=== PATIENT | female | born 1990 | race Two or more races ===

== ENCOUNTER 2020-03-13 08:46 | Outpatient (REF) | payer OTHER, SELFPAY ==
[2020-03-13 13:18] LABS: Syphilis Screen Nonreactive (Nonreactive)
[2020-03-14 04:36] LABS: HBc Num1 0.09 S/CO (0.00-0.79); HIV AB/AG Nonreactive (Nonreactive); HIV Num 1 0.06 S/CO (0.00-0.99); Hepatitis B Core Antibody Nonreactive (Nonreactive)
[2020-03-14 04:48] LABS: ~HepC Num1 0.19 S/CO (0.00-0.79); ~Hepatitis C Antibody Nonreactive (Nonreactive)
[2020-03-14 09:42] LABS: BV Int Neg Control Negative (Negative); BV Int Pos Control Positive (Positive)
== END 2020-03-13 08:47 | disposition home or self-care (01) ==
LOC: HO.LAB 08:46
PROVIDERS: PCP Internal Medicine; Visit Provider Advanced Practice Midwife
DX: N89.8 Other specified noninflammatory disorders of vagina (principal); Z88.0 Allergy status to penicillin; Z91.013 Allergy to seafood; Z91.018 Allergy to other foods; Z86.19 Personal history of other infectious and parasitic diseases; Z20.2 Contact with and (suspected) exposure to infections with a predominantly sexual mode of transmission
CPT/HCPCS: 86704; 86780; 86803; 87389; 87480; 87510; 87660; 99213

== ENCOUNTER → 2020-05-27 11:19 | Outpatient (BNVA) | payer OTHER, SELFPAY | PROVIDERS: PCP Internal Medicine; Visit Provider Physician Assistant | DX: R11.2 Nausea with vomiting, unspecified (principal); K21.9 Gastro-esophageal reflux disease without esophagitis | CPT/HCPCS: Q3014 ==

== ENCOUNTER 2020-05-29 10:22 | Outpatient (REF) | payer OTHER, SELFPAY ==
[2020-05-29 11:04] LABS: MANUAL DIFF FLAG NO
[2020-05-29 11:12] LABS: Basophils Percent Auto 0.4 % (0-2); Eosinophils Absolute Auto 0.3 X10*3/uL (0.0-0.4); Eosinophils Percent Auto 4.6 % (0-4); Hematocrit 43.6 % (37-47); Hemoglobin 13.9 g/dl (12.0-16.0); Imm Gran Abs Auto 0.02 X10*3/uL (0.00-0.03); Imm Gran Pct Auto 0.3 % (0.0-0.4); Lymphocytes Absolute Auto 1.7 X10*3/uL (1.2-4.9); Mean Corpuscular HGB Conc 31.9 g/dl (31.0-35.0); Mean Corpuscular Hemoglobin 27.9 pg (27.0-33.0); Mean Corpuscular Volume 87.4 fL (80-98); Mean Platelet Volume 10.4 fL (9.4-12.3); Monocytes Absolute Auto 0.6 X10*3/uL (0.1-1.2); Monocytes Percent Auto 8.7 % (2-11); Neutrophils Absolute Auto 4.6 X10*3/uL (2.0-8.3); Platelet Count 363 X10*3/uL (160-400); Red Blood Count 4.99 X10*6/uL (4.20-5.50); Red Cell Distribution Width 11.9 % (11.0-16.0); White Blood Count 7.3 X10*3/uL (4.8-10.8)
[2020-05-29 11:50] LABS: HCG Quantitative < 2 mIU/mL
[2020-05-29 12:03] LABS: Alanine Aminotransferase 25 U/L (0-31); Albumin Level 4.6 g/dL (3.5-5.0); Alkaline Phosphatase 68 U/L (39-117); Anion Gap 16 (12-20); Aspartate Amino Transferase 18 U/L (5-31); Bilirubin Total 1.8 mg/dL (0.0-1.0); Blood Urea Nitrogen 10 mg/dL (9-16); Calcium 9.2 mg/dL (8.4-10.2); Carbon Dioxide 21 mmol/L (22-29); Chloride 106 mmol/L (96-108); Estimated Glomerular Filt Rate > 60; Glucose Random 91 mg/dL (60-115); Sodium 139 mmol/L (135-145); Total Protein 7.3 g/dL (6.5-8.0)
[2020-05-29 12:24] LABS: Erythrocyte Sedimentation Rate 4 MM/HR (0-20)
[2020-05-30 13:41] LABS: CRP High Sensitivity 1.4 mg/L
[2020-05-31 21:52] LABS: Transglutaminase IgA 1 U/mL
[2020-06-04 18:12] LABS: Endomysial IgA Antibody Negative (Negative)
== END 2020-05-29 10:23 | disposition home or self-care (01) ==
LOC: HO.LAB 10:22
PROVIDERS: PCP Internal Medicine; Visit Provider Physician Assistant
DX: R11.2 Nausea with vomiting, unspecified (principal); R10.11 Right upper quadrant pain; R19.7 Diarrhea, unspecified
CPT/HCPCS: 36415; 80053; 83516; 84702; 85025; 85652; 86141; 86255; 86256

== ENCOUNTER → 2020-11-29 07:58 | Outpatient (REF) | payer OTHER, SELFPAY ==
--- NOTE | ~2020-11-29 | NM_ITS ---
EXAMINATION: NM RADIONUCLIDE SOLID FOOD GASTRIC EMPTYING 4-HOUR STUDY CLINICAL INFORMATION: Nausea and vomiting COMPARISON: None TECHNIQUE: A standard meal consisting of 4 oz of Egg Beaters brand tagged with 1.0 and microcuries Tc-99m Sulfur Colloid, 8 oz water and 2 slices of toast with jelly was administered orally to the patient. Images were obtained using a dual head gamma camera in the anterior and posterior projections over of the stomach immediately post ingestion and at hourly intervals up to 4 hours post ingestion. The anterior and posterior counts at each time interval were averaged using the geometric mean and expressed as percentage of the immediate post ingestion counts. FINDINGS: 1 hour 63% (normal 37%-90%) 2 hours 24% (normal 30%-60%) 3 hours 2% 4 hours 0% (normal 0%-10%) NM/NM gastric emptying study IMPRESSION: Normal 4-hour solid food gastric emptying study.
== END ==
LOC: HO.NUCMED 07:58
PROVIDERS: PCP Internal Medicine; Visit Provider Physician Assistant
DX: R11.2 Nausea with vomiting, unspecified (principal); K21.9 Gastro-esophageal reflux disease without esophagitis
CPT/HCPCS: 78264; A9541

== ENCOUNTER 2021-09-02 10:16 | Outpatient (REF) | payer OTHER, SELFPAY ==
--- NOTE | ~2021-09-02 | XR_ITS ---
EXAMINATION: XR ANKLE, RIGHT CLINICAL INFORMATION: S93.401A - Sprain of unspecified ligament of right ankle COMPARISON: None TECHNIQUE: AP, lateral, and mortise views of the right ankle. FINDINGS: The malleoli appear intact and the ankle mortise is symmetric. There is no visible capsular effusion. No fracture or dislocation or destructive process. There is incidental corticated ossicle adjacent to medial malleolus measuring approximately 0.6 x 0.9 cm. Small corticated ossicle suggested lateral side adjacent to the talar neck under 0.3 cm. The subtalar joint is unremarkable. There is small corticated incidental os trigonum posteriorly. The retrocalcaneal recess is preserved. There is a small posterior calcaneal spur. XR/XR ankle RT min 3V IMPRESSION: 1. No fracture, dislocation, or arthropathy. 2. Borderline posterior calcaneal spur.
== END 2021-09-02 10:17 | disposition home or self-care (01) ==
LOC: HO.HMGCX 10:16
PROVIDERS: Visit Provider Internal Medicine
DX: S93.401A Sprain of unspecified ligament of right ankle, initial encounter (principal)
CPT/HCPCS: 73610

== ENCOUNTER 2021-10-03 09:22 | Outpatient (REF) | payer OTHER, SELFPAY ==
[2021-10-03 17:04] LABS: CT PCR NOT DETECTED (Not Detect.); NG PCR NOT DETECTED (Not Detect.)
[2021-10-13 09:02] LABS: HPV mRNA E6/E7 rflx Detected (Not Detected)
[2021-10-13 09:05] LABS: HPV 16 RNA NOT DETECTED (NOT DETECTED)
== END 2021-10-03 09:23 | disposition home or self-care (01) ==
LOC: HO.LAB 09:22
PROVIDERS: PCP Internal Medicine; Visit Provider Advanced Practice Midwife
DX: Z01.419 Encounter for gynecological examination (general) (routine) without abnormal findings (principal); R82.90 Unspecified abnormal findings in urine; Z11.3 Encounter for screening for infections with a predominantly sexual mode of transmission; Z11.51 Encounter for screening for human papillomavirus (HPV); Z88.1 Allergy status to other antibiotic agents; Z88.0 Allergy status to penicillin; Z91.013 Allergy to seafood; Z91.018 Allergy to other foods
CPT/HCPCS: 87491; 87591; 87624; 87625; 88142

== ENCOUNTER 2021-12-08 08:11 | Outpatient (REF) | payer OTHER, SELFPAY | END 2021-12-08 08:12 | disposition home or self-care (01) | LOC: HO.LAB 08:11 | PROVIDERS: PCP Internal Medicine; Visit Provider Obstetrics & Gynecology | DX: A63.0 Anogenital (venereal) warts (principal); B97.7 Papillomavirus as the cause of diseases classified elsewhere | CPT/HCPCS: 57454; 88305 ==

== ENCOUNTER → 2021-12-23 08:28 | Outpatient (BNVA) | payer OTHER, SELFPAY | PROVIDERS: PCP Internal Medicine; Visit Provider Obstetrics & Gynecology | DX: B97.7 Papillomavirus as the cause of diseases classified elsewhere (principal) | CPT/HCPCS: 99212 ==

== ENCOUNTER 2022-03-05 07:37 | Outpatient (REF) | payer OTHER, SELFPAY ==
--- NOTE | ~2022-03-05 | XR_ITS ---
EXAMINATION: XR ANKLE, RIGHT CLINICAL INFORMATION: Pain COMPARISON: Right ankle x-rays September 02, 2021 TECHNIQUE: AP, lateral, and mortise views of the right ankle. FINDINGS: Visualized portions of the distal tibia and fibula demonstrate no acute fracture. Ankle mortise is maintained. Small corticated ossicles are stable. There is no focal soft tissue swelling of the ankle. No gross ankle joint effusion. XR/XR ankle RT 2V IMPRESSION: Stable radiographs of the right ankle demonstrate no fracture.
== END 2022-03-05 07:38 | disposition home or self-care (01) ==
LOC: HO.XRAY 07:37
PROVIDERS: PCP Internal Medicine; Visit Provider Internal Medicine
DX: M25.571 Pain in right ankle and joints of right foot (principal)
CPT/HCPCS: 73600

== ENCOUNTER → 2022-03-26 09:10 | Outpatient (BNVA) | payer OTHER, SELFPAY | PROVIDERS: PCP Internal Medicine; Visit Provider Internal Medicine Pulmonary Disease | DX: J45.909 Unspecified asthma, uncomplicated (principal) | CPT/HCPCS: 99212 ==

== ENCOUNTER 2022-10-06 08:57 | Outpatient (REF) | payer OTHER, SELFPAY ==
[2022-10-06 14:19] LABS: CT PCR NOT DETECTED (Not Detect.); NG PCR NOT DETECTED (Not Detect.)
[2022-10-13 10:33] LABS: HPV mRNA E6/E7 rflx Not Detected (Not Detected)
== END 2022-10-06 08:58 | disposition home or self-care (01) ==
LOC: HO.LNP 08:57
PROVIDERS: PCP Internal Medicine; Visit Provider Advanced Practice Midwife
DX: Z01.419 Encounter for gynecological examination (general) (routine) without abnormal findings (principal); Z11.51 Encounter for screening for human papillomavirus (HPV); Z20.2 Contact with and (suspected) exposure to infections with a predominantly sexual mode of transmission
CPT/HCPCS: 0353U; 87624; 88142

== ENCOUNTER 2023-01-07 10:19 | Outpatient (AMB) | payer OTHER, SELFPAY ==
[2023-01-07 10:20] VITALS: BP 126/80; PULSE 95; O2SAT 99; BMI 40.2
--- NOTE | 2023-01-07 10:20 | MHC.PC.OV ---
Vital Signs 01/07/23 10:20 Height 5 ft 1 in Weight 213 lb 0.6 oz BMI 40.2 BP 126/80 Blood Pressure Location Lt brachial Position Sitting Pulse 95 Pulse Source Pulse Oximeter Temp Source Skin Pulse Oximetry (%) 99 Oxygen Delivery Method Room Air Intake Visit Reasons: Physical Exam Intake Note: Patient is here today for a physical. Relocation Services Specialist Required: No Allergies apple [Apple] Allergy (Severe, Verified 01/07/23 10:36) SWELLING banana [BANANA] Allergy (Severe, Verified 01/07/23 10:36) SWELLING grape [GRAPE] Allergy (Severe, Verified 01/07/23 10:36) SWELLING strawberry [STRAWBERRY] Allergy (Severe, Verified 01/07/23 10:36) SWELLING amoxicillin [AMOXICILLIN] Allergy (Unknown, Verified 01/07/23 10:36) RASH Medication List - Last Reconciled 01/07/23 by RICARDA Isidro albuterol sulfate 90 mcg/actuation 1 inh inhalation QID 30 days hydroxyzine HCl 25 mg PO DAILY tacrolimus 0.03% topical BID triamcinolone acetonide 0.1% appl topical Tobacco use date assessed: 01/07/23 Dental Screening Dental Screen Date: 01/07/23 Did you have a dental visit in the last 12 months?: Yes Did you have a dental problem in the last 6 months where you did not have access to dental care?: No Was dental information given to patient?: Patient has dentist HPI Physical Exam HPI Details Patient is a 32-year-old female who presents today for physical exam. Patient of Dr. Gracia. Medical history significant for mild asthma and allergic rhinitis among others. Patient requested STI screening, gonorrhea chlamydia negative couple months ago. Denies STI exposure. Pap smear normal 09/2022 with [facility]. Up-to-date with dental and eye exams. Patient denies shortness of breath or chest pain. Up-to-date with tetanus vaccine. [facility] Medical History Allergic rhinitis Eczema Female infertility Hx of eczema Infertility counseling Mild asthma Nausea and vomiting Physical exam Right ankle sprain Vomiting and diarrhea Surgical History Hx of tonsillectomy Family History Father CVD (cardiovascular disease) Mother Hypertension Breast cyst Cervical cancer Paternal Aunt Cervical cancer Social History Household Members Other:: lives with partner, her child and a step daughter Alcohol intake: never Patient Tobacco Use Status: Former Tobacco user Current occupational status: employed Current occupation: [employer] Sexual orientation: Lesbian/Boggs/Homosexual Gender identity: Female Cognitive needs: No Hearing needs: No Vision needs: No Female Reproductive History Menstrual Age of Menarche: 13 Questionnaire PHQ-9 Over the last 2 weeks, how often have you been bothered by any of the following problems? 1. Little interest or pleasure in doing things: not at all 2. Feeling down, depressed, or hopeless: not at all 3. Trouble falling or staying asleep, or sleeping too much: not at all 4. Feeling tired or having little energy: not at all 5. Poor appetite or overeating: not at all 6. Feeling bad about yourself - or that you are a failure or have let yourself or your family down: not at all 7. Trouble concentrating on things, such as reading the newspaper or watching television: not at all 8. Moving or speaking so slowly that other people could have noticed. Or the opposite - being so fidgety or restless that you have been moving around a lot more than usual: not at all 9. Thoughts that you would be better off or of hurting yourself in some way: not at all Total score: 0 Depression Screening Interpretation: Negative 61286 - PHQ-9 Billing: Yes Source: Developed by Drs. Abdirashid Lemos, Anais Maya, Solomon Mcneal and colleagues, with an educational michelle from [employer]. Thrive Questionnaire Date Thrive assessed: 01/07/23 I am a: Patient What is your living situation today?: I have a steady place to live Within the past 12 months, did the food you bought not last and you didn't have the money to get more?: Never true Within the past 12 months, did you worry whether your food would run out before you got money to buy more?: Never true Do you have trouble paying for medicines?: No Do you have trouble getting transportation to medical appointments?: No Do you have trouble paying your heating and electricity bill?: No Do you have trouble taking care of your child, family member or friend?: No Do you have trouble with day-to-day activities such as bathing, preparing meals, shopping, managing finances, etc.?: No Are you currently unemployed and looking for a job?: No Are you interested in more education?: No Currently or been in a relationship where the following occur: no concerns reported AUDIT C Alcohol Use Questionnaire (AUDIT-C) 1. How often do you have a drink containing alcohol?: Never 3. How often do you have six or more drinks on one occasion?: Never Total Score: 0 Score Reviewed/Action Taken: No DEDRA-7 AMB Questionnaire DEDRA-7 Date DEDRA - 7 assessed: 01/07/23 Feeling nervous, anxious, or on edge: 0 = Not at all Not being able to stop or control worryin = Not at all Worrying too much about different things: 0 = Not at all Trouble relaxin = Not at all Being so restless that it is hard to sit still: 0 = Not at all Becoming easily annoyed or irritable: 0 = Not at all Feeling afraid as if something awful might happen: 0 = Not at all Total DEDRA-7 score (0-4 normal; 5-9 mild; 10-14 moderate; 15-21 severe): 0 Source: Developed by Drs. Abdirashid Lemos, Anais Maya, Solomon Mcneal and colleagues, with an educational michelle from [employer]. DEDRA-7 Assessment Billing DEDRA-7 Assessment Tool: DEDRA-7 Assessment 24995 Review of Systems Const Denies body aches, Denies chills, Denies fever(s) and Denies headache(s) Eyes Denies change in vision ENT Denies dizziness, Denies otalgia, Denies headache(s), Denies nasal discharge, Denies sinus pain and Denies sore throat Card Denies chest pain, Denies edema, Denies lightheadedness and Denies dyspnea Resp Denies cough, Denies dyspnea and Denies wheezing GI Denies abdominal pain, Denies constipation, Denies diarrhea, Denies nausea and Denies vomiting Denies dysuria Musc Denies myalgias Skin/Breast Denies rash Neuro Denies dizziness and Denies headache(s) Aller/Immun Denies wheezing Physical exam (Primary Care) Vital Signs: Last Vital Signs Pulse 95 01/07/23 10:20 BP 126/80 01/07/23 10:20 Pulse Ox 99 01/07/23 10:20 Oxygen Delivery Method Room Air 01/07/23 10:20 BMI result Body Mass Index 40.2 Tobacco/Smoking Status: Tobacco use Status Tobacco use date assessed 01/07/23 01/07/23 10:22 Patient Tobacco Use Status Former Tobacco user 01/07/23 10:27 PHQ-9: PHQ-9 Score PHQ-9: Total score 0 01/07/23 10:27 Depression Screening Interpretation: Negative Thrive Assessment: Date of Thrive Assessment Date Thrive assessed 01/07/23 01/07/23 10:22 Currently or been in a relationship where the following occur: no concerns reported Const General: cooperative and no acute distress Orientation/consciousness: patient oriented x3 HENMT Head: Yes normocephalic and Yes atraumatic Ears: TM's normal bilaterally Face and sinus: Yes sinuses nontender Mouth: oropharynx normal and moist mucous membranes Throat: Yes posterior oropharynx normal Eyes General: appearance normal, both eyes and all related structures Pupils: Equal, round and reactive pupils present EOM: EOMs intact bilaterally Neck Neck: Yes normal visual inspection, Yes full ROM and Yes no lymphadenopathy Thyroid: Thyroid normal Resp Effort & Inspection: normal respiratory effort and able to speak in complete sentences Auscultation: clear to auscultation bilaterally, no crackles, no rales, no rhonchi and no wheezes Cardio Rate: regular rate Rhythm: regular rhythm Heart sounds: S1 normal heart sound present, S2 normal heart sound present and no murmurs GI Palpation (GI): Soft to palpation, not firm, nontender, no guarding, not rigid and no hepatosplenomegaly Auscultation: normal bowel sounds General: No CVA tenderness Back/Spine/Pelvis Back: No CVA tenderness Skin General skin exam: no rashes or lesions noted Neuro General: patient oriented x3 Cranial nerves: Yes Equal, round and reactive pupils present Gait exam (Neuro): Normal gait present Extrem General: Yes full ROM and No edema Assessment and Plan Assessment & Plan (1) Routine screening for STI (sexually transmitted infection): Code(s): Z11.3 - Encounter for screening for infections with a predominantly sexual mode of transmission (2) Physical exam: Code(s): Z00.00 - Encounter for general adult medical examination without abnormal findings Plan: Repeat in 1 year Blood work ordered (3) Mild asthma: Code(s): J45.909 - Unspecified asthma, uncomplicated Plan: Stable Continue albuterol inhaler p.r.n. Followed by [facility] (4) Morbid obesity with BMI of 40.0-44.9, adult: Code(s): E66.01 - Morbid (severe) obesity due to excess calories; Z68.41 - Body mass index [BMI] 40.0-44.9, adult Plan: Encouraged healthy food choices and exercise as tolerated Orders: Orders Vitamin B12 and Folate Today Z00.00 - Encounter for general adult medical examination without abnormal findings Comprehensive Met. Panel Today Z00.00 - Encounter for general adult medical examination without abnormal findings TSH reflex Free T4 Today Z00.00 - Encounter for general adult medical examination without abnormal findings Vitamin D 25-OH Total Today Z00.00 - Encounter for general adult medical examination without abnormal findings Complete Blood Count Auto Diff Today Z00.00 - Encounter for general adult medical examination without abnormal findings Hepatitis B,C Profile Today Z11.3 - Encounter for screening for infections with a predominantly sexual mode of transmission HIV Ab/Ag Today Z11.3 - Encounter for screening for infections with a predominantly sexual mode of transmission Syphilis Screen Today Z11.3 - Encounter for screening for infections with a predominantly sexual mode of transmission Coding Level of Care Code Est Pt Prev Care 18-39y(22265) Diagnoses Routine screening for STI (sexually transmitted infection) Z11.3 Physical exam Z00.00 Mild asthma J45.909 Morbid obesity with BMI of 40.0-44.9, adult E66.01; Z68.41 Additional Codes DEDRA-7 Assessment Billing - DEDRA-7 Assessment Tool: DEDRA-7 Assessment [id number] ([id number])
== END 2023-01-07 10:49 | disposition home or self-care (01) ==
PROVIDERS: PCP Internal Medicine; Visit Provider Nurse Practitioner Family
DX: Z00.00 Encounter for general adult medical examination without abnormal findings (principal); J45.909 Unspecified asthma, uncomplicated; E66.01 Morbid (severe) obesity due to excess calories; Z68.41 Body mass index [BMI] 40.0-44.9, adult; Z11.3 Encounter for screening for infections with a predominantly sexual mode of transmission
CPT/HCPCS: 99395

== ENCOUNTER 2023-01-07 10:52 | Outpatient (REF) | payer OTHER, SELFPAY ==
[2023-01-07 11:11] LABS: MANUAL DIFF FLAG NO
[2023-01-07 12:20] LABS: Basophils Absolute Auto 0.1 X10*3/uL (0.0-0.2); Basophils Percent Auto 0.5 % (0-2); Hematocrit 40.4 % (37.0-47.0); Hemoglobin 13.1 g/dl (12.0-16.0); Imm Gran Abs Auto 0.03 X10*3/uL (0.00-0.03); Imm Gran Pct Auto 0.3 % (0.0-0.4); Lymphocytes Absolute Auto 2.5 X10*3/uL (1.2-4.9); Lymphocytes Percent Auto 24.5 % (20-40); Mean Corpuscular HGB Conc 32.4 g/dl (31.0-35.0); Mean Corpuscular Hemoglobin 27.9 pg (27.0-33.0); Mean Platelet Volume 10.8 fL (9.4-12.3); Monocytes Absolute Auto 0.9 X10*3/uL (0.1-1.2); Monocytes Percent Auto 8.7 % (2-11); Neutrophils Absolute Auto 5.6 x10*3/uL (2.0-8.3); Platelet Count 352 X10*3/uL (160-400); White Blood Count 10.1 X10*3/uL (4.8-10.8)
[2023-01-07 13:16] LABS: Alanine Aminotransferase 50 U/L (0-31); Albumin Level 4.2 g/dL (3.5-5.0); Alkaline Phosphatase 80 U/L (39-117); Anion Gap 13 (12-20); Aspartate Amino Transferase 26 U/L (5-31); Bilirubin Total 0.6 mg/dL (0.0-1.0); Blood Urea Nitrogen 10 mg/dL (9-16); Calcium 9.1 mg/dL (8.4-10.2); Carbon Dioxide 22 mmol/L (22-29); Chloride 108 mmol/L (96-108); Estimated Glomerular Filt Rate > 60; Glucose Random 102 mg/dL (60-115); Potassium 3.6 mmol/L (3.3-5.1); Sodium 139 mmol/L (135-145); Total Protein 7.2 g/dL (6.5-8.0)
[2023-01-07 13:33] LABS: TSH reflex Free T4 2.49 uIU/mL (0.32-4.0)
[2023-01-07 13:43] LABS: Folate 7.5 ng/mL (> or = 4.0); Vitamin B12 406 pg/mL (200-900)
[2023-01-08 04:11] LABS: Syphilis Screen Nonreactive (Nonreactive)
[2023-01-08 04:39] LABS: HBS Num1 0.42 mIU/mL (0-7.99); HIV AB/AG Nonreactive (Nonreactive); HIV Num 1 0.06 S/CO (0.00-0.99); Hepatitis B Core Antibody Nonreactive (Nonreactive); Hepatitis B Surface Antigen Negative (Negative); ~HepC Num1 0.12 S/CO (0.00-0.79); ~Hepatitis B Surface Antibody NONREACTIVE (Nonreactive); ~Hepatitis C Antibody Nonreactive (Nonreactive)
== END 2023-01-07 10:53 | disposition home or self-care (01) ==
LOC: HO.LAB 10:52
PROVIDERS: PCP Internal Medicine; Visit Provider Nurse Practitioner Family
DX: Z00.00 Encounter for general adult medical examination without abnormal findings (principal); Z11.3 Encounter for screening for infections with a predominantly sexual mode of transmission; Z11.4 Encounter for screening for human immunodeficiency virus [HIV]
CPT/HCPCS: 36415; 80053; 82306; 82607; 82746; 84443; 85025; 86704; 86706; 86780; 86803; 87340; 87389

== ENCOUNTER 2023-04-09 13:49 | Outpatient (REF) | payer OTHER, SELFPAY ==
[2023-04-10 13:30] LABS: BV Int Neg Control Negative (Negative); BV Int Pos Control Positive (Positive)
== END 2023-04-09 13:50 | disposition home or self-care (01) ==
LOC: HO.LNP 13:49
PROVIDERS: PCP Internal Medicine; Visit Provider Advanced Practice Midwife
DX: N89.8 Other specified noninflammatory disorders of vagina (principal)
CPT/HCPCS: 87480; 87510; 87660; 99212

== ENCOUNTER 2023-04-09 13:55 | Outpatient (AMB) | payer OTHER, SELFPAY ==
[2023-04-09 13:57] VITALS: BP 144/82; BMI 39.1
--- NOTE | 2023-04-09 13:57 | A.OFFVIS_ITS ---
Intake Vital Signs 04/09/23 13:57 Height 5 ft 1 in Weight 207 lb BMI 39.1 BP 144/82 H Intake Visit Reasons: VAG DISCOMFORT Intake Note: vaginal itching on the outside not sure if it's due to eczema flair. Pest Control Pilot Required: No Information Interpreted: non-clinical & clinical Regional Account Executive: Regional Account Executive Present (Aidyn) Allergies apple [Apple] Allergy (Severe, Verified 04/09/23 14:02) SWELLING banana [BANANA] Allergy (Severe, Verified 04/09/23 14:02) SWELLING grape [GRAPE] Allergy (Severe, Verified 04/09/23 14:02) SWELLING strawberry [STRAWBERRY] Allergy (Severe, Verified 04/09/23 14:02) SWELLING animal dander Allergy (Mild, Verified 04/09/23 14:02) Wheezing Seasonal Allergies Allergy (Mild, Verified 04/09/23 14:02) Wheezing amoxicillin [AMOXICILLIN] Allergy (Unknown, Verified 04/09/23 14:02) RASH Medication List - Last Reconciled 04/09/23 by Magda Clay CNM albuterol sulfate 90 mcg/actuation 1 inh inhalation QID 30 days hydroxyzine HCl 25 mg PO DAILY tacrolimus 0.03% topical BID triamcinolone acetonide 0.1% appl topical Is last menstrual period known: Yes Last menstrual period: 04/02/23 Post menopausal: No HPI VAG DISCOMFORT HPI Details Has some vaginal burning and irritation and itching that she is wondering if it is yeast or something or if it is her eczema she has very severe allergies asthma and eczema for which 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 She has been told she needs to lose weight and her liver functions were elevated. [facility] Medical History Allergic rhinitis Eczema Female infertility Hx of eczema Infertility counseling Mild asthma Nausea and vomiting Physical exam Right ankle sprain Vomiting and diarrhea Surgical History Hx of tonsillectomy Family History Father CVD (cardiovascular disease) Mother Hypertension Breast cyst Cervical cancer Paternal Aunt Cervical cancer Social History Household Members Other:: lives with partner, her child and a step daughter Alcohol intake: never Patient Tobacco Use Status: Former Tobacco user Current occupational status: employed Current occupation: [employer] Sexual orientation: Lesbian/Boggs/Homosexual Gender identity: Female Cognitive needs: No Hearing needs: No Vision needs: No Female Reproductive History Menstrual Age of Menarche: 13 Duration of menses: 3-5 days Date of last menstrual period: 04/02/23 control method: none Total pregnancies: 1 Ab spontaneous: 1 Date of last pap smear: 10/08/22 (negative) History of abnormal pap smear: Yes (2021 +HPV) Physical Exam Vital Signs: Last Vital Signs BP 144/82 H 04/09/23 13:57 BMI result Body Mass Index 39.1 Other: Some mild erythema and dryness to labia minora around clitoris and labia consistent with mild yeast External Female Exam: normal external appearance and normal appearance of the urethra Speculum Exam - Vagina: normal appearance of the vagina and normal vaginal discharge Speculum Exam - Cervix: normal appearance of the cervix and Cervical os closed Results Reviewed Results Reviewed: Name: Tammie Mitchell Age/Sex: 32/F Attending: Fabiana José CNM : 1990 Submitted by: Fabiana José CNM Copies to: Keli Solorio MD MR #: [id number] Status: DEP REF Collected: 10/06/22 Location: [facility] Received: 10/08/22 Interpretation Satisfactory for evaluation. Negative for intraepithelial lesion or malignancy. HPV mRNA E6/E7: NOT DETECTED This assay detects E6/E7 viral messenger RNA (mRNA) from 14 high-risk HPV types (16, 18, 31, 33, 35, 39, 45, 51, 52, 56, 58, 59, 66, 68) HPV testing performed by [facility], [place], [place]. See reference laboratory pion of the EMR for entire report. Clinical Information LMP: 09/26/22 Previous PAP test: 10/12, HPV+ Material Received ThinPrep-Cervical Copies To Fabiana José[address] [place] [address] Keli Solorio [address] [place] [address] Electronically Signed By: DION Gilbert (ASCP) 10/20/22 1229 The Pap Test is a screening procedure with the inherent possibility of both false negative and false positive results. Results should be interpreted in the context of historic and current clinical findings. Reliability of the Pap Test is enhanced by performing the test on a regular repetitive basis. Patient: Tammie Mitchell Age/Sex: 32/F MR#: [id number] Name: Tammie Mitchell Age/Sex: 32/F : 1990 Unit#: [id number] Attend Dr: Naomie Michelle Re01/07/23 Status: DEP [facility]F [facility] Disch: SPEC : [id number] PERICO: 01/07/23 STATUS: COMP REQ : [id number] RECD: 08/17/23-[address]: Naomie Michelle LEAN [employer] SENIOR SPECIALIST COMP: 01/07/23-1333 ENTERED: 01/07/23-[address]: Keli Solorio MD ORDERED: CMP, Vitamin D 25-OH, TSH Rflx Test Result Flag Reference Site Sodium 139 135-145 mmol/L Potassium 3.6 3.3-5.1 mmol/L CL 108 96-108 mmol/L CO2 22 22-29 mmol/L Gap 13 12-20 BUN 10 9-16 mg/dL Creat 0.71 0.5-1.4 mg/dL EGFR > 60 NOTE: For -[place] individuals, multiply the result by 1.210. Chronic Kidney Disease: Estimated GFR < 60 mL/min/1.73m2 Severe Kidney Disease: Estimated GFR < 15 mL/min/1.73m2 Glucose, Random 102 60-115 mg/dL CA 9.1 8.4-10.2 mg/dL Total Bili 0.6 0.0-1.0 mg/dL AST (GOT) 26 5-31 U/L ALT (GPT) 50 H 0-31 U/L Protein, Total 7.2 6.5-8.0 g/dL Alb 4.2 3.5-5.0 g/dL Alk Phos 80 39-117 U/L Vit D 25-OH Tot 17.0 >30 ng/mL Health Based Reference Values* < 20 ng/mL Deficient 20-30 ng/mL Insufficient > 30 ng/mL Sufficient *Gaye WILKS. N Engl J Med. 2007;357:266-280 Care must be taken in interpreting Vitamin D results from different laboratories and methodologies. Published data demonstrated that results from patients undergoing hemodialysis may show a negative bias when tested with various automated 25-OH vitamin D assays when compared to LC-MS/MS. When testing samples from patients whose predominant form of Vitamin D is Vitamin D2, such as patients receiving Vitamin D2 supplementation, results that are subtherapeutic should be confirmed with another method such as LC-MS/MS. TSH 2.49 0.32-4.0 uIU/mL Assessment & Plan Assessment & Plan (1) Vaginal irritation: Comment: c/w mild yeast- rx miconazole Code(s): N89.8 - Other specified noninflammatory disorders of vagina Plan ---I reviewed her symptoms we reviewed what she may have done alleviate sym ptoms. I reviewed contributing factors to yeast infection including clothing that may be a little tight or does not permit air to pass to the vulva well, including non cotton underwear, nylon and polyester type workout clothes and yoga pants, use of panty liners pads for periods etc. My recommendations include use of the medication that we decided upon, allowing air to her vulva as much as possible including wearing cotton underwear and possibly no underwear at night when possible. Any other contributing factors were explored. I encouraged her not to scratch. I reviewed what to do when she feels symptoms first starting, (re-double her efforts at allowing air to Discussed our normal vaginal alfredito and the wide variety of abundant bacteria and fungus I and mucus components that may get up in a complex changing environment responding to anything that we put in and substances we may use for cleansing or wiping as well as sexual intercourse and any introduced bacteria and viruses. Discussed the hormonal shifts that happen through a normal menstrual cycle contributing to changes in the vaginal discharge from clear after the the. To clear and white slippery and abundant like egg white around the time of ovulation, followed by a thickening and drying of the scant white mucus afterwards until a new. Comes. All of these changes are responding to the hormonal shifts in our cycle. Also discussed the limitations of our testing, which are testing for the DNA of the following microbes. Currently, one of the tests we have includes a test that tests for Gardnerella, cassandra, and trichomoniasis (which is an STD). The other test we use tests concurrently for the presence of chlamydia and gonorrhea. As both of these are not normal vaginal alfredito, but instead are only sexually transmitted they are in fact in STD or STI, and do need to be treated as well as the partner needs to be treated The presence of Gardnerella does not necessarily mean that we have bacterial vag inosis but the syndrome of bacterial vaginosis includes the creamy adherent discharge that clings to the epithelial cells of the vaginal wall and coats the cells with bacteria and Im part fishy odor when the pH of the environment is altered by either menstrual flow urine or semen or other products. If this discharge is also accompanied by itching and discomfort and any other symptoms than it is worth treating . The presence of Cassandra alone does not necessarily mean a yeast infection but if there is itching burning vaginal redness and irritation then then that is an indication of a yeast infection and is definitely worth treating. Both of these conditions can be in part prevented by use of cotton under clothing, avoidance of tight clothing in general allowing air to vaginal areas and vulva avoidance of other soaps and scented products and chemicals, and condom use. In addition avoidance of menstrual sanitary products like pads and panty liners can contribute to better health as well.the area.) She does her best to wear cotton and lose clothing and goes without on these when she is sleeping. The findings are more consistent with a mild yeast and the discharge is not in any way consistent with bacterial vaginosis prescription sent for miconazole cream however it may not be covered by her insurance so I wrote it down on paper for her observer helper she can explore the cheapest source for it be it at [employer] or [employer] her [facility]. Orders: Orders Bacterial Vaginosis Panel Today N89.8 - Other specified noninflammatory disorders of vagina Coding Level of Care Code Est Pt Level 3 (07534) Diagnoses Vaginal irritation N89.8
== END 2023-04-09 15:11 | disposition home or self-care (01) ==
PROVIDERS: PCP Internal Medicine; Visit Provider Advanced Practice Midwife
DX: N89.8 Other specified noninflammatory disorders of vagina (principal)
CPT/HCPCS: 99213

== ENCOUNTER 2023-04-14 15:37 | Emergency (ER) | payer OTHER, SELFPAY ==
--- NOTE | ~2023-04-14 | XR_ITS ---
EXAMINATION: XR CHEST CLINICAL INFORMATION: Asthma with cough. COMPARISON: None available. TECHNIQUE: 2 views of the chest were obtained. FINDINGS: No significant abnormality is noted involving the heart, lungs, mediastinum, bony thorax or soft tissues. XR/XR chest 2V IMPRESSION: Unremarkable examination.
--- NOTE | 2023-04-14 15:51 | ED.URI ---
HPI - URI/Sore Throat General Chief Complaint: Asthma Stated Complaint: difficulty breathing, hx of asthma Time Seen by Provider: 04/14/23 16:41 Source: patient Mode of arrival: ambulatory Limitations: no limitations History of Present Illness HPI Narrative: 32 yold female history of asthma presents to ED for 1 week of asthma exacerbation. Patient states having wheezing and no relief with albuterol inhaler. Patient does not have a nebulizer at home. Patient denies any leg swelling, calf pain, coughing up blood, chest pain on inspiration, or shortness of breath/ chest pain on ambulation. Patient denies any recent long travel recent surgery, control use, pleurisy, or history of blood clots. Patient denies coughing up blood. Related Data Home Medications Medication Instructions Recorded Confirmed tacrolimus 0.03 % topical ointment topical BID 03/13/20 04/09/23 triamcinolone acetonide 0.1 % applic topical 03/13/20 04/09/23 topical cream hydroxyzine HCl 25 mg tablet 25 mg PO DAILY 01/07/23 04/09/23 Previous Rx's Medication Instructions Recorded miconazole nitrate 2 % vaginal 1 appful vaginal BEDTIME 7 days 04/09/23 cream (Miconazole-7) #45 grams metronidazole 500 mg tablet 500 mg PO BID 7 days #14 tabs 04/12/23 albuterol sulfate 90 mcg/actuation 1 inh inhalation QID 30 days #6.7 04/14/23 aerosol inhaler grams prednisone 20 mg tablet 40 mg (2 x 20 mg) PO DAILY 5 days 04/14/23 #10 tabs Allergies Allergy/AdvReac Type Severity Reaction Status Date / Time apple [Apple] Allergy Severe SWELLING Verified 04/14/23 15:48 banana [BANANA] Allergy Severe SWELLING Verified 04/14/23 15:48 grape [GRAPE] Allergy Severe SWELLING Verified 04/14/23 15:48 strawberry [STRAWBERRY] Allergy Severe SWELLING Verified 04/14/23 15:48 animal dander Allergy Mild Wheezing Verified 04/14/23 15:48 Seasonal Allergies Allergy Mild Wheezing Verified 04/14/23 15:48 amoxicillin [AMOXICILLIN] Allergy Unknown RASH Verified 04/14/23 15:48 Review of Systems Review of Systems: Asthma exacerbation wheezing. Yes all other systems are reviewed and are negative PMFSH Past Medical History Medical History Allergic rhinitis Eczema Female infertility Hx of eczema Infertility counseling Mild asthma Nausea and vomiting Physical exam Right ankle sprain Vomiting and diarrhea Surgical History Hx of tonsillectomy Family History Family History Father CVD (cardiovascular disease) Mother Hypertension Breast cyst Cervical cancer Paternal Aunt Cervical cancer Social History Household Members Other:: lives with partner, her child and a step daughter Alcohol intake: never Patient Tobacco Use Status: Former Tobacco user Advance Directives: No Advance Directives Information Provided: No Current occupational status: employed 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[employer] Sexual orientation: Lesbian/Boggs/Homosexual Gender identity: Female Cognitive needs: No Hearing needs: No Vision needs: No Physical Exam Vital Signs: Vital Signs: Last Vital Signs Temp 97.9 F 04/14/23 15:52 Pulse 86 04/14/23 17:28 Resp 18 04/14/23 17:28 BP 140/92 H 04/14/23 17:06 Pulse Ox 96 04/14/23 17:06 O2 Del Method Room Air 04/14/23 17:06 BMI result Body Mass Index 39.5 Const: General: cooperative, healthy appearing, comfortable, no acute distress, well developed, alert, awake and Physically active Orientation/consciousness: oriented to person, oriented to place, oriented to time and patient oriented x3 HEENT: Head: Yes normal to inspection, Yes No palpable skull fracture present, Yes normocephalic and Yes atraumatic Eyes: General: appearance normal, both eyes and all related structures Neck: Neck: Yes normal visual inspection, Yes full ROM, Yes no lymphadenopathy, Yes no meningeal signs, Yes trachea midline, Yes supple, No anterior neck swelling and No tender Chest: Chest palpation & inspection: normal inspection of the chest and normal palpation of entire chest wall Resp: Effort & Inspection: normal respiratory effort and able to speak in complete sentences Auscultation: clear to auscultation bilaterally and wheezes expiratory wheezes and throughout Cardio: Jugular venous distension: no JVD Heart sounds: S1 normal heart sound present and S2 normal heart sound present GI: Inspection: Yes normal to inspection Palpation (GI): Soft to palpation, not firm, nontender, no guarding and not rigid : General: No CVA tenderness and Yes no CVA tenderness Back/Spine/Pelvis: Back: no CVA tenderness, No CVA tenderness and No back tenderness Skin: General skin exam: no rashes or lesions noted, elasticity normal and turgor normal Neuro: General: oriented to person, oriented to place, oriented to time, patient oriented x3, gait normal, tone normal, moves all extremities, Normal light touch and pain sensation, no meningeal signs, no focal motor deficits, CN's II-XI intact bilaterally and normal sensation to monofilament Extrem: Other: Bilateral lower extremity negative for swelling, pitting edema, or calf tenderness General: Yes normal to inspection, Yes full ROM and Yes capillary refill normal Psych: Appearance: grossly normal, well kempt and not disheveled Course Course Course Narrative: This is a rapid medical exam. Deferred additional HPi, ROS, PE to primary provider. 32 yo female here with asthma symptoms x 1 week, relates to allergies. Using albuterol MDI. Will obtain testing for RSV/flu/covid VSS Medications Administered Discontinued Medications Generic Name Dose Route Start Last Admin Trade Name Freq PRN Reason Stop Dose Admin Albuterol/Ipratropium 3 ml 04/14/23 16:16 04/14/23 16:19 Albuterol/Iprat 2.5/0.5mg 3 Ml Ampul.Neb INHALE 04/14/23 16:17 3 ml ONCE ONE Administration Albuterol/Ipratropium 3 ml 04/14/23 17:25 04/14/23 17:28 Albuterol/Iprat 2.5/0.5mg 3 Ml Ampul.Neb INHALE 04/14/23 17:26 3 ml ONCE ONE Administration Prednisone 60 mg 04/14/23 16:57 04/14/23 17:04 Prednisone 20 Mg Tablet PO 04/14/23 16:58 60 mg ONCE ONE Administration Medical Decision Making Medical Decision Making [facility] Narrative: [age] female presents to the ED for asthma exacerbation. Patient has history of asthma. Patient state wheezing and slight cough. Patient denies any pleurisy, leg swelling, calf pain, coughing blood, recent long travel, recent surgery or any control use. Patient given nebulizer treatment with steroids. Patient is swabbed for COVID RSV and influenza. 6:52pm: Patient's SARs influenza RSV COVID negative. Chest x-ray normal. Wheezing resolved after 2nd treatment of DuoNeb. O2 saturation normalized. Patient is safe for discharge. Differential Diagnosis Differential Diagnoses: The differential diagnosis associated with the presentation includes ( Asthma exacerbation, pneumonia, RSV, COVID, influenza) Admission/Observation Consideration of admission/observation: Escalation of care including admission/observation considered Lab Data MDM Lab Attestation statement: I reviewed the patient's lab results. Labs: Lab Results 04/14/23 Range/Units 16:55 Influenza Type A (PCR) NEGATIVE (Negative) Influenza Type B (PCR) NEGATIVE (Negative) RSV RNA Qual (PCR) NEGATIVE (Negative) SARS-CoV-2 RNA (RT-PCR) NEGATIVE (Negative) Independent Interpretation I performed an independent interpretation of an: Plain X-Ray Radiology Impression Discussion of test interpretation with radiology: I have reviewed the radiologist's reading. Independent Historian Clinical information obtained from an independent historian. History obtained from or confirmed by: Parent External Record Review External record reviewed: Other ( prior visit) Prescription Management I considered prescription management with: Other ( steroids) Discharge Plan Discharge Clinical Impression: Asthma Patient Disposition: Home, Self-Care Instructions: Asthma (ED) Additional Instructions: return to the ED immediately for any shortness of breath, chest pain, leg swelling, calf pain, coughing up blood, pleurisy, fever, chills, weakness, dizziness, or any other concerning symptoms. Continue using albuterol inhaler as needed. Please follow-up with the primary care provider Prescriptions: New prednisone 20 mg tablet 40 mg PO DAILY 5 Days Qty: 10 0RF No Action metronidazole 500 mg tablet 500 mg PO BID 7 Days Qty: 14 0RF albuterol sulfate 90 mcg/actuation HFA aerosol inhaler 1 inh inhalation QID 30 Days Qty: 6.7 1RF hydroxyzine HCl 25 mg tablet 25 mg PO DAILY triamcinolone acetonide 0.1 % cream topical tacrolimus 0.03 % ointment topical BID miconazole nitrate [Miconazole-7] 2 % cream 1 appful vaginal BEDTIME 7 Days Qty: 45 3RF Stand Alone Forms: Work/School Release Interventions: ED Discharge Assessment Last Done: 04/14/23 19:05 Discharge Date/Time: 04/14/23 19:05 Print Language: New Zealander
[2023-04-14 15:52] VITALS: BP 177/108; PULSE 92; RESP 18; TEMP 36.6; O2SAT 94; BMI 39.5
[2023-04-14] MEDS: Albuterol/Iprat 2.5/0.5MG 3 ML AMPUL.NEB INHALE ×2 (16:19→17:28)
[2023-04-14 16:22] VITALS: PULSE 92; RESP 16; O2SAT 95
[2023-04-14] MEDS: predniSONE 20 MG TABLET 60 MG PO (17:04)
[2023-04-14 17:06] VITALS: BP 140/92; PULSE 86; RESP 18; O2SAT 96
[2023-04-14 17:28] VITALS: PULSE 86; RESP 18; O2SAT 96
[2023-04-14 17:47] LABS: Influenza A PCR NEGATIVE (Negative); Influenza B PCR NEGATIVE (Negative); Resp Syncy Virus RNA Qual PCR NEGATIVE (Negative); SARS COV2 PCR INHOUSE NEGATIVE (Negative)
== END 2023-04-14 19:05 | disposition home or self-care (01) ==
PROVIDERS: Nurse Practitioner Family; Emergency Provider Emergency Medicine; PCP Internal Medicine
DX: J45.901 Unspecified asthma with (acute) exacerbation (principal); R05.9 Cough, unspecified; Z20.822 Contact with and (suspected) exposure to COVID-19; Z20.828 Contact with and (suspected) exposure to other viral communicable diseases
CPT/HCPCS: 0241U; 71046; 94640; 99284

== ENCOUNTER 2023-05-11 12:57 | Outpatient (REF) | payer OTHER, SELFPAY ==
[2023-05-12 06:09] LABS: CT PCR NOT DETECTED (Not Detect.); NG PCR NOT DETECTED (Not Detect.)
[2023-05-12 12:44] LABS: BV Int Neg Control Negative (Negative); BV Int Pos Control Positive (Positive)
== END 2023-05-11 12:58 | disposition home or self-care (01) ==
LOC: HO.LAB 12:57
PROVIDERS: PCP Internal Medicine; Visit Provider Advanced Practice Midwife
DX: Z01.419 Encounter for gynecological examination (general) (routine) without abnormal findings (principal); N89.8 Other specified noninflammatory disorders of vagina; Z20.2 Contact with and (suspected) exposure to infections with a predominantly sexual mode of transmission; Z11.3 Encounter for screening for infections with a predominantly sexual mode of transmission
CPT/HCPCS: 0353U; 87480; 87510; 87660; 99212

== ENCOUNTER 2023-05-11 12:57 | Outpatient (AMB) | payer OTHER, SELFPAY ==
[2023-05-11 12:59] VITALS: BP 142/84
--- NOTE | 2023-05-11 12:59 | MHC.OFFVIS ---
Intake Vital Signs 05/11/23 12:59 Height 5 ft 1 in BP 142/84 H Intake Visit Reasons: vag irritation Information Interpreted: clinical only Civil Engineer In Training: Civil Engineer In Training Present Allergies apple [Apple] Allergy (Severe, Verified 05/11/23 12:59) SWELLING banana [BANANA] Allergy (Severe, Verified 05/11/23 12:59) SWELLING grape [GRAPE] Allergy (Severe, Verified 05/11/23 12:59) SWELLING strawberry [STRAWBERRY] Allergy (Severe, Verified 05/11/23 12:59) SWELLING animal dander Allergy (Mild, Verified 05/11/23 12:59) Wheezing Seasonal Allergies Allergy (Mild, Verified 05/11/23 12:59) Wheezing amoxicillin [AMOXICILLIN] Allergy (Unknown, Verified 05/11/23 12:59) RASH Medication List - Last Reconciled 05/11/23 by Magda Clay CNM albuterol sulfate 90 mcg/actuation 1 inh inhalation QID 30 days hydroxyzine HCl 25 mg PO DAILY metronidazole 500 mg PO BID 7 days miconazole nitrate 2% (Miconazole-7) 1 appful vaginal BEDTIME 7 days tacrolimus 0.03% topical BID triamcinolone acetonide 0.1% appl topical Is last menstrual period known: Yes Last menstrual period: 04/30/23 Do you need a note to return to daycare/school/sports/work: No HPI vag irritation HPI Details Is here to recheck her symptoms of vaginal irritation. She was seen about 3 and half weeks ago and there were no really distinctive abnormal findings there was a little bit of vaginal inflammation enough to suggest possible yeast infection for which Monistat cream was given for p.r.n. use pending the culture results the testing showed Gardnerella but no Cassandra in fact so she took the option of metronidazole pills. She says she did feel an improvement after both the cream and then later on the pills for the BV. But now she has her symptoms again she has been trying her best to wear cotton and ease go without on these at night she has not been sexually active since because she wants to get things back to normal 1st she is in a same-sex relationship and she in her have a son was 4 years old who her partner carried. The patient herself was trying to get for a while and it was not happening so she decided to give it a rest for a while. She gets regular cycles she feels she is ovulating now or in these days. She has intentions to work on weight loss. She has been still working 12 hours over nights she does wear panty liners when she is working because she feels she has a lot of a discharge when she is working. 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 Patient is very self aware and well-versed in what she needs to do so this visit was a lot exploring other strategies. She has already cut out sugar in her diet and is really doing her best to up her self-care. 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[employer] Sexual orientation: Lesbian/Boggs/Homosexual Gender identity: Female Cognitive needs: No Hearing needs: No Vision needs: No Female Reproductive History Menstrual Age of Menarche: 13 Date of last menstrual period: 04/30/23 control method: none History of abnormal pap smear: Yes (2021 abnormal Pap+ HPV, last pap negative 10/08/22) Physical Exam Vital Signs: Last Vital Signs BP 142/84 H 05/11/23 12:59 Other: External vulva within normal limits patient described her vaginal itching as more near the clitoris and the mucosal surface near the clitoris is ever so slightly darker pink than surrounding areas so this would be consistent with her symptoms. Vagina is pink moist healthy appearing discharge swabs were taken for gonorrhea chlamydia trichomoniasis Gardnerella and Cassandra and we will await results she has some Monistat which she can feel free to use but really I recommend air and lack of panty liners. Cervix nulliparous pink healthy. Scant white discharge that could be consistent with normal alfredito. Assessment & Plan Assessment & Plan (1) Vaginal irritation: Comment: c/w mild yeast- rx miconazole Code(s): N89.8 - Other specified noninflammatory disorders of vagina Plan Is here to recheck her symptoms of vaginal irritation. She was seen about 3 and half weeks ago and there were no really distinctive abnormal findings there was a little bit of vaginal inflammation enough to suggest possible yeast infection for which Monistat cream was given for p.r.n. use pending the culture results the testing showed Gardnerella but no Cassandra in fact so she took the option of metronidazole pills. She says she did feel an improvement after both the cream and then later on the pills for the BV. But now she has her symptoms again she has been trying her best to wear cotton and ease go without on these at night she has not been sexually active since because she wants to get things back to normal 1st she is in a same-sex relationship and she in her have a son was 4 years old who her partner carried. The patient herself was trying to get for a while and it was not happening so she decided to give it a rest for a while. She gets regular cycles she feels she is ovulating now or in these days. She has intentions to work on weight loss. She has been still working 12 hours over nights she does wear panty liners when she is working because she feels she has a lot of a discharge when she is working. 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 Patient is very self aware and well-versed in what she needs to do so this visit was a lot exploring other strategies. She has already cut out sugar in her diet and is really doing her best to up her self-care. She has a prescription for miconazole with 3 refills and she still has some of the original tube of cream left and she says that she finds it is oozing her main irritation is near her clitoris and the mucosal membrane near that area is ever so slightly darker pink than surrounding areas. My recommendations still would be to ditch the panty liners if she can at all but understandably there are days when sometimes a person may choose to make other choices and just to understand that she may have some more vaginal irritation after she makes that particular choice. One other option would be to carry clean cotton undies in a baggy and change her underwear during the day if she felt the need and that way she could avoid panty liners completely Coding Level of Care Code Est Pt Level 3 (93993) Diagnoses Vaginal irritation N89.8
== END 2023-05-11 14:03 | disposition home or self-care (01) ==
LOC: HO.HWSM 12:57
PROVIDERS: PCP Internal Medicine; Visit Provider Advanced Practice Midwife
DX: N89.8 Other specified noninflammatory disorders of vagina (principal)
CPT/HCPCS: 99213

== ENCOUNTER 2023-05-15 00:49 | Observation (INO) | payer OTHER, SELFPAY ==
[2023-05-15] VITALS (11 sets, daily range): BP systolic 127–156; BP diastolic 73–101; PULSE 94–129; RESP 14–20; TEMP 36.1–36.8; O2SAT 94–99; BMI 40.1; BMI 39.4
--- NOTE | ~2023-05-15 | XR_ITS ---
EXAMINATION: XR CHEST CLINICAL INFORMATION: Evaluate for pneumonia COMPARISON: 04/14/2023 TECHNIQUE: Frontal view of the chest was obtained. FINDINGS: No significant abnormality is noted involving the heart, lungs, mediastinum, bony thorax or soft tissues. XR/XR chest 1V IMPRESSION: Unremarkable examination.
--- NOTE | 2023-05-15 01:05 | ED.SOB ---
HPI - SOB/Dyspnea General Chief Complaint: Dyspnea Stated Complaint: difficulty breathing Time Seen by Provider: 05/15/23 00:59 Source: patient Mode of arrival: ambulatory Limitations: no limitations History of Present Illness HPI Narrative: patient comes to the emergency room complaining of shortness of breath. Patient states that she has been having cough for about a month. Patient has been using her inhaler multiple times a day without any relief. Patient denies chest pain. Denies fever, has chills. No chest pain Related Data Home Medications Medication Instructions Recorded Confirmed tacrolimus 0.03 % topical ointment topical BID 03/13/20 05/11/23 triamcinolone acetonide 0.1 % applic topical 03/13/20 05/11/23 topical cream hydroxyzine HCl 25 mg tablet 25 mg PO DAILY 01/07/23 05/11/23 Previous Rx's Medication Instructions Recorded miconazole nitrate 2 % vaginal 1 appful vaginal BEDTIME 7 days 04/09/23 cream (Miconazole-7) #45 grams metronidazole 500 mg tablet 500 mg PO BID 7 days #14 tabs 04/12/23 albuterol sulfate 90 mcg/actuation 1 inh inhalation QID 30 days #6.7 04/14/23 aerosol inhaler grams Allergies Allergy/AdvReac Type Severity Reaction Status Date / Time apple [Apple] Allergy Severe SWELLING Verified 05/11/23 12:59 banana [BANANA] Allergy Severe SWELLING Verified 05/11/23 12:59 grape [GRAPE] Allergy Severe SWELLING Verified 05/11/23 12:59 strawberry [STRAWBERRY] Allergy Severe SWELLING Verified 05/11/23 12:59 animal dander Allergy Mild Wheezing Verified 05/11/23 12:59 Seasonal Allergies Allergy Mild Wheezing Verified 05/11/23 12:59 amoxicillin [AMOXICILLIN] Allergy Unknown RASH Verified 05/11/23 12:59 Review of Systems Review of Systems: Constitutional : No Weight loss, No Fever, No Chills, No Night Sweats, No Fatigue, No Malaise ENT/Mouth : No Hearing loss, No Ear Pain, No Nasal Congestion, No Sinus Pain, No Hoarseness, No sore throat, No Rhinorrhea, No Swallowing Difficulty Eyes: No Eye Pain, No Swelling, No Redness, No Foreign Body, No Discharge, No Vision Changes Cardiovascular : No Chest Pain, No SOB, No Dyspnea on Exertion, No Orthopnea, No Edema, No Palpitations Respiratory : complaining of productive cough, wheezing, shortness of breath /tightness Gastrointestinal : No Nausea, No Vomiting, No Diarrhea, No Constipation, No abdominal Pain, No Hematochezia, No Melena Genitourinary : no irregular bleeding, No Dysuria, No Urinary Frequency, No Hematuria, No Urinary Incontinence, No Urgency, No Flank Pain, No Urinary Flow Changes, No Hesitancy Musculoskeletal : No joint pain, No Myalgias, No Joint Swelling Skin : No Skin Lesions, No rash Neuro : No Weakness, No Numbness, No Paresthesias, No Loss of Consciousness, No Dizziness, No Headache Psych : No Anxiety/Panic, No Depression, No SI/HI/AH/VH, No Social Issues, Heme/Lymph: No Bruising, No Bleeding,No Lymphadenopathy Endocrine : No Polyuria, No Polydipsia, No Temperature Intolerance PMFSH Past Medical History Medical History Female infertility Infertility counseling Right ankle sprain Nausea and vomiting Vomiting and diarrhea Physical exam Allergic rhinitis Mild asthma Eczema Hx of eczema Surgical History Hx of tonsillectomy Family History Family History Father CVD (cardiovascular disease) Mother Hypertension Breast cyst Cervical cancer Paternal Aunt Cervical cancer Social History Social History Household Members Other:: lives with partner, her child and a step daughter Alcohol intake: never Patient Tobacco Use Status: Former Tobacco user Smoked in Last 30 Days: No Use of substances other than those prescribed or required for medical reasons: No Advance Directives: No Advance Directives Information Provided: No Patient : No Current occupational status: employed Current occupation: [employer] Sexual orientation: Lesbian/Boggs/Homosexual Gender identity: Female Cognitive needs: No Hearing needs: No Vision needs: No Physical Exam Vital Signs: Vital Signs: Last Vital Signs Temp 97.7 F 05/15/23 01:43 Pulse 121 H 05/15/23 03:44 Resp 20 05/15/23 03:44 BP 131/73 05/15/23 03:44 Pulse Ox 94 05/15/23 03:44 O2 Del Method Room Air 05/15/23 03:44 BMI result Body Mass Index 40.1 Const: Other: Appearance: Alert. Oriented X3. No acute distress. Eyes: Pupils equal, round and reactive to light. ENT: Pharynx normal. Neck: Normal inspection. Neck supple. No lymph nodes noted. No crepitus CVS: Normal heart rate and rhythm. Pulses normal. Normal S1 and S2 Respiratory: No respiratory distress. wheezing bilaterally, no rales or crackles Abdomen: Soft and nontender. No rigidity. No distention. Skin: Skin warm and dry. Normal skin color. Normal skin turgor. Extremities: No lower extremity edema. No Lacerations. No Rash Neuro: Oriented X 3. No motor deficit. No sensory deficit. Moving all extremities. No slurred speech. CN 2 through 12 grossly intact Psych: calm, cooperative, normal affect Course Course Course Narrative: - patient is significantly wheezing. Oxygen saturation 98% on room air with moderate air movement. - Patient receiving IV Solu-Medrol, magnesium, nebulization treatments. Medications Administered Discontinued Medications Generic Name Dose Route Start Last Admin Trade Name Freq PRN Reason Stop Dose Admin Albuterol Sulfate 7.5 mg 05/15/23 01:03 05/15/23 01:19 Albuterol Sulfate (0.083%) 2.5 Mg/3 Ml Vial.Neb INHALE 05/15/23 01:04 7.5 mg ONCE ONE Administration Albuterol Sulfate 10 mg 05/15/23 02:18 05/15/23 02:36 Albuterol Sulfate (0.083%) 2.5 Mg/3 Ml Vial.Neb INHALE 05/15/23 02:19 10 mg ONCE ONE Administration Magnesium Sulfate 2 gm in 50 mls @ 25 mls/hr 05/15/23 01:03 05/15/23 02:28 Magnesium Sulfate/H2o IV 05/15/23 03:02 Infused ONCE ONE Infusion Methylprednisolone Sodium Succinate 125 mg 05/15/23 01:03 05/15/23 01:27 Methylprednisolone Sod Succ 125 Mg/2 Ml Vial IVPUSH 05/15/23 01:04 125 mg ONCE ONE Administration Medical Decision Making Medical Decision Making MDM Narrative: -If did 7.5 mg of albuterol, on physical exam after the 1st nebulization treatment, patient states that she feels better, but she still wheezing quite a bit. Patient will receive another treatment, this time 10 mg. Patient already received magnesium and Solu-Medrol. - My interpretation of labs: Hematology and chemistry unremarkable, serology negative for flu, COVID and RSV - my interpretation of chest x-ray: No pneumonia - patient received the above-mentioned treatment, 2 hour long treatments. Patient is still wheezing. When patient walks, patient feels short of breath with oxygen saturation is in the high 90s. - Patient would like to be going home. However I discussed with the patient that she still has significant wheezing. wants her medications were off, she is going to continue wheezing. She still not doing well as it is right now. I discussed with the patient the options of being sent home with precautions of returning if her symptoms worsened versus being admitted. Patient agreeable to stay. - I discussed the patient with Dr. Patel, patient being admitted. Differential Diagnosis Differential Diagnoses: The differential diagnosis associated with the presentation includes ( Asthma, COVID, pneumonia) Admission/Observation Consideration of admission/observation: Escalation of care including admission/observation considered Consult Healthcare Provider Management of the patient was discussed with: Hospitalist Lab Data [facility] Lab Attestation statement: I reviewed the patient's lab results. 05/15/23 01:19 05/15/23 01:19 Labs: Lab Results 05/15/23 Range/Units 01:19 WBC 10.8 (4.8-10.8) X10*3/uL RBC 4.68 (4.20-5.50) X10*6/uL Hgb 13.1 (12.0-16.0) g/dl Hct 40.1 (37.0-47.0) % MCV 85.7 (80.0-98.0) fL MCH 28.0 (27.0-33.0) pg MCHC 32.7 (31.0-35.0) g/dl RDW 12.3 (11.0-16.0) % Plt Count 389 (160-400) X10*3/uL MPV 9.8 (9.4-12.3) fL Immature Gran % (Auto) 0.2 (0.0-0.4) % Neut % (Auto) 62.3 (45-73) % Lymph % (Auto) 22.4 (20-40) % [place] % (Auto) 7.3 (2-11) % Eos % (Auto) 7.3 H (0-4) % Baso % (Auto) 0.5 (0-2) % Lymph # (Auto) 2.4 (1.2-4.9) X10*3/uL [place] # (Auto) 0.8 (0.1-1.2) X10*3/uL Eos # (Auto) 0.8 H (0.0-0.4) X10*3/uL Baso # (Auto) 0.1 (0.0-0.2) X10*3/uL Abs Immat Gran (auto) 0.02 (0.00-0.03) X10*3/uL Absolute Neuts (auto) 6.8 (2.0-8.3) x10*3/uL Absolute Nucleated RBC 0.000 (0.0-0.012) X10*3/uL Nucleated RBC % (auto) 0.0 (0.0-0.2) /100WBC Sodium 139 (135-145) mmol/L Potassium 3.3 (3.3-5.1) mmol/L Chloride 106 (96-108) mmol/L Carbon Dioxide 22 (22-29) mmol/L Anion Gap 14 (12-20) BUN 11 (9-16) mg/dL Creatinine 0.67 (0.5-1.4) mg/dL Estim Creat Clear Calc 128.9 Estimated GFR > 60 Random Glucose 117 H (60-115) mg/dL Calcium 9.5 (8.4-10.2) mg/dL Influenza Type A (PCR) NEGATIVE (Negative) Influenza Type B (PCR) NEGATIVE (Negative) RSV RNA Qual (PCR) NEGATIVE (Negative) SARS-CoV-2 RNA (RT-PCR) NEGATIVE (Negative) Independent Interpretation I performed an independent interpretation of an: Plain X-Ray Radiology Impression Discussion of test interpretation with radiology: I have reviewed the radiologist's reading. Radiologist Impression: FINDINGS: No significant abnormality is noted involving the heart, lungs, mediastinum, bony thorax or soft tissues. XR/XR chest 1V IMPRESSION: Unremarkable examination. Critical Care Time Critical Care Time Critical Care Time: Yes Total Critical Care Time: 60 Attestation: I have personally provided critical care time. Time includes review of lab data, radiology results, discussion with consultants, and monitoring for potential decompensation. Intervention performed as documented. Discharge Plan Discharge Clinical Impression: Asthma Patient Disposition: Admitted As Inpatient Prescriptions: No Action metronidazole 500 mg tablet 500 mg PO BID 7 Days Qty: 14 0RF albuterol sulfate 90 mcg/actuation HFA aerosol inhaler 1 inh inhalation QID 30 Days Qty: 6.7 1RF hydroxyzine HCl 25 mg tablet 25 mg PO DAILY triamcinolone acetonide 0.1 % cream topical tacrolimus 0.03 % ointment topical BID miconazole nitrate [Miconazole-7] 2 % cream 1 appful vaginal BEDTIME 7 Days Qty: 45 3RF
--- NOTE | 2023-05-15 01:18 | PC.NURSE ---
IV placed to R hand, 22g
[2023-05-15] MEDS: Albuterol Sulfate (0.083%) 2.5 MG/3 ML VIAL.NEB 7.5 MG INHALE (01:19)
[2023-05-15 01:24] LABS: MANUAL DIFF FLAG NO
[2023-05-15 01:25] LABS: Basophils Absolute Auto 0.1 X10*3/uL (0.0-0.2); Basophils Percent Auto 0.5 % (0-2); Eosinophils Absolute Auto 0.8 X10*3/uL (0.0-0.4); Eosinophils Percent Auto 7.3 % (0-4); Hematocrit 40.1 % (37.0-47.0); Hemoglobin 13.1 g/dl (12.0-16.0); Imm Gran Abs Auto 0.02 X10*3/uL (0.00-0.03); Imm Gran Pct Auto 0.2 % (0.0-0.4); Lymphocytes Absolute Auto 2.4 X10*3/uL (1.2-4.9); Lymphocytes Percent Auto 22.4 % (20-40); Mean Corpuscular HGB Conc 32.7 g/dl (31.0-35.0); Mean Corpuscular Volume 85.7 fL (80.0-98.0); Mean Platelet Volume 9.8 fL (9.4-12.3); Monocytes Absolute Auto 0.8 X10*3/uL (0.1-1.2); Monocytes Percent Auto 7.3 % (2-11); Neutrophils Absolute Auto 6.8 x10*3/uL (2.0-8.3); Neutrophils Percent Auto 62.3 % (45-73); Platelet Count 389 X10*3/uL (160-400); Red Blood Count 4.68 X10*6/uL (4.20-5.50); Red Cell Distribution Width 12.3 % (11.0-16.0); White Blood Count 10.8 X10*3/uL (4.8-10.8)
[2023-05-15] MEDS: methylPREDNISolone Sod Succ 125 MG/2 ML VIAL IVPUSH (01:27)
[2023-05-15] MEDS: Magnesium Sulfate/H2O 2 GM/50 ML PIGGYBACK IV (01:27)
[2023-05-15 01:37] LABS: Anion Gap 14 (12-20); Blood Urea Nitrogen 11 mg/dL (9-16); Calcium 9.5 mg/dL (8.4-10.2); Carbon Dioxide 22 mmol/L (22-29); Chloride 106 mmol/L (96-108); Creatinine Clr Calc Pharmacy 128.9; Estimated Glomerular Filt Rate > 60; Glucose Random 117 mg/dL (60-115); Potassium 3.3 mmol/L (3.3-5.1); Sodium 139 mmol/L (135-145)
[2023-05-15 02:02] LABS: Influenza A PCR NEGATIVE (Negative); Influenza B PCR NEGATIVE (Negative); Resp Syncy Virus RNA Qual PCR NEGATIVE (Negative); SARS COV2 PCR INHOUSE NEGATIVE (Negative)
[2023-05-15] MEDS: Albuterol Sulfate (0.083%) 2.5 MG/3 ML VIAL.NEB 10 MG INHALE (02:36)
--- NOTE | 2023-05-15 03:57 | MHC.EDTECH ---
Ambulated with Pt and O2 remained 97-98%. Pt reports feeling fine. GENNY Diaz aware. Pt back into bed, call beebe within reach.
--- NOTE | 2023-05-15 04:15 | P.HPHOSP_ITS ---
History of Present Illness Date of Service: 05/15/23 Chief Complaint: Dyspnea This is a 33-year-old female with pertinent history of mild intermittent asthma not on home oxygen who presents to the emergency department for evaluation of dyspnea. Patient states her symptoms have been ongoing for the last few weeks. She presented to the ER about a month ago for similar complaints and was discharged from the ER. Her symptoms have been progressive and she felt that she could not breathe and hence she presented to the ER. Her dyspnea has been worse with exertion and associated with wheezing and nonproductive cough. Former smoker and quit months ago. Has never been hospitalized or intubated for asthma. She does not have a maintenance inhaler and states that her p.r.n. albuterol inhaler was not working. No fever, chills, palpitations, abdominal pain, changes in urinary bowel habits In the emergency department, patient with wheezing despite multiple DuoNeb treatments Review of Systems 2 Constitutional: Constitutional: Reports no additional constitutional complaints Cardiovascular: Cardiovascular: Reports dyspnea on exertion Respiratory: Respiratory: Reports cough, Reports dyspnea on exertion and Reports wheezing Gastrointestinal: Gastrointestinal: Reports no additional gastrointestinal complaints Genitourinary: Genitourinary: Reports no additional female genitourinary complaints Allergic/Immunologic: Allergic/Immunologic: Reports wheezing [facility] Medical History Female infertility Infertility counseling Right ankle sprain Nausea and vomiting Vomiting and diarrhea Physical exam Allergic rhinitis Mild asthma Eczema Hx of eczema Family History Father CVD (cardiovascular disease) Mother Hypertension Breast cyst Cervical cancer Paternal Aunt Cervical cancer Surgical History Hx of tonsillectomy Social History Household Members Other:: lives with partner, her child and a step daughter Alcohol intake: never Patient Tobacco Use Status: Former Tobacco user Current occupational status: employed 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[employer] Sexual orientation: Lesbian/Boggs/Homosexual Gender identity: Female Cognitive needs: No Hearing needs: No Vision needs: No Meds Allergies Allergy/AdvReac Type Severity Reaction Status Date / Time apple [Apple] Allergy Severe SWELLING Verified 05/15/23 05:37 banana [BANANA] Allergy Severe SWELLING Verified 05/15/23 05:37 grape [GRAPE] Allergy Severe SWELLING Verified 05/15/23 05:37 strawberry [STRAWBERRY] Allergy Severe SWELLING Verified 05/15/23 05:37 animal dander Allergy Mild Wheezing Verified 05/15/23 05:37 Seasonal Allergies Allergy Mild Wheezing Verified 05/15/23 05:37 amoxicillin [AMOXICILLIN] Allergy Unknown RASH Verified 05/15/23 05:37 Home Medications Medication Instructions Recorded Confirmed Last Taken Type tacrolimus 0.03 % topical ointment topical BID 03/13/20 05/11/23 Unknown History triamcinolone acetonide 0.1 % applic topical 03/13/20 05/11/23 Unknown History topical cream hydroxyzine HCl 25 mg tablet 25 mg PO DAILY 01/07/23 05/15/23 Unknown History Physical Exam 2 Vital Signs and Narrative: Vital Signs: Last Vital Signs Temp 97.7 F 05/15/23 01:43 Pulse 121 H 05/15/23 03:44 Resp 20 05/15/23 03:44 BP 131/73 05/15/23 03:44 Pulse Ox 94 05/15/23 03:44 O2 Del Method Room Air 05/15/23 03:44 BMI result Body Mass Index 40.1 Middle-aged female lying in bed in mild distress on supplemental oxygen Neck supple, no JVD Regular rate and rhythm, S1-S2 heard Bilateral wheezing without crackles Abdomen soft nontender, no guarding, no rigidity Patient is awake, alert and oriented to self, place, time and person ; no focal motor deficit Psych: Normal mood No pedal edema Results Labs 05/15/23 01:19 05/15/23 01:19 Labs: Laboratory Results - last 24 hr 05/15/23 01:19 MCV 85.7 MCH 28.0 MCHC 32.7 RDW 12.3 Plt Count 389 MPV 9.8 Immature Gran % (Auto) 0.2 Neut % (Auto) 62.3 Lymph % (Auto) 22.4 [place] % (Auto) 7.3 Eos % (Auto) 7.3 H Baso % (Auto) 0.5 Lymph # (Auto) 2.4 [place] # (Auto) 0.8 Eos # (Auto) 0.8 H Baso # (Auto) 0.1 Abs Immat Gran (auto) 0.02 Absolute Neuts (auto) 6.8 Absolute Nucleated RBC 0.000 Nucleated RBC % (auto) 0.0 Anion Gap 14 Estim Creat Clear Calc 128.9 Estimated GFR > 60 Random Glucose 117 H Calcium 9.5 Influenza Type A (PCR) NEGATIVE Influenza Type B (PCR) NEGATIVE RSV RNA Qual (PCR) NEGATIVE SARS-CoV-2 RNA (RT-PCR) NEGATIVE Imaging Radiologist's Impressions: Impressions Chest X-Ray 05/15/23 01:35 IMPRESSION: Unremarkable examination. Assessment and Plan (1) Acute respiratory distress: Status: Acute Plan This is a 33-year-old female with pertinent history of mild intermittent asthma not on home oxygen who presents to the emergency department for evaluation of dyspnea. #. Acute respiratory distress due to exacerbation of asthma: Initiating systemic steroids. Scheduled and p.r.n. DuoNebs. Not on home maintenance inhalers. #. Sinus tachycardia due to above #. Obesity: Counseled regarding diet and exercise DVT prophylaxis: Lovenox Full code Quality Stroke Does the patient have a stroke diagnosis?: No VTE Prior VTE?: No VTE Risk Level:: Medical - moderate - high VTE Device Contraindication: Treatment Not Indicated VTE Drug Contraindication: N/A - Med Ordered
[2023-05-15] MEDS: Enoxaparin Sodium 40 MG/0.4 ML SYRINGE SUBCUT (05:31)
--- NOTE | 2023-05-15 05:40 | PC.NURSE ---
med rec complete, pt unsure of which topical cream she uses for eczema
--- NOTE | 2023-05-15 07:42 | PHA.MEDREC ---
Pharmacy Consult ? Medication Reconciliation Pharmacy has completed the medication reconciliation. reviewed med rec done by nursing.
[2023-05-15] MEDS: Albuterol/Iprat 2.5/0.5MG 3 ML AMPUL.NEB INHALE ×2 (08:23→11:03)
[2023-05-15 09:00] LABS: Basophils Percent Auto 0.2 % (0-2); Hematocrit 39.5 % (37.0-47.0); Hemoglobin 12.9 g/dl (12.0-16.0); Imm Gran Abs Auto 0.06 X10*3/uL (0.00-0.03); Imm Gran Pct Auto 0.5 % (0.0-0.4); Lymphocytes Absolute Auto 0.7 X10*3/uL (1.2-4.9); Lymphocytes Percent Auto 5.4 % (20-40); MANUAL DIFF FLAG SCAN; Mean Corpuscular HGB Conc 32.7 g/dl (31.0-35.0); Mean Corpuscular Volume 85.9 fL (80.0-98.0); Mean Platelet Volume 10.2 fL (9.4-12.3); Monocytes Absolute Auto 0.2 X10*3/uL (0.1-1.2); Monocytes Percent Auto 1.6 % (2-11); Neutrophils Absolute Auto 11.4 x10*3/uL (2.0-8.3); Neutrophils Percent Auto 92.3 % (45-73); Platelet Count 398 X10*3/uL (160-400); Red Cell Distribution Width 12.4 % (11.0-16.0); SCAN SMEAR FLAG 1; White Blood Count 12.3 X10*3/uL (4.8-10.8)
[2023-05-15] MEDS: 0.9 % Sodium Chloride Flush 3 ML SYRINGE IVFLUSH (09:10)
[2023-05-15] MEDS: methylPREDNISolone Sod Succ 40 MG/ML VIAL IVPUSH (09:10)
[2023-05-15 09:27] LABS: Anion Gap 15 (12-20); Blood Urea Nitrogen 10 mg/dL (9-16); Calcium 9.6 mg/dL (8.4-10.2); Carbon Dioxide 19 mmol/L (22-29); Chloride 108 mmol/L (96-108); Creatinine Clr Calc Pharmacy 120.6; Estimated Glomerular Filt Rate > 60; Glucose Random 180 mg/dL (60-115); Potassium 3.3 mmol/L (3.3-5.1); Sodium 139 mmol/L (135-145)
[2023-05-15 09:30] LABS: SLIDE REVIEW VERIFIED
--- NOTE | 2023-05-15 10:27 | PM.DS ---
DS: Providers Provider Date of Service: 05/15/23 Date of admission: 05/15/23 04:13 Date of discharge: 05/15/23 Primary care physician: Keli Davila MD DS: Diagnosis Discharge Diagnosis (1) Acute respiratory distress: Status: Acute (2) Mild intermittent asthma with exacerbation: Status: Acute DS: Summary Hospital Course Hospital Course: From the history and physical by the admitting hospitalist, Juan Patel, 05/15/23: This is a 33-year-old female with pertinent history of mild intermittent asthma not on home oxygen who presents to the emergency department for evaluation of dyspnea. Patient states her symptoms have been ongoing for the last few weeks. She presented to the ER about a month ago for similar complaints and was discharged from the ER. Her symptoms have been progressive and she felt that she could not breathe and hence she presented to the ER. Her dyspnea has been worse with exertion and associated with wheezing and nonproductive cough. Former smoker and quit months ago. Has never been hospitalized or intubated for asthma. She does not have a maintenance inhaler and states that her p.r.n. albuterol inhaler was not working. No fever, chills, palpitations, abdominal pain, changes in urinary bowel habits In the emergency department, patient with wheezing despite multiple DuoNeb treatments She was admitted to the hospitalist service and improved symptomatically with IV steroids and nebulized bronchodilators. Viral testing for RSV/Covid-19/flu negative and no signs of pneumonia. Not hypoxic. She was discharged on 4 days of prednisone plus albuterol inhaler for rescue. Time Attestation Total time managing care of this patient today: 35 mintues. Discharge coordination time: Greater than 30 minutes Quality: Safe Use of Opioids Does Pt have an Active Cancer Diagnosis on the Problem List?: No Quality: Stroke Does the patient have a stroke diagnosis?: No Physical Exam Vital Signs: Vital Signs: Last Vital Signs Temp 97.1 F 05/15/23 07:02 Pulse 98 05/15/23 08:28 Resp 18 05/15/23 08:28 BP 136/77 05/15/23 07:02 Pulse Ox 96 05/15/23 07:02 O2 Del Method Room Air 05/15/23 07:02 BMI result Body Mass Index 39.4 Gen: in no acute distress HEENT: sclera anicteric, moist mucus membranes Neck: supple Lungs: scattered expiratory wheezes at base Heart: regular rate and rhythm, no murmurs Abd: soft, non-tender, non-distended Ext: no edema Skin: warm/well-perfused Neuro: alert and oriented x3, no focal findings Psych: appropriate affect DS: Data Data Completed and Pending Completed studies during hospitalization [Text1]: Laboratory Results WBC 12.3 X10*3/uL (4.8-10.8) H 05/15/23 08:41 RBC 4.60 X10*6/uL (4.20-5.50) 05/15/23 08:41 Hgb 12.9 g/dl (12.0-16.0) 05/15/23 08:41 Hct 39.5 % (37.0-47.0) 05/15/23 08:41 MCV 85.9 fL (80.0-98.0) 05/15/23 08:41 MCH 28.0 pg (27.0-33.0) 05/15/23 08:41 MCHC 32.7 g/dl (31.0-35.0) 05/15/23 08:41 RDW 12.4 % (11.0-16.0) 05/15/23 08:41 Plt Count 398 X10*3/uL (160-400) 05/15/23 08:41 MPV 10.2 fL (9.4-12.3) 05/15/23 08:41 Immature Gran % (Auto) 0.5 % (0.0-0.4) H 05/15/23 08:41 Neut % (Auto) 92.3 % (45-73) H 05/15/23 08:41 Lymph % (Auto) 5.4 % (20-40) L 05/15/23 08:41 [place] % (Auto) 1.6 % (2-11) L 05/15/23 08:41 Eos % (Auto) 0.0 % (0-4) 05/15/23 08:41 Baso % (Auto) 0.2 % (0-2) 05/15/23 08:41 Lymph # (Auto) 0.7 X10*3/uL (1.2-4.9) L 05/15/23 08:41 [place] # (Auto) 0.2 X10*3/uL (0.1-1.2) 05/15/23 08:41 Eos # (Auto) 0.0 X10*3/uL (0.0-0.4) 05/15/23 08:41 Baso # (Auto) 0.0 X10*3/uL (0.0-0.2) 05/15/23 08:41 Abs Immat Gran (auto) 0.06 X10*3/uL (0.00-0.03) H 05/15/23 08:41 Absolute Neuts (auto) 11.4 x10*3/uL (2.0-8.3) H 05/15/23 08:41 Absolute Nucleated RBC 0.000 X10*3/uL (0.0-0.012) 05/15/23 08:41 Nucleated RBC % (auto) 0.0 /100WBC (0.0-0.2) 05/15/23 08:41 Smear Tech's Comments VERIFIED 05/15/23 08:41 Sodium 139 mmol/L (135-145) 05/15/23 08:41 Potassium 3.3 mmol/L (3.3-5.1) 05/15/23 08:41 Chloride 108 mmol/L (96-108) 05/15/23 08:41 Carbon Dioxide 19 mmol/L (22-29) L 05/15/23 08:41 Anion Gap 15 (12-20) 05/15/23 08:41 BUN 10 mg/dL (9-16) 05/15/23 08:41 Creatinine 0.71 mg/dL (0.5-1.4) 05/15/23 08:41 Estim Creat Clear Calc 120.6 05/15/23 08:41 Estimated GFR > 60 05/15/23 08:41 Random Glucose 180 mg/dL (60-115) H 05/15/23 08:41 Calcium 9.6 mg/dL (8.4-10.2) 05/15/23 08:41 Influenza Type A (PCR) NEGATIVE (Negative) 05/15/23 01:19 Influenza Type B (PCR) NEGATIVE (Negative) 05/15/23 01:19 RSV RNA Qual (PCR) NEGATIVE (Negative) 05/15/23 01:19 SARS-CoV-2 RNA (RT-PCR) NEGATIVE (Negative) 05/15/23 01:19 Impressions Chest X-Ray 05/15/23 01:35 IMPRESSION: Unremarkable examination. Discharge Plan Discharge Patient Disposition: Home, Self-Care Discharge Diagnosis: asthma exacerbation Referrals: Keli Solorio MD [Primary Care Provider] - 1 Week Discharge Medications: New prednisone 20 mg tablet 40 mg PO DAILY Qty: 8 0RF Continued albuterol sulfate 90 mcg/actuation HFA aerosol inhaler 1 inh inhalation QID 30 Days Qty: 6.7 1RF hydroxyzine HCl 25 mg tablet 25 mg PO DAILY triamcinolone acetonide 0.1 % cream 1 applic topical DAILY PRN (Reason: eczema) tacrolimus 0.03 % ointment 1 appl topical BID PRN (Reason: eczema) Discharge Orders: Discharge Order (Routine); Ordered 05/15/23 Ordered By: Todd Simmons Diet: Advance to usual diet Activity on Discharge: As tolerated Stand Alone Forms: Patient Portal Discharge page Care Plan Goals: asthma control Health Concerns: asthma exacerbation Plan of Treatment: prednisone 40 mg daily x 4 days continue albuterol inhaler for rescue avoid smoke, pollution, and other airway irritants Please follow up with your primary care doctor within 1 week. Return to the hospital if you experience recurrent or worsening symptoms. Assessment: See Discharge Summary.
--- NOTE | 2023-05-15 15:53 | MHC.CM.PN ---
Addendum entered by Julia Hickman 05/15/23 15:55: PT DISCHARGED PRIOR TO BEING SEEN BY CM PER EMR, PT IS INDEPENDENT AND WORKS PCP: ATA CACERES Original Note: PT DISCHARGING HOME TODAY WITH NO SERVICES PT ARRANGED TRANSPORT
== END 2023-05-15 14:54 | disposition home or self-care (01) ==
LOC: HO.ED 04:15 → HO.EDOVER 06:05 → HO.IMC 06:15
PROVIDERS: Admitting Provider Student in an Organized Health Care Education/Training Program; Emergency Provider Emergency Medicine; PCP Internal Medicine; Visit Provider Family Medicine
DX: J45.21 Mild intermittent asthma with (acute) exacerbation (principal); R06.03 Acute respiratory distress; R00.0 Tachycardia, unspecified; R05.9 Cough, unspecified; R06.02 Shortness of breath; E66.9 Obesity, unspecified; Z20.822 Contact with and (suspected) exposure to COVID-19; Z20.828 Contact with and (suspected) exposure to other viral communicable diseases; Z68.41 Body mass index [BMI] 40.0-44.9, adult; Z79.899 Other long term (current) drug therapy
CPT/HCPCS: 0241U; 36415; 71045; 80048; 85025; 94640; 96365; 96372; 96375; 96376; 99222; 99285; J1650; J2920; J2930; J3475

== ENCOUNTER → 2023-05-15 02:29 | Outpatient (BNV) | payer OTHER, SELFPAY | PROVIDERS: Emergency Provider Emergency Medicine; PCP Internal Medicine; Visit Provider Student in an Organized Health Care Education/Training Program | DX: R06.03 Acute respiratory distress (principal); J45.21 Mild intermittent asthma with (acute) exacerbation | CPT/HCPCS: 99235; 99499 ==

== ENCOUNTER 2023-06-18 09:35 | Outpatient (REF) | payer OTHER, SELFPAY ==
[2023-06-19 10:51] LABS: BV Int Neg Control Negative (Negative); BV Int Pos Control Positive (Positive)
== END 2023-06-18 09:36 | disposition home or self-care (01) ==
LOC: HO.LNP 09:35
PROVIDERS: PCP Internal Medicine; Visit Provider Advanced Practice Midwife
DX: N89.8 Other specified noninflammatory disorders of vagina (principal); L85.3 Xerosis cutis; E66.01 Morbid (severe) obesity due to excess calories; Z68.41 Body mass index [BMI] 40.0-44.9, adult; Z87.2 Personal history of diseases of the skin and subcutaneous tissue
CPT/HCPCS: 87480; 87510; 87660; 99212

== ENCOUNTER 2023-06-18 09:35 | Outpatient (AMB) | payer OTHER, SELFPAY ==
[2023-06-18 09:36] VITALS: BP 120/80; BMI 41.2
--- NOTE | 2023-06-18 09:36 | A.OFFVIS_ITS ---
Intake Vital Signs 06/18/23 09:36 Height 5 ft 1 in Weight 218 lb BMI 41.2 BP 120/80 Intake Visit Reasons: vaginal itching Intake Note: external itching around labia and clitoris Assistant Professor Of Sociology Required: No Information Interpreted: non-clinical & clinical Drum Sprayer: Drum Sprayer Present (Dylan) Allergies apple [Apple] Allergy (Severe, Verified 06/18/23 09:49) SWELLING banana [BANANA] Allergy (Severe, Verified 06/18/23 09:49) SWELLING grape [GRAPE] Allergy (Severe, Verified 06/18/23 09:49) SWELLING strawberry [STRAWBERRY] Allergy (Severe, Verified 06/18/23 09:49) SWELLING animal dander Allergy (Mild, Verified 06/18/23 09:49) Wheezing Seasonal Allergies Allergy (Mild, Verified 06/18/23 09:49) Wheezing amoxicillin [AMOXICILLIN] Allergy (Unknown, Verified 06/18/23 09:49) RASH Medication List - Last Reconciled 06/18/23 by Magda Clay CNM albuterol sulfate 90 mcg/actuation 1 inh inhalation QID 30 days hydroxyzine HCl 25 mg PO DAILY tacrolimus 0.03% 1 appl topical BID PRN triamcinolone acetonide 0.1% 1 appl topical DAILY PRN Is last menstrual period known: Yes Last menstrual period: 05/24/23 Post menopausal: No HPI vaginal itching HPI Details Patient is again complaining of vaginal itching that comes and goes and it is sometimes around her clitoris she does not think it is related to piercings she has not having any abnormal discharge she has no worries at all about STIs. She is doing all she can to take care of her skin maintain hydration work on her nutrition and exercise and life changes she was going to be she moving to a different job that will allow to work a did normal day shift and she thinks that this will help immensely she has been using the gym at the hospital which she likes and she is really very self aware of her lifelong eating issues she had a history of an eating disorder as a young person had had anorexia and bulimia so she is sensitive to weight issues and doing her very best to manage it without being un kind to herself. 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[employer] Sexual orientation: Lesbian/Boggs/Homosexual Gender identity: Female Cognitive needs: No Hearing needs: No Vision needs: No Female Reproductive History Menstrual Age of Menarche: 13 Duration of menses: 3-5 days Date of last menstrual period: 05/24/23 control method: none Total pregnancies: 1 Ab spontaneous: 1 Date of last pap smear: 10/08/22 (negative) History of abnormal pap smear: Yes (2021 +HPV) Physical Exam Vital Signs: Last Vital Signs BP 120/80 06/18/23 09:36 BMI result Body Mass Index 41.2 External Female Exam: normal external appearance and normal appearance of the urethra Speculum Exam - Vagina: normal appearance of the vagina and normal vaginal discharge Speculum Exam - Cervix: normal appearance of the cervix and Cervical os closed Assessment & Plan Assessment & Plan (1) Morbid obesity with BMI of 40.0-44.9, adult: Code(s): E66.01 - Morbid (severe) obesity due to excess calories; Z68.41 - Body mass index [BMI] 40.0-44.9, adult (2) Dry skin: Code(s): L85.3 - Xerosis cutis (3) Hx of chronic eczema: Code(s): Z87.2 - Personal history of diseases of the skin and subcutaneous tissue (4) Vaginal itching: Comment: Exam appears completely normal today 06/18/2023 await testing results normal alfredito discussed normal skin care discussed screening for diabetes discussed increased hydration discussed normal variance in alfredito throughout day in time and conditions also discussed Code(s): N89.8 - Other specified noninflammatory disorders of vagina Plan Reviewed all of the things that she does to keep herself healthy and is endeavoring to do more in the future especially when she changes 2 a day shift job which she is very much looking forward to discussed being kind to herself with efforts to eat healthier and lose the weight and try to choose healthier nutritious few for her body and she is already trying very much to avoid junk food and extra sweets and carbs. Discussed the role of diabetes but she assured me she had been screened negative for diabetes in the last year discussed that when somebody has eczema they can be prone to itching anywhere in their body and also the importance of hydration in managing that as well she is very well- versed in how to use and be care full about overuse of any of the creams given to her by her front office administrator as well discussed the very normal variants of C andida and Gardnerella in the vagina and that they can be there normally and do not need to be treated her exam was completely normal today with no suspicion of any pathology whatsoever Orders: Orders Bacterial Vaginosis Panel Today N89.8 - Other specified noninflammatory disorders of vagina Coding Level of Care Code Est Pt Level 3 (71823) Diagnoses Morbid obesity with BMI of 40.0-44.9, adult E66.01; Z68.41 Dry skin L85.3 Hx of chronic eczema Z87.2 Vaginal itching N89.8
== END 2023-06-18 10:33 | disposition home or self-care (01) ==
LOC: HO.HWSM 09:35
PROVIDERS: PCP Internal Medicine; Visit Provider Advanced Practice Midwife
DX: E66.01 Morbid (severe) obesity due to excess calories (principal); Z68.41 Body mass index [BMI] 40.0-44.9, adult; L85.3 Xerosis cutis; Z87.2 Personal history of diseases of the skin and subcutaneous tissue; N89.8 Other specified noninflammatory disorders of vagina
CPT/HCPCS: 99213

== ENCOUNTER → 2023-08-24 07:48 | Outpatient (BNVA) | payer SELFPAY | PROVIDERS: PCP Internal Medicine; Visit Provider Physician Assistant Surgical ==

== ENCOUNTER 2023-10-26 07:43 | Outpatient (REF) | payer OTHER, SELFPAY ==
[2023-10-26 15:54] LABS: CT PCR NOT DETECTED (Not Detect.); NG PCR NOT DETECTED (Not Detect.)
[2023-11-05 03:49] LABS: HPV mRNA E6/E7 rflx Not Detected (Not Detected)
== END 2023-10-26 07:44 | disposition home or self-care (01) ==
LOC: HO.LNP 07:43
PROVIDERS: PCP Internal Medicine; Visit Provider Advanced Practice Midwife
DX: B97.7 Papillomavirus as the cause of diseases classified elsewhere (principal); Z20.2 Contact with and (suspected) exposure to infections with a predominantly sexual mode of transmission; Z12.4 Encounter for screening for malignant neoplasm of cervix
CPT/HCPCS: 0353U; 87624; 88142; 99395

== ENCOUNTER 2023-10-26 07:43 | Outpatient (AMB) | payer OTHER, SELFPAY ==
--- NOTE | 2023-10-26 07:53 | MHC.OFFVIS ---
Vital Signs 10/26/23 07:56 Height 5 ft 1 in Weight 213 lb BMI 40.2 BP 122/74 Intake Visit Reasons: annual Intake Note: no concerns Instructional Paraprofessional Required: No Information Interpreted: non-clinical & clinical Pr Specialist: Pr Specialist Present Accompanied by: Self / Same As Patient Allergies apple [Apple] Allergy (Severe, Verified 10/26/23 07:59) SWELLING banana [BANANA] Allergy (Severe, Verified 10/26/23 07:59) SWELLING grape [GRAPE] Allergy (Severe, Verified 10/26/23 07:59) SWELLING strawberry [STRAWBERRY] Allergy (Severe, Verified 10/26/23 07:59) SWELLING animal dander Allergy (Mild, Verified 10/26/23 07:59) Wheezing Seasonal Allergies Allergy (Mild, Verified 10/26/23 07:59) Wheezing amoxicillin [AMOXICILLIN] Allergy (Unknown, Verified 10/26/23 07:59) RASH HPI Comments Details: She is a premenopausal woman presenting for annual examination. Doing well with concerns: Former partner with history of HPV. Plan repeat Pap today. She tries to eat healthy, in weight loss program, and stays active with exercise with walking. Regular monthly menses. Currently is sexually active same female partner of 6 years. She denies vaginal itching and irritation.STI screening offered; she accepts. Denies family history of breast, ovarian or colon cancer. Last pap smear 2022, negative, prior Pap HPV positive colpo negative. 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 Sexual orientation: Lesbian/Boggs/Homosexual Gender identity: Female Cognitive needs: No Hearing needs: No Vision needs: No Female Reproductive History Menstrual Age of Menarche: 13 control method: none Total pregnancies: 0 Review of Systems Const All systems reviewed & are unremarkable except as noted in HPI and below Reports as per HPI Eyes Reports no additional complaints ENT Reports no additional complaints Card Reports no additional complaints Resp Reports no additional complaints GI Reports as per HPI and Reports no additional complaints Reports as per HPI Musc Reports no additional complaints Skin/Breast Reports as per HPI Neuro Reports no additional complaints Psych Reports no additional complaints Endo Reports no additional complaints Trav/Lymph Reports no additional complaints Aller/Immun Reports no additional complaints Physical Exam Const General: cooperative, healthy appearing, no acute distress, well developed and alert Orientation/consciousness: patient oriented x3 HEENT Head: Yes normal to inspection Eyes General: appearance normal, both eyes and all related structures Neck Neck: Yes normal visual inspection Thyroid: Thyroid normal Chest Chest palpation & inspection: normal inspection of the chest and other (no puckering, dimpling, peau de orange, retraction, discharge, masses) Breast/axilla inspection: normal inspection of the breasts Breast/axilla palpation: normal palpation of the breasts Resp Effort & Inspection: normal respiratory effort GI Inspection: Yes normal to inspection Palpation (GI): Soft to palpation Rectal Exam - Female: deferred General: Yes bladder normal to palpation External Female Exam: normal external appearance and normal appearance of the urethra Speculum Exam - Vagina: normal appearance of the vagina, normal palpation and normal vaginal discharge Speculum Exam - Cervix: normal appearance of the cervix, normal palpation and Other cervical findings present (Bled slightly with Pap) Bimanual exam- vagina & uterus: normal bimanual exam, normal palpation, uterine size normal, bladder normal to palpation, normal palpation and non-tender Bimanual Exam- Adnexa, other: no masses Skin General skin exam: no rashes or lesions noted Rashes: no rashes Neuro General: patient oriented x3 Cognition (Neuro): normal cognition Extrem General: Yes normal to inspection Psych Attitude: cooperative Thought process: Normal thought process present Assessment & Plan Assessment & Plan (1) Encounter for well woman exam with routine gynecological exam: Code(s): Z01.419 - Encounter for gynecological examination (general) (routine) without abnormal findings Category: Medical Plan Discussed: Current recommendations for pap smears per ASCCP guidelines. Breast awareness and periodic breast exams. Maintain a healthy lifestyle including a well balanced diet and routine exercise. Patient verbalizes understanding and agrees to the plan of care. She was given opportunity to ask questions and all questions were answered to the best of my ability. RTO in one year for annual automobile service station manager examination. This note is constructed using voice recognition software. While every effort has been made to ensure accuracy, cook house supervisor errors may have been included. Coding Level of Care Code Est Pt Prev Care 18-39y(40914) Diagnoses Encounter for well woman exam with routine gynecological exam Z01.419
[2023-10-26 07:56] VITALS: BP 122/74; BMI 40.2
== END 2023-10-26 08:15 | disposition home or self-care (01) ==
LOC: HO.HWS 07:43
PROVIDERS: PCP Internal Medicine; Visit Provider Advanced Practice Midwife
DX: Z01.419 Encounter for gynecological examination (general) (routine) without abnormal findings (principal)
CPT/HCPCS: 99395

== ENCOUNTER 2023-11-22 08:05 | Outpatient (AMB) | payer OTHER, SELFPAY ==
--- NOTE | 2023-11-22 08:11 | MHC.OFFVISWM ---
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 BMI 40.5 Allergies apple [Apple] Allergy (Severe, Verified 11/22/23 08:12) SWELLING banana [BANANA] Allergy (Severe, Verified 11/22/23 08:12) SWELLING grape [GRAPE] Allergy (Severe, Verified 11/22/23 08:12) SWELLING strawberry [STRAWBERRY] Allergy (Severe, Verified 11/22/23 08:12) SWELLING animal dander Allergy (Mild, Verified 11/22/23 08:12) Wheezing Seasonal Allergies Allergy (Mild, Verified 11/22/23 08:12) Wheezing amoxicillin [AMOXICILLIN] Allergy (Unknown, Verified 11/22/23 08:12) RASH Medication List - Last Reconciled 11/22/23 by Vlad Yanez MD albuterol sulfate 90 mcg/actuation 1 inh inhalation QID 30 days hydroxyzine HCl 25 mg PO DAILY tacrolimus 0.03% 1 appl topical BID PRN triamcinolone acetonide 0.1% 1 appl topical DAILY PRN HPI HPI TV SPONSORSHIP COORDINATOR SWL BMI 40.5: Details: Start time: 8.03am, End time: 8.38am ?I spent 30 minutes speaking with the patient on the phone plus an additional 5 minutes reviewing and updating records for a total of 35 minutes HPI Comments Details: Previous weight loss efforts: diet and exercise Wakes up: 6am, Sleeps: 10pm Breakfast: skips Lunch: skips Dinner: 5pm (rice, beans, chicken, salads) Snacks: none Exercise: none, has a gym membership Fluids: Coffee (2 cups/day with cream and sugar), tea: (2 cups/day plain), soda: none, juice: none, ETOH: none PFSH Medical History (Updated 11/22/23 @ 08:15 by Vlad Yanez MD) Hypertension Female infertility Infertility counseling Right ankle sprain Nausea and vomiting Vomiting and diarrhea Physical exam Allergic rhinitis Mild asthma Eczema Hx of eczema Surgical History Hx of tonsillectomy Family History Father CVD (cardiovascular disease) Mother Hypertension Breast cyst Cervical cancer Paternal Aunt Cervical cancer Social History (Updated 10/26/23 @ 07:59 by Ananya King CMA) Household Members: None Alcohol intake: never Patient Tobacco Use Status: Former Tobacco user Current occupational status: employed 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[employer] Sexual orientation: Lesbian/Boggs/Homosexual Gender identity: Female Cognitive needs: No Hearing needs: No Vision needs: No Female Reproductive History Menstrual Age of Menarche: 13 Telehealth Telehealth Telehealth Platform: Telephone Location of provider rendering services: practice address Location of patient: address on file Patient Identification confirmed using: Name, : Yes Telehealth method: voice only Patient verbally consented to treatment: Yes Patient verbally consented to billing insurance company: Yes Patient informed of any privacy concerns related to visit: Yes Minutes spent on Phone/Video with Pt.: 35 Assessment & Plan Assessment & Plan (1) Morbid obesity with BMI of 40.0-44.9, adult: Code(s): E66.01 - Morbid (severe) obesity due to excess calories; Z68.41 - Body mass index [BMI] 40.0-44.9, adult Category: Medical Plan: 1.? Plan for lap sleeve gastrectomy. If diaphragmatic or ventral hernias are present at time of surgery, these will be repaired laparoscopically as well. Risks and complications include possible conversion to an open procedure, anastomotic leak, bleeding requiring transfusion, small bowel obstruction, , DVT and pulmonary embolism, cardiac, or pulmonary complications, as halfway complications such as anastomotic ulcer, insufficient weight loss and vitamin deficiencies. I emphasized the importance of close follow-up, adherence to instructions and good communication. 2. You will receive a link of our software anaid to generate an individualized nutritional and exercise plan specific for you. Please send me a screenshot of the plans you will generate Meal to include lean meat (beef, fish, pork, turkey, chicken), or kazakh yogurt, or egg whites, or beans with a salad with olive oil and fruits (berries, pears, apples, kiwi). Avoid salt, breads, potatoes, rice, pasta, desserts. ?3. If you choose shakes, each shake would be drunk slowly, like coffee in a period of 2 hours. ?4. If you choose bars, cut each bar in 4 pieces and eat each piece in 30min ?to make each bar last 2 hours. ?5. I emphasized the importance of measuring accurately the food portion and measure it when serving the food in plate ?6. The meal portions include a specific number of forks of meat and salad. You always eat the meat portion but you can replace up to half of salad/vegetables portion with rice, potatoes or pasta, or a fruit ?if you like. The less you do it the better weight loss will be. ?7. One full-size fork is what it can be scooped on the fork without falling aside and not what can be bit with the fork. Use regular forks like those you find in a typical restaurant. ?8.? Please send me weight measurements as soon as possible and then once a week. Always include your diet and exercise plan. 9. The best choice would be to purchase a stationary bike, elliptical or treadmill at home that can track calories. Let me know if you do so I can give you an exercise plan. ?10.?It is important of avoiding and for at least 18 months postoperatively and has been discussed at the infosession. ?11. Goal is to lose at least 1.5-2lbs per week ?12. Goal to lose 10% of your weight before surgery, which is about 21lbs. Ultimate weight goal: 193lbs before surgery 13. Please follow the diet plan exactly without any change. If you don't like something about the plan or you feel hungry you need to communicate with me so I can help you revise the plan. You should not change the plan yourself. 14. To be scheduled for EGD to assess the anatomy of your stomach. The possibility of biopsies was discussed. Patient needs to avoid use of NSAIDs and aspirin for 1 week prior to EGD. Risks of perforation and bleeding was discussed with the patient. This will be an outpatient procedure with IV sedation. Orders: Orders Hemoglobin A1c Today E66.01 - Morbid (severe) obesity due to excess calories, I10 - Essential (primary) hypertension, J45.909 - Unspecified asthma, uncomplicated, Z68.41 - Body mass index [BMI] 40.0-44.9, adult Complete Blood Count Auto Diff Today E66.01 - Morbid (severe) obesity due to excess calories, I10 - Essential (primary) hypertension, J45.909 - Unspecified asthma, uncomplicated, Z68.41 - Body mass index [BMI] 40.0-44.9, adult Comprehensive Met. Panel Today E66.01 - Morbid (severe) obesity due to excess calories, I10 - Essential (primary) hypertension, J45.909 - Unspecified asthma, uncomplicated, Z68.41 - Body mass index [BMI] 40.0-44.9, adult Vitamin B12 and Folate Today E66.01 - Morbid (severe) obesity due to excess calories, I10 - Essential (primary) hypertension, J45.909 - Unspecified asthma, uncomplicated, Z68.41 - Body mass index [BMI] 40.0-44.9, adult Zinc Today E66.01 - Morbid (severe) obesity due to excess calories, I10 - Essential (primary) hypertension, J45.909 - Unspecified asthma, uncomplicated, Z68.41 - Body mass index [BMI] 40.0-44.9, adult Vitamin B1 Today E66.01 - Morbid (severe) obesity due to excess calories, I10 - Essential (primary) hypertension, J45.909 - Unspecified asthma, uncomplicated, Z68.41 - Body mass index [BMI] 40.0-44.9, adult Vitamin A Today E66.01 - Morbid (severe) obesity due to excess calories, I10 - Essential (primary) hypertension, J45.909 - Unspecified asthma, uncomplicated, Z68.41 - Body mass index [BMI] 40.0-44.9, adult TSH reflex Free T4 Today E66.01 - Morbid (severe) obesity due to excess calories, I10 - Essential (primary) hypertension, J45.909 - Unspecified asthma, uncomplicated, Z68.41 - Body mass index [BMI] 40.0-44.9, adult ECG 12 lead EKG Today E66.01 - Morbid (severe) obesity due to excess calories, I10 - Essential (primary) hypertension, J45.909 - Unspecified asthma, uncomplicated, Z68.41 - Body mass index [BMI] 40.0-44.9, adult Insulin Today E66.01 - Morbid (severe) obesity due to excess calories, I10 - Essential (primary) hypertension, J45.909 - Unspecified asthma, uncomplicated, Z68.41 - Body mass index [BMI] 40.0-44.9, adult H Pylori Breath Test Today E66.01 - Morbid (severe) obesity due to excess calories, I10 - Essential (primary) hypertension, J45.909 - Unspecified asthma, uncomplicated, Z68.41 - Body mass index [BMI] 40.0-44.9, adult Lipid Panel Today E66.01 - Morbid (severe) obesity due to excess calories, I10 - Essential (primary) hypertension, J45.909 - Unspecified asthma, uncomplicated, Z68.41 - Body mass index [BMI] 40.0-44.9, adult IRON PROFILE Today E66.01 - Morbid (severe) obesity due to excess calories, I10 - Essential (primary) hypertension, J45.909 - Unspecified asthma, uncomplicated, Z68.41 - Body mass index [BMI] 40.0-44.9, adult C Reactive Protein Today E66.01 - Morbid (severe) obesity due to excess calories, I10 - Essential (primary) hypertension, J45.909 - Unspecified asthma, uncomplicated, Z68.41 - Body mass index [BMI] 40.0-44.9, adult Ferritin Today E66.01 - Morbid (severe) obesity due to excess calories, I10 - Essential (primary) hypertension, J45.909 - Unspecified asthma, uncomplicated, Z68.41 - Body mass index [BMI] 40.0-44.9, adult Vitamin D 25-OH Total Today E66.01 - Morbid (severe) obesity due to excess calories, I10 - Essential (primary) hypertension, J45.909 - Unspecified asthma, uncomplicated, Z68.41 - Body mass index [BMI] 40.0-44.9, adult US abdomen comp w elastography Today E66.01 - Morbid (severe) obesity due to excess calories, I10 - Essential (primary) hypertension, J45.909 - Unspecified asthma, uncomplicated, Z68.41 - Body mass index [BMI] 40.0-44.9, adult XR chest 2V Today E66.01 - Morbid (severe) obesity due to excess calories, I10 - Essential (primary) hypertension, J45.909 - Unspecified asthma, uncomplicated, Z68.41 - Body mass index [BMI] 40.0-44.9, adult FL upper GI w air Today E66.01 - Morbid (severe) obesity due to excess calories, I10 - Essential (primary) hypertension, J45.909 - Unspecified asthma, uncomplicated, Z68.41 - Body mass index [BMI] 40.0-44.9, adult Referrals Nutrition/Dietitian Referral E66.01 - Morbid (severe) obesity due to excess calories, I10 - Essential (primary) hypertension, J45.909 - Unspecified asthma, uncomplicated, Z68.41 - Body mass index [BMI] 40.0-44.9, adult Behavioral Health Referral E66.01 - Morbid (severe) obesity due to excess calories, I10 - Essential (primary) hypertension, J45.909 - Unspecified asthma, uncomplicated, Z68.41 - Body mass index [BMI] 40.0-44.9, adult
[2023-11-22 08:20] VITALS: BMI 40.5
== END 2023-11-22 08:39 | disposition home or self-care (01) ==
LOC: HO.HBS 08:05
PROVIDERS: PCP Internal Medicine; Visit Provider Surgery
DX: E66.01 Morbid (severe) obesity due to excess calories (principal); Z68.41 Body mass index [BMI] 40.0-44.9, adult
CPT/HCPCS: 99204

== ENCOUNTER → 2023-11-22 08:05 | Outpatient (BNVA) | payer OTHER, SELFPAY | PROVIDERS: PCP Internal Medicine; Visit Provider Surgery ==

== ENCOUNTER 2023-12-07 08:33 | Outpatient (REF) | payer OTHER, SELFPAY ==
--- NOTE | ~2023-12-07 | US_ITS ---
EXAMINATION: US COMPLETE ABDOMEN WITH LIVER ELASTOGRAPHY CLINICAL INFORMATION: Morbid obesity. COMPARISON: None available. TECHNIQUE: Real-time imaging of the abdominal viscera. Noninvasive ultrasound liver fibrosis assessment is performed using Jong ElastPQ point quantification shear wave elastography (2D-SWE) with a C5-2 MHz transducer. Multiple elastography samples are obtained. FINDINGS: PANCREAS: . The visualized pancreatic head and body are normal in appearance. The remainder of the pancreas is obscured from visualization by the overlying bowel gas. ABDOMINAL AORTA: The proximal, middle, and distal aortic segments are normal in caliber. INFERIOR VENA CAVA: Visualized portions are normal. LIVER: The liver is enlarged with increased echogenicity consistent with hepatic steatosis. No focal lesion or intrahepatic biliary duct dilatation. The right lobe measures 18.6 cm in length. The left lobe measures 11.0 cm in length. Portal flow is towards the liver (hepatopetal). Shear wave liver elastography median stiffness is 1.88 m/s (reference: normal median stiffness is 1.3 m/s or less). IQR/median stiffness to assess sampling precision is 0.12 (reference: good quality data set is IQR/median stiffness of 0.15 or less). GALLBLADDER: Normal. The gallbladder is physiologically distended without evidence of stones, sludge, polyps, wall thickening or pericholecystic fluid. COMMON BILE DUCT: Normal in caliber measuring 0.4 cm in diameter. RIGHT KIDNEY: Normal. No hydronephrosis. No renal calculi or focal parenchymal lesions. The kidney measures 11.9 cm in maximum dimension. LEFT KIDNEY: Normal. No hydronephrosis. No renal calculi or focal parenchymal lesions. The kidney measures 10.6 cm in maximum dimension. SPLEEN: Normal. The spleen measures 10.5 cm in maximum dimension. FREE FLUID: None. US/US abdomen comp w elastography IMPRESSION: Enlarged fatty liver. Liver elastography: Measurements are suggestive of compensated advanced chronic liver disease but need further test for confirmation. REFERENCE: Society of Radiologists in Ultrasound Liver Stiffness Thresholds (2020): LIVER STIFFNESS THRESHOLDS: *Liver Stiffness equal or less than 1.3 m/s: High probability of being normal. *Liver Stiffness less than 1.7 m/s: In the absence of other known clinical signs, rules out compensated advanced chronic liver disease. *Liver Stiffness 1.7-2.1 m/s: Suggestive of compensated advanced chronic liver disease but need further test for confirmation. *Liver Stiffness over 2.1 m/s: Rules in compensated advanced chronic liver disease. *Liver Stiffness over 2.4 m/s: Suggestive of clinically significant portal hypertension. QUALITY OF DATA SET: *IQR/Median value equal or less than 0.15 implies a quality data set. *IQR/Median value over 0.15 implies a poor quality data set. SIGNIFICANT CHANGE FROM PRIOR EXAM: Significant change if liver stiffness measurement is 10% or greater from prior exam. OTHER CONSIDERATIONS: The stage of liver fibrosis may be overestimated in the setting of acute hepatitis, liver inflammation, elevated liver function tests, hepatic vascular congestion, obstructive cholestasis, non-fasting state, and infiltrative diseases such as amyloidosis and lymphoma. In some patients with NAFLD, the liver stiffness thresholds for compensated advanced chronic liver disease may be lower. In causes other than viral hepatitis and NAFLD, liver stiffness thresholds are not well established.
--- NOTE | ~2023-12-07 | XR_ITS ---
EXAMINATION: XR CHEST CLINICAL INFORMATION: Morbid severe obesity due to excess calories COMPARISON: 05/15/2021 TECHNIQUE: 2 views of the chest were obtained. FINDINGS: No significant abnormality is noted involving the heart, lungs, mediastinum, bony thorax or soft tissues. XR/XR chest 2V IMPRESSION: Unremarkable examination.
--- NOTE | 2023-12-07 09:20 | ECG_ITS ---
Test Reason : obesity Blood Pressure : / mmHG Vent. Rate : 085 BPM Atrial Rate : 085 BPM P-R Int : 126 ms QRS Dur : 076 ms QT Int : 388 ms P-R-T Axes : 062 054 022 degrees QTc Int : 461 ms Normal sinus rhythm Nonspecific T wave abnormality Prolonged QT Abnormal ECG When compared with ECG of 31-MAR-2011 10:56, Nonspecific T wave abnormality now evident in Lateral leads Referred By: Vlad Yanez Electronically Signed By:HAYDEN ALBERTO MD
[2023-12-07 09:43] LABS: MANUAL DIFF FLAG NO
[2023-12-07 10:33] LABS: Basophils Absolute Auto 0.1 X10*3/uL (0.0-0.2); Basophils Percent Auto 0.8 % (0-2); Eosinophils Absolute Auto 0.7 X10*3/uL (0.0-0.4); Eosinophils Percent Auto 9.5 % (0-4); Hematocrit 42.1 % (37.0-47.0); Hemoglobin 13.6 g/dl (12.0-16.0); Imm Gran Abs Auto 0.02 X10*3/uL (0.00-0.03); Imm Gran Pct Auto 0.3 % (0.0-0.4); Lymphocytes Absolute Auto 1.6 X10*3/uL (1.2-4.9); Lymphocytes Percent Auto 21.7 % (20-40); Mean Corpuscular HGB Conc 32.3 g/dl (31.0-35.0); Mean Corpuscular Hemoglobin 27.6 pg (27.0-33.0); Mean Corpuscular Volume 85.6 fL (80.0-98.0); Mean Platelet Volume 10.7 fL (9.4-12.3); Monocytes Absolute Auto 0.6 X10*3/uL (0.1-1.2); Monocytes Percent Auto 8.3 % (2-11); Neutrophils Absolute Auto 4.3 x10*3/uL (2.0-8.3); Neutrophils Percent Auto 59.4 % (45-73); Platelet Count 335 X10*3/uL (160-400); Red Blood Count 4.92 X10*6/uL (4.20-5.50); Red Cell Distribution Width 12.4 % (11.0-16.0); White Blood Count 7.3 X10*3/uL (4.8-10.8)
[2023-12-07 10:43] LABS: Estimated Average Glucose 97 mg/dL
[2023-12-07 11:20] LABS: Alanine Aminotransferase 55 U/L (0-31); Albumin Level 4.3 g/dL (3.5-5.0); Alkaline Phosphatase 79 U/L (39-117); Anion Gap 15 (12-20); Aspartate Amino Transferase 30 U/L (5-31); Bilirubin Total 0.7 mg/dL (0.0-1.0); Blood Urea Nitrogen 9 mg/dL (9-16); C Reactive Protein 0.42 mg/dL (< or = 0.50); Calcium 9.4 mg/dL (8.4-10.2); Carbon Dioxide 21 mmol/L (22-29); Chloride 108 mmol/L (96-108); Cholesterol 176 mg/dL (<200); Estimated Glomerular Filt Rate > 60; Glucose Random 112 mg/dL (60-115); HDL Cholesterol 34 mg/dL (>40); Iron 51 mcg/dL (30-160); LDL Cholesterol Calculated 83 mg/dL (<100); Percent Iron Saturation 17 % (15-50); Potassium 3.8 mmol/L (3.3-5.1); Sodium 140 mmol/L (135-145); Total Iron Binding Capacity 293 mcg/dL (228-428); Total Protein 7.2 g/dL (6.5-8.0); Triglycerides 299 mg/dL (<150); Unsaturated Iron Binding 242 ug/dL
[2023-12-07 11:26] LABS: Ferritin 64 ng/mL (10-122); TSH reflex Free T4 0.98 uIU/mL (0.32-4.0)
[2023-12-07 11:42] LABS: Folate 9.3 ng/mL (> or = 4.0); Vitamin B12 398 pg/mL (200-900)
[2023-12-07 12:13] LABS: Insulin 31 uU/mL (2-29)
[2023-12-11 02:19] LABS: Zinc 80 mcg/dL (60-130)
[2023-12-11 11:18] LABS: Vitamin A 39 mcg/dL (38-98)
[2023-12-12 15:28] LABS: Vitamin B1 10 nmol/L (8-30)
== END 2023-12-07 08:34 | disposition home or self-care (01) ==
LOC: HO.US 08:33
PROVIDERS: PCP Internal Medicine; Visit Provider Surgery
DX: E66.01 Morbid (severe) obesity due to excess calories (principal); Z68.41 Body mass index [BMI] 40.0-44.9, adult; I10 Essential (primary) hypertension; J45.909 Unspecified asthma, uncomplicated
CPT/HCPCS: 36415; 71046; 76700; 76981; 80053; 80061; 82306; 82607; 82728; 82746; 83036; 83525; 83540; 84425; 84443; 84590; 84630; 85025; 86140; 93005

== ENCOUNTER → 2023-12-07 09:20 | Outpatient (BNV) | payer OTHER, SELFPAY | PROVIDERS: PCP Internal Medicine; Visit Provider Internal Medicine Cardiovascular Disease | DX: R94.31 Abnormal electrocardiogram [ECG] [EKG] (principal) | CPT/HCPCS: 93010 ==

== ENCOUNTER 2023-12-20 16:09 | Outpatient (AMB) | payer OTHER, SELFPAY ==
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
== END 2023-12-20 16:28 | disposition home or self-care (01) ==
LOC: HO.HBST 16:09
PROVIDERS: PCP Internal Medicine; Visit Provider Counselor Mental Health
DX: F48.9 Nonpsychotic mental disorder, unspecified (principal); E66.01 Morbid (severe) obesity due to excess calories; Z68.41 Body mass index [BMI] 40.0-44.9, adult; N97.9 Female infertility, unspecified

== ENCOUNTER → 2023-12-20 16:09 | Outpatient (BNVA) | payer OTHER, SELFPAY | PROVIDERS: PCP Internal Medicine; Visit Provider Counselor Mental Health ==

== ENCOUNTER 2024-01-12 16:58 | Outpatient (AMB) | payer OTHER, SELFPAY ==
[2024-01-12 16:59] VITALS: BP 132/80; BMI 41.8
--- NOTE | 2024-01-12 16:59 | MHC.PC.OV ---
Vital Signs 01/12/24 16:59 Height 5 ft 1 in Weight 221 lb BMI 41.8 BP 132/80 Blood Pressure Location Lt brachial Position Sitting Intake Visit Reasons: PE Intake Note: Patient here for a physical exam Vocational Nurse Required: No Accompanied by: Self / Same As Patient Allergies apple [Apple] Allergy (Severe, Verified 01/12/24 17:12) SWELLING banana [BANANA] Allergy (Severe, Verified 01/12/24 17:12) SWELLING grape [GRAPE] Allergy (Severe, Verified 01/12/24 17:12) SWELLING strawberry [STRAWBERRY] Allergy (Severe, Verified 01/12/24 17:12) SWELLING animal dander Allergy (Mild, Verified 01/12/24 17:12) Wheezing Seasonal Allergies Allergy (Mild, Verified 01/12/24 17:12) Wheezing amoxicillin [AMOXICILLIN] Allergy (Unknown, Verified 01/12/24 17:12) RASH Medication List - Last Reconciled 01/12/24 by Keli Davila MD albuterol sulfate 90 mcg/actuation 1 inh inhalation QID 30 days tacrolimus 0.03% 1 appl topical BID PRN triamcinolone acetonide 0.1% 1 appl topical DAILY PRN Tobacco use date assessed: 01/12/24 Dental Screening Dental Screen Date: 01/12/24 Did you have a dental visit in the last 12 months?: Yes Did you have a dental problem in the last 6 months where you did not have access to dental care?: No Was dental information given to patient?: Patient has dentist HPI HPI Comments History of Present Illness Details This is a 33-year-old female with morbid obesity that comes for her physical exam. She is morbidly obese and follows with weight management to do weight loss surgery. Pap smear done 2023 and was normal. No chest pain or shortness on breath. [facility] Medical History Hypertension Female infertility Infertility counseling Right ankle sprain Nausea and vomiting Vomiting and diarrhea Physical exam Allergic rhinitis Mild asthma Eczema Hx of eczema Surgical History Hx of tonsillectomy Family History (Updated 01/12/24 @ 17:17 by Keli Davila MD) Father CVD (cardiovascular disease) AIDS Mother Hypertension Breast cyst Paternal Aunt Cervical cancer Social History Household Members: None Housing: Apartment Alcohol intake: never Patient Tobacco Use Status: Former Tobacco user e-Cigarette/Vaping Use: Never Used Second Hand Smoke Exposure: No service: No Current occupational status: employed 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 1. Little interest or pleasure in doing things: not at all 2. Feeling down, depressed, or hopeless: not at all 3. Trouble falling or staying asleep, or sleeping too much: not at all 4. Feeling tired or having little energy: not at all 5. Poor appetite or overeating: not at all 6. Feeling bad about yourself - or that you are a failure or have let yourself or your family down: not at all 7. Trouble concentrating on things, such as reading the newspaper or watching television: not at all 8. Moving or speaking so slowly that other people could have noticed. Or the opposite - being so fidgety or restless that you have been moving around a lot more than usual: not at all 9. Thoughts that you would be better off or of hurting yourself in some way: not at all Total score: 0 Depression Screening Interpretation: Negative Depression Screening Done: Yes 63838 - PHQ-9 Billing: Yes Source: Developed by Drs. Abdirashid Lemos, Anais Maya, Solomon Mcneal and colleagues, with an educational michelle from [employer]. Thrive Questionnaire Date Thrive assessed: 01/12/24 I am a: Patient What is your living situation today?: I have a steady place to live Within the past 12 months, did the food you bought not last and you didn't have the money to get more?: Never true Within the past 12 months, did you worry whether your food would run out before you got money to buy more?: Never true Do you have trouble paying for medicines?: No Do you have trouble getting transportation to medical appointments?: No Do you have trouble paying your heating and electricity bill?: No Do you have trouble taking care of your child, family member or friend?: No Do you have trouble with day-to-day activities such as bathing, preparing meals, shopping, managing finances, etc.?: No Are you currently unemployed and looking for a job?: No Are you interested in more education?: No Please select the resources that you would like help with: None Currently or been in a relationship where the following occur: No concerns reported THRIVE Score: 0 AUDIT C Alcohol Use Questionnaire (AUDIT-C) 1. How often do you have a drink containing alcohol?: Never Total Score: 0 DEDRA-7 AMB Questionnaire DEDRA-7 Date DEDRA - 7 assessed: 01/12/24 Feeling nervous, anxious, or on edge: 0 = Not at all Not being able to stop or control worryin = Not at all Worrying too much about different things: 0 = Not at all Trouble relaxin = Not at all Being so restless that it is hard to sit still: 0 = Not at all Becoming easily annoyed or irritable: 0 = Not at all Feeling afraid as if something awful might happen: 0 = Not at all Total DEDRA-7 score (0-4 normal; 5-9 mild; 10-14 moderate; 15-21 severe): 0 Source: Developed by Drs. Abdirashid Lemos, Anais Maya, Solomon Mcneal and colleagues, with an educational michelle from [employer]. DEDRA-7 Assessment Billing DEDRA-7 Assessment Tool: DEDRA-7 Assessment 68245 Review of Systems Const All systems reviewed & are unremarkable except as noted in HPI and below Card Denies chest pain at rest, Denies chest pain with activity, Denies edema, Denies irregular heart rhythm, Denies claudication, Denies dyspnea, Denies dyspnea on exertion, Denies orthopnea, Denies paroxysmal nocturnal dyspnea and Denies slow heart rate Resp Denies cough, Denies dyspnea and Denies dyspnea on exertion GI Denies abdominal pain, Denies change in bowel habits, Denies excessive flatus, Denies nausea and Denies vomiting Denies urinary incontinence, Denies urinary hesitancy and Denies urinary urgency Musc Denies atrophy, Denies deformity and Denies limited range of motion Physical exam (Primary Care) Vital Signs: Last Vital Signs BP 132/80 01/12/24 16:59 BMI result Body Mass Index 41.8 Tobacco/Smoking Status: Tobacco use Status Tobacco use date assessed 01/12/24 01/12/24 17:11 Patient Tobacco Use Status Former Tobacco user 01/12/24 17:05 e-Cigarette/Vaping Use Never Used 01/12/24 17:11 PHQ-9: PHQ-9 Score PHQ-9: Total score 0 01/12/24 17:18 Depression Screening Interpretation: Negative Thrive Assessment: Date of Thrive Assessment Date Thrive assessed 01/12/24 01/12/24 17:05 Currently or been in a relationship where the following occur: No concerns reported HENMT Head: Yes normal to inspection, Yes normocephalic and Yes atraumatic Ears: external ears normal Eyes General: appearance normal, both eyes and all related structures Eyelids: Yes eyelids normal Conjunctivae: conjunctivae normal Neck Neck: Yes normal visual inspection and Yes supple Resp Effort & Inspection: normal respiratory effort Auscultation: clear to auscultation bilaterally Cardio Jugular venous distension: no JVD Rate: regular rate Rhythm: regular rhythm Heart sounds: S1 normal heart sound present and S2 normal heart sound present GI Inspection: Yes normal to inspection Palpation (GI): Soft to palpation and nontender Auscultation: normal bowel sounds Skin General skin exam: no rashes or lesions noted Neuro General: no focal motor deficits Extrem General: Yes full ROM Psych Appearance: grossly normal Assessment and Plan Assessment & Plan (1) Physical exam: Code(s): Z00.00 - Encounter for general adult medical examination without abnormal findings Plan: Repeat in a year. (2) Morbid obesity with BMI of 40.0-44.9, adult: Code(s): E66.01 - Morbid (severe) obesity due to excess calories; Z68.41 - Body mass index [BMI] 40.0-44.9, adult Plan: Follow-up with weight management. BMI goal is less than 30. Coding Level of Care Code Est Pt Prev Care [id number]([id number]) Diagnoses Physical exam Z00.00 Morbid obesity with BMI of 40.0-44.9, adult E66.01; Z68.41 Additional Codes DEDRA-7 Assessment Billing - DEDRA-7 Assessment Tool: DEDRA-7 Assessment [id number] ([id number]) Time Spent (min) 30
== END 2024-01-12 17:20 | disposition home or self-care (01) ==
PROVIDERS: PCP Internal Medicine; Visit Provider Internal Medicine
DX: Z00.00 Encounter for general adult medical examination without abnormal findings (principal); E66.01 Morbid (severe) obesity due to excess calories; Z68.41 Body mass index [BMI] 40.0-44.9, adult
CPT/HCPCS: 99395

== ENCOUNTER 2024-02-03 17:30 | Emergency (ER) | payer OTHER, SELFPAY ==
[2024-02-03 18:19] VITALS: BP 210/125; PULSE 95; RESP 16; TEMP 36.9; O2SAT 96; BMI 43.0
[2024-02-03 18:35] VITALS: BP 172/114; PULSE 80; RESP 16
--- NOTE | 2024-02-03 19:06 | ED_ITS ---
HPI - General Adult General Chief complaint: Ear Problems Stated complaint: lft ear bump Time Seen by Provider: 02/03/24 18:53 Source: patient Mode of arrival: ambulatory Limitations: no limitations History of Present Illness ED Provider: Vijay Lomas HPI narrative: 33 yold female with pmh asthma, HPV, STI, GERD, elevated liver enzymes presents to the ED left ear bump that is oozing since yesterday. Patient denies any recent trauma to the ear, fever, chills, nausea, vomiting, or headache. Patient denies any other complaints. Related Data Home Medications ?Medication ?Instructions ?Recorded ?Confirmed tacrolimus 0.03 % topical ointment 1 appl topical BID PRN eczema 03/13/20 01/12/24 triamcinolone acetonide 0.1 % 1 applic topical DAILY PRN eczema 03/13/20 01/12/24 topical cream Previous Rx's ?Medication ?Instructions ?Recorded albuterol sulfate 90 mcg/actuation 1 inh inhalation QID 30 days #6.7 09/05/23 aerosol inhaler grams cephalexin 500 mg capsule 500 mg PO QID 7 days #28 caps 02/03/24 doxycycline hyclate 100 mg capsule 100 mg PO BID 7 days #14 caps 02/03/24 Allergies Allergy/AdvReac Type Severity Reaction Status Date / Time apple [Apple] Allergy Severe SWELLING Verified 02/03/24 18:21 banana [BANANA] Allergy Severe SWELLING Verified 02/03/24 18:21 grape [GRAPE] Allergy Severe SWELLING Verified 02/03/24 18:21 strawberry [STRAWBERRY] Allergy Severe SWELLING Verified 02/03/24 18:21 animal dander Allergy Mild Wheezing Verified 02/03/24 18:21 Seasonal Allergies Allergy Mild Wheezing Verified 02/03/24 18:21 amoxicillin [AMOXICILLIN] Allergy Unknown RASH Verified 02/03/24 18:21 Review of Systems 2 Review of Systems: left ear bump with oozing Yes all other systems are reviewed and are negative PMFSH Past Medical History Medical History Hypertension Female infertility Infertility counseling Right ankle sprain Nausea and vomiting Vomiting and diarrhea Physical exam Allergic rhinitis Mild asthma Eczema Hx of eczema Surgical History Hx of tonsillectomy Family History Family History (Updated 01/12/24 @ 17:17 by Keli Davila MD) Father CVD (cardiovascular disease) AIDS Mother Hypertension Breast cyst Paternal Aunt Cervical cancer Social History Social History Household Members: None Housing: Apartment Alcohol intake: never Patient Tobacco Use Status: Former Tobacco user e-Cigarette/Vaping Use: Never Used Second Hand Smoke Exposure: No Advance Directives: No Advance Directives Information Provided: No Do you have a plan to hurt others: No Plan service: No Current occupational status: employed 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[employer] Current occupational exposures/hazards: No Sexual orientation: Lesbian/Boggs/Homosexual Gender identity: Female Cognitive needs: No Hearing needs: No Vision needs: No Physical Exam ED Vital Signs: Vital Signs - 24 hr 02/03/24 18:19 02/03/24 18:35 02/03/24 19:16 Temperature 98.4 F Pulse Rate 95 80 67 Respiratory Rate 16 16 16 Blood Pressure 210/125 H 172/114 H 165/117 H Pulse Oximetry 96 Oxygen Delivery Method Room Air 02/03/24 19:56 Temperature Pulse Rate Respiratory Rate Blood Pressure 134/100 H Pulse Oximetry Oxygen Delivery Method BMI result Body Mass Index 43.0 Const General: cooperative, healthy appearing, comfortable, no acute distress, well developed, alert, awake and Physically active Orientation/consciousness: patient oriented x3 HENMT Head: Yes normal to inspection, Yes No palpable skull fracture present, Yes normocephalic and Yes atraumatic Ears: hearing grossly normal bilaterally, external ears normal, TM's normal bilaterally, TM normal on the right, TM normal on the left, EAC's normal, mastoids normal and no periauricular adenopathy Outer ear/TM images: 2 1. positive for small bump with slight yellow pus drainage. Rest of ear exam normal. Negative for discharge in the ear canal. Negative for signs of otitis media. Negative for signs of tympanic membrane perforation Throat: Yes posterior oropharynx normal, Yes tonsils normal and Yes uvula midline Eyes General: appearance normal, both eyes and all related structures Neck Neck: Yes normal visual inspection, Yes full ROM, Yes no lymphadenopathy, Yes no meningeal signs, Yes trachea midline, Yes supple, No anterior neck swelling and No tender Chest Chest palpation & inspection: normal inspection of the chest and normal palpation of entire chest wall Resp Effort & Inspection: normal respiratory effort and able to speak in complete sentences Auscultation: clear to auscultation bilaterally Cardio Jugular venous distension: no JVD Heart sounds: S1 normal heart sound present and S2 normal heart sound present GI Inspection: Yes normal to inspection Palpation (GI): Soft to palpation, not firm, nontender, no guarding and not rigid General: No CVA tenderness and Yes no CVA tenderness Back/Spine/Pelvis Back: no CVA tenderness, No CVA tenderness and No back tenderness Skin General skin exam: no rashes or lesions noted, elasticity normal and turgor normal Neuro General: patient oriented x3, gait normal, tone normal, moves all extremities, Normal light touch and pain sensation, no meningeal signs, no focal motor deficits, CN's II-XI intact bilaterally and normal sensation to monofilament Extrem General: Yes normal to inspection, Yes full ROM and Yes capillary refill normal Psych Appearance: grossly normal, well kempt and not disheveled Medical Decision Making Medical Decision Making MDM Narrative: 33-year-old female presents to ED left ear pump was slight drainage oozing and tender palpation. Patient denies any swelling of ear, redness swelling behind the ear, headache, dizziness, trauma, or foreign body. Presently no indication for incision and drainage. Physical exam does not indicate mastoiditis, cellulitis, osteomyelitis otitis media, otitis externa. 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 patient requested to have blood pressure checked manually and blood pressure improved to 134/100. Patient states never officially diagnosed as hypertension. Patient does not want any further evaluation. Patient does not want labs. Patient explains labs will check for kidney function and also will have cardiac workup. Discussion was had for patient to record her blood pressure at least 3 times a day and to call her primary care tomorrow for follow-up to see if she should be on blood pressure medications. Patient asymptomatic. NIH Score 0. Patient has no headache, nausea, vomiting, slurred speech, facial droop, paralysis of extremities, or loss of vision. NIH score is 0. Patient explained worrisome signs and informed to follow up with primary care provider. Differential Diagnosis Differential Diagnoses: The differential diagnosis associated with the presentation includes (Boil, abscess, cellulitis, otitis media, otitis externa.) Admission/Observation Consideration of admission/observation: Escalation of care including admission/observation considered Independent Historian Clinical information obtained from an independent historian. History obtained from or confirmed by: Other (patient) External Record Review External record reviewed: Other (prior visit) Prescription Management I considered prescription management with: Antibiotic Discharge Plan Discharge Clinical Impression: Abscess Patient Disposition: Home, Self-Care Instructions: Abscess (ED) Additional Instructions: Physical exam indicate early mild abscess/cellulits no indication for incision and drainage. You will be discharged with antibiotics. Recommend warm compress to the area of the ear 4 times a day for 15 minutes. During ED visit the blood pressure was elevated although resolved on its own without medication. Recommend recording you're blood pressure at least 2-3 times per day and call your primary care doctor tomorrow for re-evaluation. He/She should evaluate your blood pressure readings to see if he need to be placed on blood pressure medication. Return to the ED immediately for any headache, severe ear pain, ear drainage, worsening redness, ear swelling, redness behind or in front of the ear, headache, photophobia, nausea, vomiting, slurred speech, facial droop, paralysis of extremities, loss of vision, chest pain, shortness of breath or any other concerning symptoms. Prescriptions: New doxycycline hyclate 100 mg capsule 100 mg PO BID 7 Days Qty: 14 0RF cephalexin 500 mg capsule 500 mg PO QID 7 Days Qty: 28 0RF No Action albuterol sulfate 90 mcg/actuation HFA aerosol inhaler 1 inh inhalation QID 30 Days Qty: 6.7 1RF triamcinolone acetonide 0.1 % cream 1 applic topical DAILY PRN (Reason: eczema) tacrolimus 0.03 % ointment 1 appl topical BID PRN (Reason: eczema) Discharge Date/Time: 02/03/24 20:13 Print Language: Romanian
[2024-02-03 19:16] VITALS: BP 165/117; PULSE 67; RESP 16
[2024-02-03 19:56] VITALS: BP 134/100
== END 2024-02-03 20:13 | disposition home or self-care (01) ==
PROVIDERS: Emergency Provider Internal Medicine; PCP Internal Medicine
DX: H66.42 Suppurative otitis media, unspecified, left ear (principal); Z79.899 Other long term (current) drug therapy
CPT/HCPCS: 99283

== ENCOUNTER → 2024-08-09 11:47 | Outpatient (BNVA) | payer OTHER, SELFPAY | PROVIDERS: PCP Internal Medicine; Visit Provider Physician Assistant Surgical ==

== ENCOUNTER 2024-08-21 08:07 | Outpatient (AMB) | payer OTHER, SELFPAY ==
--- NOTE | 2024-08-21 10:45 | MHC.OFFVISWM ---
VS Expanded 08/21/24 10:57 Height 5 ft 1 in Weight 213 lb 2 oz BMI 40.3 Body Fat % 39.4 Body Fat Mass 84 Fat Free Mass 129.2 Visceral Fat Rating 9 Body Water % 41.7 Body Water Mass 88.8 Basal Metabolic Rate/Score 1,727 Intake Visit Reasons: TV Re - Est SWL BMI 40.3 Allergies apple [Apple] Allergy (Severe, Verified 08/21/24 10:45) SWELLING banana [BANANA] Allergy (Severe, Verified 08/21/24 10:45) SWELLING grape [GRAPE] Allergy (Severe, Verified 08/21/24 10:45) SWELLING strawberry [STRAWBERRY] Allergy (Severe, Verified 08/21/24 10:45) SWELLING animal dander Allergy (Mild, Verified 08/21/24 10:45) Wheezing Seasonal Allergies Allergy (Mild, Verified 08/21/24 10:45) Wheezing amoxicillin [AMOXICILLIN] Allergy (Unknown, Verified 08/21/24 10:45) RASH Medication List - Last Reconciled 08/21/24 by Vlad Yanez MD albuterol sulfate 90 mcg/actuation 1 inh inhalation QID 30 days ipratropium-albuterol 0.5 mg-3 mg(2.5 mg base)/3 mL 3 mL inhalation Q20M PRN nebulizers (Aeroneb Go Nebulizer) As directed tacrolimus 0.03% 1 appl topical BID PRN triamcinolone acetonide 0.1% 1 appl topical DAILY PRN HPI HPI TV Re - Est SWL BMI 40.3: Details: Start time: 10.34am, End time: 11.34am ?I spent 50 minutes speaking with the patient on the phone plus an additional 5 minutes reviewing and updating records for a total of 10 minutes HPI Comments Details: Previous weight loss efforts: diet and exercise Wakes up: 6am, Sleeps: 10pm Breakfast: Celebrate Rebuild protein shake Lunch: 12pm (salad) Dinner: 5pm (rice, beans, chicken, salads) Snacks: none Exercise: none, has a gym membership Fluids: Coffee (2 cups/day with cream and sugar), tea: (2 cups/day plain), soda: none, juice: none, ETOH: none PFSH Medical History Hypertension Female infertility Infertility counseling Right ankle sprain Nausea and vomiting Vomiting and diarrhea Physical exam Allergic rhinitis Mild asthma Eczema Hx of eczema Surgical History Hx of tonsillectomy Family History (Updated 08/09/24 @ 12:04 by Doris Allred CMA) Father CVD (cardiovascular disease) AIDS Mother Hypertension Breast cyst Paternal Aunt Cervical cancer Social History Household Members: None Housing: Apartment Alcohol intake: never Patient Tobacco Use Status: Former Tobacco user e-Cigarette/Vaping Use: Never Used Second Hand Smoke Exposure: No service: No Current occupational status: employed 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[employer] Current occupational exposures/hazards: No Sexual orientation: Lesbian/Boggs/Homosexual Gender identity: Female Cognitive needs: No Hearing needs: No Vision needs: No Female Reproductive History Menstrual Age of Menarche: 13 Telehealth Telehealth Telehealth Platform: Telephone Location of provider rendering services: practice address Location of patient: address on file Patient Identification confirmed using: Name, : Yes Telehealth method: voice only Patient verbally consented to treatment: Yes Patient verbally consented to billing insurance company: Yes Patient informed of any privacy concerns related to visit: Yes Minutes spent on Phone/Video with Pt.: 60 Assessment & Plan Assessment & Plan (1) Morbid obesity with BMI of 40.0-44.9, adult: Code(s): E66.01 - Morbid (severe) obesity due to excess calories; Z68.41 - Body mass index [BMI] 40.0-44.9, adult Category: Medical Plan: 1.? Plan for lap sleeve gastrectomy. If diaphragmatic or ventral hernias are present at time of surgery, these will be repaired laparoscopically as well. I emphasized the importance of close follow-up, adherence to instructions and good communication. The surgery does not replace the need to change your lifestlyle which is the cause of the obesity problem. The surgery provides the motivation to try again to change your lifestyle, it reduces the appetite and make the transition to a better lifestyle easier and doubles the amount of weight you would lose compared to doing the lifestyle change without the surgery. You will need to be on a liquid diet with protein shakes for 2 weeks before surgery to maximize weight loss and boost your nutritional status to recover better from surgery and also for the first two weeks after surgery to let the stomach heal before we introduce other foods. After the first 2 weeks we will introduce protein bars and soft foods like scrambled eggs, cottage cheese and yogurt and after the 6th week will introduce meat, fish and cooked vegetables in small amounts. Over time you should be able to eat everything in small amounts. Side effects like nausea, vomiting, heartburn or abdominal pain are not common in the practice unless you are not following in the practice. This operation requires lifetime commitment to following in our practice and communication with me. You will much less weight and experience side effects if you don?t communicate or not following in the practice. Complications are rare and in our practice is about 1/10 of the national average. However, you can develop bleeding that may require transfusion (hasn?t happened for year in the practice), you may from complications (we did not have any deaths in the practice) and infections. Infections are usually a result of breakdown in communication or not understanding or following directions correctly. They are difficult to treat, they can happen during the first 6 weeks, they may require to be in the hospital for weeks or even months, not being able to eat by mouth and you may have drains and surgeries to try and correct the issue. Other risks and complications include possible conversion to an open procedure, leaks, small bowel obstruction, blood clots, cardiac, or pulmonary complications, as correction complications such as ulcers, insufficient weight loss and vitamin deficiencies. 2. You will receive a link of our software anaid to generate an individualized nutritional and exercise plan specific for you. Please send me a screenshot of the plans you will generate Meal to include lean meat (beef, fish, pork, turkey, chicken), or romanian yogurt, or egg whites, or beans with a salad with olive oil and fruits (berries, pears, apples, kiwi). Avoid salt, breads, potatoes, rice, pasta, desserts. ?3. If you choose shakes, each shake would be drunk slowly, like coffee in a period of 2 hours. ?4. If you choose bars, cut each bar in 4 pieces and eat each piece in 30min ?to make each bar last 2 hours. ?5. I emphasized the importance of measuring accurately the food portion and measure it when serving the food in plate ?6. The meal portions include a specific number of forks of meat and salad. You always eat the meat portion but you can replace up to half of salad/vegetables portion with rice, potatoes or pasta, or a fruit ?if you like. The less you do it the better weight loss will be. ?7. One full-size fork is what it can be scooped on the fork without falling aside and not what can be bit with the fork. Use regular forks like those you find in a typical restaurant. ?8.? Please buy the body composition scale we discussed and send me weight measurements as soon as possible and then once a week. Always include your diet and exercise plan. 9. The best choice would be to purchase a stationary bike, elliptical or treadmill at home that can track calories. Let me know if you do so I can give you an exercise plan. ?10.?It is important of avoiding and for at least 18 months postoperatively and has been discussed at the infosession. ?11. Goal is to lose at least 1.5-2lbs per week ?12. Goal to lose 10% of your weight before surgery, which is about 21lbs. Ultimate weight goal: 191lbs before surgery 13. Please follow the diet plan exactly without any change. If you don't like something about the plan or you feel hungry you need to communicate with me so I can help you revise the plan. You should not change the plan yourself. 14. To be scheduled for EGD to assess the stomach's anatomy. The possibility of biopsies was discussed. Patient needs to avoid use of NSAIDs and aspirin for 1 week prior to EGD. You must be on liquids only the day before your endoscopy. Risks of perforation and bleeding was discussed with the patient. This will be an outpatient procedure with IV sedation. Orders: Orders ECG 12 lead EKG Today E66.01 - Morbid (severe) obesity due to excess calories, Z68.41 - Body mass index [BMI] 40.0-44.9, adult [place] upper GI series Today E66.01 - Morbid (severe) obesity due to excess calories, Z68.41 - Body mass index [BMI] 40.0-44.9, adult Referrals Nutrition/Dietitian Referral E66.01 - Morbid (severe) obesity due to excess calories, Z68.41 - Body mass index [BMI] 40.0-44.9, adult
[2024-08-21 10:57] VITALS: BMI 40.3
== END 2024-08-21 11:35 | disposition home or self-care (01) ==
LOC: HO.HBS 08:07
PROVIDERS: PCP Internal Medicine; Visit Provider Surgery
DX: E66.813 Obesity, class 3 (principal); Z68.41 Body mass index [BMI] 40.0-44.9, adult
CPT/HCPCS: 99215

== ENCOUNTER → 2024-08-21 08:07 | Outpatient (REF) | payer OTHER, SELFPAY ==
--- NOTE | 2024-08-21 11:18 | ECG_ITS ---
Test Reason : MOR OBS Blood Pressure : */* mmHG Vent. Rate : 83 BPM Atrial Rate : 83 BPM P-R Int : 130 ms QRS Dur : 76 ms QT Int : 372 ms P-R-T Axes : 65 53 -3 degrees QTcB Int : 437 ms Normal sinus rhythm Nonspecific T wave abnormality Abnormal ECG When compared with ECG of 07-Dec-2023 09:20, No significant change was found Referred By: Vlad Yanez Electronically Signed By: DARIA GILL
--- OUTSIDE RECORDS SUMMARY | 2024-08-21 12:52 | XMS_ITS | Encounter Summary ---
Author Organization [facility] Address [address] [place] [id number] Phone Care Team Providers Care Maintenance Mechanic Telephone Name Role Phone Yeni Dumont MD Primary Care Provider [phone] Encounter Details Date Type Department Care Team (Late st Contact Info) Description 05/20/2011 Documentation [facility] [place] [facility] [place] [address] [place], [place] [id number] Family Medicine, Physician [address] [place] [address] Social History Tobacco Use Types Packs/Day Years Used Date Smoking Tobacco: Never Assessed Comments Unknown Sex and Gender Information Value Date Recorded Sex Assigned at Not on file Legal Sex Female 4:51 PM EDT Gender Identity Not on file Sexual Orientation Not on file documented as of this encounter Plan of Treatment Not on file documented as of this encounter Visit Diagnoses Not on filedocumented in this encounter Care Teams Maintenance Mechanic Telephone Relationship Specialty Start Date End Date Yeni Dumont MD [address] [place] [address] PCP - General 01/01/17 11/12/22 documented as of this encounter
--- OUTSIDE RECORDS SUMMARY | 2024-08-21 12:52 | XMS_ITS | Clinical Summary ---
Author Organization [facility] Address [address] [place] [id number] Phone Care Team Providers Care Antique Finisher Name Role Phone Unavailable Primary Care Provider Unavailabl e Immunizations Immunization Administration Dates Next Due DTaP 5 07/04/1997, 4,1992,09/27,1992 H1N1 03/12/2009 HPV, Quadrivalent 03/12/2008,05/03/2007,03/03/20 07 Hep B, ped/adol 05/26/2011, 1,1992,07/21,1992 Hib (PRP-T) 07/23/1993, 3,1992,07/17 IPV 07/04/1997, 3,1992,07/17 Influenza Split 03/16/2011, 0,03/15/2002,04/04 Influenza, injectable, trivalent 009,03/08/2008,03/03/2007,03/27,03/20/2004,03/15/2002 MMR 05/04/1996,07/23/1993 Meningococcal Conj (Menactra) MCV4P 03/03/2007 Td (adult) (MBL), 2 Lf tetan us toxoid, PF, adsorbed 09/18/2004 Tdap 03/03/2007 Family History Relation Name Status Comments Brother Alive Brother: Alive and well, Asthma Father Father: HIV, Mother Alive Mother: Asthma / Hiv Other Family history of Migraines, Family history of Sudden /MS under age 55, Family history of Diabetes mellitus, Family history of Asthma, Family history of Elevated cholesterol, Family history of Obesity Social History Tobacco Use Types Packs/Day Years Used Date Smoking Tobacco: Never Comments:Never smoker Comments Unknown Sex and Gender Information Value Date Recorded Sex Assigned at Not on file Legal Sex Female 4:51 PM EDT Gender Identity Not on file Sexual Orientation Not on file Last Filed Vital Signs Vital Sign Reading Time Taken Comments Blood Pressure 125/79 10/02/2013 12:00 AM EDT Pulse 65 10/02/2013 12:00 AM EDT Temperature 36.7 ??C (98 ??F) 10/02/2013 12:00 AM EDT Respiratory Rate - - Oxygen Saturation - - Inhaled Oxygen Concentration - - Weight 62.3 kg (137 lb 6.4 oz) 10/02/2013 12:00 AM EDT Height 156.2 cm (5' 1.5 ) 02/02/2013 12:00 AM ED T Body Mass Index 25.54 02/02/2013 12:00 AM EDT Plan of Treatment Health Maintenance Due Date Last Done Comments Varicella Vaccines (1 of 2 - 13+ 2-dose series) 2005 DTaP,Tdap,and Td Vaccines (7 - Td or Tdap) 03/03/2017 03/03/2007, 09/18/2004, 07/04/1997, Additional history exists Influenza Vaccines (#1) 2023 03/16/20 11, 03/19/2010, 03/12/2009, Additional history exists COVID-19 Vaccine ( season) 2024 HIB Vaccines Completed 07/23/1993, 06/1992, 1992, Additional history exists MMR Vaccines Completed 05/04/1996, 07/23/1993 IPV Vaccines Completed 07/04/1997, 06/1992, 1992, Additional history exists Meningococcal Vaccine Aged Out 03/03/2007 No gela destniey eligible based on patient's age to complete this topic HPV Vaccines Completed 03/12/2008, 04/23, 03/03/2007 Hepatitis B Vaccines Completed 05/26/2011, 03/16/2011, 1992, Additional history exists Hepatitis A Vaccines Aged Out No long er eligible based on patient's age to complete this topic Men B Vaccine Aged Out No longer elig ible based on patient's age to complete this topic Pneumococcal Vaccine Aged Out No long er eligible based on patient's age to complete this topic Procedures * Due to [place] ShotSpotter law, this organization might not be sharing sensitive test results. Procedure Name Priority Date/Time Associated Diagnosis Comments CHLAMYDIA AND GONORRHEA, AMPLIFIED Routine 10/28/2012 4:39 PM EDT from Last 3 Months or Most Recently Relevant to Health Maintenance Results * Due to [place] ShotSpotter law, this organization might not be sharing sensitive test results. * Chlamydia and Gonorrhoea, Amplified (10/28/2012 4:39 PM EDT) URINE GC AMP PROBE NEGATIVE [facility] Comment: NO NEISSERIA GONORRHOEAE RNA DETECTED IN THIS PATIENT'S SAMPLE. ? (REFERENCE RANGE/NORMAL VALUE: NOT DETECTED) ? NOTE: THIS TEST USES EMPLOYMENT RECRUITER-MEDIATED AMPLIFICATION METHOD TO DETECT rRNA FROM C.TRACHOMATIS AND N.GONORRHOEAE. A NEGATIVE RESULT DOES NOT PRECLUDE INFECTION. THE APTIMA COMBO 2 ASSAY IS NOT INTENDED FOR THE EVALUATION OF SUSPECTED SEXUAL ABUSE OR FOR OTHER MEDICO LEGAL INDICATIONS. THERAPEUTIC FAILURE OR SUCCESS CANNOT BE DETERMINED WITH THE APTIMA COMBO 2 ASSAY SINCE NUCLEIC ACID MAY PERSIST FOLLOWING APPROPRIATE ANTIMICROBIAL THERAPY. IN THE CASE OF A NEGATIVE URINE RESULT, TESTING OF AN ENDOCERVICAL (FEMALE) OR URETHRAL (MALE) SPECIMEN IS RECOMMENDED IF THERE IS HIGH CLINICAL SUSPICION OF INFECTION. URINE CHLAMYDIA AMP PROBE NEGATIVE [facility] Comment: NO CHLAMYDIA TRACHOMATIS RNA DETECTED IN THIS PATIENT'S SAMPLE. ? (REFERENCE RANGE/NORMAL VALUE: NOT DETECTED) 10/28/2012 4:39 PM EDT Narrative [facility] - 10/28/2012 4:39 PM EDT URINE CHLAMYDIA GC AMP PROBE us Yeni Dumont MD LAB MICROBIOLOGY - GENERAL ORDER TONIO Final Result [facility] [address] [place] [address], from Last 3 Months or Most Recently Relevant to Health Maintenance
--- OUTSIDE RECORDS SUMMARY | 2024-08-21 12:52 | XMS_ITS | Encounter Summary ---
Author Organization [facility] Address [address] [place] [address] Phone Care Team Providers Care Restaurant Line Cook Name Role Phone Yeni Dumont MD Primary Care Provider [phone] Encounter Details Date Type Department Care Team (Late st Contact Info) Description 05/07/2010 Documentation [facility] [place] [address] [place], [place] [id number] Family Medicine, Physician [address] [place] [address] Social History Tobacco Use Types Packs/Day Years [...] on filedocumented in this encounter Care Teams Restaurant Line Cook Relationship Specialty Start Date End Date Yeni Dumont MD 150 [facility] [place] [address] PCP - General 01/01/17 11/12/22 documented as of this encounter
--- OUTSIDE RECORDS SUMMARY | 2024-08-21 12:52 | XMS_ITS | Encounter Summary ---
Author Organization [facility] Address [address] [place] [address] Phone Care Team Providers Care Dressage Judge Name Role Phone Yeni Dumont MD Primary Care Provider [phone] Encounter Details Date Type Department Care Team (Late st Contact Info) Description 08/26/2010 Documentation [facility] [place] [address] [place], [place] [id number] Family Medicine, Physician [address] [place] [address] Social History Tobacco Use Types Packs/Day Years [...] on filedocumented in this encounter Care Teams Dressage Judge Relationship Specialty Start Date End Date Yeni Dumont MD 150 [place] [address] PCP - General 01/01/17 11/12/22 documented as of this encounter
--- OUTSIDE RECORDS SUMMARY | 2024-08-21 12:52 | XMS_ITS | Encounter Summary ---
Author Organization [facility] Address [address] [place] [address] Phone Care Team Providers Care Hatchery Attendant Name Role Phone Yeni Dumont MD Primary Care Provider [phone] Encounter Details Date Type Department Care Team (Late st Contact Info) Description 01/02/2014 Documentation [facility] [place] [address] [place] [address] Family Medicine, Physician [address] [place] [address] Social History Tobacco Use Types Packs/Day Years [...] on filedocumented in this encounter Care Teams Hatchery Attendant Relationship Specialty Start Date End Date Yeni Dumont MD 150 [facility] [address] PCP - General 01/01/17 11/12/22 documented as of this encounter
--- OUTSIDE RECORDS SUMMARY | 2024-08-21 12:52 | XMS_ITS | Encounter Summary ---
Author Organization [facility] Address [address] [place] [address] Phone Care Team Providers Care Radiology Physician Assistant Name Role Phone Yeni Dumont MD Primary Care Provider [phone] Encounter Details Date Type Department Care Team (Late st Contact Info) Description 01/07/2017 Conversion Encounter [facility] [place] [address] [place] [address] Social History Tobacco Use Types Packs/Day Years [...] on filedocumented in this encounter Care Teams Radiology Physician Assistant Relationship Specialty Start Date End Date Yeni Dumont MD 150 [place] [address] PCP - General 01/01/17 11/12/22 documented as of this encounter
--- OUTSIDE RECORDS SUMMARY | 2024-08-21 12:52 | XMS_ITS | Encounter Summary ---
Author Organization [facility] Address [address] [place] [address] Phone Care Team Providers Care Safety Lead Name Role Phone Yeni Dumont MD Primary Care Provider [phone] Encounter Details Date Type Department Care Team (Late st Contact Info) Description 06/25/2011 Documentation [facility] [place] Family Medicine [address] [place], [place] [id number] Family Medicine, Physician [address] [place] [address] Social History Tobacco Use Types Packs/Day Years [...] on filedocumented in this encounter Care Teams Safety Lead Relationship Specialty Start Date End Date Yeni Dumont MD 150 [place] [address] PCP - General 01/01/17 11/12/22 documented as of this encounter
--- OUTSIDE RECORDS SUMMARY | 2024-08-21 12:52 | XMS_ITS | Encounter Summary ---
Author Organization [facility] Address [address] [place] [address] Phone Care Team Providers Care Help Desk Operator Name Role Phone Yeni Dumont MD Primary Care Provider [phone] Encounter Details Date Type Department Care Team (Late st Contact Info) Description 10/03/2013 Documentation [facility] [place] Family Medicine [address] [place] [address] Family Medicine, Physician [address] [place] [address] Social History Tobacco Use Types Packs/Day Years [...] on filedocumented in this encounter Care Teams Help Desk Operator Relationship Specialty Start Date End Date Yeni Dumont MD 150 [place] [address] PCP - General 01/01/17 11/12/22 documented as of this encounter
--- OUTSIDE RECORDS SUMMARY | 2024-08-21 12:52 | XMS_ITS | Encounter Summary ---
Author Organization [facility] Address [address] [place] [address] Phone Care Team Providers Care Opthalmic Tech Name Role Phone Yeni Dumont MD Primary Care Provider [phone] Encounter Details Date Type Department Care Team (Late st Contact Info) Description 05/20/2011 Documentation [facility] [place] [address] [place], [place] [address] Family Medicine, Physician [address] [place] [address] Social History Tobacco Use Types Packs/Day Years [...] on filedocumented in this encounter Care Teams Opthalmic Tech Relationship Specialty Start Date End Date Yeni Dumont MD 150 [place] [address] PCP - General 01/01/17 11/12/22 documented as of this encounter
== END ==
LOC: HO.CARD 08:07
PROVIDERS: PCP Internal Medicine; Visit Provider Surgery
DX: E66.01 Morbid (severe) obesity due to excess calories (principal); Z68.41 Body mass index [BMI] 40.0-44.9, adult
CPT/HCPCS: 93005

== ENCOUNTER → 2024-08-21 11:18 | Outpatient (BNV) | payer OTHER, SELFPAY | PROVIDERS: PCP Internal Medicine; Visit Provider Internal Medicine | DX: R94.31 Abnormal electrocardiogram [ECG] [EKG] (principal); E66.01 Morbid (severe) obesity due to excess calories | CPT/HCPCS: 93010 ==

== ENCOUNTER 2024-08-25 12:42 | Day surgery (SDC) | payer OTHER, SELFPAY ==
--- OUTSIDE RECORDS SUMMARY | 2024-08-22 15:57 | XMS_ITS | Encounter Summary ---
Author Organization [facility] Address [address] [place] [address] Phone Care Team Providers Care Bore Mill Operator Name Role Phone Yeni Dumont MD Primary Care Provider [phone] Encounter Details Date Type Department Care Team (Late st Contact Info) Description 10/03/2013 Documentation [facility] [place] Medicine [address] [place], [place] [phone] Family Medicine, Physician [address] [place] [address] Social History Tobacco Use Types Packs/Day Years [...] on filedocumented in this encounter Care Teams Bore Mill Operator Relationship Specialty Start Date End Date Yeni Dumont MD 150 [place] [address] PCP - General 01/01/17 11/12/22 documented as of this encounter
--- OUTSIDE RECORDS SUMMARY | 2024-08-22 15:57 | XMS_ITS | Encounter Summary ---
Author Organization [facility] Address [address] [place] [address] Phone Care Team Providers Care Cordwood Cutter Name Role Phone Yeni Dumont MD Primary Care Provider [phone] Encounter Details Date Type Department Care Team (Late st Contact Info) Description 08/26/2010 Documentation [facility] [place] [address] [place], [place] [phone] Family Medicine, Physician [address] [place] [address] Social History Tobacco Use Types Packs/Day Years [...] on filedocumented in this encounter Care Teams Cordwood Cutter Relationship Specialty Start Date End Date Yeni Dumont MD 150 [place] [address] PCP - General 01/01/17 11/12/22 documented as of this encounter
--- OUTSIDE RECORDS SUMMARY | 2024-08-22 15:57 | XMS_ITS | Encounter Summary ---
Author Organization [facility] Address [address] [place] [address] Phone Care Team Providers Care Home Furnishings Sales Representative Name Role Phone Yeni Dumont MD Primary Care Provider [phone] Encounter Details Date Type Department Care Team (Late st Contact Info) Description 05/07/2010 Documentation [facility] [place] [address] [place], [place] [phone] Family Medicine, Physician [address] [place] [address] Social History Tobacco Use Types Packs/Day Years [...] on filedocumented in this encounter Care Teams Home Furnishings Sales Representative Relationship Specialty Start Date End Date Yeni Dumont MD 150 [place] [address] PCP - General 01/01/17 11/12/22 documented as of this encounter
--- OUTSIDE RECORDS SUMMARY | 2024-08-22 15:57 | XMS_ITS | Encounter Summary ---
Author Organization [facility] Address [address] [place] [address] Phone Care Team Providers Care Barrel Straightener Name Role Phone Yeni Dumont MD Primary Care Provider [phone] Encounter Details Date Type Department Care Team (Late st Contact Info) Description 01/07/2017 Conversion Encounter [facility] [place] [address] [place] [address] Social History Tobacco Use Types Packs/Day Years [...] on filedocumented in this encounter Care Teams Barrel Straightener Relationship Specialty Start Date End Date Yein Dumont MD 150 [place] [address] PCP - General 01/01/17 11/12/22 documented as of this encounter
--- OUTSIDE RECORDS SUMMARY | 2024-08-22 15:57 | XMS_ITS | Encounter Summary ---
Author Organization [facility] Address [address] [place] [address] Phone Care Team Providers Care Pattern Fitter Name Role Phone Yeni Dumont MD Primary Care Provider [phone] Encounter Details Date Type Department Care Team (Late st Contact Info) Description 06/25/2011 Documentation [facility] [place] [address] [place], [place] [phone] Family Medicine, Physician [address] [place] [address] Social History Tobacco Use Types Packs/Day Years [...] on filedocumented in this encounter Care Teams Pattern Fitter Relationship Specialty Start Date End Date Yeni Dumont MD 150 [place] [address] PCP - General 01/01/17 11/12/22 documented as of this encounter
--- OUTSIDE RECORDS SUMMARY | 2024-08-22 15:57 | XMS_ITS | Encounter Summary ---
Author Organization [facility] Address [address] [place] [address] Phone Care Team Providers Care Rubber Down Name Role Phone Yeni Dumont MD Primary Care Provider [phone] Encounter Details Date Type Department Care Team (Late st Contact Info) Description 05/20/2011 Documentation [facility] [place] Family Medicine [address] [place], [place] [phone] Family Medicine, Physician [address] [place] [address] Social History Tobacco Use Types Packs/Day Years [...] on filedocumented in this encounter Care Teams Rubber Down Relationship Specialty Start Date End Date Yeni Dumont MD 150 [facility] [place] [address] PCP - General 01/01/17 11/12/22 documented as of this encounter
--- OUTSIDE RECORDS SUMMARY | 2024-08-22 15:57 | XMS_ITS | Clinical Summary ---
Author Organization [facility] Address [address] [place] [address] Phone Care Team Providers Care Cold Patcher Name Role Phone Unavailable Primary Care Provider [...] Meningococcal Vaccine Aged Out 03/03/2007 No gela destiney eligible based on patient's age to complete [...] complete this topic Procedures * Due to [place] law, this organization might not be sharing sensitive test results. Procedure Name Priority Date/Time Associated Diagnosis Comments CHLAMYDIA AND GONORRHEA, AMPLIFIED Routine 10/28/2012 4:39 PM EDT from Last 3 Months or Most Recently Relevant to Health Maintenance Results * Due to [place] law, this organization might not be sharing sensitive test results. * Chlamydia and Gonorrhoea, Amplified (10/28/2012 4:39 PM EDT) URINE GC AMP PROBE NEGATIVE [facility] Comment: NO NEISSERIA GONORRHOEAE RNA DETECTED IN THIS PATIENT'S SAMPLE. ? (REFERENCE RANGE/NORMAL VALUE: NOT DETECTED) ? NOTE: THIS TEST USES HIM ANALYST-MEDIATED AMPLIFICATION METHOD TO DETECT rRNA FROM C.TRACHOMATIS [...] INFECTION. URINE CHLAMYDIA AMP PROBE NEGATIVE [facility] Comment: NO CHLAMYDIA TRACHOMATIS RNA DETECTED IN THIS PATIENT'S SAMPLE. ? (REFERENCE RANGE/NORMAL VALUE: NOT DETECTED) 10/28/2012 4:39 PM EDT Narrative [facility] - 10/28/2012 4:39 PM EDT URINE CHLAMYDIA GC AMP PROBE us Yeni Dumont MD LAB MICROBIOLOGY - GENERAL ORDER TONIO Final Result [facility] [address] [place] [address], from Last 3 Months or Most Recently Relevant to Health Maintenance
--- OUTSIDE RECORDS SUMMARY | 2024-08-22 15:57 | XMS_ITS | Encounter Summary ---
Author Organization [facility] Address [address] [place] [address] Phone Care Team Providers Care Taper And Floater Name Role Phone Yeni Dumont MD Primary Care Provider [phone] Encounter Details Date Type Department Care Team (Late st Contact Info) Description 01/02/2014 Documentation [facility] [place] [address] [place] [address] Family Medicine, Physician [address] [place] [address] Social History Tobacco Use Types Packs/Day Years [...] on filedocumented in this encounter Care Teams Taper And Floater Relationship Specialty Start Date End Date Yeni Dumont MD [address] [facility] [place] [address] PCP - General 01/01/17 11/12/22 documented as of this encounter
--- OUTSIDE RECORDS SUMMARY | 2024-08-22 15:57 | XMS_ITS | Encounter Summary ---
Author Organization [facility] Address [address] [place] [address] Phone Care Team Providers Care Gym Teacher Name Role Phone Yeni Dumont MD Primary Care Provider [phone] Encounter Details Date Type Department Care Team (Late st Contact Info) Description 05/20/2011 Documentation [facility] [place] Family Medicine [address] [place], [place] [phone] Family Medicine, Physician [address] [place] [address] Social History Tobacco Use Types Packs/Day Years [...] on filedocumented in this encounter Care Teams Gym Teacher Relationship Specialty Start Date End Date Yeni Dumont MD 150 [place] [address] PCP - General 01/01/17 11/12/22 documented as of this encounter
--- NOTE | 2024-08-23 14:57 | HO.ANESPROP2 ---
Documented by User: Suzi Boateng NP 08/23/24 14:58 HPI - Anesthesia Eval Consult details Narrative: 34yo F for Upper Endoscopy PMFSH Active Problems Active Problems: All Active Problems Abnormal EKG (Acute) Nonpsychotic mental disorder, unspecified (Acute) Elevated liver enzymes (Acute) Hypertension (Acute) Encounter for well woman exam with routine gynecological exam (Acute) Hx of chronic eczema (Acute) Dry skin (Acute) Mild intermittent asthma with exacerbation (Acute) Acute respiratory distress (Acute) Asthma (Acute) Vaginal irritation (Acute) Low vitamin D level (Acute) Elevated ALT measurement (Acute) Morbid obesity with BMI of 40.0-44.9, adult (Acute) Routine screening for STI (sexually transmitted infection) (Acute) Female infertility (Acute) Infertility counseling (Acute) Right ankle pain (Acute) 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) Right ankle sprain (Acute) Bone spur of posterior portion of right calcaneus (Acute) Os trigonum (Acute) Sprain of right ankle (Acute) Acid reflux (Acute) Nausea and vomiting (Acute) Vomiting and diarrhea (Acute) Physical exam (Acute) Allergic rhinitis (Acute) Mild asthma (Acute) Eczema (Acute) Hx of human papillomavirus infection (Acute) Vaginal itching (Acute) Past Medical History Medical History Hypertension Female infertility Infertility counseling Right ankle sprain Nausea and vomiting Vomiting and diarrhea Physical exam Allergic rhinitis Mild asthma Eczema Hx of eczema Family History Family History (Updated 08/09/24 @ 12:04 by Doris Allred CMA) Father CVD (cardiovascular disease) AIDS Mother Hypertension Breast cyst Paternal Aunt Cervical cancer Surgical History Surgical History Hx of tonsillectomy Social History Social History Household Members: None Housing: Apartment Are you a primary caregiver services home to a significant other at home: No Do you presently have visiting nurse or other home services: No Alcohol intake: never Patient Tobacco Use Status: Former Tobacco user Tobacco use type: Cigarette Years Smoked: 12 Smoked in Last 30 Days: No e-Cigarette/Vaping Use: Never Used Second Hand Smoke Exposure: No Use of substances other than those prescribed or required for medical reasons: No Have you been hit, kicked, punched, or otherwise hurt by someone within the past year? If so, by whom?: No Are you DNR?: No Advance Directives: No Advance Directives Information Provided: No Advance Directives on File: No Patient : No : No service: No Current occupational status: employed Current occupation: [employer] Current occupational exposures/hazards: No Sexual orientation: Lesbian/Boggs/Homosexual Gender identity: Female Cognitive needs: No Hearing needs: No Vision needs: No Meds Allergies Allergy/AdvReac Type Severity Reaction Status Date / Time apple [Apple] Allergy Severe SWELLING Verified 08/25/24 12:51 banana [BANANA] Allergy Severe SWELLING Verified 08/25/24 12:51 grape [GRAPE] Allergy Severe SWELLING Verified 08/25/24 12:51 strawberry [STRAWBERRY] Allergy Severe SWELLING Verified 08/25/24 12:51 amoxicillin [AMOXICILLIN] Allergy Intermediate RASH Verified 08/25/24 12:51 animal dander Allergy Mild Wheezing Verified 08/25/24 12:51 Seasonal Allergies Allergy Mild Wheezing Verified 08/25/24 12:51 Home Medications ?Medication ?Instructions ?Recorded ?Confirmed ?Last Taken ?Type tacrolimus 0.03 % topical ointment 1 appl topical BID PRN eczema 03/13/20 08/25/24 Unknown History triamcinolone acetonide 0.1 % 1 applic topical DAILY PRN eczema 03/13/20 08/25/24 Unknown History topical cream Zyrtec PO DAILY PRN seasonal allergies 08/25/24 08/25/24 History Assessment and Plan Assessment Anesthesia Assessment: Chart Reviewed Documented by User: Tammie Kiran MD 08/25/24 13:18 [facility] Past Medical History Medical History Hypertension Female infertility Infertility counseling Right ankle sprain Nausea and vomiting Vomiting and diarrhea Physical exam Allergic rhinitis Mild asthma Eczema Hx of eczema Family History Family History (Updated 08/09/24 @ 12:04 by Doris Allred CMA) Father CVD (cardiovascular disease) AIDS Mother Hypertension Breast cyst Paternal Aunt Cervical cancer Family history of problems with anesthesia: No Surgical History Surgical History Hx of tonsillectomy History of Problems with Anesthesia: No Social History Social History Household Members: None Housing: Apartment Are you a primary caregiver services home to a significant other at home: No Do you presently have visiting nurse or other home services: No Alcohol intake: never Patient Tobacco Use Status: Former Tobacco user Tobacco use type: Cigarette Years Smoked: 12 Smoked in Last 30 Days: No e-Cigarette/Vaping Use: Never Used Second Hand Smoke Exposure: No Use of substances other than those prescribed or required for medical reasons: No Have you been hit, kicked, punched, or otherwise hurt by someone within the past year? If so, by whom?: No Are you DNR?: No Advance Directives: No Advance Directives Information Provided: No Advance Directives on File: No Patient : No : No service: No Current occupational status: employed Current occupation: [employer] Current occupational exposures/hazards: No Sexual orientation: Lesbian/Boggs/Homosexual Gender identity: Female Cognitive needs: No Hearing needs: No Vision needs: No Meds Allergies Allergy/AdvReac Type Severity Reaction Status Date / Time apple [Apple] Allergy Severe SWELLING Verified 08/25/24 12:51 banana [BANANA] Allergy Severe SWELLING Verified 08/25/24 12:51 grape [GRAPE] Allergy Severe SWELLING Verified 08/25/24 12:51 strawberry [STRAWBERRY] Allergy Severe SWELLING Verified 08/25/24 12:51 amoxicillin [AMOXICILLIN] Allergy Intermediate RASH Verified 08/25/24 12:51 animal dander Allergy Mild Wheezing Verified 08/25/24 12:51 Seasonal Allergies Allergy Mild Wheezing Verified 08/25/24 12:51 Home Medications ?Medication ?Instructions ?Recorded ?Confirmed ?Last Taken ?Type tacrolimus 0.03 % topical ointment 1 appl topical BID PRN eczema 03/13/20 08/25/24 Unknown History triamcinolone acetonide 0.1 % 1 applic topical DAILY PRN eczema 03/13/20 08/25/24 Unknown History topical cream Zyrtec PO DAILY PRN seasonal allergies 08/25/24 08/25/24 History Exam Airway Mallampati Class: I (top 2 caps) TM Dist: >3cm Neck ROM: Full Heart: rrr Lungs: cta Assessment and Plan Assessment Anesthesia Assessment: Anesthesia Plan Discussed Final Anesthetic Review Family History of Problems with Anesthesia: No History of Problems with Anesthesia: No NPO: Yes ASA Class: III Final Preanesthetic Review: No Changes in Pt Med Stat, Meds/Allgs Chart Reviewed and Consent Obtained/Reviewed Patient Risk: Intermediate Procedure Risk: Intermediate Anesthetic Plan Anesthetic Plan: MAC: Disposition: Standard PACU
[2024-08-25 12:59] VITALS: BP 161/106; PULSE 83; RESP 16; TEMP 36.7; O2SAT 98; BMI 38.4
[2024-08-25] MEDS: Albuterol Sulfate (0.083%) 2.5 MG/3 ML VIAL.NEB INHALE (13:14)
[2024-08-25] MEDS: Lactated Ringers 1,000 ML 80 ML IVCONT (13:14)
[2024-08-25 13:19] LABS: UPreg QC Valid YES; Urine Pregnancy NEGATIVE (NEGATIVE)
[2024-08-25 13:24] VITALS: BP 151/94
--- NOTE | 2024-08-25 13:28 | MHC.SHP ---
Pre-Procedural Eval Section A - 24 Hr Update-Section A only Date of Service: 08/25/24 The patient is an INPATIENT: No The patient has been examined within 24 hours of the surgical procedure. The History & Physical has been completed within 30 days and I have reviewed it.: Yes Section B - Complete if H&P > 30 days Chief Complaint: Obesity, unspecified Relevant Family History (Specify if Yes): No Relevant Social History: None Present Medications: None Medical History: No relevant PMH History of Previous Operations: No relevant previous surgery Allergies: Allergies Allergy/AdvReac Type Severity Reaction Status Date / Time apple [Apple] Allergy Severe SWELLING Verified 08/25/24 12:51 banana [BANANA] Allergy Severe SWELLING Verified 08/25/24 12:51 grape [GRAPE] Allergy Severe SWELLING Verified 08/25/24 12:51 strawberry [STRAWBERRY] Allergy Severe SWELLING Verified 08/25/24 12:51 amoxicillin [AMOXICILLIN] Allergy Intermediate RASH Verified 08/25/24 12:51 animal dander Allergy Mild Wheezing Verified 08/25/24 12:51 Seasonal Allergies Allergy Mild Wheezing Verified 08/25/24 12:51 Review of Systems Sugical H&P ROS: Negative: Constitution, Cardiovascular, Respiratory, Neurological, Psychiatric, Hem-Onc, Allergic/Immunologic, Gastrointestinal, Genitourinary, Musculoskeletal, Integumentary, Endocrine and Eyes/Ears/Nose/Throat Exam Surgical H&P Exam: Normal: HEENT, Normal: Heart, Normal: Lungs, Normal: Extremities, Normal: Abdomen, Normal: Skin and Normal: Neurological Plan Diagnosis/Plan: Unchanged (EGD to assess etiology of GERD. Risks of bleeding and perforation were discussed with the patient and she is in agreement with the plan.) I have reviewed the history and physical and performed a pertinent physical examination on my patient. No changes have occurred unless specified. Time Spent With Patient Time: Total time managing care of this patient today ____ minutes.
--- NOTE | 2024-08-25 13:42 | PM.OP ---
Brief Operative Note Date of Service: 08/25/24 Pre-op diagnosis: GERD Post-op diagnosis: same Procedure: PROCEDURE DATE: 08/25/2024 PREOPERATIVE DIAGNOSIS: GERD POSTOPERATIVE DIAGNOSIS: ?Same as above. Normal endoscopy PROCEDURE: Gstdfurb-ptuexi-ugkhfoeodgou with biopsies Surgeon: Arcenio Yanez M.D.. Ph.D. Exchange Teller: None ? Anesthesia: IV sedation Estimated blood loss: ?Minimal FINDINGS AND PROCEDURE: ? OPERATIVE INDICATIONS: ?The patient is a 34 year old female known to me who is interested in bariatric surgery. The patient has GERD. Based on this information I recommended an upper endoscopy to evaluate the patient's symptoms. Risks and complications of the surgery were discussed with the patient in advance particularly the possibility of perforation or bleeding that may require surgical intervention. The patient understood the risks and was in agreement with the plan. ? PROCEDURE: After informed consent was obtained by the patient, the patient was ?transferred to the Operating Room and was placed in the supine position.? After successful induction of IV sedation, a mouth block was inserted and the patient was placed in the left lateral decubitus position. An upper endoscopy was performed next, the oropharynx and esophagus appeared within the normal limits. There was no hiatal hernia. The z-line was smooth. Two biopsies were obtained from the distal esophagus 2-3 cm proximal to the GE junction and two additional biopsies from the GE junction. The stomach was entered and it appeared to be of normal size. There was gastritis. There was no stricture or ulcer. A biopsy was obtained from the gastric fundus and the antrum. No significant bleeding was noted from any of the biopsy sites. Retroflexion of the scope confirmed a normal GE junction. The scope was then advanced into the duodenum which appeared to be normal as well. At that point the duodenum ?and the stomach were decompressed and the scope was withdrawn from the patient's mouth. The patient extubated and was transferred in stable condition to the Recovery Room for further care. I was present and performed all steps of the procedure. There were no residents to assist with this case. Conor Yanez M.D., Ph.D. Surgeon: Vlad Yanez MD Anesthesia: MAC Was an Exchange Teller used for this Procedure?: No Estimated blood loss (mL): 0 IV fluids (mL): 400 Urine output (mL): 0 (No Melo to record output) Pathology: other (1) antrum x1, 2) fundus x1, 3) GE junction x2, 4) distal esophagus x2) Condition: stable Disposition: PACU
[2024-08-25 14:06] VITALS: BP 127/72; PULSE 94; RESP 14; TEMP 36.6; O2SAT 98
[2024-08-25 14:20] VITALS: BP 159/96; PULSE 84; RESP 16; O2SAT 99
[2024-08-25 14:33] VITALS: BP 151/97; PULSE 80; RESP 16; TEMP 36.8; O2SAT 98
== END 2024-08-25 15:11 | disposition home or self-care (01) ==
PROVIDERS: Nurse Practitioner; PCP Internal Medicine; Visit Provider Surgery
PROC: 0DJ08ZZ Inspection of Upper Intestinal Tract, Via Natural or Artificial Opening Endoscopic (ICD-10-PCS; CPT 43235; principal; 2024-08-25 14:00)
DX: K21.9 Gastro-esophageal reflux disease without esophagitis (principal); E66.01 Morbid (severe) obesity due to excess calories; Z68.41 Body mass index [BMI] 40.0-44.9, adult; K29.50 Unspecified chronic gastritis without bleeding; J30.2 Other seasonal allergic rhinitis; J30.81 Allergic rhinitis due to animal (cat) (dog) hair and dander; Z91.018 Allergy to other foods; I10 Essential (primary) hypertension; Z79.899 Other long term (current) drug therapy; Z87.891 Personal history of nicotine dependence
CPT/HCPCS: 43239; 81025; 88305; 88313; 88342; J1100; J1596; J2003; J2250; J2704

== ENCOUNTER → 2024-08-25 12:42 | Outpatient (BNV) | payer OTHER, SELFPAY | PROVIDERS: PCP Internal Medicine; Visit Provider Surgery | DX: K21.9 Gastro-esophageal reflux disease without esophagitis (principal) | CPT/HCPCS: 43239 ==

== ENCOUNTER → 2024-08-28 07:51 | Outpatient (REF) | payer OTHER, SELFPAY ==
--- NOTE | 2024-08-28 07:54 | CA_ITS ---
Acquisition Time: 2024-08-28 07:53:20 Total Exercise Time: 00:05:17 Test Indications: Abnormal ECG,Pre-Op Evaluation Medications: INHALER ZYRTEC Protocol: IZAIAH Max HR: 164 BPM 87% of Pred: 188 BPM Max BP: 190/100 mmHG Max Work Load: 7.0 METS Exericse Stress Test with exercise 5 min 17 secs of Izaiah Protocol, achieving 87% MPHR, without any anginal symptoms, without any arrythmias, with normotensive response to exercise (baseline BP 130/100). Without EKG changes meeting criteria for ischemia. Test reviewed with Dr. Arce. Referred By: Vlad Yanez Electronically Signed By: Solo Zepeda
--- OUTSIDE RECORDS SUMMARY | 2024-08-28 07:57 | XMS_ITS | Encounter Summary ---
Author Organization [facility] Address [address] [place] [address] Phone Care Team Providers Care Director Of Manufacturing Operations Name Role Phone Yeni Dumont MD Primary Care Provider [phone] Encounter Details Date Type Department Care Team (Late st Contact Info) Description 05/07/2010 Documentation [facility] [place] [address] [place], [place] [id number] Family Medicine, Physician [address] [place] [address] Social History Tobacco Use Types Packs/Day Years [...] on filedocumented in this encounter Care Teams Director Of Manufacturing Operations Relationship Specialty Start Date End Date Yeni Dumont MD 150 [place] [address] PCP - General 01/01/17 11/12/22 documented as of this encounter
--- OUTSIDE RECORDS SUMMARY | 2024-08-28 07:57 | XMS_ITS | Clinical Summary ---
Author Organization [facility] Address [address] [place] [address] Phone Care Team Providers Care Environmental Intern Name Role Phone Unavailable Primary Care Provider [...] history of Migraines, Family history of Sudden /[place] under age 55, Family history of Diabetes [...] complete this topic Procedures * Due to [place] Cov[employer] law, this organization might not be sharing sensitive test results. Procedure Name Priority Date/Time Associated Diagnosis Comments CHLAMYDIA AND GONORRHEA, AMPLIFIED Routine 10/28/2012 4:39 PM EDT from Last 3 Months or Most Recently Relevant to Health Maintenance Results * Due to [place] Cov[employer] law, this organization might not be sharing sensitive test results. * Chlamydia and Gonorrhoea, Amplified (10/28/2012 4:39 PM EDT) URINE GC AMP PROBE NEGATIVE [facility] Comment: NO NEISSERIA GONORRHOEAE RNA DETECTED IN THIS PATIENT'S SAMPLE. ? (REFERENCE RANGE/NORMAL VALUE: NOT DETECTED) ? NOTE: THIS TEST USES COMMERCIAL REAL ESTATE SALES MANAGER-MEDIATED AMPLIFICATION METHOD TO DETECT rRNA FROM C.TRACHOMATIS [...] OF INFECTION. URINE CHLAMYDIA AMP PROBE NEGATIVE [facility] Comment: NO CHLAMYDIA TRACHOMATIS RNA DETECTED IN THIS PATIENT'S SAMPLE. ? (REFERENCE RANGE/NORMAL VALUE: NOT DETECTED) 10/28/2012 4:39 PM EDT Narrative [facility] - 10/28/2012 4:39 PM EDT URINE CHLAMYDIA GC AMP PROBE us Yeni Dumont MD LAB MICROBIOLOGY - GENERAL ORDER TONIO Final Result [facility] [address] [place] [address], from Last 3 Months or Most Recently Relevant to Health Maintenance
--- OUTSIDE RECORDS SUMMARY | 2024-08-28 07:57 | XMS_ITS | Encounter Summary ---
Author Organization [facility] Address [address] [place] [address] Phone Care Team Providers Care Legal Services Manager Name Role Phone Yeni Dumont MD Primary Care Provider [phone] Encounter Details Date Type Department Care Team (Late st Contact Info) Description 01/07/2017 Conversion Encounter [facility] [place] [address] [place] [address] Social History Tobacco Use Types Packs/Day Years [...] on filedocumented in this encounter Care Teams Legal Services Manager Relationship Specialty Start Date End Date Yeni Dumont MD [address] [place] [address] PCP - General 01/01/17 11/12/22 documented as of this encounter
--- OUTSIDE RECORDS SUMMARY | 2024-08-28 07:57 | XMS_ITS | Encounter Summary ---
Author Organization [facility] Address [address] [place] [address] Phone Care Team Providers Care Derrick Builder Name Role Phone Yeni Dumont MD Primary Care Provider Encounter Details Date Type Department Care Team (Late st Contact Info) Description 05/20/2011 Documentation [facility] [place] [address] [place], [place] [phone] Family Medicine, Physician [address] [place] [address] Social History Tobacco Use Types Packs/Day Years [...] on filedocumented in this encounter Care Teams Derrick Builder Relationship Specialty Start Date End Date Yeni Dumont MD 150 [facility] [place] [address] PCP - General 01/01/17 11/12/22 documented as of this encounter
--- OUTSIDE RECORDS SUMMARY | 2024-08-28 07:57 | XMS_ITS | Encounter Summary ---
Author Organization [facility] Address [address] [place] [address] Phone Care Team Providers Care Cotton Baler Name Role Phone Yeni Dumont MD Primary Care Provider [phone] Encounter Details Date Type Department Care Team (Late st Contact Info) Description 08/26/2010 Documentation [facility] [place] [address] [place], [place] [phone] Family Medicine, Physician [address] [place] [address] Social History Tobacco Use Types Packs/Day Years [...] on filedocumented in this encounter Care Teams Cotton Baler Relationship Specialty Start Date End Date Yeni Dumont MD 150 [place] [address] PCP - General 01/01/17 11/12/22 documented as of this encounter
--- OUTSIDE RECORDS SUMMARY | 2024-08-28 07:57 | XMS_ITS | Encounter Summary ---
Author Organization [facility] Address [address] [place] [address] Phone Care Team Providers Care Cooler Servicer Name Role Phone Yeni Dumont MD Primary Care Provider [phone] Encounter Details Date Type Department Care Team (Late st Contact Info) Description 10/03/2013 Documentation [facility] [place] Medicine [address] [place] [address] Family Medicine, Physician [address] [place] [address] Social History Tobacco Use Types Packs/Day Years [...] on filedocumented in this encounter Care Teams Cooler Servicer Relationship Specialty Start Date End Date Yeni Dumont MD 150 [place] [address] PCP - General 01/01/17 11/12/22 documented as of this encounter
--- OUTSIDE RECORDS SUMMARY | 2024-08-28 07:57 | XMS_ITS | Encounter Summary ---
Author Organization [facility] Address [address] [place] [address] Phone Care Team Providers Care Sample Clerk Name Role Phone Yeni Dumont MD Primary Care Provider [phone] Encounter Details Date Type Department Care Team (Late st Contact Info) Description 01/02/2014 Documentation [facility] [place] [address] [place] [address] Family Medicine, Physician [address] [place] [address] Social History Tobacco Use Types Packs/Day Years [...] on filedocumented in this encounter Care Teams Sample Clerk Relationship Specialty Start Date End Date Yeni Dumont MD 150 [place] [address] PCP - General 01/01/17 11/12/22 documented as of this encounter
--- OUTSIDE RECORDS SUMMARY | 2024-08-28 07:57 | XMS_ITS | Encounter Summary ---
Author Organization [facility] Address [address] [place] [address] Phone Care Team Providers Care Microwave Supervisor Name Role Phone Yeni Dumont MD Primary Care Provider [phone] Encounter Details Date Type Department Care Team (Late st Contact Info) Description 05/20/2011 [place] [facility] [place] [address] [place], [place] [id number] Family Medicine, Physician [address] [place] [address] Social History Tobacco Use Types Packs/Day Years [...] on filedocumented in this encounter Care Teams Microwave Supervisor Relationship Specialty Start Date End Date Yeni Dumont MD 150 [facility] [place] [address] PCP - General 01/01/17 11/12/22 documented as of this encounter
--- OUTSIDE RECORDS SUMMARY | 2024-08-28 07:57 | XMS_ITS | Encounter Summary ---
Author Organization [facility] Address [address] [place] [address] Phone Care Team Providers Care Direct Care Supervisor Name Role Phone Yeni Dumont MD Primary Care Provider [phone] Encounter Details Date Type Department Care Team (Late st Contact Info) Description 06/25/2011 Document[place] [facility] [place] [address] [place], [place] [address] Family Medicine, Physician [address] [place] [address] Social History Tobacco Use Types Packs/Day Years [...] on filedocumented in this encounter Care Teams Direct Care Supervisor Relationship Specialty Start Date End Date Yeni Dumont MD 150 [facility] [place] [address] PCP - General 01/01/17 11/12/22 documented as of this encounter
== END ==
LOC: HO.CARD 07:51
PROVIDERS: PCP Internal Medicine; Visit Provider Surgery
DX: R94.31 Abnormal electrocardiogram [ECG] [EKG] (principal)
CPT/HCPCS: 93017

== ENCOUNTER → 2024-08-28 07:54 | Outpatient (BNV) | payer OTHER, SELFPAY | PROVIDERS: PCP Internal Medicine | DX: R94.31 Abnormal electrocardiogram [ECG] [EKG] (principal) | CPT/HCPCS: 93016; 93018 ==

== ENCOUNTER → 2024-08-29 09:02 | Outpatient (REF) | payer OTHER, SELFPAY ==
--- NOTE | 2024-08-29 09:04 | CA_ITS ---
Transthoracic Echocardiogram Patient (Last, First, Middle): Tammie Mitchell A Gender: Female Date of : 1990 Age: 34 Procedure Date: 08/29/2024 Procedure Type: Transthoracic Echocardiogram Location: OP Height: 154.94 cm Weight: 90.72 kg BSA: 1.89 m2 Heart Rate: bpm BP: 122 / 60 mmHg Instructor Substitute Cosmetology: Referring MD: Vlad Yanez MD Symptoms: R94.31 - Abnormal electrocardiogram [ECG] [EKG] Study Quality: Good ECG Rhythm: Sinus Conclusions: - The calculated ejection fraction is 61% by biplane method. - No obvious valvular pathology seen on this study. Findings Left Ventricle Normal left ventricular cavity size. The left ventricular systolic function is normal. The calculated ejection fraction is 61% by biplane method. There is no evidence of regional wall motion abnormalities. Diastolic function is normal for age. Mild basal septal hypertrophy. Right Ventricle Normal right ventricular cavity size and systolic function. Atria Both atria are normal in size. Aortic Valve The aortic valve structure and function is likely normal. There is no aortic valve stenosis. There is no aortic valve regurgitation. Mitral Valve The mitral valve appears normal. There is no mitral valve regurgitation. There is no mitral valve stenosis. Pulmonic Valve The pulmonic valve is likely normal. Tricuspid Valve There is trace tricuspid valve regurgitation. There is no evidence of pulmonary hypertension. Great Vessels The asc aorta and aortic arch are normal in size. Venous The inferior vena cava is normal in size and collapses greater than 50% with inspiration. Pericardium/Pleural There is no evidence of pericardial effusion. Prior Study Comparison No prior study available for comparison. Recommendations, Care & Conclusions No obvious valvular pathology seen on this study. Measurements 2D Linear Measurements IVSd: 1.03 0.6-0.9/0.6-1.0 cm LVIDd: 3.97 3.9-5.3/4.2-5.9 cm LVIDd Index: 2.10 2.4-3.2/2.2-3.1 cm/m2 LVIDs: 2.38 2.0-3.6 cm LVPWd: 1.05 0.7-1.1 cm Ao Root: 3.10 2.1-3.5 cm LA Diam: 3.50 2.7-3.8/3.0-4.0 cm LAIDs Index: 1.85 1.5-2.3 cm/m2 LV Mass: 165.23 67-162/88-224 g LV Mass Index: 87.42 43-95/49-115 g/m2 LVOT Diam: 2.00 3.0+(-)1.3 cm 2D Systolic Function EF 4C: 67.50 >55% EF 2C: 57.10 >55% EF BiP: 61.20 >55% Mitral Valve MV Pk E: 0.84 MV PK A: 0.74 MV Decel Time: 161.00 E/A: 1.10 E'Lateral: 13.60 E'Medial: 9.46 E/E' Med: 8.90 E/E' Lat: 6.20 PHT: 47.00 MVA PHT: 4.68 Decel [place]: 4.31 Aortic Valve AoV Pk Aron: 1.23 AoV Mn Aron: 0.85 AoV VTI: 0.26 AoV Pk Grad: 6.00 Aov Mn Grad: 3.00 LANDY Cont.VTI: 2.22 LVOT LVOT Pk Aron: 0.86 LVOT Mn Aron: 0.66 LVOT VTI: 0.18 LVOT Pk Grad: 3.00 LVOT Mn Grad: 2.00 LVOT Diam: 2.00 LVOT Area: 3.14 Diastolic Function MV Pk E: 0.84 MV Pk A: 0.74 E/A: 1.10 E'Medial: 9.46 E/E' Med: 8.90 E' Laterial: 13.60 E/E' Lat: 6.20 Right Ventricle TAPSE (mm): 21.00 TVS' Aron: 10.00 Tricuspid Valve TR Pk Aron: 1.96 TR Pk Grad: 15.00 RA Press: 3.00 RVSP: 18.00 Great Vessels Aorta Ao Root-2D: 3.10 2.0-3.7 cm Ao Asc: 2.70 2.1-3.4 cm Ao Arch: 2.40 Pulmonary Valve PV Pk Aron: 1.02 Peak PV Grad: 4.00 Updated in Other Vendor System with Status of Final Olayinka Al MD electronically signed on 08/29/2024 1:20:08 PM with status of Final
--- OUTSIDE RECORDS SUMMARY | 2024-08-29 09:54 | XMS_ITS | Encounter Summary ---
Author Organization [facility] Address [address] [place] [address] Phone Care Team Providers Care Stave Inspector Name Role Phone Yeni Dumont MD Primary Care Provider [phone] Encounter Details Date Type Department Care Team (Late st Contact Info) Description 05/20/2011 Documentation [facility] [place] Family Medicine [address] [place], [place] [id number] Family Medicine, Physician [address] [place] [address] Social History Tobacco Use Types Packs/Day Years [...] on filedocumented in this encounter Care Teams Stave Inspector Relationship Specialty Start Date End Date Yeni Dumont MD [address] [facility] [address] PCP - General 01/01/17 11/12/22 documented as of this encounter
--- OUTSIDE RECORDS SUMMARY | 2024-08-29 09:54 | XMS_ITS | Clinical Summary ---
Author Organization [facility] Address [address] [place] [address] Phone Care Team Providers Care Basket Weaver Name Role Phone Unavailable Primary Care Provider [...] history of Migraines, Family history of Sudden /[place] under age 55, Family history of Diabetes [...] complete this topic Procedures * Due to [place] [employer] law, this organization might not be sharing sensitive test results. Procedure Name Priority Date/Time Associated Diagnosis Comments CHLAMYDIA AND GONORRHEA, AMPLIFIED Routine 10/28/2012 4:39 PM EDT from Last 3 Months or Most Recently Relevant to Health Maintenance Results * Due to [place] [employer] law, this organization might not be sharing sensitive test results. * Chlamydia and Gonorrhoea, Amplified (10/28/2012 4:39 PM EDT) URINE GC AMP PROBE NEGATIVE [facility] Comment: NO NEISSERIA GONORRHOEAE RNA DETECTED IN THIS PATIENT'S SAMPLE. ? (REFERENCE RANGE/NORMAL VALUE: NOT DETECTED) ? NOTE: THIS TEST USES MAINTENANCE OF WAY CLERK-MEDIATED AMPLIFICATION METHOD TO DETECT rRNA FROM C.TRACHOMATIS [...] OF INFECTION. URINE CHLAMYDIA AMP PROBE NEGATIVE [facility] Comment: NO CHLAMYDIA TRACHOMATIS RNA DETECTED IN THIS PATIENT'S SAMPLE. ? (REFERENCE RANGE/NORMAL VALUE: NOT DETECTED) 10/28/2012 4:39 PM EDT Narrative [facility] - 10/28/2012 4:39 PM EDT URINE CHLAMYDIA GC AMP PROBE us Yeni Dumont MD LAB MICROBIOLOGY - GENERAL ORDER TONIO Final Result [facility] [address] [place] [address], from Last 3 Months or Most Recently Relevant to Health Maintenance
--- OUTSIDE RECORDS SUMMARY | 2024-08-29 09:54 | XMS_ITS | Encounter Summary ---
Author Organization [facility] Address [address] [place] [address] Phone Care Team Providers Care Cmm Technician Name Role Phone Yeni Dumont MD Primary Care Provider [phone] Encounter Details Date Type Department Care Team (Late st Contact Info) Description 05/07/2010 Documentation [facility] [place] Family Medicine [address] [place], [place] [phone] Family Medicine, Physician [address] [place] [address] Social History Tobacco Use Types Packs/Day Years [...] on filedocumented in this encounter Care Teams Cmm Technician Relationship Specialty Start Date End Date Yeni Dumont MD 150 [facility] [place] [address] PCP - General 01/01/17 11/12/22 documented as of this encounter
--- OUTSIDE RECORDS SUMMARY | 2024-08-29 09:54 | XMS_ITS | Encounter Summary ---
Author Organization [facility] Address [address] [place] [address] Phone Care Team Providers Care Director Of Provider Relations Name Role Phone Yeni Dumont MD Primary Care Provider [phone] Encounter Details Date Type Department Care Team (Late st Contact Info) Description 08/26/2010 [place] [facility] [place] [address] [place], [place] [phone] Family Medicine, Physician [address] [place] [address] Social History Tobacco Use Types Packs/Day Years [...] in this encounter Care Teams Director Of Provider Relations Relationship Specialty Start Date End Date Yeni Dumont MD 150 [place] [address] PCP - General 01/01/17 11/12/22 documented as of this encounter
--- OUTSIDE RECORDS SUMMARY | 2024-08-29 09:54 | XMS_ITS | Encounter Summary ---
Author Organization [facility] Address [address] [place] [address] Phone Care Team Providers Care Architectural Drafter Name Role Phone Yeni Dumont MD Primary Care Provider [phone] Encounter Details Date Type Department Care Team (Late st Contact Info) Description 05/20/2011 Documentation [facility] [place] Medicine [address] [place], [place] [phone] Family Medicine, Physician [address] [place] [address] Social History Tobacco Use Types Packs/Day Years [...] on filedocumented in this encounter Care Teams Architectural Drafter Relationship Specialty Start Date End Date Yeni Dumont MD 150 [facility] [place] [address] PCP - General 01/01/17 11/12/22 documented as of this encounter
--- OUTSIDE RECORDS SUMMARY | 2024-08-29 09:54 | XMS_ITS | Encounter Summary ---
Author Organization [facility] Address [address] [place] [address] Phone Care Team Providers Care Information Technology Manager Name Role Phone Yeni Dumont MD Primary Care Provider Encounter Details Date Type Department Care Team (Late st Contact Info) Description 06/25/2011 [place] [facility] [place] [address] [place], [place] [id number] Family Medicine, Physician [address] [place] [address] Social History Tobacco Use Types Packs/Day Years [...] on filedocumented in this encounter Care Teams Information Technology Manager Relationship Specialty Start Date End Date Yeni Dumont MD [address] [facility] [place] [address] PCP - General 01/01/17 11/12/22 documented as of this encounter
--- OUTSIDE RECORDS SUMMARY | 2024-08-29 09:54 | XMS_ITS | Encounter Summary ---
Author Organization [facility] Address [address] [place] [address] Phone Care Team Providers Care Process Mold Technician Name Role Phone Yeni Dumont MD Primary Care Provider [phone] Encounter Details Date Type Department Care Team (Late st Contact Info) Description 01/02/2014 Documentation [facility] [place] [address] [place] [address] Family Medicine, Physician [address] [place] [address] Social History Tobacco Use Types Packs/Day Years [...] on filedocumented in this encounter Care Teams Process Mold Technician Relationship Specialty Start Date End Date Yeni Dumont MD 150 [place] [address] PCP - General 01/01/17 11/12/22 documented as of this encounter
--- OUTSIDE RECORDS SUMMARY | 2024-08-29 09:54 | XMS_ITS | Encounter Summary ---
Author Organization [facility] Address [address] [place] [address] Phone Care Team Providers Care Flight Reservations Manager Name Role Phone Yeni Dumont MD Primary Care Provider [phone] Encounter Details Date Type Department Care Team (Late st Contact Info) Description 10/03/2013 Documentation [facility] [place] [address] [place] [address] Family Medicine, Physician [address] [place] [address] Social History Tobacco Use Types Packs/Day Years [...] on filedocumented in this encounter Care Teams Flight Reservations Manager Relationship Specialty Start Date End Date Yeni Dumont MD [address] [facility] [place] [address] PCP - General 01/01/17 11/12/22 documented as of this encounter
--- OUTSIDE RECORDS SUMMARY | 2024-08-29 09:54 | XMS_ITS | Encounter Summary ---
Author Organization [facility] Address [address] [place] [address] Phone Care Team Providers Care Quality Compliance Manager Name Role Phone Yeni Dumont MD Primary Care Provider [phone] Encounter Details Date Type Department Care Team (Late st Contact Info) Description 01/07/2017 Conversion Encounter [facility] [place] [address] [place] [address] Social History Tobacco Use Types Packs/Day Years [...] on filedocumented in this encounter Care Teams Quality Compliance Manager Relationship Specialty Start Date End Date Yeni Dumont MD [address] [place] [address] PCP - General 01/01/17 11/12/22 documented as of this encounter
== END ==
LOC: HO.CARD 09:02
PROVIDERS: PCP Internal Medicine; Visit Provider Surgery
DX: R94.31 Abnormal electrocardiogram [ECG] [EKG] (principal)
CPT/HCPCS: 93306

== ENCOUNTER → 2024-08-29 09:04 | Outpatient (BNV) | payer OTHER, SELFPAY | PROVIDERS: PCP Internal Medicine; Visit Provider Internal Medicine | DX: I42.2 Other hypertrophic cardiomyopathy (principal) | CPT/HCPCS: 93306 ==

== ENCOUNTER 2024-09-25 07:54 | Outpatient (REF) | payer OTHER, SELFPAY ==
--- NOTE | ~2024-09-25 | FL_ITS ---
EXAMINATION: XR FLUOROSCOPY UPPER GI WITH AIR CLINICAL INFORMATION: Moderate/severe obesity due to excess calories. COMPARISON: None available. TECHNIQUE: Routine upper GI air contrast study was performed in upright and lying position. FINDINGS: Following oral administration of thick barium and effervescent granules there is normal propagation of bolus from the oral cavity through the pharynx, esophagus into stomach without any evidence of obstruction, narrowing or stricture. On placing patient in supine and prone lying the course, caliber and peristalsis of the stomach, duodenal bulb and sweep is normal. The mucosal pattern of the esophagus, stomach and duodenum appears normal. There are increased gastric secretions noted likely secondary to hyper acidity. No gastroesophageal reflux or hiatal hernia seen. FLUOROSCOPY TIME: 1 minute 42 seconds DOSE AREA PRODUCT: 1506 uGy-m2 (microgray-meter squared) FL/FL upper GI w air IMPRESSION: Increased gastric secretions suspected otherwise unremarkable upper GI air contrast study. Electronically signed by: Brandan rBeen MD 09/25/2024 09:43 AM EDT
--- OUTSIDE RECORDS SUMMARY | 2024-09-25 07:58 | XMS_ITS | Encounter Summary ---
Author Organization [facility] Address [address] [place] [address] Phone Care Team Providers Care Medical Office Assistant Instructor Name Role Phone Yeni Dumont MD Primary Care Provider [phone] Encounter Details Date Type Department Care Team (Late st Contact Info) Description 01/02/2014 Documentation [facility] [place] [address] [place], [place] [id number] Family Medicine, Physician [address] [place] [address] Social History Tobacco Use Types Packs/Day Years [...] on filedocumented in this encounter Care Teams Medical Office Assistant Instructor Relationship Specialty Start Date End Date Yeni Dumont MD [address] [place] [address] PCP - General 01/01/17 11/12/22 documented as of this encounter
--- OUTSIDE RECORDS SUMMARY | 2024-09-25 07:58 | XMS_ITS | Clinical Summary ---
Author Organization [facility] Address [address] [place] [address] Phone Care Team Providers Care Municipal Firefighter Name Role Phone Unavailable Primary Care Provider [...] history of Migraines, Family history of Sudden /[place] under age 55, Family history of Diabetes [...] complete this topic Procedures * Due to [place] Pi-Cardia law, this organization might not be sharing sensitive test results. Procedure Name Priority Date/Time Associated Diagnosis Comments CHLAMYDIA AND GONORRHEA, AMPLIFIED Routine 10/28/2012 4:39 PM EDT from Last 3 Months or Most Recently Relevant to Health Maintenance Results * Due to [place] Pi-Card[place] law, this organization might not be sharing sensitive test results. * Chlamydia and Gonorrhoea, Amplified (10/28/2012 4:39 PM EDT) URINE GC AMP PROBE NEGATIVE [facility] Comment: NO NEISSERIA GONORRHOEAE RNA DETECTED IN THIS PATIENT'S SAMPLE. ? (REFERENCE RANGE/NORMAL VALUE: NOT DETECTED) ? NOTE: THIS TEST USES GAS STATION OPERATOR-MEDIATED AMPLIFICATION METHOD TO DETECT rRNA FROM C.TRACHOMATIS [...] OF INFECTION. URINE CHLAMYDIA AMP PROBE NEGATIVE [facility] Comment: NO CHLAMYDIA TRACHOMATIS RNA DETECTED IN THIS PATIENT'S SAMPLE. ? (REFERENCE RANGE/NORMAL VALUE: NOT DETECTED) 10/28/2012 4:39 PM EDT Narrative [facility] - 10/28/2012 4:39 PM EDT URINE CHLAMYDIA GC AMP PROBE us Yeni Dumont MD LAB MICROBIOLOGY - GENERAL ORDER TONIO Final Result [facility] [address] [place] [address], from Last 3 Months or Most Recently Relevant to Health Maintenance
--- OUTSIDE RECORDS SUMMARY | 2024-09-25 07:58 | XMS_ITS | Encounter Summary ---
Author Organization [facility] Address [address] [place] [address] Phone Care Team Providers Care Continuous Mining Machine Operator Name Role Phone Yeni Dumont MD Primary Care Provider [phone] Encounter Details Date Type Department Care Team (Late st Contact Info) Description 05/07/2010 Documentation [facility] [place] Family Medicine [address] [place], [place] [id number] Family Medicine, Physician [address] [place] [address] Social History Tobacco Use Types Packs/Day Years [...] on filedocumented in this encounter Care Teams Continuous Mining Machine Operator Relationship Specialty Start Date End Date Yeni Dumont MD 150 [facility] [place] [address] PCP - General 01/01/17 11/12/22 documented as of this encounter
--- OUTSIDE RECORDS SUMMARY | 2024-09-25 07:58 | XMS_ITS | Encounter Summary ---
Author Organization [facility] Address [address] [place] [address] Phone Care Team Providers Care Screw Supervisor Name Role Phone Yeni Dumont MD Primary Care Provider [phone] Encounter Details Date Type Department Care Team (Late st Contact Info) Description 08/26/2010 Documentation [facility] [place] Medicine [address] [place], [place] [phone] Family Medicine, Physician [address] [place] [address] Social History Tobacco Use Types Packs/Day Years [...] on filedocumented in this encounter Care Teams Screw Supervisor Relationship Specialty Start Date End Date Yeni Dumont MD 150 [facility] [place] [address] PCP - General 01/01/17 11/12/22 documented as of this encounter
--- OUTSIDE RECORDS SUMMARY | 2024-09-25 07:58 | XMS_ITS | Encounter Summary ---
Author Organization [facility] Address [address] [place] [address] Phone Care Team Providers Care Cardiac Care Nurse Name Role Phone Yeni Dumont MD Primary Care Provider [phone] Encounter Details Date Type Department Care Team (Late st Contact Info) Description 01/07/2017 Conversion Encounter [facility] [place] [address] [place] [address] Social History Tobacco Use Types Packs/Day Years [...] on filedocumented in this encounter Care Teams Cardiac Care Nurse Relationship Specialty Start Date End Date Yeni Dumont MD [address] [place] [address] PCP - General 01/01/17 11/12/22 documented as of this encounter
--- OUTSIDE RECORDS SUMMARY | 2024-09-25 07:59 | XMS_ITS | Encounter Summary ---
Author Organization [facility] Address [address] [place] [address] Phone Care Team Providers Care Pharmacist In Charge Name Role Phone Yeni Dumont MD Primary Care Provider [phone] Encounter Details Date Type Department Care Team (Late st Contact Info) Description 10/03/2013 [place]ation [facility] [place] [address] [place], [place] [phone] Family Medicine, Physician [address] [place] [address] Social History Tobacco Use Types Packs/Day Years [...] on filedocumented in this encounter Care Teams Pharmacist In Charge Relationship Specialty Start Date End Date Yeni Dumont MD 150 [place] [address] PCP - General 01/01/17 11/12/22 documented as of this encounter
--- OUTSIDE RECORDS SUMMARY | 2024-09-25 07:59 | XMS_ITS | Encounter Summary ---
Author Organization [facility] Address [address] [place] [address] Phone Care Team Providers Care Education Reporter Name Role Phone Yeni Dumont MD Primary Care Provider [phone] Encounter Details Date Type Department Care Team (Late st Contact Info) Description 05/20/[address] [facility] [place] Family Medicine [address] [place], [place] [phone] Family Medicine, Physician [address] [place] [address] Social History Tobacco Use Types Packs/Day Years [...] on filedocumented in this encounter Care Teams Education Reporter Relationship Specialty Start Date End Date Yeni Dumont MD 150 [facility] [address] PCP - General 01/01/17 11/12/22 documented as of this encounter
--- OUTSIDE RECORDS SUMMARY | 2024-09-25 07:59 | XMS_ITS | Encounter Summary ---
Author Organization [facility] Address [address] [place] [address] Phone Care Team Providers Care Tailor Helper Name Role Phone Yeni Dumont MD Primary Care Provider [phone] Encounter Details Date Type Department Care Team (Late st Contact Info) Description 06/25/2011 Documentation [facility] [place] [address] [place], [place] [phone] Family Medicine, Physician [address] [place] [address] Social History Tobacco Use Types Packs/Day Years [...] on filedocumented in this encounter Care Teams Tailor Helper Relationship Specialty Start Date End Date Yeni Dumont MD 150 [place] [address] PCP - General 01/01/17 11/12/22 documented as of this encounter
--- OUTSIDE RECORDS SUMMARY | 2024-09-25 07:59 | XMS_ITS | Encounter Summary ---
Author Organization [facility] Address [address] [place] [address] Phone Care Team Providers Care Primer Inserting Machine Operator Name Role Phone Yeni Dumont MD Primary Care Provider [phone] Encounter Details Date Type Department Care Team (Late st Contact Info) Description 05/20/2011 Documentation [facility] [place] [address] [place], [place] [phone] Family Medicine, Physician [address] [place] [address] Social History Tobacco Use Types Packs/Day Years [...] on filedocumented in this encounter Care Teams Primer Inserting Machine Operator Relationship Specialty Start Date End Date Yeni Dumont MD 150 [facility] [place] [address] PCP - General 01/01/17 11/12/22 documented as of this encounter
== END 2024-09-25 07:55 | disposition home or self-care (01) ==
LOC: HO.XRAY 07:54
PROVIDERS: PCP Internal Medicine; Visit Provider Surgery
DX: E66.01 Morbid (severe) obesity due to excess calories (principal); Z68.41 Body mass index [BMI] 40.0-44.9, adult
CPT/HCPCS: 74246

== ENCOUNTER → 2024-09-25 07:55 | Outpatient (BNV) | payer OTHER, SELFPAY | PROVIDERS: PCP Internal Medicine; Visit Provider Radiology Diagnostic Radiology | DX: K31.89 Other diseases of stomach and duodenum (principal); E66.9 Obesity, unspecified | CPT/HCPCS: 74246 ==

== ENCOUNTER 2024-09-29 08:12 | Outpatient (AMB) | payer OTHER, SELFPAY ==
[2024-09-28 23:17] VITALS: BMI 36.1
--- NOTE | 2024-09-28 23:17 | MHC.OFFVISWM ---
VS Expanded 09/28/24 23:17 Height 5 ft 1 in Weight 191 lb BMI 36.1 Body Fat % 45.8 Body Fat Mass 87.4 Fat Free Mass 109.2 Visceral Fat Rating 18 Body Water % 37.1 Muscle Mass/Score 70.8 Basal Metabolic Rate/Score 1,375 Intake Visit Reasons: TV Pre Op LSG 10/12/2024 Allergies apple [Apple] Allergy (Severe, Verified 09/28/24 23:19) SWELLING banana [BANANA] Allergy (Severe, Verified 09/28/24 23:19) SWELLING grape [GRAPE] Allergy (Severe, Verified 09/28/24 23:19) SWELLING strawberry [STRAWBERRY] Allergy (Severe, Verified 09/28/24 23:19) SWELLING amoxicillin [AMOXICILLIN] Allergy (Intermediate, Verified 09/28/24 23:19) RASH animal dander Allergy (Mild, Verified 09/28/24 23:19) Wheezing Seasonal Allergies Allergy (Mild, Verified 09/28/24 23:19) Wheezing Medication List - Last Reconciled 09/28/24 by Vlad Yanez MD albuterol sulfate 90 mcg/actuation 1 inh inhalation QID 30 days cetirizine (Zyrtec) 10 mg PO DAILY PRN ipratropium-albuterol 0.5 mg-3 mg(2.5 mg base)/3 mL 3 mL inhalation Q20M PRN multivitamin 1 tab PO DAILY nebulizers (Aeroneb Go Nebulizer) As directed ondansetron 4 mg PO Q12H pantoprazole 40 mg PO DAILY polyethylene glycol 3350 17 grams PO DAILY sucralfate 10 mL PO BID tacrolimus 0.03% 1 appl topical BID PRN triamcinolone acetonide 0.1% 1 appl topical DAILY PRN HPI HPI TV Pre Op LSG 10/12/2024: Details: Start time: 3pm, End time: 3.30pm I spent 25 minutes speaking with the patient on the phone plus an additional 5 minutes reviewing and updating records for a total of 30 minutes HPI Comments Details: Overall weight loss: 22.2lbs, or 10.41% TBWL This is the preop appointment for lap sleeve gastrectomy [facility] Medical History (Updated 09/28/24 @ 23:21 by Vlad Yaenz MD) Obesity GERD (gastroesophageal reflux disease) Hypertension Infertility counseling Allergic rhinitis Mild asthma Eczema Surgical History (Updated 09/27/24 @ 09:05 by Claudia Aguillon RN) History of esophagogastroduodenoscopy (EGD) Hx of tonsillectomy Family History (Updated 08/09/24 @ 12:04 by Doris Allred CMA) Father CVD (cardiovascular disease) AIDS Mother Hypertension Breast cyst Paternal Aunt Cervical cancer Social History Household Members: None Housing: Apartment Are you a primary client care manager to a significant other at home: Yes (minor child) Do you presently have visiting nurse or other home services: No Alcohol intake: never Patient Tobacco Use Status: Former Tobacco user Tobacco use type: Cigarette Years Smoked: 13 e-Cigarette/Vaping Use: Never Used Second Hand Smoke Exposure: No service: No Current occupational status: employed Current occupation: [employer] Current occupational exposures/hazards: No Sexual orientation: Lesbian/Boggs/Homosexual Gender identity: Female Cognitive needs: No Hearing needs: No Vision needs: No Female Reproductive History Menstrual Age of Menarche: 13 Physical Exam Vital Signs: BMI result Body Mass Index 36.1 Telehealth Telehealth Telehealth Platform: Telephone Location of provider rendering services: practice address Location of patient: address on file Patient Identification confirmed using: Name, : Yes Telehealth method: voice only Patient verbally consented to treatment: Yes Patient verbally consented to billing insurance company: Yes Patient informed of any privacy concerns related to visit: Yes Minutes spent on Phone/Video with Pt.: 30 Assessment & Plan Assessment & Plan (1) Obesity: Code(s): E66.9 - Obesity, unspecified Category: Medical Qualifiers: Body mass index: BMI 36.0-36.9 Obesity classification: adult class 2 (BMI 35 - 39.9) Obesity type: due to excess calories Serious obesity comorbidity presence: with serious comorbidity Qualified Code(s): E66.812 - Obesity, class 2; E66.01 - Morbid (severe) obesity due to excess calories; Z68.36 - Body mass index [BMI] 36.0-36.9, adult Plan: 1. Plan for lap sleeve gastrectomy including upper GI endoscopy. All tests has been completed and reviewed and the patient is cleared for the surgery. If diaphragmatic or ventral hernias are present at time of surgery, these will be repaired laparoscopically as well. The surgery does not replace the need to change your lifestlyle which is the cause of the obesity problem. The surgery provides the motivation to try again to change your lifestyle, it reduces the appetite and make the transition to a better lifestyle easier and doubles the amount of weight you would lose compared to doing the lifestyle change without the surgery. You will need to be on a liquid diet with protein shakes for 2 weeks before surgery to maximize weight loss and boost your nutritional status to recover better from surgery and also for the first two weeks after surgery to let the stomach heal before we introduce other foods. After the first 2 weeks we will introduce protein bars and soft foods like scrambled eggs, cottage cheese and yogurt and after the 6th week will introduce meat, fish and cooked vegetables in small amounts. Over time you should be able to eat everything in small amounts. Side effects like nausea, vomiting, heartburn or abdominal pain are not common in the practice unless you are not following in the practice. This operation requires lifetime commitment to following in our practice and communication with me. You will much less weight and experience side effects if you don?t communicate or not following in the practice. Complications are rare and in our practice is about 1/10 of the national average. However, you can develop bleeding that may require transfusion (hasn?t happened for year in the practice), you may from complications (we did not have any deaths in the practice) and infections. Infections are usually a result of breakdown in communication or not understanding or following directions correctly. They are difficult to treat, they can happen during the first 6 weeks, they may require to be in the hospital for weeks or even months, not being able to eat by mouth and you may have drains and surgeries to try and correct the issue. Other risks and complications include possible conversion to an open procedure, leaks, small bowel obstruction, blood clots, cardiac, or pulmonary complications, as chcf complications such as ulcers, insufficient weight loss and vitamin deficiencies. So far she has proven to be an excellent communicator and very compliant with all our directions accomplishing a great weight loss. I believe that she is an excellent candidate and she is ready. 2. Preop prescriptions were provided and explained the purpose of each one. Need to be purchased preop. Start Pantoprazole now as you get it from the pharmacy, 1 pill per day. Sucralfate and Zofran are for after surgery as needed. 3. Bowel prep: please do 7 packets of Miralax mixing each one with a an 8oz glass of water, crystal light, gatorade zero, or propel on 10/10/24 and the same amount on 10/11/24. The Miralax you begin with one packet at a time in 8oz water or crystal light, gatorade zero, or propel as early in the day as you can and you do them back to back until you finish them. Continue the protein shakes during the bowel prep. 4. Needs to purchase 1oz medicine cups . 5. Needs to purchase Children's liquid Tylenol for postop pain control. 6. Avoid aspirin, motrin, Advil, Aleve, Ibuprofen, Naproxyn. Tylenol is OK. 7. She needs to purchase the Celebrate multivitamins from the hospital's gift shop. 8. Will do basic preop blood work-up any day between Wednesday10/02/24 and Wednesday10/06/24 fasting for 12 hours and is scheduled to see the Anesthesiologist prior to the day of surgery. 9. Importance of adherence to postop folllow-up and recommendations was underscored and she understands that. 10. Stop food and bars as of Wednesday10/02/24 and continue with 5 Celebrate protein shakes (ONE scoop EACH in 8oz almond milk) at 7am-9am, 10am-12pm, 1pm-3pm, 4pm-6pm and at 7pm-9pm 11. No soups, broths or V8 12. The patient's medical history has been reviewed and they are considered low risk for post op DVT and therefore DVT prophylaxis is not considered necessary. Travel after surgery was reviewed. The patient has not disclosed any travel plans during the first 30 days after surgery and they have been advised that within the first 30 days after surgery any bus, plane, train or car travel over 2 hours in duration is contraindicated due to the possibility of developing blood clots from immobility. Any travel, needs to include periods of ambulation of 10 minutes in duration every 2 hours. Patient was instructed to discuss any plans for travel during this period with their bariatric surgeon. 13. Please take at the day of surgery the following medications: NONE 14. Stop any control pills and don't use them for one month after surgery 15. Absolutely no smoking or vaping, or marijuana until the surgery and for at least the first 4 weeks. Only nicotine patches are allowed. 16. Send me weight measurements on 10/05/24 and then on 10/12/24, the day of surgery before you go to the hospital. 17. Avoid any steroids by mouth for any reason. Let me know if someone prescribes them to you 18. These instructions supersede anything else you read in the handbook, anything you watched in videos or classes or you were told by any other provider. If there is any conflict, you follow the above instructions and nothing else. Orders: Orders TSH reflex Free T4 09/28/24 E66.9 - Obesity, unspecified, I10 - Essential (primary) hypertension C Reactive Protein 09/28/24 E66.9 - Obesity, unspecified, I10 - Essential (primary) hypertension Hemoglobin A1c 09/28/24 E66.9 - Obesity, unspecified, I10 - Essential (primary) hypertension Complete Blood Count Auto Diff 09/28/24 E66.9 - Obesity, unspecified, I10 - Essential (primary) hypertension Comprehensive Met. Panel 09/28/24 E66.9 - Obesity, unspecified, I10 - Essential (primary) hypertension Prothrombin Time INR 09/28/24 E66.9 - Obesity, unspecified, I10 - Essential (primary) hypertension Type and Screen 09/28/24 E66.9 - Obesity, unspecified, I10 - Essential (primary) hypertension Partial Thromboplastin Time 09/28/24 E66.9 - Obesity, unspecified, I10 - Essential (primary) hypertension Lipid Panel 09/28/24 E66.9 - Obesity, unspecified, I10 - Essential (primary) hypertension Insulin 09/28/24 E66.9 - Obesity, unspecified, I10 - Essential (primary) hypertension Medications: New pantoprazole 40 mg PO DAILY 90 tabs 0RF K21.9 - Gastro-esophageal reflux disease without esophagitis sucralfate 10 mL PO BID 600 mL 2RF K21.9 - Gastro-esophageal reflux disease without esophagitis ondansetron Only take one every 12 hours as needed if you have nausea 4 mg PO Q12H 20 tabs 0RF nausea and vomiting R11.0 - Nausea polyethylene glycol 3350 Mix each measuring cup with 8oz of water, Crystal light, or Gatorade zero, or Propel and do 7 measuring cups on 10/10/24 and another 7 measuring cups on 10/11/24 17 grams PO DAILY 238 grams 0RF Z01.818 - Encounter for other preprocedural examination
--- OUTSIDE RECORDS SUMMARY | 2024-09-29 08:16 | XMS_ITS | Encounter Summary ---
Author Organization [facility] Address [address] [place] [address] Phone Care Team Providers Care Director Strategic Planning Name Role Phone Yeni Dumont MD Primary Care Provider [phone] Encounter Details Date Type Department Care Team (Late st Contact Info) Description 10/03/2013 Documentation [facility] [place] Family Medicine [address] [place], [place] [id number] Family Medicine, Physician [address] [place] [address] Social History Tobacco Use Types Packs/Day Years [...] filedocumented in this encounter Care Teams Director Strategic Planning Relationship Specialty Start Date End Date Yeni Dumont MD [address] [facility] [place] [id number] PCP - General 01/01/17 11/12/22 documented as of this encounter
--- OUTSIDE RECORDS SUMMARY | 2024-09-29 08:16 | XMS_ITS | Clinical Summary ---
Author Organization [facility] Address [address] [place] [phone] Phone Care Team Providers Care Wash Helper Name Role Phone Unavailable Primary Care Provider [...] history of Migraines, Family history of Sudden /[place] under age 55, Family history of Diabetes [...] complete this topic Procedures * Due to [place] law, this organization might not be sharing sensitive test results. Procedure Name Priority Date/Time Associated Diagnosis Comments CHLAMYDIA AND GONORRHEA, AMPLIFIED Routine 10/28/2012 4:39 PM EDT from Last 3 Months or Most Recently Relevant to Health Maintenance Results * Due to [place] law, this organization might not be sharing sensitive test results. * Chlamydia and Gonorrhoea, Amplified (10/28/2012 4:39 PM EDT) URINE GC AMP PROBE NEGATIVE [facility] Comment: NO NEISSERIA GONORRHOEAE RNA DETECTED IN THIS PATIENT'S SAMPLE. ? (REFERENCE RANGE/NORMAL VALUE: NOT DETECTED) ? NOTE: THIS TEST USES ARTIFICIAL LIMB FITTER-MEDIATED AMPLIFICATION METHOD TO DETECT rRNA FROM C.TRACHOMATIS [...] INFECTION. URINE CHLAMYDIA AMP PROBE NEGATIVE [facility] Comment: NO CHLAMYDIA TRACHOMATIS RNA DETECTED IN THIS PATIENT'S SAMPLE. ? (REFERENCE RANGE/NORMAL VALUE: NOT DETECTED) 10/28/2012 4:39 PM EDT Narrative [facility] - 10/28/2012 4:39 PM EDT URINE CHLAMYDIA GC AMP PROBE us Yeni Dumont MD LAB MICROBIOLOGY - GENERAL ORDER TONIO Final Result [facility] [address] [place] [address], from Last 3 Months or Most Recently Relevant to Health Maintenance
--- OUTSIDE RECORDS SUMMARY | 2024-09-29 08:16 | XMS_ITS | Encounter Summary ---
Author Organization [facility] Address [address] [place] [address] Phone Care Team Providers Care Side Show Entertainer Name Role Phone Yeni Dumont MD Primary Care Provider Encounter Details Date Type Department Care Team (Late st Contact Info) Description 05/07/2010 Documentation [facility] [place] [address] [place], [place] [phone] Family Medicine, Physician [address] [place] [address] Social History Tobacco Use Types Packs/Day Years [...] on filedocumented in this encounter Care Teams Side Show Entertainer Relationship Specialty Start Date End Date Yeni Dumont MD 150 [facility] [place] [address] PCP - General 01/01/17 11/12/22 documented as of this encounter
--- OUTSIDE RECORDS SUMMARY | 2024-09-29 08:16 | XMS_ITS | Encounter Summary ---
Author Organization [facility] Address [address] [place] [address] Phone Care Team Providers Care Environmental Aid Name Role Phone Yeni Dumont MD Primary Care Provider [phone] Encounter Details Date Type Department Care Team (Late st Contact Info) Description 01/02/2014 Documentation [facility] [place] Family Medicine [address] [place], [place] [phone] Family Medicine, Physician [address] [place] [address] Social History Tobacco Use Types Packs/Day Years [...] on filedocumented in this encounter Care Teams Environmental Aid Relationship Specialty Start Date End Date Yeni Dumont MD 150 [place] [address] PCP - General 01/01/17 11/12/22 documented as of this encounter
--- OUTSIDE RECORDS SUMMARY | 2024-09-29 08:16 | XMS_ITS | Encounter Summary ---
Author Organization [facility] Address [address] [place] [address] Phone Care Team Providers Care Elastic Cutter Name Role Phone Yeni Dumont MD Primary Care Provider [phone] Encounter Details Date Type Department Care Team (Late st Contact Info) Description 08/26/2010 Documentation [facility] [place] [address] [place], [place] [phone] Family Medicine, Physician [address] [place] [address] Social History Tobacco Use Types Packs/Day Years [...] on filedocumented in this encounter Care Teams Elastic Cutter Relationship Specialty Start Date End Date Yeni Dumont MD 150 [facility] [place] [address] PCP - General 01/01/17 11/12/22 documented as of this encounter
--- OUTSIDE RECORDS SUMMARY | 2024-09-29 08:16 | XMS_ITS | Encounter Summary ---
Author Organization [facility] Address [address] [place] [address] Phone Care Team Providers Care Road Machinery Inspector Name Role Phone Yeni Dumont MD Primary Care Provider [phone] Encounter Details Date Type Department Care Team (Late st Contact Info) Description 05/20/2011 Documentation [facility] [place] Family Medicine [address] [place], [place] [phone] Family Medicine, Physician [address] [place] [address] Social History Tobacco Use Types Packs/Day Years [...] on filedocumented in this encounter Care Teams Road Machinery Inspector Relationship Specialty Start Date End Date Yeni Dumont MD 150 [facility] [place] [address] PCP - General 01/01/17 11/12/22 documented as of this encounter
--- OUTSIDE RECORDS SUMMARY | 2024-09-29 08:16 | XMS_ITS | Encounter Summary ---
Author Organization [facility] Address [address] [place] [address] Phone Care Team Providers Care Retrofit Installer Name Role Phone Yeni Dumont MD Primary Care Provider [phone] Encounter Details Date Type Department Care Team (Late st Contact Info) Description 01/07/2017 Conversion Encounter [facility] [place] [address] [place] [address] Social History Tobacco Use Types Packs/Day Years [...] on filedocumented in this encounter Care Teams Retrofit Installer Relationship Specialty Start Date End Date Yeni Dumont MD 150 [place] [address] PCP - General 01/01/17 11/12/22 documented as of this encounter
--- OUTSIDE RECORDS SUMMARY | 2024-09-29 08:16 | XMS_ITS | Encounter Summary ---
Author Organization [facility] Address [address] [place] [address] Phone Care Team Providers Care Senior Planner Name Role Phone Yeni Dumont MD Primary Care Provider [phone] Encounter Details Date Type Department Care Team (Late st Contact Info) Description 05/20/2011 Documentation [facility] [place] [address] [place], [place] [phone] Family Medicine, Physician [address] [place] [address] Social History Tobacco Use Types Packs/Day Years [...] on filedocumented in this encounter Care Teams Senior Planner Relationship Specialty Start Date End Date Yeni Dumont MD 150 [place] [address] PCP - General 01/01/17 11/12/22 documented as of this encounter
--- OUTSIDE RECORDS SUMMARY | 2024-09-29 08:16 | XMS_ITS | Encounter Summary ---
Author Organization [facility] Address [address] [place] [address] Phone Care Team Providers Care Civil Engineer Helper Name Role Phone Yeni Dumont MD Primary Care Provider [phone] Encounter Details Date Type Department Care Team (Late st Contact Info) Description 06/25/2011 Documentation [facility] [place] Family Medicine [address] [place], [place] [phone] Family Medicine, Physician [address] [place] [address] Social History Tobacco Use Types Packs/Day Years [...] on filedocumented in this encounter Care Teams Civil Engineer Helper Relationship Specialty Start Date End Date Yeni Dumont MD 150 [facility] [place] [address] PCP - General 01/01/17 11/12/22 documented as of this encounter
== END 2024-09-29 19:07 | disposition home or self-care (01) ==
LOC: HO.HBS 08:12
PROVIDERS: PCP Internal Medicine; Visit Provider Surgery
DX: E66.812 Obesity, class 2 (principal); E66.01 Morbid (severe) obesity due to excess calories; Z68.36 Body mass index [BMI] 36.0-36.9, adult
CPT/HCPCS: 99214

== ENCOUNTER → 2024-09-29 08:12 | Outpatient (BNVA) | payer OTHER, SELFPAY | PROVIDERS: PCP Internal Medicine; Visit Provider Surgery | DX: E66.9 Obesity, unspecified (principal); I10 Essential (primary) hypertension; K21.9 Gastro-esophageal reflux disease without esophagitis; R11.0 Nausea; Z01.818 Encounter for other preprocedural examination ==

== ENCOUNTER 2024-10-12 05:54 | Inpatient (IN) | payer OTHER, SELFPAY ==
[2024-09-27 14:55] VITALS: BMI 35.9
[2024-10-06 08:10] LABS: MANUAL DIFF FLAG NO
[2024-10-06 08:54] LABS: Basophils Absolute Auto 0.1 X10*3/uL (0.0-0.2); Basophils Percent Auto 0.9 % (0-2); Eosinophils Absolute Auto 0.4 X10*3/uL (0.0-0.4); Eosinophils Percent Auto 6.1 % (0-4); Hematocrit 41.4 % (37.0-47.0); Hemoglobin 13.4 g/dl (12.0-16.0); Imm Gran Abs Auto 0.01 X10*3/uL (0.00-0.03); Imm Gran Pct Auto 0.2 % (0.0-0.4); Lymphocytes Absolute Auto 1.4 X10*3/uL (1.2-4.9); Lymphocytes Percent Auto 21.7 % (20-40); Mean Corpuscular HGB Conc 32.4 g/dl (31.0-35.0); Mean Corpuscular Volume 86.4 fL (80.0-98.0); Mean Platelet Volume 10.7 fL (9.4-12.3); Monocytes Absolute Auto 0.6 X10*3/uL (0.1-1.2); Monocytes Percent Auto 8.7 % (2-11); Neutrophils Percent Auto 62.4 % (45-73); Platelet Count 360 X10*3/uL (160-400); Red Blood Count 4.79 X10*6/uL (4.20-5.50); White Blood Count 6.4 X10*3/uL (4.8-10.8)
[2024-10-06 09:00] LABS: Estimated Average Glucose 97 mg/dL; Total Hemoglobin (HGBA1C) 3505.9726 umol/L
[2024-10-06 09:02] LABS: Partial Thromboplastin Time 28.9 SEC (26.0-36.8)
[2024-10-06 09:19] LABS: Anion Gap 11 (12-20)
[2024-10-06 09:27] LABS: Alanine Aminotransferase 55 U/L (0-31); Albumin Level 4.2 g/dL (3.5-5.0); Alkaline Phosphatase 65 U/L (39-117); Aspartate Amino Transferase 32 U/L (5-31); Bilirubin Total 1.5 mg/dL (0.0-1.0); Blood Urea Nitrogen 9 mg/dL (9-16); C Reactive Protein < 0.10 mg/dL (< or = 0.50); Calcium 9.3 mg/dL (8.4-10.2); Carbon Dioxide 25 mmol/L (22-29); Chloride 108 mmol/L (96-108); Cholesterol 148 mg/dL (<200); Estimated Glomerular Filt Rate > 60; Glucose Random 92 mg/dL (60-115); HDL Cholesterol 32 mg/dL (>40); LDL Cholesterol Calculated 73 mg/dL (<100); Potassium 3.5 mmol/L (3.3-5.1); Sodium 140 mmol/L (135-145); Total Protein 6.5 g/dL (6.5-8.0); Triglycerides 219 mg/dL (<150)
[2024-10-06 11:08] LABS: Insulin 12 uU/mL (2-29)
--- NOTE | 2024-10-10 14:59 | P.CONAN_ITS ---
Documented by User: Suzi Boateng NP 10/10/24 15:01 HPI - Anesthesia Eval Consult details Narrative: 34yo F for Gastrectomy Sleeve - EGD, possible diaphragmatic hernia, possible ventral hernia, possible open PMFSH Active Problems Active Problems: All Active Problems Obesity (Acute) Vitamin B12 deficiency (Acute) Vitamin D deficiency (Acute) Abnormal EKG (Acute) Nonpsychotic mental disorder, unspecified (Acute) Elevated liver enzymes (Acute) Encounter for well woman exam with routine gynecological exam (Acute) Hx of chronic eczema (Acute) Dry skin (Acute) Mild intermittent asthma with exacerbation (Acute) Acute respiratory distress (Acute) Asthma (Acute) Vaginal irritation (Acute) Low vitamin D level (Acute) Elevated ALT measurement (Acute) Morbid obesity with BMI of 40.0-44.9, adult (Acute) Routine screening for STI (sexually transmitted infection) (Acute) Female infertility (Acute) Right ankle pain (Acute) 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) Right ankle sprain (Acute) Bone spur of posterior portion of right calcaneus (Acute) Os trigonum (Acute) Sprain of right ankle (Acute) Acid reflux (Acute) Nausea and vomiting (Acute) Vomiting and diarrhea (Acute) Physical exam (Acute) Hx of human papillomavirus infection (Acute) Vaginal itching (Acute) Hypertension (Acute) Infertility counseling (Acute) Allergic rhinitis (Acute) Mild asthma (Acute) Eczema (Acute) Past Medical History Medical History Obesity GERD (gastroesophageal reflux disease) Hypertension Infertility counseling Allergic rhinitis Mild asthma Eczema Family History Family History Father CVD (cardiovascular disease) AIDS Mother Hypertension Breast cyst Paternal Aunt Cervical cancer Family history of problems with anesthesia: No Surgical History Surgical History History of esophagogastroduodenoscopy (EGD) Hx of tonsillectomy History of Problems with Anesthesia: No Social History Social History Household Members: None Housing: Apartment Are you a primary respiratory care technician to a significant other at home: Yes (minor child) Do you presently have visiting nurse or other home services: No Alcohol intake: never Patient Tobacco Use Status: Former Tobacco user Tobacco use type: Cigarette Years Smoked: 13 e-Cigarette/Vaping Use: Never Used Second Hand Smoke Exposure: No Use of substances other than those prescribed or required for medical reasons: No Have you been hit, kicked, punched, or otherwise hurt by someone within the past year? If so, by whom?: No Spiritual Healthcare Practices: no Evangelical Healthcare Practices: no-Religion Cultural Healthcare Practices: no Advance Directives: No Advance Directives Information Provided: No Advance Directives on File: No Patient : No FDLMP: 09/21/24 : No Poor oral hygiene: No (2 upper front crowns) service: No Current occupational status: employed Current occupation: FORMERLY [employer] Current occupational exposures/hazards: No Sexual orientation: Lesbian/Boggs/Homosexual Gender identity: Female Cognitive needs: No Hearing needs: No Vision needs: No Meds Allergies Allergy/AdvReac Type Severity Reaction Status Date / Time apple [Apple] Allergy Severe SWELLING Verified 09/28/24 23:19 banana [BANANA] Allergy Severe SWELLING Verified 09/28/24 23:19 grape [GRAPE] Allergy Severe SWELLING Verified 09/28/24 23:19 strawberry [STRAWBERRY] Allergy Severe SWELLING Verified 09/28/24 23:19 amoxicillin [AMOXICILLIN] Allergy Intermediate RASH Verified 09/28/24 23:19 animal dander Allergy Mild Wheezing Verified 09/28/24 23:19 Seasonal Allergies Allergy Mild Wheezing Verified 09/28/24 23:19 Home Medications ?Medication ?Instructions ?Recorded ?Confirmed ?Last Taken ?Type tacrolimus 0.03 % topical ointment 1 appl topical BID PRN eczema 03/13/20 09/28/24 10/11/24 History triamcinolone acetonide 0.1 % 1 applic topical DAILY PRN eczema 03/13/20 09/28/24 10/11/24 History topical cream cetirizine 10 mg tablet (Zyrtec) 10 mg PO DAILY PRN allergies 09/27/24 09/28/24 10/11/24 History multivitamin 1 tab PO DAILY 09/27/24 09/28/24 10/12/24 History ipratropium 0.5 mg-albuterol 3 mg 3 ml inhalation Q4H PRN shortness 10/12/24 10/12/24 10/12/24 04:00 History (2.5 mg base)/3 mL nebulization of breath or wheezing soln ondansetron 4 mg disintegrating 4 mg PO Q12H PRN nausea and 10/12/24 10/12/24 Unknown History tablet vomiting Exam Height,Weight and Vital Signs: Height 5 ft 1 in Weight 86.183 kg Pertinent Lab Results Pertinent Lab Results: Laboratory Tests 10/06/24 08:05 WBC 6.4 RBC 4.79 Hgb 13.4 Hct 41.4 MCV 86.4 MCH 28.0 MCHC 32.4 RDW 12.0 Plt Count 360 MPV 10.7 Immature Gran % (Auto) 0.2 Neut % (Auto) 62.4 Lymph % (Auto) 21.7 [place] % (Auto) 8.7 Eos % (Auto) 6.1 H Baso % (Auto) 0.9 Lymph # (Auto) 1.4 [place] # (Auto) 0.6 Eos # (Auto) 0.4 Baso # (Auto) 0.1 Abs Immat Gran (auto) 0.01 Absolute Neuts (auto) 4.0 Absolute Nucleated RBC 0.000 Nucleated RBC % (auto) 0.0 PT 11.0 INR 1.0 APTT 28.9 Sodium 140 Potassium 3.5 Chloride 108 Carbon Dioxide 25 Anion Gap 11 L BUN 9 Creatinine 0.66 Estim Creat Clear Calc 122.0 Estimated GFR > 60 Random Glucose 92 Estimat Average Glucose 97 Hemoglobin A1c % 5.0 Insulin Level 12 Calcium 9.3 Total Bilirubin 1.5 H AST 32 H ALT 55 H Alkaline Phosphatase 65 C-Reactive Protein < 0.10 Total Protein 6.5 Albumin 4.2 Triglycerides 219 H Cholesterol 148 LDL Cholesterol, Calc 73 HDL Cholesterol 32 L TSH 1.00 Blood Type B Positive Antibody Screen NEGATIVE Narrative Narrative: EKG 07/2024 Vent. Rate : 83 BPM Atrial Rate : 83 BPM P-R Int : 130 ms QRS Dur : 76 ms QT Int : 372 ms P-R-T Axes : 65 53 -3 degrees QTcB Int : 437 ms Normal sinus rhythm Nonspecific T wave abnormality Abnormal ECG When compared with ECG of 07-Dec-2023 09:20, No significant change was found Exercise Stress 08/2024 Protocol: IZAIAH Max HR: 164 BPM 87% of Pred: 188 BPM Max BP: 190/100 mmHG Max Work Load: 7.0 METS Exericse Stress Test with exercise 5 min 17 secs of Izaiah Protocol, achieving 87% MPHR, without any anginal symptoms, without any arrythmias, with normotensive response to exercise (baseline BP 130/100). Without EKG changes meeting criteria for ischemia. Test reviewed with Dr. Arce. ECHO 08/2024 Conclusions: - The calculated ejection fraction is 61% by biplane method. - No obvious valvular pathology seen on this study. Assessment and Plan Assessment Anesthesia Assessment: Chart Reviewed Final Anesthetic Review Family History of Problems with Anesthesia: No History of Problems with Anesthesia: No Documented by User: Cinthia Williamson MD 10/12/24 07:35 PMFSH Past Medical History Medical History Obesity GERD (gastroesophageal reflux disease) Hypertension Infertility counseling Allergic rhinitis Mild asthma Eczema Family History Family History Father CVD (cardiovascular disease) AIDS Mother Hypertension Breast cyst Paternal Aunt Cervical cancer Surgical History Surgical History History of esophagogastroduodenoscopy (EGD) Hx of tonsillectomy Social History Social History Household Members: None Housing: Apartment Are you a primary respiratory care technician to a significant other at home: Yes (minor child) Do you presently have visiting nurse or other home services: No Alcohol intake: never Patient Tobacco Use Status: Former Tobacco user Tobacco use type: Cigarette Years Smoked: 13 e-Cigarette/Vaping Use: Never Used Second Hand Smoke Exposure: No Use of substances other than those prescribed or required for medical reasons: No Have you been hit, kicked, punched, or otherwise hurt by someone within the past year? If so, by whom?: No Spiritual Healthcare Practices: no Evangelical Healthcare Practices: no-Religion Cultural Healthcare Practices: no Advance Directives: No Advance Directives Information Provided: No Advance Directives on File: No Patient : No FDLMP: 09/21/24 : No Poor oral hygiene: No (2 upper front crowns) service: No Current occupational status: employed Current occupation: FORMERLY [employer] Current occupational exposures/hazards: No Sexual orientation: Lesbian/Boggs/Homosexual Gender identity: Female Cognitive needs: No Hearing needs: No Vision needs: No Meds Allergies Allergy/AdvReac Type Severity Reaction Status Date / Time apple [Apple] Allergy Severe SWELLING Verified 09/28/24 23:19 banana [BANANA] Allergy Severe SWELLING Verified 09/28/24 23:19 grape [GRAPE] Allergy Severe SWELLING Verified 09/28/24 23:19 strawberry [STRAWBERRY] Allergy Severe SWELLING Verified 09/28/24 23:19 amoxicillin [AMOXICILLIN] Allergy Intermediate RASH Verified 09/28/24 23:19 animal dander Allergy Mild Wheezing Verified 09/28/24 23:19 Seasonal Allergies Allergy Mild Wheezing Verified 09/28/24 23:19 Home Medications ?Medication ?Instructions ?Recorded ?Confirmed ?Last Taken ?Type tacrolimus 0.03 % topical ointment 1 appl topical BID PRN eczema 03/13/20 09/28/24 10/11/24 History triamcinolone acetonide 0.1 % 1 applic topical DAILY PRN eczema 03/13/20 09/28/24 10/11/24 History topical cream cetirizine 10 mg tablet (Zyrtec) 10 mg PO DAILY PRN allergies 09/27/24 09/28/24 10/11/24 History multivitamin 1 tab PO DAILY 09/27/24 09/28/24 10/12/24 History ipratropium 0.5 mg-albuterol 3 mg 3 ml inhalation Q4H PRN shortness 10/12/24 10/12/24 10/12/24 04:00 History (2.5 mg base)/3 mL nebulization of breath or wheezing soln ondansetron 4 mg disintegrating 4 mg PO Q12H PRN nausea and 10/12/24 10/12/24 Unknown History tablet vomiting Exam Airway Mallampati Class: II TM Dist: >3cm Neck ROM: Full Loose/Missing/Broken Teeth: No Heart: RRR Lungs: C Assessment and Plan Assessment Anesthesia Assessment: Anesthesia Plan Discussed Final Anesthetic Review NPO: Yes ASA Class: II Final Preanesthetic Review: Meds/Allgs Chart Reviewed, Consent Obtained/Reviewed and Anes Risks/Benef Reviewed Patient Risk: Low Procedure Risk: Intermediate Anesthetic Plan Anesthetic Plan: GA Disposition: Standard PACU
[2024-10-12] VITALS (14 sets, daily range): BP systolic 142–177; BP diastolic 76–119; PULSE 82–108; RESP 12–20; TEMP 36.4–37.1; O2SAT 95–99
[2024-10-12 06:17] LABS: UPreg QC Valid YES; Urine Pregnancy NEGATIVE (NEGATIVE)
[2024-10-12] MEDS: Lactated Ringers 1,000 ML 999 ML IV (06:19)
[2024-10-12] MEDS: Aprepitant 32 MG/4.4 ML VIAL IVPUSH (06:19)
--- OUTSIDE RECORDS SUMMARY | 2024-10-12 06:35 | XMS_ITS | Encounter Summary ---
Author Organization [facility] Address [address] [place] [address] Phone Care Team Providers Care Bag Worker Name Role Phone Yeni Dumont MD Primary Care Provider [phone] Encounter Details Date Type Department Care Team (Late st Contact Info) Description 05/20/2011 Documentation [facility] [place] [address] [place], [place] [id number] Family Medicine, Physician [address] [place] [address] Social History Tobacco Use Types Packs/Day Years [...] on filedocumented in this encounter Care Teams Bag Worker Relationship Specialty Start Date End Date Yeni Dumont MD 150 [facility] [place] [address] PCP - General 01/01/17 11/12/22 documented as of this encounter
--- OUTSIDE RECORDS SUMMARY | 2024-10-12 06:35 | XMS_ITS | Encounter Summary ---
Author Organization [facility] Address [address] [place] [address] Phone Care Team Providers Care Change Director Name Role Phone Yeni Dumont MD Primary Care Provider [phone] Encounter Details Date Type Department Care Team (Late st Contact Info) Description 01/02/2014 Documentation [facility] [place] Family Medicine [address] [place] [address] Family Medicine, Physician [address] [place] [address] Social History Tobacco Use Types Packs/Day Years [...] on filedocumented in this encounter Care Teams Change Director Relationship Specialty Start Date End Date Yeni Dumont MD 150 [place] [address] PCP - General 01/01/17 11/12/22 documented as of this encounter
--- OUTSIDE RECORDS SUMMARY | 2024-10-12 06:35 | XMS_ITS | Encounter Summary ---
Author Organization [facility] Address [address] [place] [address] Phone Care Team Providers Care Community Association Manager Name Role Phone Yeni Dumont MD Primary Care Provider [phone] Encounter Details Date Type Department Care Team (Late st Contact Info) Description 01/07/2017 Conversion Encounter [facility] [place] 150 [place] [address] Social History Tobacco Use Types Packs/Day Years [...] on filedocumented in this encounter Care Teams Community Association Manager Relationship Specialty Start Date End Date Yeni Dumont MD 150 [place] [address] PCP - General 01/01/17 11/12/22 documented as of this encounter
--- OUTSIDE RECORDS SUMMARY | 2024-10-12 06:35 | XMS_ITS | Encounter Summary ---
Author Organization [facility] Address [address] [place] [address] Phone Care Team Providers Care Turning Machine Operator Helper Name Role Phone Yeni Dumont MD Primary Care Provider [phone] Encounter Details Date Type Department Care Team (Late st Contact Info) Description 05/20/2011 Documentation [facility] [place] [address] [place], [place] [phone] Family Medicine, Physician [address] [place] [address] Social History Tobacco Use Types Packs/Day Years [...] on filedocumented in this encounter Care Teams Turning Machine Operator Helper Relationship Specialty Start Date End Date Yeni Dumont MD 150 [place] [address] PCP - General 01/01/17 11/12/22 documented as of this encounter
--- OUTSIDE RECORDS SUMMARY | 2024-10-12 06:35 | XMS_ITS | Clinical Summary ---
Author Organization [facility] Address [address] [place] [address] Phone Care Team Providers Care Supervisor Uranium Processing Name Role Phone Unavailable Primary Care Provider [...] history of Migraines, Family history of Sudden /SC under age 55, Family history of Diabetes [...] complete this topic Procedures * Due to [place] [employer] law, this organization might not be sharing sensitive test results. Procedure Name Priority Date/Time Associated Diagnosis Comments CHLAMYDIA AND GONORRHEA, AMPLIFIED Routine 10/28/2012 4:39 PM EDT from Last 3 Months or Most Recently Relevant to Health Maintenance Results * Due to [place] [employer] law, this organization might not be sharing sensitive test results. * Chlamydia and Gonorrhoea, Amplified (10/28/2012 4:39 PM EDT) URINE GC AMP PROBE NEGATIVE [facility] Comment: NO NEISSERIA GONORRHOEAE RNA DETECTED IN THIS PATIENT'S SAMPLE. ? (REFERENCE RANGE/NORMAL VALUE: NOT DETECTED) ? NOTE: THIS TEST USES PAN RECLAIM PROCESSOR-MEDIATED AMPLIFICATION METHOD TO DETECT rRNA FROM C.TRACHOMATIS [...] OF INFECTION. URINE CHLAMYDIA AMP PROBE NEGATIVE [facility] Comment: NO CHLAMYDIA TRACHOMATIS RNA DETECTED IN THIS PATIENT'S SAMPLE. ? (REFERENCE RANGE/NORMAL VALUE: NOT DETECTED) 10/28/2012 4:39 PM EDT Narrative [facility] - 10/28/2012 4:39 PM EDT URINE CHLAMYDIA GC AMP PROBE us Yeni Dumont MD LAB MICROBIOLOGY - GENERAL ORDER TONIO Final Result [facility] [address] [place] [address], from Last 3 Months or Most Recently Relevant to Health Maintenance
--- OUTSIDE RECORDS SUMMARY | 2024-10-12 06:35 | XMS_ITS | Encounter Summary ---
Author Organization [facility] Address [address] [place] [address] Phone Care Team Providers Care Float Remover Name Role Phone Yeni Dumont MD Primary Care Provider [phone] Encounter Details Date Type Department Care Team (Late st Contact Info) Description 06/25/2011 Documentation [facility] [place] [address] [place], [place] [phone] Family Medicine, Physician [address] [place] [address] Social History Tobacco Use Types Packs/Day Years [...] on filedocumented in this encounter Care Teams Float Remover Relationship Specialty Start Date End Date Yeni Dumont MD [address] [place] [place] [address] PCP - General 01/01/17 11/12/22 documented as of this encounter
--- OUTSIDE RECORDS SUMMARY | 2024-10-12 06:35 | XMS_ITS | Encounter Summary ---
Author Organization [facility] Address [address] [place] [address] Phone Care Team Providers Care Manager Program Management Name Role Phone Yeni Dumont MD Primary Care Provider [phone] Encounter Details Date Type Department Care Team (Late st Contact Info) Description 08/26/2010 Documentation [facility] [place] [address] [place], [place] [phone] Family Medicine, Physician [address] [place] [address] Social History Tobacco Use Types Packs/Day Years [...] on filedocumented in this encounter Care Teams Manager Program Management Relationship Specialty Start Date End Date Yeni Dumont MD 150 [place] [address] PCP - General 01/01/17 11/12/22 documented as of this encounter
--- OUTSIDE RECORDS SUMMARY | 2024-10-12 06:35 | XMS_ITS | Encounter Summary ---
Author Organization [facility] Address [address] [place] [address] Phone Care Team Providers Care Oil Extractor Name Role Phone Yeni Dumont MD Primary Care Provider [phone] Encounter Details Date Type Department Care Team (Late st Contact Info) Description 10/03/2013 Documentation [facility] [place] [address] [place], [place] [phone] Family Medicine, Physician [address] [place] [address] Social History Tobacco Use Types Packs/Day Years [...] on filedocumented in this encounter Care Teams Oil Extractor Relationship Specialty Start Date End Date Yeni Dumont MD 150 [place] [address] PCP - General 01/01/17 11/12/22 documented as of this encounter
--- OUTSIDE RECORDS SUMMARY | 2024-10-12 06:35 | XMS_ITS | Encounter Summary ---
Author Organization [facility] Address [address] [place] [phone] Phone Care Team Providers Care Plant Culture Manager Name Role Phone Yeni Dumont MD Primary Care Provider [phone] Encounter Details Date Type Department Care Team (Late st Contact Info) Description 05/07/2010 Documentation [facility] [facility] [address] [place], [place] [id number] Family Medicine, Physician [address] [place] [address] Social History Tobacco Use Types Packs/Day Years [...] on filedocumented in this encounter Care Teams Plant Culture Manager Relationship Specialty Start Date End Date Yeni Dumont MD [address] [facility] [place] [address] PCP - General 01/01/17 11/12/22 documented as of this encounter
--- NOTE | 2024-10-12 07:17 | PHA.MEDREC ---
Pharmacy Consult ? Medication Reconciliation Pharmacy has reviewed the medication reconciliation done by nursing.
--- NOTE | 2024-10-12 07:35 | MHC.SHP ---
Pre-Procedural Eval Section A - 24 Hr Update-Section A only Date of Service: 10/12/24 The patient is an INPATIENT: Yes The patient has been examined within 24 hours of the surgical procedure. The History & Physical has been completed within 30 days and I have reviewed it.: Yes Section B - Complete if H&P > 30 days Chief Complaint: Obesity Relevant Family History (Specify if Yes): No Relevant Social History: None Present Medications: None Medical History: No relevant PMH History of Previous Operations: No relevant previous surgery Allergies: Allergies Allergy/AdvReac Type Severity Reaction Status Date / Time apple [Apple] Allergy Severe SWELLING Verified 09/28/24 23:19 banana [BANANA] Allergy Severe SWELLING Verified 09/28/24 23:19 grape [GRAPE] Allergy Severe SWELLING Verified 09/28/24 23:19 strawberry [STRAWBERRY] Allergy Severe SWELLING Verified 09/28/24 23:19 amoxicillin [AMOXICILLIN] Allergy Intermediate RASH Verified 09/28/24 23:19 animal dander Allergy Mild Wheezing Verified 09/28/24 23:19 Seasonal Allergies Allergy Mild Wheezing Verified 09/28/24 23:19 Review of Systems Sugical H&P ROS: Negative: Constitution, Cardiovascular, Respiratory, Neurological, Psychiatric, Hem-Onc, Allergic/Immunologic, Gastrointestinal, Genitourinary, Musculoskeletal, Integumentary, Endocrine and Eyes/Ears/Nose/Throat Exam Surgical H&P Exam: Normal: HEENT, Normal: Heart, Normal: Lungs, Normal: Extremities, Normal: Abdomen, Normal: Skin and Normal: Neurological Plan Diagnosis/Plan: Unchanged I have reviewed the history and physical and performed a pertinent physical examination on my patient. No changes have occurred unless specified. Time Spent With Patient Time: Total time managing care of this patient today ____ minutes.
--- NOTE | 2024-10-12 07:37 | P.BOP_ITS ---
Brief Operative Note Date of Service: 10/12/24 Pre-op diagnosis: Severe obesity with comorbidities (see below) Post-op diagnosis: same (& congenital adhesions) Procedure: INITIAL PATIENT BMI ON PRESENTATION AT OUR OFFICE: 40.3 kg/m2 LAST BMI BEFORE SURGERY: 35.4 kg/m2 COMORBIDITIES: asthma, eczema, liver steatosis, septal hypertrophy ?The patient presented to the Weight Management Program with significant obesity that was negatively impacting the patient's comorbidities as listed above.? The program is a phased program with a special focus on preoperative medical weight management to promote substantial weight loss and prepare the patients for the second phase of the program: bariatric surgery. The patient participated in an intensive weekly lifestyle ?intervention and exercise program during which the patient ?has lost between the initial office visit and the last preoperative visit 28.2 lbs, or 13.2% of initial actual body weight. It was deemed appropriate for the patient to now have bariatric surgery. In light of the curr ent Covid-19 pandemic and the well documented strong association of obesity and increased risk of worse outcomes if infected with Covid-19 (REFERENCES: https://pubmed.ncbi.nlm.nih.gov/10931608/ ,? https://pubmed.ncbi.nlm.nih.gov/27522151/ ), any delay in undergoing bariatric surgery may lead to the patient's worsening health condition and increased?risk of more severe Covid-19 disease if infected. In addition a recent?study from [facility] published in [facility] Surgery on 05/19/2021 ([email or web address]) found that, among patients with obesity, substantial weight loss achieved with surgery was associated with improved outcomes of COVID-19 infection. The findings suggest that obesity can be a modifiable risk factor for the severity of COVID-19 infection. In addition, the patient met the BMI-criteria for bariatric surgery based on the BMI on initial presentation. The patient should not be penalized for achieving such weight loss because ?it is not sustainable long-term without surgical intervention and it was achieved in preparation for bariatric surgery ?under my direction and based on my published research ([email or web address]).pdf and? https://www.soard.org/article/W0025-7531(33)64620-X/pdf ) ?that a 10% preoperative weight loss improves long-term weight loss after surgery and reduces perioperative complications.? Insurance carriers such as [employer] have endorsed my recommendations ?and have included in their policies criteria to include a 10% preoperative weight loss requirement. PROCEDURE: Esophago-gastroscopy, laparoscopic lysis of adhesions, laparoscopic sleeve gastrectomy and laparoscopic gastropexy INDICATIONS: This is a 34 year-old female who was electively scheduled for laparoscopic, possibly open sleeve gastrectomy. The risks and complications of the procedure were discussed with the patient in advance, particularly the possibility of ; pulmonary embolism; staple line leak; bleeding; GERD; cardiac, pulmonary, or renal complications; as well as long-term problems such as insufficient weight loss, vitamin deficiency, strictures, or ulcers. The patient understood all the risks, and was in agreement to proceed with surgery. DESCRIPTION OF PROCEDURE: After informed consent was obtained from the patient, the patient was given preoperative antibiotics, and was transferred to the operating room. After successful induction of general anesthesia, pneumatic compression devices were placed on both lower extremities. An upper endoscopy was performed next. The oropharynx and esophagus appeared to be within normal limits. There was no diaphragmatic hernia present. The stomach was entered. Then after all fluid and air were suctioned and the stomach was fully decompressed, the scope was withdrawn and secured in the mid esophagus. The patient was then prepped and draped in the usual sterile manner, and abdominal access was established at the right upper quadrant with the Josue technique. A 12 mm blunt port was inserted, and the abdomen was insufflated with CO2 to a pressure of 15 mmHg. Under direct visualization, additional ports were placed, specifically two 5 mm Versi-step ports to the left upper quadrant, and a 5 mm Versi-Step port to the right upper quadrant. 1% lidocaine plain was used to infiltrate all port sites as well as all fascia defects. Following that, the patient was placed in a steep reverse Trendelenburg position. An additional 5 mm port was placed to the right flank for the Mediflex retractor that was used to retract the left lobe of the liver. The gastro-esophageal fat pad was opened with the ultrasonic device (Thunderbeat, Olympus) and the anterior esophagus and hiatus were exposed. The angle of His was opened with the ultrasonic device the fundus of the stomach from any diaphragmatic and splenic attachments. I then opened the gastrocolic ligament between the transverse colon and the greater curvature of the stomach with the ultrasonic device to enter the lesser sac and facilitate the ligation of the short gastric vessels. I started at a mid-point along the greater curvature and using the Thunderbeat, all short gastric vessels were divided all the way to the angle of His until the left caryn was completely dissected at its entirety. I then divided the gastro-colic ligament distally to a distance of about 3-4 cm proximal to the pylorus. There were extensive congenital adhesions between the pancreas and posterior g astric wall. Those were lysed completely with the ultrasonic device. Adhesiolysis took approximately 45 min to complete. The stomach was then divided transversely with three Endo NASIR-45 purple and th ree NASIR-60 articulating purple loads using the SIGNIA stapler and loads. Every effort was made that the gastric sleeve had a tubular shape and an even caliber throughout. Once the sleeve resection was completed, the staple line of the gastric sleeve was reinforced with Hemoclips. The resected stomach was retrieved without difficulty from the Josue port. A gastropexy was then performed in order to prevent postoperative GERD and partial gastric volvulus. Several interrupted 2.0 Surgidac sutures were placed between the sleeve's staple line and the previously divided greater omentum and gastro-colic ligament using the Endo-Stitch device. ?An upper endoscopy was performed. There was no narrowing at the GE junction. The scope was easily advanced all the way to the pylorus which was clearly v isualized. There was no narrowing anywhere and the sleeve's caliber was even throughout. The sleeve's staple line was inspected and there was no evidence of ischemia, bleeding or dehiscence. At that point the gastroscope was withdrawn from the patient?s mouth while we were decompressing the bowel and the stomach from any remaining air. I looked into the lesser sac to see how the sleeve was situating and it was situating well. There was no bleeding from the staple line, spleen, or short gastric vessels. The Mediflex retractor was removed, and the undersurface of the liver was inspected and there was no bleeding. The patient was placed in supine position. I closed the fascial defect of the 12 mm port site with a figure of eight #1 Polysorb suture. Then 30cc Ropivacaine plain with 10 mg of Dexamethasone were used to infiltrate the fascial closure as well as all skin incisions. At this point, the abdomen was deflated, all ports were removed under direct vision, and no bleeding was noted from any of the port sites. The skin incisions were irrigated with saline and were closed with 4-0 absorbable monofilament sutures. Steri-Strips and OpSites were used to cover all incisions. The patient was extubated and was transferred in stable condition to the recovery room for further care. I was present and performed all eldridge parts of the procedure. 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 There were no residents to assist with this case. Conor Yanez MD, PhD, FACS Surgeon: Vlad Yanez MD Anesthesia: GETA, local and other (TAP block) Was an Human Geography Faculty Member used for this Procedure?: No Human Geography Faculty Member: Kelley Pratt Estimated blood loss (mL): 10 IV fluids (mL): 2,500 Urine output (mL): 0 (No Melo to record output) Pathology: other (1) Stomach, 2) GE junction fat pad) Condition: stable Disposition: PACU
--- NOTE | 2024-10-12 07:39 | PM.PNGS ---
Subjective Subjective Date of Service: 10/13/24 Interval history: Feels well. Mild incisional pain. She is tolerating phase 1 bariatric diet Physical Exam Vital Signs: Vital Signs: Last Vital Signs Temp 98.5 F 10/12/24 05:57 Pulse 108 H 10/12/24 05:57 Resp 20 10/12/24 05:57 BP 149/81 H 10/12/24 06:27 Pulse Ox 99 10/12/24 05:57 O2 Del Method Room Air 10/12/24 05:57 BMI result Body Mass Index 35.9 GI: Inspection: Yes normal to inspection, Yes incision (clean, dry and intact) and Yes obesity Palpation (GI): Soft to palpation Extrem: Right lower extremity: normal to inspection (no calf tenderness) Left lower extremity: normal to inspection (no calf tenderness) Objective Data Active Medications Albuterol Sulfate (Albuterol Sulfate (0.083%) 2.5 Mg/3 Ml Vial.Neb) 2.5 mg INHALE ONCE PRN PRN Reason: Shortness of Breath/Wheezing Lactated Ringer's (Lr) 1,000 mls @ 999 mls/hr IV .Q1H1M [facility] Stop: 10/12/24 08:00 Last Admin: 10/12/24 06:19 Dose: 999 mls/hr Documented By: LENORE Lactated Ringer's (Lr) 1,000 mls @ 100 mls/hr IVCONT .Q10H [facility] Labs 10/13/24 05:22 10/13/24 05:22 Labs: Laboratory Results - last 24 hr 10/12/24 06:00 Urine Test NEGATIVE Procedures Date of Service Date of Service: 10/13/24 Progress Note: A&P Assessment and plan (1) Obesity: Status: Acute Assessment and Plan: s/p laparoscopic sleeve gastrectomy, lysis of adhesions and gastropexy Doing well Will check am labs and if OK the patient will be discharged home (2) BMI 35.0-35.9,adult: Status: Acute (3) Steatosis, liver: Status: Acute (4) Eczema: Status: Acute (5) S/P laparoscopic sleeve gastrectomy: Status: Acute (6) Congenital intra-abdominal adhesions: Status: Acute Time Spent With Patient Time: Total time managing care of this patient today ____ minutes. Quality Stroke Does the patient have a stroke diagnosis?: No VTE Prior VTE?: No VTE Risk Level:: Medical - moderate - high VTE Device Contraindication: N/A - Device Ordered VTE Drug Contraindication: Treatment Not Indicated
[2024-10-12] MEDS: levoFLOXacin/D5W 500 MG/100 ML PIGGYBACK 100 MG IV (07:45)
--- NOTE | 2024-10-12 10:15 | PM.DS ---
DS: Providers Provider Date of Service: 10/13/24 Date of admission: 10/12/24 05:54 Date of discharge: 10/13/24 Primary care physician: Keli Davila MD DS: Diagnosis Discharge Diagnosis (1) Obesity: Status: Acute (2) BMI 35.0-35.9,adult: Status: Acute (3) Steatosis, liver: Status: Acute (4) Eczema: Status: Acute (5) S/P laparoscopic sleeve gastrectomy: Status: Acute (6) Congenital intra-abdominal adhesions: Status: Acute DS: Summary Hospital Course Hospital Course: ADMITTING DIAGNOSIS: Morbid obesity GERD (gastroesophageal reflux disease) Hypertension Infertility counseling Allergic rhinitis Mild asthma Eczema DISCHARGE DIAGNOSIS: same, s/p laparoscopic sleeve gastrectomy and gastropexy PAST SURGICAL HISTORY:? EGD Tonsillectomy PROCEDURE: upper endoscopy, laparoscopic sleeve gastrectomy and gastropexy DISCHARGE SUMMARY: History of Present Illness: The patient is a?34 year-old woman with a BMI of?35.9 kg/m2 and associated co-morbidities as described above. The patient had extensive work-up, lost?24.2 lbs preoperatively and was electively scheduled for laparoscopic, possible open sleeve gastrectomy and gastropexy. Risks and complications of the surgery were discussed with the patient in advance, particularly the possibility of , pulmonary embolism, anastomotic leak, bleeding, bowel injury, GERD, cardiac, renal or pulmonary complications. The patient understood all the risks and was in agreement with the surgical plan. Hospital Course: The patient underwent an uneventful laparoscopic sleeve gastrectomy with gastropexy on the day of admission. Postoperatively, the patient was transferred to the surgical floor. The patient received IV acetaminophen and IV Dilaudid for pain control. Patient was started on bariatric phase 1 diet POD #0. On postoperative day one, the patient was feeling well without nausea, vomiting, fevers, or tachycardia. The patient had some mild incisional pain and the abdomen was soft.? ? On the morning of postoperative day one, the patient was continued on 1 ounce of water or ice every half hour. During the day, the patient did fairly well, having some incisional pain, but able to ambulate adequately and to tolerate liquids well. Since the patient is doing well, we decided that the patient was ready to be discharged. The patient was given instructions to follow-up in office next week and to call the office for any fever over 101, persistent abdominal pain, nausea, vomiting, GERD, symptoms of DVT such as calf tenderness, or leg swelling, or pulmonary embolism such as chest pain or shortness of breath.? The patient was also instructed to drink 40-60 ounces of liquids per day using the 1-ounce cups. The patient had been given prescriptions for Tylenol for pain, Zofran prn for nausea, and pantoprazole and carafate previously. The patient was encouraged to ambulate and use the incentive spirometer. The patient was allowed to shower, but no baths, and encouraged to stay active at home. All of these instructions were given to the patient personally. All questions were answered and the patient understood all instructions, the instructions were also given to the patient in print. Time Attestation Discharge Coordination Time (in mins): 30 Quality: Safe Use of Opioids Does Pt have an Active Cancer Diagnosis on the Problem List?: No Quality: Stroke Does the patient have a stroke diagnosis?: No Physical Exam Vital Signs: Vital Signs: Last Vital Signs Temp 98.1 F 10/12/24 09:53 Pulse 83 10/12/24 10:08 Resp 16 10/12/24 10:08 BP 164/105 H 10/12/24 10:08 Pulse Ox 98 10/12/24 10:08 O2 Del Method Simple Mask 10/12/24 10:08 O2 Flow Rate 4 10/12/24 10:08 BMI result Body Mass Index 35.9 DS: Data Data Completed and Pending Pending studies at discharge: Pending at discharge 10/12/24 09:13 Surgical [PTH] Routine Labs on day of discharge: Laboratory Results - last 24 hr 10/12/24 06:00 Urine Test NEGATIVE Discharge Plan Discharge Anticipated Discharge Date/Time: 10/13/24 10:00 Patient Disposition: Home, Self-Care Discharge Diagnosis: s/p laparoscopic sleeve gastrectomy with gastropexy Referrals: Keli Solorio MD [Primary Care Provider] - 1 Week Discharge Medications: Continued (DME) nebulizers [Aeroneb Go Nebulizer] Misc See Rx Instructions .Route Qty: 1 0RF Rx Instructions: As directed albuterol sulfate 90 mcg/actuation HFA aerosol inhaler 1 inh inhalation QID 30 Days Qty: 6.7 1RF cetirizine [Zyrtec] 10 mg Tablet 10 mg PO DAILY PRN (Reason: allergies) ondansetron 4 mg tablet,disintegrating 4 mg PO Q12H PRN (Reason: nausea and vomiting) Patient Comments: postop med Rx Instructions: Only take one every 12 hours as needed if you have nausea ipratropium-albuterol 0.5 mg-3 mg(2.5 mg base)/3 mL solution for nebulization 3 ml inhalation Q4H PRN (Reason: shortness of breath or wheezing) triamcinolone acetonide 0.1 % cream 1 applic topical DAILY PRN (Reason: eczema) tacrolimus 0.03 % ointment 1 appl topical BID PRN (Reason: eczema) pantoprazole 40 mg tablet,delayed release (DR/EC) 40 mg PO DAILY Qty: 90 0RF sucralfate 100 mg/mL suspension 10 ml PO BID Qty: 600 2RF Patient Comments: postop med for home Discontinued multivitamin Tablet 1 tab PO DAILY Discharge Orders: Discharge Order (Routine); Ordered 10/13/24 Ordered By: Vlad Yanez Activity on Discharge: No heavy lifting Stand Alone Forms: Patient Portal Discharge page Print Language: Welsh Care Plan Goals: weight loss Health Concerns: obesity Plan of Treatment: No tub baths, sex or returning to work until discussed at first post op appointment. No alcohol, tobacco or illegal drug use. Continue to use incentive spirometer hourly while awake. Walk in home for 5- 10 minutes every 2 hours during the first week. Wear abdominal binder with activity. Follow all meal plan instructions from your bariatric surgeon. Review bariatric handbook and call with any questions. Discharge Instructions 1. Please call your doctor or come back to the emergency room should any new symptoms arise. 2. Activity: abstain from alcohol,? limited stair climbing, no bending, no driving, no exercise, no illicit substances, no lifting, no sex, no tub bath, no work. 4. Diet: follow your bariatric surgeon's recommendations for advancing diet. 5. Dressing Change/Wound Care: Your incisions are covered with waterproof dressings. You can shower with these and pat dry. Do not rub over dressings or incisions. If the area is tender, you may apply an ice pack for short intervals (no more than 20 minutes on, followed by at least 20 minutes off). Do not apply heat. Do not use creams, lotions, or topical antibiotics unless instructed to do so by your surgeon. 6. Call your doctor if: - Your temperature exceeds 101.5 F - You experience excessive pain or swelling - You have an unexpected reaction to medication - You have excessive bleeding - You experience continued vomiting/nausea - Your incision begins to separate - Your incision shows signs of infection such as increased redness, swelling, excessive pain, heat, or drainage (light blood or clear fluid is normal) General instructions: No lifting greater than 10 lbs for the next 6 weeks[address] driving within 24 hours of taking narcotic pain medications. If you do not move your bowels in the next 2 days, please take milk of magnesia over the counter. Please follow the post op diet and do not advance your diet until instructed by your surgeon or until you are seen in the office in about 1 week. Please walk around your home every hour or two to prevent blood clots from forming in your legs. You do not need to wake from sleeping to walk. Please sleep in a bed or couch to prevent kinking at the hips and knees. Please take your incentive spirometer (your lung belt line feeder) home with you and use it for the next few days to prevent pneumonias. You may shower; no hot tubs, baths or swimming pools. Please make sure you are consuming 40-60 ounces of total fluids per day. Avoid all carbonation. Please call the office with any questions or concerns such as increasing abdominal pain, fever, chills, shortness of breath, chest pain, leg pain or swelling, or redness or drainage from your incisions. Do not hesitate to contact the office with any questions at . The patient's medical history has been reviewed and they are considered low risk for post op DVT and therefore DVT prophylaxis is not considered necessary. Travel after surgery was reviewed. The patient has not disclosed any travel plans during the first 30 days after surgery and they have been advised that within the first 30 days after surgery any bus, plane, train or car travel over 2 hours in duration is contraindicated due to the possibility of developing blood clots from immobility. Any travel, needs to include periods of ambulation of 10 minutes in duration every 2 hours.? The patient was instructed to discuss any plans for travel during this period with their bariatric surgeon. Assessment: s/p laparoscopic sleeve gastrectomy with gastropexy Discharge Date/Time: 10/13/24 12:19
[2024-10-12 11:26] LABS: Hematocrit 42.6 % (37.0-47.0); Hemoglobin 13.4 g/dl (12.0-16.0)
[2024-10-12 11:39] LABS: Anion Gap 16 (12-20); Blood Urea Nitrogen 5 mg/dL (9-16); Calcium 8.9 mg/dL (8.4-10.2); Carbon Dioxide 20 mmol/L (22-29); Chloride 108 mmol/L (96-108); Creatinine Clr Calc Pharmacy 127.8; Estimated Glomerular Filt Rate > 60; Glucose Random 117 mg/dL (60-115); Potassium 4.2 mmol/L (3.3-5.1); Sodium 140 mmol/L (135-145)
[2024-10-12] MEDS: Lactated Ringers 1,000 ML 100 ML IVCONT ×2 (12:00→20:33)
[2024-10-12] MEDS: Acetaminophen 1,000 MG/100 ML PIGGYBACK 16.7 MG IV ×3 (12:41→23:50)
[2024-10-12] MEDS: Albuterol Sulfate 90 MCG 8 GM INHALER 1 PUFF INHALE (16:20)
[2024-10-12] MEDS: Famotidine/PF 20 MG/2 ML VIAL IVPUSH (20:38)
[2024-10-12] MEDS: Albuterol/Iprat 2.5/0.5MG 3 ML AMPUL.NEB INHALE (21:37)
[2024-10-12] MEDS: HYDROmorphone HCl 0.5 MG/0.5 ML SYRINGE 0.25 MG IVPUSH (22:26)
[2024-10-13 03:24] VITALS: BP 143/89; PULSE 78; RESP 18; TEMP 36.8; O2SAT 97
[2024-10-13] MEDS: Lactated Ringers 1,000 ML 100 ML IVCONT (05:33)
[2024-10-13] MEDS: Acetaminophen 1,000 MG/100 ML PIGGYBACK 16.7 MG IV (05:34)
[2024-10-13 05:52] LABS: MANUAL DIFF FLAG NO
[2024-10-13 05:54] LABS: Hematocrit 38.5 % (37.0-47.0); Hemoglobin 12.6 g/dl (12.0-16.0); Imm Gran Abs Auto 0.07 X10*3/uL (0.00-0.03); Imm Gran Pct Auto 0.6 % (0.0-0.4); Lymphocytes Absolute Auto 0.7 X10*3/uL (1.2-4.9); Lymphocytes Percent Auto 6.1 % (20-40); Mean Corpuscular HGB Conc 32.7 g/dl (31.0-35.0); Mean Corpuscular Hemoglobin 28.1 pg (27.0-33.0); Mean Corpuscular Volume 85.7 fL (80.0-98.0); Mean Platelet Volume 11.1 fL (9.4-12.3); Monocytes Percent Auto 9.1 % (2-11); Neutrophils Absolute Auto 9.2 x10*3/uL (2.0-8.3); Neutrophils Percent Auto 84.2 % (45-73); Platelet Count 311 X10*3/uL (160-400); Red Blood Count 4.49 X10*6/uL (4.20-5.50); Red Cell Distribution Width 12.5 % (11.0-16.0); White Blood Count 10.9 X10*3/uL (4.8-10.8)
[2024-10-13 06:06] LABS: Anion Gap 14 (12-20); Blood Urea Nitrogen 6 mg/dL (9-16); Calcium 9.6 mg/dL (8.4-10.2); Carbon Dioxide 23 mmol/L (22-29); Chloride 108 mmol/L (96-108); Creatinine Clr Calc Pharmacy 141.2; Estimated Glomerular Filt Rate > 60; Glucose Random 100 mg/dL (60-115); Potassium 4.1 mmol/L (3.3-5.1); Sodium 141 mmol/L (135-145)
[2024-10-13 07:44] VITALS: BP 144/79; PULSE 79; RESP 16; TEMP 36.1; O2SAT 97
[2024-10-13] MEDS: Albuterol/Iprat 2.5/0.5MG 3 ML AMPUL.NEB INHALE (07:57)
[2024-10-13 07:58] VITALS: PULSE 85; RESP 16; O2SAT 95
--- NOTE | 2024-10-13 08:01 | HO.POSTANES ---
Post Anesthesia Evaluation Post Anesthesia Evaluation Date of Service: 10/13/24 Vital Signs: Vital Signs Temp Pulse Resp BP Pulse Ox O2 Del Method 10/13/24 07:58 85 16 10/13/24 07:44 97.0 F 79 16 144/79 H 97 Room Air 10/13/24 03:24 98.2 F 78 18 143/89 H 97 Room Air 10/12/24 23:24 98.8 F 92 18 142/76 H 97 Room Air 10/12/24 21:37 88 18 Anesthesia: General Mental Status: Awake Pain Control: Satisfactory Nausea/Vomiting: None Hydration: Adequate Anesthesia-Related Issues: No Anes. Related Issues
--- NOTE | 2024-10-13 08:58 | MHC.CM.PN ---
CM MET WITH PT AT BEDSIDE. PT LIVES WITH FAMILY. 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 NO DME. +H[place]CP [facility] [facility] [place] PT HAS BEEN MEDICALLY CLEARED FOR DC HOME, NO SERVICES. PT HAS OWN RIDE HOME.
[2024-10-13] MEDS: Loratadine 10 MG TABLET PO (09:12)
[2024-10-13] MEDS: Famotidine/PF 20 MG/2 ML VIAL IVPUSH (09:12)
[2024-10-13] MEDS: 0.9 % Sodium Chloride Flush 3 ML SYRINGE IVFLUSH (09:12)
[2024-10-13 11:26] VITALS: BP 150/84; PULSE 92; RESP 18; TEMP 36.6; O2SAT 97
== END 2024-10-13 12:19 | disposition home or self-care (01) | DRG 403 ==
LOC: HO.SSSA 10:13 → HO.S3 10:22
PROVIDERS: Nurse Practitioner; Physician Assistant Surgical; Admitting Provider Surgery; PCP Internal Medicine; Visit Provider Surgery
PROC: (CPT 43845; principal; 2024-10-12 07:30)
DX: E66.01 Morbid (severe) obesity due to excess calories (principal); K76.0 Fatty (change of) liver, not elsewhere classified; Q43.3 Congenital malformations of intestinal fixation; I11.9 Hypertensive heart disease without heart failure; J45.909 Unspecified asthma, uncomplicated; K21.9 Gastro-esophageal reflux disease without esophagitis; Z68.35 Body mass index [BMI] 35.0-35.9, adult; Z87.891 Personal history of nicotine dependence; Z79.899 Other long term (current) drug therapy
CPT/HCPCS: 36415; 80048; 80053; 80061; 81025; 83036; 83525; 84443; 85014; 85018; 85025; 85610; 85730; 86140; 86850; 86900; 86901; 88304; 88307; 88342; 94640; A4649; C9145; J0131; J1100; J1171; J1308; J1956; J2003; J2250; J2405; J2704; J2795; J3010; J7120

== ENCOUNTER → 2024-10-12 05:54 | Outpatient (BNV) | payer OTHER, SELFPAY | PROVIDERS: Admitting Provider Surgery; PCP Internal Medicine; Visit Provider Surgery | DX: E66.812 Obesity, class 2 (principal); E66.01 Morbid (severe) obesity due to excess calories; Z68.36 Body mass index [BMI] 36.0-36.9, adult; Z68.35 Body mass index [BMI] 35.0-35.9, adult; K76.0 Fatty (change of) liver, not elsewhere classified; L30.9 Dermatitis, unspecified; Z98.84 Bariatric surgery status; Q43.3 Congenital malformations of intestinal fixation | CPT/HCPCS: 99024 ==

== ENCOUNTER 2024-10-19 08:49 | Outpatient (AMB) | payer OTHER, SELFPAY ==
--- NOTE | 2024-10-19 08:53 | A.OFFVIS_ITS ---
VS Expanded 10/19/24 09:06 BP 143/86 H Blood Pressure Location Rt brachial Blood Pressure Position Sitting Pulse 109 H Pulse Source Pulse Oximeter Temp 97.2 F Temperature Source Temporal Artery Scan Pulse Oximetry 95 Oxygen Delivery Method Room Air Height 5 ft 1 in Weight 176 lb 3.2 oz BMI 33.3 Body Fat % 38.8 Body Fat Mass 68.4 Fat Free Mass 107.8 Visceral Fat Rating 7.0 Body Water % 43.9 Body Water Mass 77.4 Muscle Mass/Score 102.2 Basal Metabolic Rate/Score 1,512 Intake Visit Reasons: OV PO LSG 10/12/24 Allergies apple [Apple] Allergy (Severe, Verified 09/28/24 23:19) SWELLING banana [BANANA] Allergy (Severe, Verified 09/28/24 23:19) SWELLING grape [GRAPE] Allergy (Severe, Verified 09/28/24 23:19) SWELLING strawberry [STRAWBERRY] Allergy (Severe, Verified 09/28/24 23:19) SWELLING amoxicillin [AMOXICILLIN] Allergy (Intermediate, Verified 09/28/24 23:19) RASH animal dander Allergy (Mild, Verified 09/28/24 23:19) Wheezing Seasonal Allergies Allergy (Mild, Verified 09/28/24 23:19) Wheezing HPI Comments Details: Patient is a pleasant 34-year-old female who returns to the office today in follow-up. She is approximately 7 days post sleeve gastrectomy performed on 10/12/2024. Tolerating 3 celebrate rebuild shakes with 1 scoop each and proximally 40 oz of water. She has moved her bowels. Offers no significant complaints at today's visit. [facility] Medical History Obesity GERD (gastroesophageal reflux disease) Hypertension Infertility counseling Allergic rhinitis Mild asthma Eczema Surgical History History of esophagogastroduodenoscopy (EGD) Hx of tonsillectomy Family History Father CVD (cardiovascular disease) AIDS Mother Hypertension Breast cyst Paternal Aunt Cervical cancer Social History Household Members: None Housing: Apartment Are you a primary patient care manager to a significant other at home: Yes (minor child) Do you presently have visiting nurse or other home services: No Alcohol intake: never Patient Tobacco Use Status: Former Tobacco user Tobacco use type: Cigarette Years Smoked: 13 e-Cigarette/Vaping Use: Never Used Second Hand Smoke Exposure: No service: No Current occupational status: employed 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[employer] Current occupational exposures/hazards: No Sexual orientation: Lesbian/Boggs/Homosexual Gender identity: Female Cognitive needs: No Hearing needs: No Vision needs: No Female Reproductive History Menstrual Age of Menarche: 13 Physical Exam Vital Signs: Last Vital Signs Temp 97.2 F 10/19/24 09:06 Pulse 109 H 10/19/24 09:06 BP 143/86 H 10/19/24 09:06 Pulse Ox 95 10/19/24 09:06 Oxygen Delivery Method Room Air 10/19/24 09:06 BMI result Body Mass Index 33.3 GI Inspection: Yes incision (Clean, dry, intact.) Assessment & Plan Assessment & Plan (1) S/P laparoscopic sleeve gastrectomy: Code(s): Z98.84 - Bariatric surgery status Category: Surgical Plan: POD 7 s/p LSG on 10/12/[address] Yanez Weight loss prior to surgery was 23.8 pounds or 11.1 % TBWL. Original weight on 08/21/2024 was 213.2 pounds and op weight was 189.4 pounds. Be sure to text Dr Yanez exactly 1 week after surgery your weight from your home scale so he can adjust your meal plan. Continue meal plan until f/u anne Galvan in 2 weeks May shower, no submersion in bath for another week Continue abdominal binder with activity and exercise for the next 2 weeks. Exercise prior to surgery was treadmill and may resume No abdominal exercises for 6 weeks post operatively Will be emailed link to post op video for review Reminded of the pace of drinking, 2 mL per minute, 1 oz/15 min.
--- OUTSIDE RECORDS SUMMARY | 2024-10-19 09:05 | XMS_ITS | Encounter Summary ---
Author Organization [facility] Address [address] [place] [address] Phone Care Team Providers Care Senior Administrative Support Name Role Phone Yeni Dumont MD Primary Care Provider [phone] Encounter Details Date Type Department Care Team (Late st Contact Info) Description 01/07/2017 Conversion Encounter [facility] [place] [address] [place] [address] Social History Tobacco Use Types Packs/Day Years [...] filedocumented in this encounter Care Teams Senior Administrative Support Relationship Specialty Start Date End Date Yeni Dumont MD [address] [place] [address] PCP - General 01/01/17 11/12/22 documented as of this encounter
[2024-10-19 09:06] VITALS: BP 143/86; PULSE 109; TEMP 36.2; O2SAT 95; BMI 33.3
== END 2024-10-19 09:36 | disposition home or self-care (01) ==
LOC: HO.HBS 08:49
PROVIDERS: PCP Internal Medicine; Visit Provider Physician Assistant Surgical
DX: Z98.84 Bariatric surgery status (principal)
CPT/HCPCS: 99024

== ENCOUNTER 2024-10-20 13:15 | Outpatient (AMB) | payer OTHER, SELFPAY ==
--- NOTE | 2024-10-20 13:00 | A.OFFWM_ITS ---
Intake Intake Visit Reasons: TV PO LSG 10/12/24 Allergies apple (Apple) Allergy (Severe, Verified 09/28/24 23:19) SWELLING banana (BANANA) Allergy (Severe, Verified 09/28/24 23:19) SWELLING grape (GRAPE) Allergy (Severe, Verified 09/28/24 23:19) SWELLING strawberry (STRAWBERRY) Allergy (Severe, Verified 09/28/24 23:19) SWELLING amoxicillin (AMOXICILLIN) Allergy (Intermediate, Verified 09/28/24 23:19) RASH animal dander Allergy (Mild, Verified 09/28/24 23:19) Wheezing Seasonal Allergies Allergy (Mild, Verified 09/28/24 23:19) Wheezing PFSH Medical History Obesity GERD (gastroesophageal reflux disease) Hypertension Infertility counseling Allergic rhinitis Mild asthma Eczema Surgical History History of esophagogastroduodenoscopy (EGD) Hx of tonsillectomy Family History Father CVD (cardiovascular disease) AIDS Mother Hypertension Breast cyst Paternal Aunt Cervical cancer Social History Household Members: None Housing: Apartment Are you a primary career portals teacher to a significant other at home: Yes (minor child) Do you presently have visiting nurse or other home services: No Alcohol intake: never Patient Tobacco Use Status: Former Tobacco user Tobacco use type: Cigarette Years Smoked: 13 e-Cigarette/Vaping Use: Never Used Second Hand Smoke Exposure: No service: No Current occupational status: employed 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 PT reports she has had a good recovery so far. Feeling dizzy here and there, but she already discussed with the Dr about it. He does have a good support system, and so far is getting help with her son. Denies any hunger or food thoughts. Objective: The patient presents for a behavioral health post-operative follow-up visit. . A guided emotional check-in was conducted to assess her current functioning, recovery, mood, and emotional state. Psychoeducation was provided on the emotional and psychological adjustments commonly experienced after bariatric surgery. We also focused on distinguishing between hunger and cravings or food thoughts, exploring possible reasons for these experiences, and strategies to work on her mindset. Emphasis was placed on becoming mindful of her physical and mental needs during these times while staying on track. The PHQ-9 was administered to screen for symptoms of depression. The importance of adhering to the Weight Management Program (WMP) providers' instructions was emphasized, including the pace of drinking and following the meal and exercise plan. Tips and recommendations for long-term success were also discussed. Program resources were provided, and the patient was invited to join our Facebook group to stay informed about ongoing events and activities. Assessment/Response: * Mental status: WNL * Risk reported/identified: None Food/Weight/Diet Expectations of change Target weight: 115 lbs. Meal plan: 3 shakes x day and water/Crystal Light. The goal is 50 oz of fluids. Exercise plan: Cleared to walk or use the treadmill. Communication with provider: Yes, on . Questionnaires PHQ-9 Over the last 2 weeks, how often have you been bothered by any of the following problems? 1. Little interest or pleasure in doing things: not at all 2. Feeling down, depressed, or hopeless: not at all 3. Trouble falling or staying asleep, or sleeping too much: several days 4. Feeling tired or having little energy: several days 5. Poor appetite or overeating: not at all 6. Feeling bad about yourself - or that you are a failure or have let yourself or your family down: not at all 7. Trouble concentrating on things, such as reading the newspaper or watching television: not at all 8. Moving or speaking so slowly that other people could have noticed. Or the opposite - being so fidgety or restless that you have been moving around a lot more than usual: not at all 9. Thoughts that you would be better off or of hurting yourself in some way: not at all Total score: 2 Depression Screening Interpretation: Negative Depression Screening Done: Yes 65267 - PHQ-9 Billing: Yes Source: Developed by DrsTravis Lemos, Anais Maya, Solomon Mcneal and colleagues, with an educational michelle from [employer]. Assessment & Plan Assessment & Plan (1) Adjustment disorder: Code(s): F43.20 - Adjustment disorder, unspecified Qualifiers: Adjustment disorder type: unspecified type Qualified Code(s): F43.20 - Adjustment disorder, unspecified (2) Status post bariatric surgery: Code(s): Z98.84 - Bariatric surgery status Plan No safety concerns or issues were identified that would necessitate behavioral health monitoring. The patient declined further visits but is aware of the available behavioral health support if needed in the future. Telehealth Telehealth Telehealth Platform: [facility] Location of provider rendering services: practice address Location of patient: address on file Patient Identification confirmed using: Name, : Yes Telehealth method: voice only Patient verbally consented to treatment: Yes Patient verbally consented to billing insurance company: Yes Patient informed of any privacy concerns related to visit: Yes Minutes spent on Phone/Video with Pt.: 30 Coding Level of Care Code Established Pt Tele Psytx 30 mins (80550) Patient Type Established Diagnoses Adjustment disorder, unspecified type F43.20 Adjustment disorder type: unspecified type Status post bariatric surgery Z98.84 Additional Codes PHQ-9 - 19169 - PHQ-9 Billing: Yes ([id number]) Time Spent (min) 30
--- OUTSIDE RECORDS SUMMARY | 2024-10-20 13:24 | XMS_ITS | Encounter Summary ---
Author Organization [facility] Address [address] [place] [address] Phone Care Team Providers Care Child Specialist Name Role Phone Yeni Dumont MD Primary Care Provider [phone] Encounter Details Date Type Department Care Team (Late st Contact Info) Description 01/07/2017 Conversion Encounter [facility] [place] [address] [place] [address] Social History Tobacco Use Types Packs/Day Years [...] on filedocumented in this encounter Care Teams Child Specialist Relationship Specialty Start Date End Date Yeni Dumont MD [address] [place] [address] PCP - General 01/01/17 11/12/22 documented as of this encounter
== END 2024-10-20 13:41 | disposition home or self-care (01) ==
LOC: HO.HBST 13:15
PROVIDERS: PCP Internal Medicine; Visit Provider Counselor Mental Health
DX: F43.20 Adjustment disorder, unspecified (principal); Z98.84 Bariatric surgery status
CPT/HCPCS: 90832

== ENCOUNTER → 2024-10-20 13:15 | Outpatient (BNVA) | payer OTHER, SELFPAY | PROVIDERS: PCP Internal Medicine; Visit Provider Counselor Mental Health ==

== ENCOUNTER 2024-11-01 08:33 | Outpatient (AMB) | payer OTHER, SELFPAY ==
--- NOTE | 2024-11-01 08:35 | MHC.OFFVISWM ---
VS Expanded 11/01/24 08:44 BP 138/90 H Blood Pressure Location Rt brachial Blood Pressure Position Sitting Pulse 89 Pulse Source Pulse Oximeter Temp 97.4 F Temperature Source Temporal Artery Scan Pulse Oximetry 97 Oxygen Delivery Method Room Air Height 5 ft 1 in Weight 170 lb BMI 32.1 Body Fat % 36.7 Body Fat Mass 62.4 Fat Free Mass 107.6 Visceral Fat Rating 7.0 Body Water % 45.4 Body Water Mass 77.2 Muscle Mass/Score 102.0 Basal Metabolic Rate/Score 1,499 Intake Visit Reasons: OV PO LSG 10/12/24 Tire Mold Tester Required: No Allergies apple [Apple] Allergy (Severe, Verified 09/28/24 23:19) SWELLING banana [BANANA] Allergy (Severe, Verified 09/28/24 23:19) SWELLING grape [GRAPE] Allergy (Severe, Verified 09/28/24 23:19) SWELLING strawberry [STRAWBERRY] Allergy (Severe, Verified 09/28/24 23:19) SWELLING amoxicillin [AMOXICILLIN] Allergy (Intermediate, Verified 09/28/24 23:19) RASH animal dander Allergy (Mild, Verified 09/28/24 23:19) Wheezing Seasonal Allergies Allergy (Mild, Verified 09/28/24 23:19) Wheezing Medication List - Last Reconciled 11/01/24 by SHERRI Pak albuterol sulfate 90 mcg/actuation 1 inh inhalation QID 30 days cetirizine (Zyrtec) 10 mg PO DAILY PRN ipratropium-albuterol 0.5 mg-3 mg(2.5 mg base)/3 mL 3 mL inhalation Q4H PRN nebulizers (Aeroneb Go Nebulizer) As directed pantoprazole 40 mg PO DAILY sucralfate 10 mL PO BID tacrolimus 0.03% 1 appl topical BID PRN triamcinolone acetonide 0.1% 1 appl topical DAILY PRN HPI Comments Details: This?a?34?yo female who is s/p LSG without hiatal hernia repair on?10/12/2024. Presents for 3 week post op visit. Weight today is 170 pounds, with a BMI of 32.1. There has been a 43.2 pound weight loss,(initial weight 213.2 pounds) since starting the program on 08/21/2024 reflecting a 20.2% total body weight loss and a weight loss of 19.4 pounds since surgery (operative weight 189.4 pounds) reflecting a 10.2% TBWL since surgery. No complaints of nausea, emesis, abdominal pain or reflux. Present meal plan includes: Celebrate rebuild 2 scoops w lactaid milk, 7-9, 11-1, 3-5 Drinking 50 ? Exercise routine includes: treadmill 5 x per week, [facility] Medical History Obesity GERD (gastroesophageal reflux disease) Hypertension Infertility counseling Allergic rhinitis Mild asthma Eczema Surgical History History of esophagogastroduodenoscopy (EGD) Hx of tonsillectomy Family History Father CVD (cardiovascular disease) AIDS Mother Hypertension Breast cyst Paternal Aunt Cervical cancer Social History Household Members: None Housing: Apartment Are you a primary group care worker to a significant other at home: Yes (minor child) Do you presently have visiting nurse or other home services: No Alcohol intake: never Patient Tobacco Use Status: Former Tobacco user Tobacco use type: Cigarette Years Smoked: 13 e-Cigarette/Vaping Use: Never Used Second Hand Smoke Exposure: No service: No Current occupational status: employed Current occupation: [employer] Current occupational exposures/hazards: No Sexual orientation: Lesbian/Boggs/Homosexual Gender identity: Female Cognitive needs: No Hearing needs: No Vision needs: No Female Reproductive History Menstrual Age of Menarche: 13 Physical Exam Const General: healthy appearing and no acute distress Resp Effort & Inspection: normal respiratory effort Auscultation: clear to auscultation bilaterally Cardio Rate: regular rate Rhythm: regular rhythm GI Auscultation: normal bowel sounds Extrem General: Yes normal to inspection Assessment & Plan Assessment & Plan (1) S/P laparoscopic sleeve gastrectomy: Code(s): Z98.84 - Bariatric surgery status Category: Surgical Plan: Overall, patient is doing well. She is having some difficulty with constipation. She was advised to get milk of magnesia and continue MiraLax. She has not yet started this. I have added Dulcolax suppository NM x1 daily until bowel movements. She will continue to communicate with Dr. Yanez regarding her meal plan. Encouraged to increase her walking on her treadmill. We will have her return to the office in approximately 1 month. Medications: New bisacodyl (Dulcolax (bisacodyl)) 10 mg NM DAILY PRN 12 ea 0RF constipation
[2024-11-01 08:44] VITALS: BP 138/90; PULSE 89; TEMP 36.3; O2SAT 97; BMI 32.1
--- OUTSIDE RECORDS SUMMARY | 2024-11-01 08:48 | XMS_ITS | Encounter Summary ---
Author Organization [facility] Address [address] [place] [address] Phone Care Team Providers Care Weight Clerk Name Role Phone Yeni Dumont MD Primary Care Provider [phone] Encounter Details Date Type Department Care Team (Late st Contact Info) Description 01/07/2017 Conversion Encounter [facility] [place] [address] [place] [address] Social History Tobacco Use Types Packs/Day Years [...] on filedocumented in this encounter Care Teams Weight Clerk Relationship Specialty Start Date End Date Yeni Dumont MD [address] [place] [address] PCP - General 01/01/17 11/12/22 documented as of this encounter
== END 2024-11-01 08:59 | disposition home or self-care (01) ==
LOC: HO.HBS 08:33
PROVIDERS: PCP Internal Medicine; Visit Provider Physician Assistant Surgical
DX: Z98.84 Bariatric surgery status (principal)
CPT/HCPCS: 99024

== ENCOUNTER 2024-12-27 15:37 | Outpatient (AMB) | payer OTHER, SELFPAY ==
--- NOTE | 2024-12-27 15:43 | A.OFFVIS_ITS ---
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 annual exam Intake Note: annual wants std vaginal swabs and blood work Information Interpreted: non-clinical & clinical Food Operations Manager: Food Operations Manager Present (jessy) Accompanied by: Self / Same As Patient Allergies apple (Apple) Allergy (Severe, Verified 12/27/24 15:46) SWELLING banana (BANANA) Allergy (Severe, Verified 12/27/24 15:46) SWELLING grape (GRAPE) Allergy (Severe, Verified 12/27/24 15:46) SWELLING strawberry (STRAWBERRY) Allergy (Severe, Verified 12/27/24 15:46) SWELLING amoxicillin (AMOXICILLIN) Allergy (Intermediate, Verified 12/27/24 15:46) RASH animal dander Allergy (Mild, Verified 12/27/24 15:46) Wheezing Seasonal Allergies Allergy (Mild, Verified 12/27/24 15:46) Wheezing Medication List - Last Reconciled 12/27/24 by Tammie Prince LPN albuterol sulfate 90 mcg/actuation 1 inh inhalation QID 30 days bisacodyl (Dulcolax (bisacodyl)) 10 mg [place] DAILY PRN cetirizine (Zyrtec) 10 mg PO DAILY PRN ipratropium-albuterol 0.5 mg-3 mg(2.5 mg base)/3 mL 3 mL inhalation Q4H PRN nebulizers (Aeroneb Go Nebulizer) As directed pantoprazole 40 mg PO DAILY tacrolimus 0.03% 1 appl topical BID PRN triamcinolone acetonide 0.1% 1 appl topical DAILY PRN Is last menstrual period known: Yes Last menstrual period: 12/04/24 Patient : No Do you need a note to return to daycare/school/sports/work: No HPI Comments Details: Patient is a premenopausal woman presenting for annual examination. Director Of Product Management concerns: desires STD screening, female only partner. Tried IVF in the past. Regular monthly menses. Currently is sexually active. She denies vaginal itching or irritation. STI screening offered; she accepts, desires blood work. She tries to eat healthy and stays active with exercise. Denies family history of breast, ovarian or colon cancer. Last pap smear 2023 & 2022, negative. Hx. HPV. PFSH Medical History Obesity GERD (gastroesophageal reflux disease) Hypertension Infertility counseling Allergic rhinitis Mild asthma Eczema Surgical History History of esophagogastroduodenoscopy (EGD) Hx of tonsillectomy Family History Father CVD (cardiovascular disease) AIDS Mother Hypertension Breast cyst Paternal Aunt Cervical cancer Social History Household Members: None Housing: Apartment Are you a primary post anesthesia care unit nurse to a significant other at home: Yes (minor child) Do you presently have visiting nurse or other home services: No Alcohol intake: never Patient Tobacco Use Status: Former Tobacco user Tobacco use type: Cigarette Years Smoked: 13 e-Cigarette/Vaping Use: Never Used Second Hand Smoke Exposure: No service: No Current occupational status: employed Current occupation: [employer] Current occupational exposures/hazards: No Sexual orientation: Lesbian/Boggs/Homosexual Gender identity: Female Cognitive needs: No Hearing needs: No Vision needs: No Female Reproductive History Menstrual Age of Menarche: 13 Date of last menstrual period: 12/04/24 control method: none Total pregnancies: 1 Number of Living Children: 0 Ab spontaneous: 1 Date of last pap smear: 10/26/23 History of abnormal pap smear: No History of STI: No Review of Systems Const All systems reviewed & are unremarkable except as noted in HPI and below Reports as per HPI Eyes Reports no additional complaints ENT Reports no additional complaints Card Reports no additional complaints Resp Reports no additional complaints GI Reports as per HPI and Reports no additional complaints Reports as per HPI Musc Reports no additional complaints Skin/Breast Reports as per HPI Neuro Reports no additional complaints Psych Reports no additional complaints Endo Reports no additional complaints Trav/Lymph Reports no additional complaints Aller/Immun Reports no additional complaints Physical Exam Vital Signs: Last Vital Signs BP 102/66 12/27/24 15:44 BMI result Body Mass Index 28.2 Const General: cooperative, healthy appearing, no acute distress, well developed and alert Orientation/consciousness: patient oriented x3 HEENT Head: Yes normal to inspection Eyes General: appearance normal, both eyes and all related structures Neck Neck: Yes normal visual inspection Thyroid: Thyroid normal Chest Chest palpation & inspection: normal inspection of the chest and other (no puckering, dimpling, peau de orange, retraction, discharge, masses) Breast/axilla inspection: normal inspection of the breasts Breast/axilla palpation: normal palpation of the breasts Resp Effort & Inspection: normal respiratory effort GI Inspection: Yes normal to inspection Palpation (GI): Soft to palpation Rectal Exam - Female: deferred General: Yes bladder normal to palpation External Female Exam: normal external appearance and normal appearance of the urethra Speculum Exam - Vagina: normal appearance of the vagina, normal palpation and normal vaginal discharge Speculum Exam - Cervix: normal appearance of the cervix and normal palpation Bimanual exam- vagina & uterus: normal bimanual exam, normal palpation, uterine size normal, bladder normal to palpation, normal palpation and non-tender Bimanual Exam- Adnexa, other: no masses Skin General skin exam: no rashes or lesions noted Rashes: no rashes Neuro General: patient oriented x3 Cognition (Neuro): normal cognition Extrem General: Yes normal to inspection Psych Attitude: cooperative Thought process: Normal thought process present Assessment & Plan Assessment & Plan (1) Encounter for well woman exam with routine gynecological exam: Code(s): Z01.419 - Encounter for gynecological examination (general) (routine) without abnormal findings Category: Medical Plan Discussed: Current recommendations for pap smears per ASCCP guidelines. Breast awareness and periodic breast exams. Maintain a healthy lifestyle including a well balanced diet and routine exercise. Patient verbalizes understanding and agrees to the plan of care. She was given opportunity to ask questions and all questions were answered to the best of my ability. RTO in one year for annual deputy register of deeds examination. This note is constructed using voice recognition software. While every effort has been made to ensure accuracy, press catcher errors may have been included. Orders: Orders Syphilis Screen Today Z20.2 - Contact with and (suspected) exposure to infections with a predominantly sexual mode of transmission CT NG by PCR Vag/Cerv Today Z11.3 - Encounter for screening for infections with a predominantly sexual mode of transmission HIV Ab/Ag Today Z20.2 - Contact with and (suspected) exposure to infections with a predominantly sexual mode of transmission Hepatitis C Antibody Reflex Today Z20.2 - Contact with and (suspected) exposure to infections with a predominantly sexual mode of transmission Bacterial Vaginosis Panel Today Z11.3 - Encounter for screening for infections with a predominantly sexual mode of transmission Coding Level of Care Code Est Pt Prev Care 18-39y(68866) Diagnoses Encounter for well woman exam with routine gynecological exam Z01.419
[2024-12-27 15:44] VITALS: BP 102/66; BMI 28.2
--- OUTSIDE RECORDS SUMMARY | 2024-12-27 16:04 | XMS_ITS | Patient Health Record ---
Author Organization [facility] Address [address] [place] [address] Care Team Providers Care Chrome Plater Name Role Phone Yeni Dumont MD Primary Care Provider Luis Otero Jr Unavailable [phone] Allergies Allergen (clinical drug ingredient) Drug/Non Drug Allergy documented on EMR Reaction Allergy Type Onset Date Status nuts,seafood,fruits, an imal fur (uncoded) Unknown Allergy Active Reason For Referral No Information Medications Medication SIG (Take, Route, Frequency, Duration) Notes Start Date End Date Status Omeprazole 20 MG 1 capsule Oral Once a day for 30 days Active Triamcinolone & Emollient 0.1 % 1 Externally Twice a day Act damon Protopic 0.1 % APPLY EXTERNALLY TO THE AFFECTED AREA BID PRN External for 30 Active Problems Problem Type SNOMED Code ICD Code Onset Dates Problem Status W/U Status Risk Notes Problem [id number] Epigastric pain (789.06) Active confirmed Plan Of Treatment Pending Test Test Name Order Date XR GI SERIES 10/05/2013 Insurance Providers Payer Name Payer Address Payer Phone Subscriber Number Group Number Insured Name Patient Relationship to Insured Coverage Start Date Coverage End Date [facility] [employer] [facility] [address] [address] [place], [place] [id number] NAV MORENO Self - patient is the insured Medical (General) History Medical History History ICD Code asthma eczema
--- OUTSIDE RECORDS SUMMARY | 2024-12-27 16:04 | XMS_ITS | Encounter Summary ---
Author Organization [facility] Address [address] [place] [address] Phone Care Team Providers Care Manager Outpatient Name Role Phone Yeni Dumont MD Primary Care Provider [phone] Encounter Details Date Type Department Care Team (Late st Contact Info) Description 01/07/2017 Conversion Encounter [facility] [address] [place] [address] Social History Tobacco Use Types Packs/Day Years [...] filedocumented in this encounter Care Teams Manager Outpatient Relationship Specialty Start Date End Date Yeni Dumont MD [address] [place] [address] PCP - General 01/01/17 11/12/22 documented as of this encounter
== END 2024-12-28 07:53 | disposition home or self-care (01) ==
LOC: HO.HWS 15:38
PROVIDERS: PCP Internal Medicine; Visit Provider Advanced Practice Midwife
DX: Z01.419 Encounter for gynecological examination (general) (routine) without abnormal findings (principal)
CPT/HCPCS: 99395; 99459

== ENCOUNTER 2024-12-27 15:37 | Outpatient (REF) | payer OTHER, SELFPAY | END 2024-12-27 15:38 | disposition home or self-care (01) | LOC: HO.LNP 15:37 | PROVIDERS: PCP Internal Medicine; Visit Provider Advanced Practice Midwife | DX: Z13.89 Encounter for screening for other disorder (principal) ==

== ENCOUNTER 2024-12-27 16:35 | Outpatient (REF) | payer OTHER, SELFPAY ==
[2024-12-28 07:38] LABS: Syphilis Screen Nonreactive (Nonreactive)
[2024-12-28 08:19] LABS: HIV Num 1 0.06 S/CO (0.00-0.99); ~HepC Num1 0.15 S/CO (0.00-0.79); ~Hepatitis C Antibody Nonreactive (Nonreactive)
[2024-12-28 13:36] LABS: Bacterial Vaginosis PCR NEGATIVE (Negative); Candida Group PCR NOT DETECTED (Not Detect); Candida glab krusei PCR NOT DETECTED (Not Detect); Trichomonas vaginalis PCR NOT DETECTED (Not Detect)
[2024-12-28 14:06] LABS: CT PCR NOT DETECTED (Not Detect.); NG PCR NOT DETECTED (Not Detect.)
== END 2024-12-27 16:36 | disposition home or self-care (01) ==
LOC: HO.LAB 16:35
PROVIDERS: PCP Internal Medicine; Visit Provider Advanced Practice Midwife
DX: Z20.2 Contact with and (suspected) exposure to infections with a predominantly sexual mode of transmission (principal); Z11.3 Encounter for screening for infections with a predominantly sexual mode of transmission; Z11.8 Encounter for screening for other infectious and parasitic diseases; Z11.4 Encounter for screening for human immunodeficiency virus [HIV]; Z11.2 Encounter for screening for other bacterial diseases; Z11.59 Encounter for screening for other viral diseases
CPT/HCPCS: 36415; 81515; 86780; 86803; 87389; 87491; 87591

== ENCOUNTER 2025-02-08 10:14 | Outpatient (AMB) | payer OTHER, SELFPAY ==
--- NOTE | 2025-02-08 10:23 | A.OFFVIS_ITS ---
Intake Visit Reasons: vaginitis Intake Note: Per patient, vaginal irritation and occasional itching x1week. No discharge, burning or fowl smell. No new detergent, soap due to allergies/eczema. Information Interpreted: non-clinical & clinical Inside Technical Sales Representative: Inside Technical Sales Representative Present (Funmi) Accompanied by: Self / Same As Patient Allergies apple (Apple) Allergy (Severe, Verified 02/08/25 10:25) SWELLING banana (BANANA) Allergy (Severe, Verified 02/08/25 10:25) SWELLING grape (GRAPE) Allergy (Severe, Verified 02/08/25 10:25) SWELLING strawberry (STRAWBERRY) Allergy (Severe, Verified 02/08/25 10:25) SWELLING amoxicillin (AMOXICILLIN) Allergy (Intermediate, Verified 02/08/25 10:25) RASH animal dander Allergy (Mild, Verified 02/08/25 10:25) Wheezing Seasonal Allergies Allergy (Mild, Verified 02/08/25 10:25) Wheezing HPI Comments Details: Patient is here today with vulvar itching (periclitoral), no new soaps or other changes. History of eczema follow up by derm, has not been diagnosed with a vulvar eczema in the past. [facility] Medical History Obesity GERD (gastroesophageal reflux disease) Hypertension Infertility counseling Allergic rhinitis Mild asthma Eczema Surgical History History of esophagogastroduodenoscopy (EGD) Hx of tonsillectomy Family History Father CVD (cardiovascular disease) AIDS Mother Hypertension Breast cyst Paternal Aunt Cervical cancer Social History Household Members: None Housing: Apartment Are you a primary care connector to a significant other at home: Yes (minor child) Do you presently have visiting nurse or other home services: No Alcohol intake: never Patient Tobacco Use Status: Former Tobacco user Tobacco use type: Cigarette Years Smoked: 13 e-Cigarette/Vaping Use: Never Used Second Hand Smoke Exposure: No service: No Current occupational status: employed Current occupation: [employer] Current occupational exposures/hazards: No Sexual orientation: Lesbian/Boggs/Homosexual Gender identity: Female Cognitive needs: No Hearing needs: No Vision needs: No Female Reproductive History Menstrual Age of Menarche: 13 Review of Systems Const All systems reviewed & are unremarkable except as noted in HPI and below Physical Exam Const General: cooperative, healthy appearing and no acute distress Orientation/consciousness: patient oriented x3 GI Inspection: Yes normal to inspection Palpation (GI): Soft to palpation and Other GI palpation findings present (Nontender) Rectal Exam - Female: visual inspection normal General: Yes bladder normal to palpation External Female Exam: normal appearance of the urethra Speculum Exam - Vagina: normal appearance of the vagina, normal palpation and normal vaginal discharge Speculum Exam - Cervix: normal appearance of the cervix and normal palpation Bimanual exam- vagina & uterus: normal bimanual exam, normal palpation, uterine size normal, bladder normal to palpation, normal palpation, uterine shape normal and non-tender Bimanual Exam- Adnexa, other: normal adnexae Neuro General: patient oriented x3 Assessment & Plan Assessment & Plan (1) Vulvar itching: Code(s): L29.2 - Pruritus vulvae Plan Discussed skin care and overall products to avoid. No abnormal findings noted with the exam today. Use of vulvar balm by Medicine Mama. Benefits of not shaving. BV panel obtained await results for final plan of care. The patient expressed understanding and agreement with the plan of care. All of her questions and concerns were addressed to the best of my ability. This note is constructed using voice recognition software. While every effort has been made to ensure accuracy, tie in machine operator errors may have been included. Orders: Orders Bacterial Vaginosis Panel Today N76.0 - Acute vaginitis Coding Level of Care Code Est Pt Level 3 (50320) Diagnoses Vulvar itching L29.2
--- OUTSIDE RECORDS SUMMARY | 2025-02-08 12:13 | XMS_ITS | Encounter Summary ---
Author Organization [facility] Address [address] [place] [address] Phone Care Team Providers Care Aircraft Engine Mechanic Overhaul Name Role Phone Yeni Dumont MD Primary Care Provider [phone] Encounter Details Date Type Department Care Team (Late st Contact Info) Description 10/03/[address] [facility] [place] [address] [place] [address] Family Medicine, Physician [address] [place] [address] Social History Tobacco Use Types Packs/Day Years [...] on filedocumented in this encounter Care Teams Aircraft Engine Mechanic Overhaul Relationship Specialty Start Date End Date Yeni Dumont MD [address] [place] [address] PCP - General 01/01/17 11/12/22 documented as of this encounter
--- OUTSIDE RECORDS SUMMARY | 2025-02-08 12:13 | XMS_ITS | Encounter Summary ---
Author Organization [facility] Address [address] [place] [address] Phone Care Team Providers Care Automated Teller Manager Name Role Phone Yeni Dumont MD Primary Care Provider [phone] Encounter Details Date Type Department Care Team (Late st Contact Info) Description 01/02/2014 Documentation [facility] [place] [address] [place] [address] Family Medicine, Physician [address] [place] [address] Social History Tobacco Use Types Packs/Day Years [...] on filedocumented in this encounter Care Teams Automated Teller Manager Relationship Specialty Start Date End Date Yeni Dumont MD [address] [facility] [address] PCP - General 01/01/17 11/12/22 documented as of this encounter
--- OUTSIDE RECORDS SUMMARY | 2025-02-08 12:13 | XMS_ITS | Encounter Summary ---
Author Organization [facility] Address [address] [place] [address] Phone Care Team Providers Care Retail Field Merchandiser Name Role Phone Yeni Dumont MD Primary Care Provider [phone] Encounter Details Date Type Department Care Team (Late st Contact Info) Description 06/25/2011 Documentation [facility] [place] [address] [place], [place] [id number] Family Medicine, Physician [address] [place] [address] Social History Tobacco Use Types Packs/Day Years [...] on filedocumented in this encounter Care Teams Retail Field Merchandiser Relationship Specialty Start Date End Date Yeni Dumont MD [address] [place] [address] [place] [address] PCP - General 01/01/17 11/12/22 documented as of this encounter
--- OUTSIDE RECORDS SUMMARY | 2025-02-08 12:13 | XMS_ITS | Encounter Summary ---
Author Organization [facility] Address [address] [place] [address] Phone Care Team Providers Care Bicycle Messenger Name Role Phone Yeni Dumont MD Primary Care Provider [phone] Encounter Details Date Type Department Care Team (Late st Contact Info) Description 08/26/2010 Documentation [facility] [place] Family Medicine [address] [place], [place] [phone] Family Medicine, Physician [address] [place] [address] Social History Tobacco Use Types Packs/Day Years [...] on filedocumented in this encounter Care Teams Bicycle Messenger Relationship Specialty Start Date End Date Yeni Dumont MD [address] [place] [address] [place] [address] PCP - General 01/01/17 11/12/22 documented as of this encounter
--- OUTSIDE RECORDS SUMMARY | 2025-02-08 12:13 | XMS_ITS | Encounter Summary ---
Author Organization [facility] Address [address] [place] [address] Phone Care Team Providers Care Collision Technician Name Role Phone Yeni Dumont MD Primary Care Provider [phone] Encounter Details Date Type Department Care Team (Late st Contact Info) Description 05/20/2011 [place] [facility] [place] [address] [place], [place] [phone] Family Medicine, Physician [address] [place] [address] Social History Tobacco Use Types Packs/Day Years [...] on filedocumented in this encounter Care Teams Collision Technician Relationship Specialty Start Date End Date Yeni Dumont MD [address] [place] [address] PCP - General 01/01/17 11/12/22 documented as of this encounter
--- OUTSIDE RECORDS SUMMARY | 2025-02-08 12:13 | XMS_ITS | Encounter Summary ---
Author Organization [facility] Address [address] [place] [address] Phone Care Team Providers Care Level Vial Inside Grinder Name Role Phone Yeni Dumont MD Primary Care Provider [phone] Encounter Details Date Type Department Care Team (Late st Contact Info) Description 05/20/2011 Documentation [facility] [place] Family Medicine [address] [place], [place] [id number] Family Medicine, Physician [address] [place] [address] Social History Tobacco Use Types Packs/Day Years [...] on filedocumented in this encounter Care Teams Level Vial Inside Grinder Relationship Specialty Start Date End Date Yeni Dumont MD [address] [place] [address] PCP - General 01/01/17 11/12/22 documented as of this encounter
--- OUTSIDE RECORDS SUMMARY | 2025-02-08 12:13 | XMS_ITS | Clinical Summary ---
Author Organization [facility] Address [address] [place] [address] Phone Care Team Providers Care Layer Off Name Role Phone Unavailable Primary Care Provider [...] history of Migraines, Family history of Sudden /DE under age 55, Family history of Diabetes [...] 67 10/02/2013 12:00 AM EDT Temperature 36.7 C (98 F) 10/02/2013 12:00 AM EDT Respiratory Rate - [...] 07/04/1997, Additional history exists Influenza Vaccines (#1) 2024 03/16/20 11, 03/19/2010, 03/12/2009, Additional history exists COVID-19 Vaccine ( season) 2025 HIB Vaccines Completed 07/23/1993, 06/1992, 1992, Additional [...] this topic Procedures * Due to [place] [employer] law, this organization might not be sharing sensitive test results. Procedure Name Priority Date/Time Associated Diagnosis Comments CHLAMYDIA AND GONORRHEA, AMPLIFIED Routine 10/28/2012 4:39 PM EDT from Last 3 Months or Most Recently Relevant to Health Maintenance Results * Due to [place] [employer] law, this organization might not be sharing sensitive test results. * Chlamydia and Gonorrhoea, Amplified (10/28/2012 4:39 PM EDT) URINE GC AMP PROBE NEGATIVE [facility] Comment: NO NEISSERIA GONORRHOEAE RNA DETECTED IN THIS PATIENT'S SAMPLE. (REFERENCE RANGE/NORMAL VALUE: NOT DETECTED) NOTE: THIS TEST USES BLEMISH REMOVER-MEDIATED AMPLIFICATION METHOD TO DETECT rRNA FROM C.TRACHOMATIS [...] OF INFECTION. URINE CHLAMYDIA AMP PROBE NEGATIVE [facility] Comment: NO CHLAMYDIA TRACHOMATIS RNA DETECTED IN THIS PATIENT'S SAMPLE. (REFERENCE RANGE/NORMAL VALUE: NOT DETECTED) 10/28/2012 4:39 PM EDT Narrative [facility] - 10/28/2012 4:39 PM EDT URINE CHLAMYDIA GC AMP PROBE us Yeni Dumont MD LAB MICROBIOLOGY - GENERAL ORDER TONIO Final Result [facility] [address] [place] [address], [place] from Last 3 Months or Most Recently Relevant to Health Maintenance
--- OUTSIDE RECORDS SUMMARY | 2025-02-08 12:13 | XMS_ITS | Encounter Summary ---
Author Organization [facility] Address [address] [place] [address] Phone Care Team Providers Care Oil Burner Journeyman Name Role Phone Yeni Dumont MD Primary Care Provider [phone] Encounter Details Date Type Department Care Team (Late st Contact Info) Description 01/07/2017 Conversion Encounter [facility] [place] [address] [place] [address] Social History Tobacco Use Types Packs/Day Years [...] filedocumented in this encounter Care Teams Oil Burner Journeyman Relationship Specialty Start Date End Date Yeni Dumont MD [address] [place] [address] PCP - General 01/01/17 11/12/22 documented as of this encounter
--- OUTSIDE RECORDS SUMMARY | 2025-02-08 12:13 | XMS_ITS | Encounter Summary ---
Author Organization [facility] Address [address] [place] [address] Phone Care Team Providers Care Bobbin Cleaning Machine Operator Name Role Phone Yeni Dumont MD Primary Care Provider [phone] Encounter Details Date Type Department Care Team (Late st Contact Info) Description 05/07/2010 Documentation [facility] [place] Medicine [address] [place], [place] [phone] Family Medicine, Physician [address] [place] [address] Social History Tobacco Use Types Packs/Day Years [...] on filedocumented in this encounter Care Teams Bobbin Cleaning Machine Operator Relationship Specialty Start Date End Date Yeni Dumont MD [address] [facility] [place] [address] PCP - General 01/01/17 11/12/22 documented as of this encounter
== END 2025-02-08 11:37 | disposition home or self-care (01) ==
LOC: HO.HWS 10:14
PROVIDERS: PCP Internal Medicine; Visit Provider Advanced Practice Midwife
DX: L29.2 Pruritus vulvae (principal)
CPT/HCPCS: 99213

== ENCOUNTER 2025-02-08 10:14 | Outpatient (REF) | payer OTHER, SELFPAY ==
[2025-02-08 22:27] LABS: Bacterial Vaginosis PCR NEGATIVE (Negative); Candida Group PCR NOT DETECTED (Not Detect); Candida glab krusei PCR NOT DETECTED (Not Detect); Trichomonas vaginalis PCR NOT DETECTED (Not Detect)
== END 2025-02-08 10:15 | disposition home or self-care (01) ==
LOC: HO.LNP 10:14
PROVIDERS: PCP Internal Medicine; Visit Provider Advanced Practice Midwife
DX: L29.2 Pruritus vulvae (principal); Z20.2 Contact with and (suspected) exposure to infections with a predominantly sexual mode of transmission
CPT/HCPCS: 81515

== ENCOUNTER 2025-02-15 17:04 | Outpatient (AMB) | payer OTHER, SELFPAY ==
[2025-02-15 17:07] VITALS: BP 102/72; PULSE 80; RESP 18; TEMP 36.3; O2SAT 98; BMI 26.1
--- NOTE | 2025-02-15 17:07 | A.OFFPC_ITS ---
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 Required: No Accompanied by: Self / Same As Patient Allergies amoxicillin (AMOXICILLIN) Allergy (Intermediate, Verified 02/15/25 17:23) RASH animal dander Allergy (Mild, Verified 02/15/25 17:23) Wheezing Seasonal Allergies Allergy (Mild, Verified 02/15/25 17:23) Wheezing fruits Allergy (Severe, Uncoded 02/15/25 17:23) Difficulty Breathing Medication List - Last Reconciled 02/15/25 by Keli Davila MD albuterol sulfate 90 mcg/actuation 1 inh inhalation QID 30 days cetirizine (Zyrtec) 10 mg PO DAILY PRN ipratropium-albuterol 0.5 mg-3 mg(2.5 mg base)/3 mL 3 mL inhalation Q4H PRN nebulizers (Aeroneb Go Nebulizer) As directed pantoprazole 40 mg PO DAILY PRN tacrolimus 0.03% 1 appl topical BID PRN triamcinolone acetonide 0.1% 1 appl topical DAILY PRN Tobacco use date assessed: 02/15/25 Dental Screening Dental Screen Date: 02/15/25 Did you have a dental visit in the last 12 months?: Yes Did you have a dental problem in the last 6 months where you did not have access to dental care?: No Was dental information given to patient?: Patient has dentist HPI HPI Comments History of Present Illness Details The patient is a 34-year-old female presenting with a wellness check, including vaccination updates and evaluation of recent health changes post- gastric surgery. The patient underwent gastric sleeve surgery in September, resulting in significant weight loss from 220 pounds to 138 pounds. She reports feeling healthier but has been advised to lose an additional 10 pounds. In September, blood work indicated slightly elevated cholesterol levels, which were noted before the surgery. The patient is considering rechecking cholesterol levels due to the weight loss. The patient has a history of eczema, for which she uses creams as needed. She also experiences urinary discomfort, initially suspected to be bacterial vagi nosis, but tests were negative. There is occasional itching, and she suspects a possible urinary tract infection. The patient has allergies to amoxicillin, animal dander, seasonal allergens, and certain fruits. She uses an inhaler and takes Zyrtec as needed. [facility] Medical History (Updated 02/15/25 @ 17:35 by Keli Davila MD) Morbid obesity with BMI of 40.0-44.9, adult Obesity GERD (gastroesophageal reflux disease) Hypertension Infertility counseling Allergic rhinitis Mild asthma Eczema Surgical History (Updated 02/15/25 @ 17:28 by Keli Davila MD) History of esophagogastroduodenoscopy (EGD) Hx of tonsillectomy Family History Father AIDS Mother Breast cyst Pre-diabetes Social History Household Members: None Housing: Apartment Are you a primary healthcare social worker to a significant other at home: Yes (minor child) Do you presently have visiting nurse or other home services: No Alcohol intake: never Patient Tobacco Use Status: Former Tobacco user Tobacco use type: Cigarette Years Smoked: 13 e-Cigarette/Vaping Use: Never Used Second Hand Smoke Exposure: No service: No Current occupational status: employed Current occupation: [employer] Current occupational exposures/hazards: No Sexual orientation: Lesbian/Boggs/Homosexual Gender identity: Female Cognitive needs: No Hearing needs: No Vision needs: No Female Reproductive History Menstrual Age of Menarche: 13 Questionnaire PHQ-9 Over the last 2 weeks, how often have you been bothered by any of the following problems? 1. Little interest or pleasure in doing things: not at all 2. Feeling down, depressed, or hopeless: not at all 3. Trouble falling or staying asleep, or sleeping too much: not at all 4. Feeling tired or having little energy: not at all 5. Poor appetite or overeating: not at all 6. Feeling bad about yourself - or that you are a failure or have let yourself or your family down: not at all 7. Trouble concentrating on things, such as reading the newspaper or watching television: not at all 8. Moving or speaking so slowly that other people could have noticed. Or the opposite - being so fidgety or restless that you have been moving around a lot more than usual: not at all 9. Thoughts that you would be better off or of hurting yourself in some way: not at all Total score: 0 Depression Screening Interpretation: Negative Depression Screening Done: Yes 77786 - PHQ-9 Billing: Yes Source: Developed by Drs. Abdirashid Lemos, Anais Maya, Solomon Mcneal and colleagues, with an educational michelle from [employer]. Thrive Questionnaire Date Thrive assessed: 02/08/25 I am a: Patient What is your living situation today?: I have a steady place to live Within the past 12 months, did the food you bought not last and you didn't have the money to get more?: Never true Within the past 12 months, did you worry whether your food would run out before you got money to buy more?: Never true Do you have trouble paying for medicines?: No Do you have trouble getting transportation to medical appointments?: No Do you have trouble paying your heating and electricity bill?: No Do you have trouble taking care of your child, family member or friend?: No Do you have trouble with day-to-day activities such as bathing, preparing meals, shopping, managing finances, etc.?: No Are you currently unemployed and looking for a job?: No Are you interested in more education?: No Please select the resources that you would like help with: None Currently or been in a relationship where the following occur: No concerns reported THRIVE Score: 0 AUDIT C Alcohol Use Questionnaire (AUDIT-C) 1. How often do you have a drink containing alcohol?: Never Total Score: 0 Score Reviewed/Action Taken: No DEDRA-7 AMB Questionnaire DEDRA-7 Date DEDRA - 7 assessed: 01/12/24 Feeling nervous, anxious, or on edge: 0 = Not at all Not being able to stop or control worryin = Not at all Worrying too much about different things: 0 = Not at all Trouble relaxin = Not at all Being so restless that it is hard to sit still: 0 = Not at all Becoming easily annoyed or irritable: 0 = Not at all Feeling afraid as if something awful might happen: 0 = Not at all Total DEDRA-7 score (0-4 normal; 5-9 mild; 10-14 moderate; 15-21 severe): 0 Source: Developed by Drs. Abdirashid Lemos, Anais Maya, Solomon Mcneal and colleagues, with an educational michelle from [employer]. DEDRA-7 Assessment Billing DEDRA-7 Assessment Tool: DEDRA-7 Assessment 86741 Review of Systems Const All systems reviewed & are unremarkable except as noted in HPI and below Card Denies chest pain at rest, Denies chest pain with activity, Denies edema, Denies irregular heart rhythm, Denies claudication, Denies dyspnea, Denies dyspnea on exertion, Denies orthopnea, Denies paroxysmal nocturnal dyspnea and Denies slow heart rate Resp Denies cough, Denies dyspnea and Denies dyspnea on exertion Physical exam (Primary Care) Vital Signs: Last Vital Signs Temp 97.3 F 02/15/25 17:07 Pulse 80 02/15/25 17:07 Resp 18 02/15/25 17:07 BP 102/72 02/15/25 17:07 Pulse Ox 98 02/15/25 17:07 Oxygen Delivery Method Room Air 02/15/25 17:07 BMI result Body Mass Index 26.1 Tobacco/Smoking Status: Tobacco use Status Tobacco use date assessed 02/15/25 02/15/25 17:16 Patient Tobacco Use Status Former Tobacco user 02/15/25 17:16 Tobacco use type Cigarette 02/15/25 17:16 e-Cigarette/Vaping Use Never Used 02/15/25 17:16 PHQ-9: PHQ-9 Score PHQ-9: Total score 0 02/15/25 19:01 Depression Screening Interpretation: Negative Thrive Assessment: Date of Thrive Assessment Date Thrive assessed 02/08/25 02/15/25 17:16 Currently or been in a relationship where the following occur: No concerns reported Const Orientation/consciousness: patient oriented x3 HENMT Head: Yes normal to inspection, Yes normocephalic and Yes atraumatic Ears: external ears normal Eyes General: appearance normal, both eyes and all related structures Eyelids: Yes eyelids normal Conjunctivae: conjunctivae normal Neck Neck: Yes normal visual inspection and Yes supple Resp Effort & Inspection: normal respiratory effort Auscultation: clear to auscultation bilaterally Cardio Jugular venous distension: no JVD Rate: regular rate Rhythm: regular rhythm Heart sounds: S1 normal heart sound present and S2 normal heart sound present GI Inspection: Yes normal to inspection Palpation (GI): Soft to palpation and nontender Auscultation: normal bowel sounds Skin General skin exam: no rashes or lesions noted Neuro General: patient oriented x3 and no focal motor deficits Extrem General: Yes full ROM Psych Appearance: grossly normal Results AMB Urinalysis, Automated UA Leukoctes 0 Renetta/uL Last Edit by Rebecca Jacobsen, DONNA on 02/15/25 17:28 UA Nitrite Negative Last Edit by Rebecca Jacobsen, DONNA on 02/15/25 17:28 UA Urobilinogen 0.2 mg/dL Last Edit by Rebecca Jacobsen, DONNA on 02/15/25 17:28 UA Protein 30 mg/dL Last Edit by Rebecca Jacobsen, DONNA on 02/15/25 17:28 UA pH 6.0 Last Edit by Rebecca Jacobsen, DONNA on 02/15/25 17:28 UA Blood 0 Jerome/uL Last Edit by Rebecca Jacobsen, DONNA on 02/15/25 17:28 UA Specific [place] 1.030 Last Edit by Rebecca Jacobsen, DONNA on 02/15/25 17:28 UA Ketone Positive Last Edit by Rebecca Jacobsen, DONNA on 02/15/25 17:28 UA Bilirubin 1 mg/dL Last Edit by Rebecca Jacobsen, DONNA on 02/15/25 17:28 UA Glucose 0 mg/dL Last Edit by Rebecca Jacobsen, DONNA on 02/15/25 17:28 Immunizations Boostrix Tdap 2.5 Lf unit-8 mcg-5 Lf/0.5 mL intramuscular syringe Performing Provider: Keli Davila MD [facility] Administered by: Rebecca Jacobsen CMA on 02/15/25 17:36 Dose Route Admin Location Dispensed Lot Number Expiration Date [facility] Eligibility Consultant 0.5 mL IM Left Deltoid 0.5 mL [id number] 04/12/27 [id number] Chloe + Isabel Total Dispensed Waste 0.5 mL 0 % VIS Given Date VIS Provided VIS Publication Date 02/15/25 Single Vaccine 20 Eligibility Eligibility Date Funding Source Not [facility] Eligible 02/15/25 Private Results Reviewed Results Reviewed: Laboratory Last Values Urine pH (Auto) 6.0 02/15/25 17:26 Specific [place] (Auto) 1.030 02/15/25 17:26 Urine Protein (Auto) 30 mg/dL 02/15/25 17:26 Glucose (UA)(Auto) 0 mg/dL 02/15/25 17:26 Urine Ketones (Auto) Positive 02/15/25 17:26 Urine Blood (Auto) 0 Jerome/uL 02/15/25 17:26 Urine Nitrite (Auto) Negative 02/15/25 17:26 Urine Bilirubin (Auto) 1 mg/dL 02/15/25 17: Urine Urobilinogen (Auto) 0.2 mg/dL 02/15/25 17: Leukocyte Esterase (Auto) 0 Renetta/uL 02/15/25 17:26 Coding Level of Care Code Est Pt Level 3 (64896) Est Pt Prev Care 18-39y(68567) Diagnoses Physical exam Z00.00 Dysuria R30.0 Additional Codes DEDRA-7 Assessment Billing - DEDRA-7 Assessment Tool: DEDRA-7 Assessment 03828 ([id number]) PHQ-9 - 01598 - PHQ-9 Billing: Yes ([id number]) Time Spent (min) 32 Assessment & Plan Assessment & Plan (1) Physical exam: Code(s): Z00.00 - Encounter for general adult medical examination without abnormal findings Category: Medical (2) Dysuria: Code(s): R30.0 - Dysuria Category: Medical Plan Plan Patient was informed and verbally consented to the use of an ambient scribe for clinic note documentation during this visit. 1. Encounter for general adult medical examination without abnormal findings Z00.00 The patient was offered a tetanus vaccination during the visit, which she agreed to receive. 2. Dysuria R30.0 The patient reports urinary discomfort and itching, initially suspected to be bacterial vaginosis, but tests were negative. A urine culture may be considered to rule out a urinary tract infection. Orders: Orders AMB Urinalysis Automated Today Keli Davila MD Z13.9 - Encounter for screening, unspecified Lipid Panel Today Keli Davila MD E78.5 - Hyperlipidemia, unspecified Comprehensive [place]. Panel Fast Today Keli Davila MD Z00.00 - Encounter for general adult medical examination without abnormal findings Urine Culture Today Keli Davila MD R30.0 - Dysuria TDaP Immunization Today Keli Davila MD Z23 - Encounter for immunization Medications: Changed From pantoprazole 40 mg PO DAILY 90 tabs 0RF K21.9 - Gastro-esophageal reflux disease without esophagitis To pantoprazole 40 mg PO DAILY PRN K21.9 - Gastro-esophageal reflux disease without esophagitis Vlad Yanez MD
--- OUTSIDE RECORDS SUMMARY | 2025-02-15 20:01 | XMS_ITS | Patient Health Record ---
Author Organization [facility] Address [address] [place] [address] Care Team Providers Care Channel Marketing Manager Name Role Phone Yeni Dumont MD Primary Care Provider Luis Otero Jr Unavailable Allergies Allergen (clinical drug ingredient) Drug/Non Drug [...] Problem Status W/U Status Risk Notes Problem [id number] Epigastric pain (789.06) Active confirmed Plan Of Treatment Pending Test Test Name Order Date XR GI SERIES 10/05/2013 Insurance Providers Payer Name Payer Address Payer Phone Subscriber Number Group Number Insured Name Patient Relationship to Insured Coverage Start Date Coverage End Date [facility] [address] [address] [place], [place] [id number] NAV MORENO Self - patient is the insured Medical (General) History Medical History History ICD Code asthma eczema
--- OUTSIDE RECORDS SUMMARY | 2025-02-15 20:01 | XMS_ITS | Encounter Summary ---
Author Organization [facility] Address [address] [place] [address] Phone Care Team Providers Care Office Support Associate Name Role Phone Yeni Dumont MD Primary Care Provider [phone] Encounter Details Date Type Department Care Team (Late st Contact Info) Description 05/20/2011 Documentation [facility] [place] [address] [place], [place] [phone] Family Medicine, Physician [address] [place] [address] Social History Tobacco Use Types Packs/Day Years [...] on filedocumented in this encounter Care Teams Office Support Associate Relationship Specialty Start Date End Date Yeni Dumont MD [address] [place] [address] PCP - General 01/01/17 11/12/22 documented as of this encounter
--- OUTSIDE RECORDS SUMMARY | 2025-02-15 20:01 | XMS_ITS | Encounter Summary ---
Author Organization [facility] Address [address] [place] [address] Phone Care Team Providers Care Perfect Binder Operator Name Role Phone Yeni Dumont MD Primary Care Provider [phone] Encounter Details Date Type Department Care Team (Late st Contact Info) Description 05/20/2011 Documentation [facility] [place] [facility] [address] [place], [place] [phone] Family Medicine, Physician [address] [place] [address] Social History Tobacco Use Types Packs/Day Years [...] on filedocumented in this encounter Care Teams Perfect Binder Operator Relationship Specialty Start Date End Date Yeni Dumont MD [address] [facility] [place] [address] PCP - General 01/01/17 11/12/22 documented as of this encounter
--- OUTSIDE RECORDS SUMMARY | 2025-02-15 20:01 | XMS_ITS | Encounter Summary ---
Author Organization [facility] Address [address] [place] [address] Phone Care Team Providers Care Waste Reclaimer Name Role Phone Yeni Dumont MD Primary Care Provider [phone] Encounter Details Date Type Department Care Team (Late st Contact Info) Description 05/07/2010 [place] [facility] [place] [address] [place], [place] [phone] Family Medicine, Physician [address] [place] [address] Social History Tobacco Use Types Packs/Day Years [...] on filedocumented in this encounter Care Teams Waste Reclaimer Relationship Specialty Start Date End Date Yeni Dumont MD [address] [place] [address] PCP - General 01/01/17 11/12/22 documented as of this encounter
--- OUTSIDE RECORDS SUMMARY | 2025-02-15 20:01 | XMS_ITS | Clinical Summary ---
Author Organization [facility] Address [address] [place] [address] Phone Care Team Providers Care Vacation Sales Advisor Name Role Phone Unavailable Primary Care Provider [...] complete this topic Procedures * Due to [place] [employer] law, this organization might not be sharing sensitive test results. Procedure Name Priority Date/Time Associated Diagnosis Comments CHLAMYDIA AND GONORRHEA, AMPLIFIED Routine 10/28/2012 4:39 PM EDT from Last 3 Months or Most Recently Relevant to Health Maintenance Results * Due to [place] [employer] law, this organization might not be sharing sensitive test results. * Chlamydia and Gonorrhoea, Amplified (10/28/2012 4:39 PM EDT) URINE GC AMP PROBE NEGATIVE [facility] Comment: NO NEISSERIA GONORRHOEAE RNA DETECTED IN THIS PATIENT'S SAMPLE. (REFERENCE RANGE/NORMAL VALUE: NOT DETECTED) NOTE: THIS TEST USES PAPERBOARD BOX MAKER-MEDIATED AMPLIFICATION METHOD TO DETECT rRNA FROM C.TRACHOMATIS [...] OF INFECTION. URINE CHLAMYDIA AMP PROBE NEGATIVE [facility] Comment: NO CHLAMYDIA TRACHOMATIS RNA DETECTED IN THIS PATIENT'S SAMPLE. (REFERENCE RANGE/NORMAL VALUE: NOT DETECTED) 10/28/2012 4:39 PM EDT Narrative [facility] - 10/28/2012 4:39 PM EDT URINE CHLAMYDIA GC AMP PROBE us Yeni Dumont MD LAB MICROBIOLOGY - GENERAL ORDER TONIO Final Result [facility] [address] [place] [address], [place] from Last 3 Months or Most Recently Relevant to Health Maintenance
--- OUTSIDE RECORDS SUMMARY | 2025-02-15 20:01 | XMS_ITS | Encounter Summary ---
Author Organization [facility] Address [address] [place] [address] Phone Care Team Providers Care Armature Connector Name Role Phone Yeni Dumont MD Primary Care Provider [phone] Encounter Details Date Type Department Care Team (Late st Contact Info) Description 08/26/2010 Documentation [facility] [place] [address] [place], [place] [phone] Family Medicine, Physician [address] [place] [address] Social History Tobacco Use Types Packs/Day Years [...] on filedocumented in this encounter Care Teams Armature Connector Relationship Specialty Start Date End Date Yeni Dumont MD [address] [place] [address] PCP - General 01/01/17 11/12/22 documented as of this encounter
--- OUTSIDE RECORDS SUMMARY | 2025-02-15 20:01 | XMS_ITS | Encounter Summary ---
Author Organization [facility] Address [address] [place] [address] Phone Care Team Providers Care Bar Supervisor Name Role Phone Yeni Dumont MD Primary Care Provider [phone] Encounter Details Date Type Department Care Team (Late st Contact Info) Description 10/03/2013 Documentation [facility] [place] [address] [place] [address] Family Medicine, Physician [address] [place] [address] Social History Tobacco Use Types Packs/Day Years [...] on filedocumented in this encounter Care Teams Bar Supervisor Relationship Specialty Start Date End Date Yeni Dumont MD [address] [facility] [place] [address] PCP - General 01/01/17 11/12/22 documented as of this encounter
--- OUTSIDE RECORDS SUMMARY | 2025-02-15 20:01 | XMS_ITS | Encounter Summary ---
Author Organization [facility] Address [address] [place] [address] Phone Care Team Providers Care Band Straightener Name Role Phone Yeni Dumont MD Primary Care Provider [phone] Encounter Details Date Type Department Care Team (Late st Contact Info) Description 01/02/2014 Documentation [facility] [place] [address] [place] [address] Family Medicine, Physician [address] [place] [address] Social History Tobacco Use Types Packs/Day Years [...] on filedocumented in this encounter Care Teams Band Straightener Relationship Specialty Start Date End Date Yeni Dumont MD 150 [place] [address] PCP - General 01/01/17 11/12/22 documented as of this encounter
--- OUTSIDE RECORDS SUMMARY | 2025-02-15 20:01 | XMS_ITS | Encounter Summary ---
Author Organization [facility] Address [address] [place] [address] Phone Care Team Providers Care Sash Finisher Name Role Phone Yeni Dumont MD Primary Care Provider [phone] Encounter Details Date Type Department Care Team (Late st Contact Info) Description 06/25/2011 [place] [facility] [place] [address] [place], [place] [phone] Family Medicine, Physician [address] [place] [address] Social History Tobacco Use Types Packs/Day Years [...] on filedocumented in this encounter Care Teams Sash Finisher Relationship Specialty Start Date End Date Yeni Dumont MD [address] [place] [address] [place] [address] PCP - General 01/01/17 11/12/22 documented as of this encounter
--- OUTSIDE RECORDS SUMMARY | 2025-02-15 20:01 | XMS_ITS | Encounter Summary ---
Author Organization [facility] Address [address] [place] [address] Phone Care Team Providers Care Cpa Tax Name Role Phone Yeni Dumont MD Primary Care Provider [phone] Encounter Details Date Type Department Care Team (Late st Contact Info) Description 01/07/2017 Conversion Encounter [facility] [address] [place] [address] Social History Tobacco Use Types Packs/Day Years [...] on filedocumented in this encounter Care Teams Cpa Tax Relationship Specialty Start Date End Date Yeni Dumont MD [address] [place] [address] PCP - General 01/01/17 11/12/22 documented as of this encounter
== END 2025-02-15 17:33 | disposition home or self-care (01) ==
LOC: HO.HMCH 17:05
PROVIDERS: PCP Internal Medicine; Visit Provider Internal Medicine
DX: Z00.00 Encounter for general adult medical examination without abnormal findings (principal); R30.0 Dysuria; Z23 Encounter for immunization

== ENCOUNTER 2025-02-15 17:04 | Outpatient (REF) | payer OTHER, SELFPAY | END 2025-02-15 17:05 | disposition home or self-care (01) | LOC: HO.LAB 17:04 | PROVIDERS: PCP Internal Medicine; Visit Provider Internal Medicine | DX: Z23 Encounter for immunization (principal); Z00.00 Encounter for general adult medical examination without abnormal findings; Z13.9 Encounter for screening, unspecified; R30.0 Dysuria | CPT/HCPCS: 81003; 87086; 90471; 90715; 96127 ==

== ENCOUNTER 2025-02-24 09:53 | Outpatient (REF) | payer OTHER, SELFPAY ==
--- OUTSIDE RECORDS SUMMARY | 2025-02-24 09:56 | XMS_ITS | Encounter Summary ---
Author Organization [facility] Address [address] [place] [address] Phone Care Team Providers Care Field Mechanical Meter Tester Name Role Phone Yeni Dumont MD Primary Care Provider [phone] Encounter Details Date Type Department Care Team (Late st Contact Info) Description 06/25/2011 Documentation [facility] [place] [address] [place], [place] [phone] Family Medicine, Physician [address] [place] [address] Social History Tobacco Use Types Packs/Day Years [...] on filedocumented in this encounter Care Teams Field Mechanical Meter Tester Relationship Specialty Start Date End Date Yeni Dumont MD [address] [facility] [place] [address] PCP - General 01/01/17 11/12/22 documented as of this encounter
--- OUTSIDE RECORDS SUMMARY | 2025-02-24 09:56 | XMS_ITS | Clinical Summary ---
Author Organization [facility] Address [address] [place] [address] Phone Care Team Providers Care Marketing Trainee Name Role Phone Unavailable Primary Care Provider [...] 03/19/2010, 03/12/2009, Additional history exists COVID-19 Vaccine (2024- season) 2025 HIB Vaccines Completed 07/23/1993, 06/1992, [...] this topic Procedures * Due to [place] law, this organization might not be sharing sensitive test results. Procedure Name Priority Date/Time Associated Diagnosis Comments CHLAMYDIA AND GONORRHEA, AMPLIFIED Routine 10/28/2012 4:39 PM EDT from Last 3 Months or Most Recently Relevant to Health Maintenance Results * Due to [place] law, this organization might not be sharing sensitive test results. * Chlamydia and Gonorrhoea, Amplified (10/28/2012 4:39 PM EDT) URINE GC AMP PROBE NEGATIVE [facility] Comment: NO NEISSERIA GONORRHOEAE RNA DETECTED IN THIS PATIENT'S SAMPLE. (REFERENCE RANGE/NORMAL VALUE: NOT DETECTED) NOTE: THIS TEST USES MANAGER PERFORMANCE-MEDIATED AMPLIFICATION METHOD TO DETECT rRNA FROM C.TRACHOMATIS [...] OF INFECTION. URINE CHLAMYDIA AMP PROBE NEGATIVE [facility] Comment: NO CHLAMYDIA TRACHOMATIS RNA DETECTED IN THIS PATIENT'S SAMPLE. (REFERENCE RANGE/NORMAL VALUE: NOT DETECTED) 10/28/2012 4:39 PM EDT Narrative [facility] - 10/28/2012 4:39 PM EDT URINE CHLAMYDIA GC AMP PROBE us Yeni Dumont MD LAB MICROBIOLOGY - GENERAL ORDER TONIO Final Result [facility] [address] [place] [address], [place] from Last 3 Months or Most Recently Relevant to Health Maintenance
--- OUTSIDE RECORDS SUMMARY | 2025-02-24 09:56 | XMS_ITS | Encounter Summary ---
Author Organization [facility] Address [address] [place] [address] Phone Care Team Providers Care Commodity Specialist Name Role Phone Yeni Dumont MD Primary Care Provider [phone] Encounter Details Date Type Department Care Team (Late st Contact Info) Description 01/02/2014 Documentation [facility] [place] [address] [place] [address] Family Medicine, Physician [address] [place] [address] Social History Tobacco Use Types Packs/Day Years [...] on filedocumented in this encounter Care Teams Commodity Specialist Relationship Specialty Start Date End Date Yeni Dumont MD [address] [facility] [place] [address] PCP - General 01/01/17 11/12/22 documented as of this encounter
--- OUTSIDE RECORDS SUMMARY | 2025-02-24 09:56 | XMS_ITS | Encounter Summary ---
Author Organization [facility] Address [address] [place] [address] Phone Care Team Providers Care Taste Tester Name Role Phone Yeni Dumont MD Primary Care Provider [phone] Encounter Details Date Type Department Care Team (Late st Contact Info) Description 08/26/2010 Documentation [facility] [place] Family Medicine [address] [place], [place] [phone] Family Medicine, Physician [address] [place] [address] Social History Tobacco Use Types Packs/Day Years [...] on filedocumented in this encounter Care Teams Taste Tester Relationship Specialty Start Date End Date Yeni Dumont MD 150 [place] [address] PCP - General 01/01/17 11/12/22 documented as of this encounter
--- OUTSIDE RECORDS SUMMARY | 2025-02-24 09:56 | XMS_ITS | Encounter Summary ---
Author Organization [facility] Address [address] [place] [address] Phone Care Team Providers Care Lumber Scaler Name Role Phone Yeni Dumont MD Primary Care Provider [phone] Encounter Details Date Type Department Care Team (Late st Contact Info) Description 10/03/2013 Documentation [facility] [place] Family Medicine [address] [place] [address] Family Medicine, Physician [address] [place] [address] Social History Tobacco Use Types Packs/Day Years [...] on filedocumented in this encounter Care Teams Lumber Scaler Relationship Specialty Start Date End Date Yeni Dumont MD 150 [facility] [place] [address] PCP - General 01/01/17 11/12/22 documented as of this encounter
--- OUTSIDE RECORDS SUMMARY | 2025-02-24 09:56 | XMS_ITS | Encounter Summary ---
Author Organization [facility] Address [address] [place] [address] Phone Care Team Providers Care Wholesale Account Manager Name Role Phone Yeni Dumont MD Primary Care Provider [phone] Encounter Details Date Type Department Care Team (Late st Contact Info) Description 05/07/2010 Documentation [facility] [place] Family Medicine [address] [place], [place] [phone] Family Medicine, Physician [address] [place] [address] Social History Tobacco Use Types Packs/Day Years [...] on filedocumented in this encounter Care Teams Wholesale Account Manager Relationship Specialty Start Date End Date Yeni Dumont MD [address] [facility] [place] [address] PCP - General 01/01/17 11/12/22 documented as of this encounter
--- OUTSIDE RECORDS SUMMARY | 2025-02-24 09:56 | XMS_ITS | Patient Health Record ---
Author Organization [facility] Address [address] [place] [address] Care Team Providers Care Electro Tech Name Role Phone Yeni Dumont MD [...] Problem Status W/U Status Risk Notes Problem [id number] Epigastric pain (789.06) Active confirmed Plan Of Treatment Pending Test Test Name Order Date XR GI SERIES 10/05/2013 Insurance Providers Payer Name Payer Address Payer Phone Subscriber Number Group Number Insured Name Patient Relationship to Insured Coverage Start Date Coverage End Date [facility] [employer] [facility] [address] [address] [place], [place] [id number] NAV MORENO Self - patient is the insured Medical (General) History Medical History History ICD Code asthma eczema
--- OUTSIDE RECORDS SUMMARY | 2025-02-24 09:56 | XMS_ITS | Encounter Summary ---
Author Organization [facility] Address [address] [place] [address] Phone Care Team Providers Care School Photographer Name Role Phone Yeni Dumont MD Primary Care Provider [phone] Encounter Details Date Type Department Care Team (Late st Contact Info) Description 05/20/2011 Documentation [facility] [place] [address] [place], [place] [phone] Family Medicine, Physician [address] [place] [address] Social History Tobacco Use Types Packs/Day Years [...] on filedocumented in this encounter Care Teams School Photographer Relationship Specialty Start Date End Date Yeni Dumont MD [address] [facility] [place] [address] PCP - General 01/01/17 11/12/22 documented as of this encounter
--- OUTSIDE RECORDS SUMMARY | 2025-02-24 09:56 | XMS_ITS | Encounter Summary ---
Author Organization [facility] Address [address] [place] [address] Phone Care Team Providers Care Lead Tinner Name Role Phone Yeni Dumont MD Primary Care Provider [phone] Encounter Details Date Type Department Care Team (Late st Contact Info) Description 01/07/2017 Conversion Encounter [facility] [place] [address] [place] [address] Social History Tobacco Use Types Packs/Day Years [...] on filedocumented in this encounter Care Teams Lead Tinner Relationship Specialty Start Date End Date Yeni Dumont MD 150 [place] [address] PCP - General 01/01/17 11/12/22 documented as of this encounter
--- OUTSIDE RECORDS SUMMARY | 2025-02-24 09:56 | XMS_ITS | Encounter Summary ---
Author Organization [facility] Address [address] [place] [address] Phone Care Team Providers Care Ornithology Teacher Name Role Phone Yeni Dumont MD Primary Care Provider [phone] Encounter Details Date Type Department Care Team (Late st Contact Info) Description 05/20/2011 Documentation [facility] [place] [address] [place], [place] [phone] Family Medicine, Physician [address] [place] [address] Social History Tobacco Use Types Packs/Day Years [...] on filedocumented in this encounter Care Teams Ornithology Teacher Relationship Specialty Start Date End Date Yeni Dumont MD 150 [facility] [place] [address] PCP - General 01/01/17 11/12/22 documented as of this encounter
[2025-02-24 11:24] LABS: Alanine Aminotransferase 23 U/L (0-31); Albumin Level 4.6 g/dL (3.5-5.0); Alkaline Phosphatase 62 U/L (39-117); Anion Gap 12 (12-20); Aspartate Amino Transferase 25 U/L (5-31); Blood Urea Nitrogen 7 mg/dL (9-16); Calcium 9.5 mg/dL (8.4-10.2); Carbon Dioxide 28 mmol/L (22-29); Chloride 107 mmol/L (96-108); Cholesterol 155 mg/dL (<200); Estimated Glomerular Filt Rate > 60; HDL Cholesterol 45 mg/dL (>40); Potassium 3.2 mmol/L (3.3-5.1); Sodium 144 mmol/L (135-145); Total Protein 7.0 g/dL (6.5-8.0); Triglycerides 76 mg/dL (<150)
== END 2025-02-24 09:54 | disposition home or self-care (01) ==
LOC: HO.LAB 09:53
PROVIDERS: PCP Internal Medicine; Visit Provider Internal Medicine
DX: Z00.00 Encounter for general adult medical examination without abnormal findings (principal); E78.5 Hyperlipidemia, unspecified
CPT/HCPCS: 36415; 80053; 80061

== ENCOUNTER 2025-03-02 03:33 | Inpatient (IN) | payer OTHER, SELFPAY ==
[2025-03-02] VITALS (8 sets, daily range): BP systolic 120–151; BP diastolic 80–93; PULSE 54–92; RESP 13–20; TEMP 36.1–36.7; O2SAT 97–100; BMI 24.7
--- NOTE | ~2025-03-02 | CT_ITS ---
CLINICAL HISTORY: gallstone pancreatitis CT abdomen and pelvis with contrast Comparison: None provided Findings: No consolidation or effusion. There is extensive peripancreatic retroperitoneal edema. The gallbladder and solid organs are otherwise within normal limits. No renal stones. No bowel obstruction, pneumoperitoneum, or pneumatosis. Pelvic contents unremarkable. Normal appendix. There is ascites. No acute fracture. IMPRESSION: 1. Peripancreatic edema consistent with the clinical diagnosis provided of pancreatitis. 2. Ascites. This document has been electronically signed by: Imtiaz Francois MD on 03/02/2025 07:00:43
--- NOTE | ~2025-03-02 | MR_ITS ---
EXAMINATION: MRCP HISTORY: ACUTE PANCREATITIS COMPARISON: Correlation is made with abdominal ultrasound CT examinations dated 03/02/2025. TECHNIQUE: Axial gradient echo in and out of phase T1, axial T2 and fat suppressed T2, and coronal haste T2 with fat saturation images were obtained through the abdomen. 3D MRCP Reconstructed images and thick slab imaging of the biliary tree were obtained. FINDINGS: There is a small focus of signal loss within the liver adjacent to the fissure for the ligamentum teres on opposed phase imaging consistent with focal fatty infiltration. There is no significant intrahepatic biliary ductal dilatation. The gallbladder is distended and demonstrates dependent calculi. There is no wall thickening. The common bile duct measures up to 8mm in diameter. No intraluminal filling defects are identified suggest choledocholithiasis. The spleen is unremarkable. The pancreas is enlarged and there is a moderate amount of peripancreatic fluid, consistent with acute pancreatitis. Evaluation for necrosis is limited by lack of intravenous contrast material. The adrenals and kidneys are unremarkable. No retroperitoneal lymphadenopathy is identified. The visualized bones demonstrate normal marrow signal intensity. MR/MR MRCP IMPRESSION: 1. Distended gallbladder with cholelithiasis. If there is clinical concern for acute cholecystitis, HIDA scan is recommended. 2. No evidence of choledocholithiasis. 3. Findings consistent with acute pancreatitis described. 4. Focal fatty infiltration of the liver adjacent to the fissure for the ligamentum teres. Electronically signed by: Abdirashid Doe MD 03/02/2025 01:08 PM EDT
--- NOTE | ~2025-03-02 | US_ITS ---
EXAMINATION: US ABDOMEN LIMITED HISTORY: Labs consistent with gallstone pancreatitis TECHNIQUE: Real-time grayscale ultrasound imaging of the gallbladder was performed and images were reviewed. COMPARISON: Comparison is made with the prior examination dated 12/07/2023. Correlation is also made with an abdominal CT scan dated 03/02/2025. FINDINGS: The gallbladder is distended and there are numerous shadowing calculi. There is trace pericholecystic fluid. No gallbladder wall thickening. There is no sonographic Quezada sign, although the patient received medication prior to the examination. The common bile duct is mildly dilated measuring up to 9 mm in diameter. The distal common bile duct is not well visualized. US/US abdomen limited IMPRESSION: Distended gallbladder with cholelithiasis and a small amount of pericholecystic fluid. Mildly dilated common bile duct. Findings could represent cholelithiasis and/or choledocholithiasis. Further evaluation with HIDA scan may be helpful. Electronically signed by: Abdirashid Doe MD 03/02/2025 11:02 AM EDT
[2025-03-02 03:49] LABS: MANUAL DIFF FLAG NO
[2025-03-02 03:50] LABS: Hematocrit 40.1 % (37.0-47.0); Hemoglobin 13.1 g/dl (12.0-16.0); Imm Gran Abs Auto 0.03 X10*3/uL (0.00-0.03); Imm Gran Pct Auto 0.3 % (0.0-0.4); Lymphocytes Absolute Auto 1.2 X10*3/uL (1.2-4.9); Mean Corpuscular HGB Conc 32.7 g/dl (31.0-35.0); Mean Corpuscular Hemoglobin 28.5 pg (27.0-33.0); Mean Corpuscular Volume 87.4 fL (80.0-98.0); NRBC Abs Auto 0.000 X10*3/uL (0.0-0.012); NRBC Pct Auto 0.0 /100WBC (0.0-0.2); Platelet Count 375 X10*3/uL (160-400); Red Blood Count 4.59 X10*6/uL (4.20-5.50); White Blood Count 8.9 X10*3/uL (4.8-10.8)
--- NOTE | 2025-03-02 04:12 | ED_ITS ---
HPI - General Adult General Chief complaint: Abdominal Pain Stated complaint: Abd Pain Time Seen by Provider: 03/02/25 03:46 Source: patient Limitations: no limitations History of Present Illness ED Provider: Claudia Melo PA-C HPI narrative: 34F with past medical history of recent gastric sleeve in September, congenital intra- abdominal adhesions, fatty liver, reflux, asthma presents to the ED for evaluation of epigastric abdominal pain. Radiates to her back and right shoulder. States she has had epigastric pain since September but it significantly worsened around 4pm yesterday. Currently 12/31. Worse with intake of solids/liquids and movement, improves with burping/passing flatus. Associated nausea, no vomiting. Last BM yesterday, soft. Denies diarrhea/constipation, hematochezia/melena. Related Data Home Medications ?Medication ?Instructions ?Recorded ?Confirmed tacrolimus 0.03 % topical ointment 1 appl topical BID PRN eczema 03/13/20 03/02/25 triamcinolone acetonide 0.1 % 1 applic topical DAILY P RN eczema 03/13/20 03/02/25 topical cream cetirizine 10 mg tablet (Zyrtec) 10 mg PO DAILY PRN al lergies 09/27/24 03/02/25 ipratropium 0.5 mg-albuterol 3 mg 3 ml inhalation Q4H PRN shortness 10/12/24 03/02/25 (2.5 mg base)/3 mL nebulization of breath or wheezing soln pantoprazole 40 mg tablet,delayed 40 mg PO DAILY PRN A lory Reflux 02/15/25 03/02/25 release albuterol sulfate 90 mcg/actuation 1 inh inhalation QI D PRN Shortness 03/02/25 03/02/25 aerosol inhaler Of Breath Or Wheezing vits 168-iron 27 mg-folic 1 cap PO DAILY 02/2103/02/25 acid 800 mcg-omega3 235 mg capsule Previous Rx's ?Medication ?Instructions ?Recorded nebulizers (Aeroneb Go Nebulizer) #1 ea 07/20/24 Allergies Allergy/AdvReac Type Severity Reaction Status Date / Time amoxicillin (AMOXICILLIN) Allergy Intermediate RASH Verified 03/02/25 03:38 animal dander Allergy Mild Wheezing Verified 03/02/25 03:38 Seasonal Allergies Allergy Mild Wheezing Verified 03/02/25 03:38 fruits Allergy Severe Difficulty Uncoded 03/02/25 03:38 Breathing Review of Systems 2 Review of Systems: Yes all other systems are reviewed and are negative Constitutional: Constitutional: Reports anorexia, Denies fever(s) and Reports malaise ENT: Reports dizziness (with quick position changes) Cardiovascular: Cardiovascular: Denies chest pain and Denies dyspnea Respiratory: Respiratory: Denies dyspnea Gastrointestinal: Gastrointestinal: Reports abdominal pain, Denies melena, Denies hematochezia, Denies constipation, Reports GI cramping, Reports early satiety and Denies diarrhea Comments: positive Boas sign Genitourinary: Genitourinary: Reports dysuria Neurologic: Reports dizziness (with quick position changes) [facility] Past Medical History Attestation statement: The following information was validated with the patient. Medical History (Updated 03/02/25 @ 15:24 by Vlad Yanez MD) Morbid obesity with BMI of 40.0-44.9, adult Obesity GERD (gastroesophageal reflux disease) Hypertension Infertility counseling Allergic rhinitis Mild asthma Eczema Surgical History (Updated 02/15/25 @ 17:28 by Keli Davila MD) History of esophagogastroduodenoscopy (EGD) Hx of tonsillectomy Family History Family History Father AIDS Mother Breast cyst Pre-diabetes Social History Social History Household Members: None Housing: Apartment Are you a primary primary care coordinator to a significant other at home: Yes (minor child) Do you presently have visiting nurse or other home services: No Alcohol intake: never Patient Tobacco Use Status: Former Tobacco user Tobacco use type: Cigarette Years Smoked: 13 e-Cigarette/Vaping Use: Never Used Second Hand Smoke Exposure: No Have you been hit, kicked, punched, or otherwise hurt by someone within the past year? 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[employer] Current occupational exposures/hazards: No Sexual orientation: Lesbian/Boggs/Homosexual Gender identity: Female Cognitive needs: No Hearing needs: No Vision needs: No Physical Exam ED Vital Signs: Vital Signs - 24 hr 03/02/25 03:35 03/02/25 05:57 03/02/25 07:28 Temperature 97.1 F 98.1 F 97.8 F Pulse Rate 92 60 54 Respiratory Rate 18 16 13 Blood Pressure 126/90 H 133/82 120/82 Pulse Oximetry 98 97 99 Oxygen Delivery Method Room Air Room Air Room Air BMI result Body Mass Index 24.7 Const Other: Alert General: no acute distress, alert and awake; No comfortable Nutritional Appearance: average body habitus Orientation/consciousness: patient oriented x3 Resp Effort & Inspection: normal respiratory effort Auscultation: clear to auscultation bilaterally Cardio Other: Normal peripheral perfusion Rate: regular rate Rhythm: regular rhythm GI Other: well healed surgical scar.... Moderate to severe tenderness across upper abdomen with a objective involuntary guarding no distention Palpation (GI): Soft to palpation, Tenderness to palpation present (GI) in the epigastrum, periumbilically and Rovsing's sign positive; not at McBurney's point and with no rebound tenderness and No Rebound tenderness present Skin Other: warm dry no rash Neuro General: patient oriented x3, gait normal, no focal motor deficits and CN's II- XI intact bilaterally Psych Other: cooperative Course Reevaluation(s) Reevaluation #1: I Claudia Melo obtain the history., performed the physical and assessment. Amanda OLMOS helped to formulate the documentation Reevaluation #2: given appearance of GB on CT scan I am going to obtain lactic acid, cultures, start IV ceftriaxone, infection suspected Roselyn Parada DO 03/02/[address] John 7am SOPHIA Reevaluation #3: Time: 08:09 Date: 03/02/25 Provider: Yaakov John MD I assumed care of this patient from my colleague, Dr. Parada at 07:00 hours, pending the patient's CT abdomen pelvis with IV contrast results. CT scan was interpreted as peripancreatic edema consistent with clinical diagnosis of pancreatitis and ascites. Laboratory evaluation revealed an elevated total bilirubin of 2.1 with direct bilirubin of 0.8. AST and ALT were elevated 616 and 336. Lipase was greater than 3000. Quantitative beta-hCG was below detectable limits. WBC was normal 8900 H&H was normal 13.1 and 40.1 with a normal platelet count of 321,000. Laboratory evaluation suggestive of a biliary/pancreatic obstructive process. The patient did receive Dilaudid 1 mg IV and Zofran 4 mg IV. She states that her pain was initially 8/10 and now it is down to a tolerable level she does not want any further pain medications. Patient also received ceftriaxone 1 g IV and metronidazole 500 mg IV. I did discuss the patient's presentation with the covering bariatric surgeon, Dr. Yanez. After this discussion I did order a limited right upper quadrant ultrasound evaluate the patient's gallbladder and common bile duct. Dr. Villa will admit the patient to his service for further treatment. Medications Administered Generic Name Dose Route Start Last Admin Trade Name Freq PRN Reason Stop Dose Admin Famotidine 20 mg 03/02/25 09:45 03/02/25 09:53 Famotidine 20 Mg Tablet PO 20 mg BID CRISTI Administration Lactated Ringer's 1,000 mls @ 150 mls/hr 03/02/25 09:45 03/02/25 15:23 Lr IVCONT 150 mls/hr .Q6H40M CRISTI Administration Levofloxacin 500 mg in 100 mls @ 100 mls/hr 03/02/25 10:00 03/02/25 11:55 Levaquin IV Infused BID@1000,2200 CRISTI Infusion Acetaminophen 1,000 mg in 100 mls @ 16.7 mls/hr 03/02/25 09:45 03/02/25 15:24 Ofirmev IV 16.7 mls/hr .Q6H CRISTI Administration Sodium Chloride 3 ml 03/02/25 16:00 03/02/25 15:25 0.9 % Sodium Chloride Flush 3 Ml Syringe IVFLUSH 3 ml QSHIFT CRISTI Administration Discontinued Medications Generic Name Dose Route Start Last Admin Trade Name Freq PRN Reason Stop Dose Admin Ceftriaxone Sodium 1 gm 03/02/25 06:09 03/02/25 06:55 Ceftriaxone Sodium 1 Gm Vial IVPUSH 03/02/25 06:10 1 gm ONCE ONE Administration Hydromorphone HCl 1 mg 03/02/25 05:01 03/02/25 05:09 Hydromorphone Hcl 1 Mg/Ml Syringe IVPUSH 03/02/25 05:02 1 mg ONCE ONE Administration Protocol Sodium Chloride 1,000 mls @ 999 mls/hr 03/02/25 05:15 03/02/25 06:52 Ns IV 03/02/25 06:15 Infused .Q1H1M CRISTI Infusion Lactated Ringer's 1,000 mls @ 80 mls/hr 03/02/25 06:15 03/02/25 11:00 Lr IVCONT Infused .[id number] CRISTI Infusion Metronidazole 500 mg in 100 mls @ 100 mls/hr 03/02/25 06:35 03/02/25 07:50 Flagyl IV 03/02/25 07:34 Infused ONCE ONE Infusion Influenza Virus Vaccine 0.5 ml 03/02/25 15:50 03/02/25 16:07 Flu Vacc [id number](6mo Up)/Pf 0.5 Ml Syringe IM 03/02/25 15:51 0.5 ml .ONCE ONE Administration Iohexol 85 ml 03/02/25 05:56 03/02/25 05:56 Iohexol 350 Mg/Ml 100 Ml Infus..Btl IV 03/02/25 05:57 85 ml ONCE ONE Administration Ondansetron HCl 4 mg 03/02/25 05:01 03/02/25 05:09 Ondansetron Hcl 4 Mg/2 Ml Vial IVPUSH 03/02/25 05:02 4 mg ONCE ONE Administration Procedures Procedure Narrative Procedure Narrative: Ultrasound-guided IV 20 gauge 1-3/4 inch IV placed in right upper extremity. Adequate blood return flushes well secured with Tegaderm. Medical Decision Making Medical Decision Making [facility] Narrative: 34F with past medical history of recent gastric sleeve in September, congenital intra- abdominal adhesions, fatty liver, reflux, asthma presents to the ED for evaluation of epigastric abdominal pain. Radiates to her back and right shoulder. States she has had epigastric pain since September but it significantly worsened around 4pm yesterday. Currently 8/10. Worse with intake of solids/liquids and movement, improves with burping/passing flatus. Associated nausea, no vomiting. Last BM yesterday, soft. Denies diarrhea/constipation, hematochezia/melena. I've considered the following diagnoses: biliary colic, acute pancreatitis, , ectopic , hepatitis, PUD, reflux, gastritis. Labs suggesting gallstone pancreatitis. Plan: Labs have returned, it appear she likely has gallstone pancreatitis, obtaining a CT scan giving Dilaudid Zofran and fluid. High volume IV fluids, NPO, pain control. I've reviewed the following tests: Lipase >3000. Elevated liver transaminases of AST 616, ALT 336, tbil 2.1. Alk phos of 93. CBC with no leukocytosis or anemia. CT abdomen and pelvis: Pending of the time of sign-out Differential Diagnosis Differential Diagnoses: The differential diagnosis associated with the presentation includes See medical decision-making Admission/Observation Consideration of admission/observation: Escalation of care including admission/observation considered Likely surgical consult and admission Consult Healthcare Provider Management of the patient was discussed with: Manager Loss Prevention Lab Data MDM Lab Attestation statement: I reviewed the patient's lab results. 03/02/25 03:45 03/02/25 03:45 Labs: Lab Results 03/02/25 03/02/25 Range/Units 03:45 06:43 WBC 8.9 (4.8-10.8) X10*3/uL RBC 4.59 (4.20-5.50) X10*6/uL Hgb 13.1 (12.0-16.0) g/dl Hct 40.1 (37.0-47.0) % MCV 87.4 (80.0-98.0) fL MCH 28.5 (27.0-33.0) pg MCHC 32.7 (31.0-35.0) g/dl RDW 12.5 (11.0-16.0) % Plt Count 375 (160-400) X10*3/uL MPV 10.6 (9.4-12.3) fL Immature Gran % (Auto) 0.3 (0.0-0.4) % Neut % (Auto) 75.2 H (45-73) % Lymph % (Auto) 13.8 L (20-40) % Kings % (Auto) 8.7 (2-11) % Eos % (Auto) 1.7 (0-4) % Baso % (Auto) 0.3 (0-2) % Lymph # (Auto) 1.2 (1.2-4.9) X10*3/uL Kings # (Auto) 0.8 (0.1-1.2) X10*3/uL Eos # (Auto) 0.2 (0.0-0.4) X10*3/uL Baso # (Auto) 0.0 (0.0-0.2) X10*3/uL Abs Immat Gran (auto) 0.03 (0.00-0.03) X10*3/uL Absolute Neuts (auto) 6.7 (2.0-8.3) x10*3/uL Absolute Nucleated RBC 0.000 (0.0-0.012) X10*3/uL Nucleated RBC % (auto) 0.0 (0.0-0.2) /100WBC Sodium 142 (135-145) mmol/L Potassium 3.4 (3.3-5.1) mmol/L Chloride 111 H (96-108) mmol/L Carbon Dioxide 22 (22-29) mmol/L Anion Gap 12 (12-20) BUN 5 L (9-16) mg/dL Creatinine 0.53 (0.5-1.4) mg/dL Estim Creat Clear Calc 125.9 Estimated GFR > 60 Random Glucose 99 (60-115) mg/dL Lactic Acid 0.8 (0.5-2.0) mmol/L Calcium 9.2 (8.4-10.2) mg/dL Total Bilirubin 2.1 H (0.0-1.0) mg/dL Direct Bilirubin 0.8 H (0.0-0.5) mg/dL AST 616 H (5-31) U/L ALT 336 H (0-31) U/L Alkaline Phosphatase 93 (39-117) U/L Total Protein 6.3 L (6.5-8.0) g/dL Albumin 4.2 (3.5-5.0) g/dL Lipase > 3000 H (8-78) U/L Beta HCG, Quant < 2 mIU/mL Radiology Impression Discussion of test interpretation with radiology: I have reviewed the radiologist's reading. Radiologist Impression: CT abdomen and pelvis with contrast Comparison: None provided Findings: No consolidation or effusion. There is extensive peripancreatic retroperitoneal edema. The gallbladder and solid organs are otherwise within normal limits. No renal stones. No bowel obstruction, pneumoperitoneum, or pneumatosis. Pelvic contents unremarkable. Normal appendix. There is ascites. No acute fracture. IMPRESSION: 1. Peripancreatic edema consistent with the clinical diagnosis provided of pancreatitis. 2. Ascites. This document has been electronically signed by: Imtiaz Francois MD on 03/02/2025 07:00:43 Discharge Plan Discharge Clinical Impression: Gallstone pancreatitis Patient Disposition: Admitted As Inpatient Interventions: Admission Worksheet (ED) Last Done: 03/02/25 13:54 Discharge Date/Time: 03/02/25 15:00
[2025-03-02 04:14] LABS: Alanine Aminotransferase 336 U/L (0-31); Albumin Level 4.2 g/dL (3.5-5.0); Alkaline Phosphatase 93 U/L (39-117); Anion Gap 12 (12-20); Aspartate Amino Transferase 616 U/L (5-31); Blood Urea Nitrogen 5 mg/dL (9-16); Calcium 9.2 mg/dL (8.4-10.2); Carbon Dioxide 22 mmol/L (22-29); Chloride 111 mmol/L (96-108); Creatinine Clr Calc Pharmacy 125.9; Estimated Glomerular Filt Rate > 60; Potassium 3.4 mmol/L (3.3-5.1); Sodium 142 mmol/L (135-145); Total Protein 6.3 g/dL (6.5-8.0)
--- OUTSIDE RECORDS SUMMARY | 2025-03-02 04:21 | XMS_ITS | Encounter Summary ---
Author Organization [facility] Address [address] [place] [address] Phone Care Team Providers Care Flight Follower Name Role Phone Yeni Dumont MD Primary Care Provider [phone] Encounter Details Date Type Department Care Team (Late st Contact Info) Description 08/26/2010 Documentation [facility] [place] [address] [place], [place] [id number] Family Medicine, Physician [address] [place] [address] Social History Tobacco Use Types Packs/Day Years [...] filedocumented in this encounter Care Teams Flight Follower Relationship Specialty Start Date End Date Yeni Dumont MD [address] [facility] [place] [address] PCP - General 01/01/17 11/12/22 documented as of this encounter
--- OUTSIDE RECORDS SUMMARY | 2025-03-02 04:21 | XMS_ITS | Encounter Summary ---
Author Organization [facility] Address [address] [place] [address] Phone Care Team Providers Care Hse Specialist Name Role Phone Yeni Dumont MD Primary Care Provider [phone] Encounter Details Date Type Department Care Team (Late st Contact Info) Description 10/03/2013 Documentation [facility] [place] Family Medicine [address] [place], [place] [phone] Family Medicine, Physician [address] [place] [address] Social History Tobacco Use Types Packs/Day Years [...] on filedocumented in this encounter Care Teams Hse Specialist Relationship Specialty Start Date End Date Yeni Dumont MD 150 [facility] [place] [address] PCP - General 01/01/17 11/12/22 documented as of this encounter
--- OUTSIDE RECORDS SUMMARY | 2025-03-02 04:21 | XMS_ITS | Encounter Summary ---
Author Organization [facility] Address [address] [place] [address] Phone Care Team Providers Care Strip Machine Tender Name Role Phone Yeni Dumont MD Primary Care Provider [phone] Encounter Details Date Type Department Care Team (Late st Contact Info) Description 01/02/2014 Documentation [facility] [place] Medicine [address] [place], [place] [id number] Family Medicine, Physician [address] [place] [address] Social History Tobacco Use Types Packs/Day Years [...] on filedocumented in this encounter Care Teams Strip Machine Tender Relationship Specialty Start Date End Date Yeni Dumont MD 150 [facility] [place] [address] PCP - General 01/01/17 11/12/22 documented as of this encounter
--- OUTSIDE RECORDS SUMMARY | 2025-03-02 04:21 | XMS_ITS | Encounter Summary ---
Author Organization [facility] Address [address] [place] [address] Phone Care Team Providers Care Automobile Body Repairer Helper Name Role Phone Yeni Dumont MD Primary Care Provider [phone] Encounter Details Date Type Department Care Team (Late st Contact Info) Description 01/07/2017 Conversion Encounter [facility] [place] [address] [place] [address] Social History Tobacco Use Types Packs/Day Years [...] on filedocumented in this encounter Care Teams Automobile Body Repairer Helper Relationship Specialty Start Date End Date Yeni Dumont MD 150 [place] [address] PCP - General 01/01/17 11/12/22 documented as of this encounter
--- OUTSIDE RECORDS SUMMARY | 2025-03-02 04:21 | XMS_ITS | Encounter Summary ---
Author Organization [facility] Address [address] [place] [address] Phone Care Team Providers Care Lead Manufacturing Technician Name Role Phone Yeni Dumont MD Primary Care Provider [phone] Encounter Details Date Type Department Care Team (Late st Contact Info) Description 05/07/2010 Documentation [facility] [place] Family Medicine [address] [place], [place] [phone] Family Medicine, Physician [address] [place] [address] Social History Tobacco Use Types Packs/Day Years [...] filedocumented in this encounter Care Teams Lead Manufacturing Technician Relationship Specialty Start Date End Date Yeni Dumont MD 150 [place] [address] PCP - General 01/01/17 11/12/22 documented as of this encounter
--- OUTSIDE RECORDS SUMMARY | 2025-03-02 04:21 | XMS_ITS | Clinical Summary ---
Author Organization [facility] Address [address] [place] [phone] Phone Care Team Providers Care Sports Marketing Internship Name Role Phone Unavailable Primary Care Provider [...] history of Migraines, Family history of Sudden /OK under age 55, Family history of Diabetes [...] complete this topic Procedures * Due to [place] CANDDi law, this organization might not be sharing sensitive test results. Procedure Name Priority Date/Time Associated Diagnosis Comments CHLAMYDIA AND GONORRHEA, AMPLIFIED Routine 10/28/2012 4:39 PM EDT from Last 3 Months or Most Recently Relevant to Health Maintenance Results * Due to [place] CANDDi law, this organization might not be sharing sensitive test results. * Chlamydia and Gonorrhoea, Amplified (10/28/2012 4:39 PM EDT) URINE GC AMP PROBE NEGATIVE [facility] Comment: NO NEISSERIA GONORRHOEAE RNA DETECTED IN THIS PATIENT'S SAMPLE. (REFERENCE RANGE/NORMAL VALUE: NOT DETECTED) NOTE: THIS TEST USES PRIVACY COMPLIANCE MANAGER-MEDIATED AMPLIFICATION METHOD TO DETECT rRNA FROM [...] Final Result [facility] [address] [place] [address], [place] from Last 3 Months or Most Recently Relevant to Health Maintenance
--- OUTSIDE RECORDS SUMMARY | 2025-03-02 04:22 | XMS_ITS | Encounter Summary ---
Author Organization [facility] Address [address] [place] [address] Phone Care Team Providers Care Environmental Construction Engineer Name Role Phone Yeni Dumont MD Primary Care Provider [phone] Encounter Details Date Type Department Care Team (Late st Contact Info) Description 05/20/2011 Documentation [facility] [place] Medicine [address] [place], [place] [phone] Family Medicine, Physician [address] [place] [address] Social History Tobacco Use Types Packs/Day Years [...] filedocumented in this encounter Care Teams Environmental Construction Engineer Relationship Specialty Start Date End Date Yeni Dumont MD 150 [place] [place] [address] PCP - General 01/01/17 11/12/22 documented as of this encounter
--- OUTSIDE RECORDS SUMMARY | 2025-03-02 04:22 | XMS_ITS | Encounter Summary ---
Author Organization [facility] Address [address] [place] [address] Phone Care Team Providers Care Event Producer Name Role Phone Yeni Dumont MD Primary Care Provider [phone] Encounter Details Date Type Department Care Team (Late st Contact Info) Description 06/25/2011 Documentation [facility] [place] Family Medicine [address] [place], [place] [phone] Family Medicine, Physician [address] [place] [address] Social History Tobacco Use Types Packs/Day Years [...] on filedocumented in this encounter Care Teams Event Producer Relationship Specialty Start Date End Date Yeni Dumont MD 150 [facility] [place] [address] PCP - General 01/01/17 11/12/22 documented as of this encounter
--- OUTSIDE RECORDS SUMMARY | 2025-03-02 04:22 | XMS_ITS | Encounter Summary ---
Author Organization [facility] Address [address] [place] [address] Phone Care Team Providers Care Yeast Tender Name Role Phone Yeni Dumont MD Primary Care Provider [phone] Encounter Details Date Type Department Care Team (Late st Contact Info) Description 05/20/2011 Documentation [facility] [place] Family Medicine [address] [place], [place] [phone] Family Medicine, Physician [address] [place] [address] Social History Tobacco Use Types Packs/Day Years [...] on filedocumented in this encounter Care Teams Yeast Tender Relationship Specialty Start Date End Date Yeni Dumont MD 150 [facility] [place] [address] PCP - General 01/01/17 11/12/22 documented as of this encounter
[2025-03-02 04:26] LABS: Lipase > 3000 U/L (8-78)
--- NOTE | 2025-03-02 04:47 | PC.NURSE ---
patient presented to the ED with abd pain that started at 1600 day prior, patient states she has nausea but no current vomiting or diarrhea, denies fever. patient states that she had bariatric surgery in september of 2024 and denies any complications. patient states that she had a BM yesterday morning and has been passing gas. patient states that she feels relief when she gets up and moves around. labs obtained in triage, ED provider placing US guided IV
[2025-03-02] MEDS: iohexoL 350 MG/ML 100 ML INFUS..BTL 85 ML IV (05:56)
[2025-03-02] MEDS: metroNIDAZOLE/NS 500 MG/100 ML PIGGYBACK 100 MG IV (06:52)
[2025-03-02] MEDS: Lactated Ringers 1,000 ML 80 ML IVCONT (06:52)
--- NOTE | 2025-03-02 08:48 | HO.NURTONUR ---
Addendum entered by Nickie Barahona RN 03/02/25 13:48: Alert and oriented 34 year old female coming from home. being admitted for galstone pancreatitis with c/o epigastric pain radiating to the back. Patient is NPO at this time. Patient c/o 6/10 abdominal pain at this time, does not want anything further at this time for pain control. 20g to right upper arm with LR infusing at 150ml/hr. there is a second order for LR at 80ml/hr, this RN has message Dr. Yanez to clarify order. hx of gastric sleeve in September 2024. Original Note: Pt alert and oriented. Independent at home. Admitted with pancreatitis and cholecystitis. Reports some pain at this time, but does not require pain medication. Denies nausea following zofran. 20G in right upper arm, ultrasound guided placement. LR at 80mls/hr.
--- NOTE | 2025-03-02 09:50 | PM.GICN ---
History of Present Illness Data of Consult Service Date: 03/02/25 Requesting physician: Vlad Yanez Primary Care Provider: Keli Davila MD HPI 34 YF with recent gastric sleeve in September, congenital intra-abdominal adhesions, fatty liver, reflux, asthma [place] [facility] [place] with epigastric abdominal pain radiating to the back and right shoulder. States she has had epigastric pain since September but it significantly worsened around 4pm yesterday. Currently /. Worse with intake of solids/liquids and movement, improves with burping/passing flatus. Associated nausea, no vomiting. Last BM yesterday, soft. Denies diarrhea/constipation, hematochezia/melena. 03/02/[address] SCAN SHOWED: There is extensive peripancreatic retroperitoneal edema. The gallbladder and solid organs are otherwise within normal limits. No renal stones. No bowel obstruction, pneumoperitoneum, or pneumatosis. Pelvic contents unremarkable. Normal appendix. There is ascites. No acute fracture. IMPRESSION: 1. Peripancreatic edema consistent with the clinical diagnosis provided of pancreatitis. 2. Ascites. Review of Systems Review of Systems: Yes all other systems are reviewed and are negative Constitutional: Constitutional: Reports anorexia, Denies fever(s) and Reports malaise ENT: Reports dizziness (with quick position changes) Cardiovascular: Cardiovascular: Denies chest pain and Denies dyspnea Respiratory: Respiratory: Denies dyspnea Gastrointestinal: Gastrointestinal: Reports abdominal pain, Denies melena, Denies hematochezia, Denies constipation, Reports GI cramping, Reports early satiety and Denies diarrhea Comments: positive Boas sign Genitourinary: Genitourinary: Reports dysuria Neurologic: Reports dizziness (with quick position changes) [facility] Past Medical History Medical History (Updated 03/02/25 @ 15:24 by Vlad Yanez MD) Morbid obesity with BMI of 40.0-44.9, adult Obesity GERD (gastroesophageal reflux disease) Hypertension Infertility counseling Allergic rhinitis Mild asthma Eczema Family History Family History Father AIDS Mother Breast cyst Pre-diabetes Surgical History Surgical History (Updated 02/15/25 @ 17:28 by Keli Davila MD) History of esophagogastroduodenoscopy (EGD) Hx of tonsillectomy Social History Social History Household Members: None Housing: Apartment Are you a primary hearing care practitioner to a significant other at home: Yes (minor child) Do you presently have visiting nurse or other home services: No Alcohol intake: never Patient Tobacco Use Status: Former Tobacco user Tobacco use type: Cigarette Years Smoked: 13 e-Cigarette/Vaping Use: Never Used Second Hand Smoke Exposure: No Advance Directives: No Advance Directives Information Provided: Yes Do you have a plan to hurt others: No Plan service: No Current occupational status: employed Current occupation: [employer] Current occupational exposures/hazards: No Sexual orientation: Lesbian/Boggs/Homosexual Gender identity: Female Cognitive needs: No Hearing needs: No Vision needs: No Meds Allergies Allergy/AdvReac Type Severity Reaction Status Date / Time amoxicillin (AMOXICILLIN) Allergy Intermediate RASH Verified 03/02/25 03:38 animal dander Allergy Mild Wheezing Verified 03/02/25 03:38 Seasonal Allergies Allergy Mild Wheezing Verified 03/02/25 03:38 fruits Allergy Severe Difficulty Uncoded 03/02/25 03:38 Breathing Active Medications: Current Medications Famotidine (Famotidine 20 Mg Tablet) 20 mg PO BID [facility] Hydromorphone HCl (Hydromorphone Hcl 0.5 Mg/0.5 Ml Syringe) 0.25 mg IVPUSH Q4H PRN; Protocol PRN Reason: Pain, Moderate(Pain Scale 4-6) Lactated Ringer's (Lr) 1,000 mls @ 80 mls/hr IVCONT .[id number] [facility] Last Admin: 03/02/25 06:52 Dose: 80 mls/hr Lactated Ringer's (Lr) 1,000 mls @ 150 mls/hr IVCONT .Q6H40M [facility] Levofloxacin (Levaquin) 500 mg in 100 mls @ 100 mls/hr IV BID@1000,2200 [facility] Acetaminophen (Ofirmev) 1,000 mg in 100 mls @ 16.7 mls/hr IV .Q6H [facility] Metoclopramide HCl (Metoclopramide Hcl 10 Mg/2 Ml Vial) 10 mg IVPUSH Q6H PRN PRN Reason: Nausea Ondansetron HCl (Ondansetron Hcl 4 Mg/2 Ml Vial) 4 mg IVPUSH Q8H PRN PRN Reason: Nausea Sodium Chloride (0.9 % Sodium Chloride Flush 3 Ml Syringe) 3 ml [facility] Medications ?Medication ?Instructions ?Recorded ?Confirmed ?Last Taken ?Type tacrolimus 0.03 % topical ointment 1 appl topical BID PRN eczema 03/13/20 03/02/25 10/11/24 History triamcinolone acetonide 0.1 % 1 applic topical DAILY PRN eczema 03/13/20 03/02/25 10/11/24 History topical cream cetirizine 10 mg tablet (Zyrtec) 10 mg PO DAILY PRN allergies 09/27/24 03/02/25 10/11/24 History ipratropium 0.5 mg-albuterol 3 mg 3 ml inhalation Q4H PRN shortness 10/12/24 03/02/25 10/12/24 04:00 History (2.5 mg base)/3 mL nebulization of breath or wheezing soln pantoprazole 40 mg tablet,delayed 40 mg PO DAILY PRN Acid Reflux 02/15/25 03/02/25 Unknown History release albuterol sulfate 90 mcg/actuation 1 inh inhalation QID PRN Shortness 03/02/25 03/02/25 Unknown History aerosol inhaler Of Breath Or Wheezing vits 168-iron 27 mg-folic 1 cap PO DAILY 03/02/25 03/02/25 03/01/25 History acid 800 mcg-omega3 235 mg capsule Physical Exam Vital Signs: Vital Signs: Last Vital Signs Temp 97.8 F 03/02/25 07:28 Pulse 54 03/02/25 07:28 Resp 13 03/02/25 07:28 BP 120/82 03/02/25 07:28 Pulse Ox 99 03/02/25 07:28 O2 Del Method Room Air 03/02/25 07:28 BMI result Body Mass Index 24.7 Const: General: healthy appearing and no acute distress Nutritional Appearance: average body habitus Orientation/consciousness: patient oriented x3 Limitations: no limitations HEENT: Head: Yes normal to inspection Ears: hearing grossly normal bilaterally Mouth: Normal oral and palatal mucosa present Eyes: Sclerae: sclerae normal Pupils: Equal, round and reactive pupils present Neck: Neck: Yes normal visual inspection Chest: Chest palpation & inspection: normal inspection of the chest Resp: Effort & Inspection: normal respiratory effort Auscultation: clear to auscultation bilaterally Cardio: Palpation: normal PMI Rate: regular rate Rhythm: regular rhythm Heart sounds: S1 normal heart sound present, S2 normal heart sound present and no murmurs GI: Palpation (GI): Soft to palpation, Tenderness to palpation present (GI) (Moderate epigastric/RUQ tenderness) and No hepatosplenomegaly present Auscultation: normal bowel sounds Rectal Exam - Female: deferred Skin: General skin exam: no rashes or lesions noted Neuro: General: patient oriented x3, gait normal and moves all extremities Cranial nerves: Yes Equal, round and reactive pupils present Psych: Appearance: grossly normal Mental Status: mental status grossly normal Results Labs 03/02/25 03:45 03/02/25 03:45 Labs: Short CBC 03/02/25 Range/Units 03:45 WBC 8.9 (4.8-10.8) X10*3/uL Hgb 13.1 (12.0-16.0) g/dl Hct 40.1 (37.0-47.0) % Plt Count 375 (160-400) X10*3/uL BMP 03/02/25 03:45 Sodium 142 Potassium 3.4 Chloride 111 H Carbon Dioxide 22 BUN 5 L Creatinine 0.53 Calcium 9.2 Liver Function 03/02/25 Range/Units 03:45 Total Bilirubin 2.1 H (0.0-1.0) mg/dL Direct Bilirubin 0.8 H (0.0-0.5) mg/dL AST 616 H (5-31) U/L ALT 336 H (0-31) U/L Alkaline Phosphatase 93 (39-117) U/L Albumin 4.2 (3.5-5.0) g/dL Assessment and Plan (1) Gallstone pancreatitis: Status: Acute (2) Elevated liver enzymes: Status: Acute Plan 34 YF with recent gastric sleeve in September, congenital intra-abdominal adhesions, fatty liver, reflux, asthma [place] [facility] with epigastric abdominal pain radiating to the back and right shoulder. Labs and imaging studies are suggestive of gallstone pancreatitis. Pt reports improvement in abdominal pain. 03/02/[address] SCAN SHOWED: 1. Peripancreatic edema consistent with the clinical diagnosis provided of pancreatitis. 2. Ascites. ABD US SHOWED: Distended gallbladder with cholelithiasis and a small amount of pericholecystic fluid. Mildly dilated common bile duct. RECOMMENDATIONS: 1. Agree with IV pain medications, antibiotics and antiemetics, bowel rest with IV fluids 2. Follow LFTs, lipase, calcium and magnesium daily and replace as needed 3. MRCP to rule out CBD stone. 4. Pt will need a Lap Mely after pancreatitis resolves ADDENDUM: MRCP SHOWED: 1. Distended gallbladder with cholelithiasis. If there is clinical concern for acute cholecystitis, HIDA scan is recommended. 2. No evidence of choledocholithiasis. 3. Findings consistent with acute pancreatitis described. 4. Focal fatty infiltration of the liver adjacent to the fissure for the ligamentum teres. Dr Stringer will follow over the weekend. Procedures Date of Service Date of Service: 03/02/25
[2025-03-02] MEDS: Lactated Ringers 1,000 ML 150 ML IVCONT ×3 (09:52→22:32)
--- NOTE | 2025-03-02 11:03 | PHA.MEDREC ---
Addendum entered by Otoniel De La Fuente, PharmD 03/02/25 11:22: med rec checked by [facility] Original Note: Pharmacy Consult ? Medication Reconciliation Pharmacy has completed the medication reconciliation. Spoke with pt and she confirmed her medications. Pt confirmed she takes Tacrolimus ointment as needed for Eczema and has had it for awhile she stated; was not able to find claims on LF and pt pharmacy has no history of that medication bieng filled with them.
--- NOTE | 2025-03-02 12:59 | PC.NURSE ---
Patient returned from MRI at this time
[2025-03-02 13:04] LABS: Alanine Aminotransferase 304 U/L (0-31); Albumin Level 3.5 g/dL (3.5-5.0); Alkaline Phosphatase 82 U/L (39-117); Aspartate Amino Transferase 329 U/L (5-31); Total Protein 5.5 g/dL (6.5-8.0)
--- NOTE | 2025-03-02 14:59 | PM.HPGS ---
History of Present Illness History of Present Illness Date of Service: 03/02/25 Chief complaint: gallstone pancreatitis Narrative: Tammie Mitchell is a 34 year old female known to me who had an uneventful sleeve gastrectomy in September. She has done remarkably well reaching a normal BMI. Developed epigastric abdominal pain a week ago but subsided. The pain returned yesterday and it was more severe and radiated on both sides of the back and right shoulder and was associated with nausea. Pre-sleeve abdominal ultrasound did not show any cholelithiasis. Review of Systems Constitutional: Constitutional: Reports as per HPI Gastrointestinal: Gastrointestinal: Reports as per HPI [facility] Past Medical History Medical History (Updated 03/02/25 @ 15:24 by Vlad Yanez MD) Morbid obesity with BMI of 40.0-44.9, adult Obesity GERD (gastroesophageal reflux disease) Hypertension Infertility counseling Allergic rhinitis Mild asthma Eczema Family History Family History Father AIDS Mother Breast cyst Pre-diabetes Surgical History Surgical History (Updated 02/15/25 @ 17:28 by Keli Davila MD) History of esophagogastroduodenoscopy (EGD) Hx of tonsillectomy Social History Social History Household Members: None Housing: Apartment Are you a primary care asst to a significant other at home: Yes (minor child) Do you presently have visiting nurse or other home services: No Alcohol intake: never Patient Tobacco Use Status: Former Tobacco user Tobacco use type: Cigarette Years Smoked: 13 e-Cigarette/Vaping Use: Never Used Second Hand Smoke Exposure: No Advance Directives: No Advance Directives Information Provided: Yes Do you have a plan to hurt others: No Plan service: No Current occupational status: employed 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[employer] Current occupational exposures/hazards: No Sexual orientation: Lesbian/Boggs/Homosexual Gender identity: Female Cognitive needs: No Hearing needs: No Vision needs: No Meds Allergies Allergy/AdvReac Type Severity Reaction Status Date / Time amoxicillin (AMOXICILLIN) Allergy Intermediate RASH Verified 03/02/25 03:38 animal dander Allergy Mild Wheezing Verified 03/02/25 03:38 Seasonal Allergies Allergy Mild Wheezing Verified 03/02/25 03:38 fruits Allergy Severe Difficulty Uncoded 03/02/25 03:38 Breathing Active Medications: Current Medications Famotidine (Famotidine 20 Mg Tablet) 20 mg PO BID [facility] Last Admin: 03/02/25 09:53 Dose: 20 mg Hydromorphone HCl (Hydromorphone Hcl 0.5 Mg/0.5 Ml Syringe) 0.25 mg IVPUSH Q4H PRN; Protocol PRN Reason: Pain, Moderate(Pain Scale 4-6) Lactated Ringer's (Lr) 1,000 mls @ 80 mls/hr IVCONT .[id number] [facility] Last Infusion: 03/02/25 09:51 Dose: 80 mls/hr Lactated Ringer's (Lr) 1,000 mls @ 150 mls/hr IVCONT .Q6H40M [facility] Last Admin: 03/02/25 09:52 Dose: 150 mls/hr Levofloxacin (Levaquin) 500 mg in 100 mls @ 100 mls/hr IV BID@1000,2200 [facility] Last Infusion: 03/02/25 11:55 Dose: Infused Acetaminophen (Ofirmev) 1,000 mg in 100 mls @ 16.7 mls/hr IV .Q6H [facility] Last Admin: 03/02/25 09:53 Dose: 16.7 mls/hr Metoclopramide HCl (Metoclopramide Hcl 10 Mg/2 Ml Vial) 10 mg IVPUSH Q6H PRN PRN Reason: Nausea Ondansetron HCl (Ondansetron Hcl 4 Mg/2 Ml Vial) 4 mg IVPUSH Q8H PRN PRN Reason: Nausea Sodium Chloride (0.9 % Sodium Chloride Flush 3 Ml Syringe) 3 ml IVFLUSH QSHIFT [facility] Home Medications ?Medication ?Instructions ?Recorded ?Confirmed ?Last Taken ?Type tacrolimus 0.03 % topical ointment 1 appl topical BID PRN eczema 03/13/20 03/02/25 10/11/24 History triamcinolone acetonide 0.1 % 1 applic topical DAILY PRN eczema 03/13/20 03/02/25 10/11/24 History topical cream cetirizine 10 mg tablet (Zyrtec) 10 mg PO DAILY PRN allergies 09/27/24 03/02/25 10/11/24 History ipratropium 0.5 mg-albuterol 3 mg 3 ml inhalation Q4H PRN shortness 10/12/24 03/02/25 10/12/24 04:00 History (2.5 mg base)/3 mL nebulization of breath or wheezing soln pantoprazole 40 mg tablet,delayed 40 mg PO DAILY PRN Acid Reflux 02/15/25 03/02/25 Unknown History release albuterol sulfate 90 mcg/actuation 1 inh inhalation QID PRN Shortness 03/02/25 03/02/25 Unknown History aerosol inhaler Of Breath Or Wheezing vits 168-iron 27 mg-folic 1 cap PO DAILY 03/02/25 03/02/25 03/01/25 History acid 800 mcg-omega3 235 mg capsule Physical Exam Vital Signs: Vital Signs: Last Vital Signs Temp 98.0 F 03/02/25 14:16 Pulse 69 03/02/25 14:16 Resp 18 03/02/25 14:16 BP 127/86 03/02/25 14:16 Pulse Ox 100 03/02/25 14:16 O2 Del Method Room Air 03/02/25 14:16 BMI result Body Mass Index 24.7 GI: Palpation (GI): Tenderness to palpation present (GI) (epigastric area and RUQ, no guarding) Results Results Labs: Short CBC 03/02/25 Range/Units 03:45 WBC 8.9 (4.8-10.8) X10*3/uL Hgb 13.1 (12.0-16.0) g/dl Hct 40.1 (37.0-47.0) % Plt Count 375 (160-400) X10*3/uL BMP 03/02/25 03:45 Sodium 142 Potassium 3.4 Chloride 111 H Carbon Dioxide 22 BUN 5 L Creatinine 0.53 Calcium 9.2 Liver Function 03/02/25 03/02/25 Range/Units 03:45 12:13 Total Bilirubin 2.1 H 2.3 H (0.0-1.0) mg/dL Direct Bilirubin 0.8 H 0.5 (0.0-0.5) mg/dL AST 616 H 329 H (5-31) U/L ALT 336 H 304 H (0-31) U/L Alkaline Phosphatase 93 82 (39-117) U/L Albumin 4.2 3.5 (3.5-5.0) g/dL Abdomen CT scan report/results: report reviewed and image reviewed Abdominal ultrasound report/results: report reviewed Additional studies: MRCP report reviewed Assessment and Plan (1) Cholecystitis, acute with cholelithiasis: Qualifiers: Biliary obstruction: with biliary obstruction Qualified Code(s): K80.01 - Calculus of gallbladder with acute cholecystitis with obstruction Status: Acute Plan 1. Admit, NPO, IV fluids and antibiotics 2. GI consult for need of ERCP before the lap radha 3. Follow pancreatic enzymes and LFTs. 4. Will need lap radha when pancreatitis resolves D/w patient and ER attending Total time managing care of this patient today: 45 minutes. Quality Stroke Does the patient have a stroke diagnosis?: No VTE Prior VTE?: No VTE Risk Level:: Surgical - moderate VTE Device Contraindication: N/A - Device Ordered VTE Drug Contraindication: Treatment Not Indicated Procedures Date of Service Date of Service: 03/02/25
--- NOTE | 2025-03-02 15:05 | PC.NURSE ---
This RN assumed care of patient at 1100 today, LR infusing as 150ml/hr per Dr. Yanez order. a second order for LR 80ml/hr is odered by ED physician- per Dr. Grewal cancel the LR 80ml/hr order.
[2025-03-02] MEDS: 0.9 % Sodium Chloride Flush 3 ML SYRINGE IVFLUSH (15:25)
[2025-03-02] MEDS: Flu Vacc TS2025-26(6mo up)/PF 0.5 ML SYRINGE IM (16:07)
[2025-03-03 05:49] VITALS: BP 126/73; PULSE 61; RESP 18; TEMP 36.5; O2SAT 97
[2025-03-03] MEDS: Lactated Ringers 1,000 ML 150 ML IVCONT ×3 (05:50→19:22)
[2025-03-03 05:58] LABS: MANUAL DIFF FLAG NO
[2025-03-03 06:15] LABS: Hematocrit 34.6 % (37.0-47.0); Hemoglobin 11.0 g/dl (12.0-16.0); Imm Gran Abs Auto 0.01 X10*3/uL (0.00-0.03); Imm Gran Pct Auto 0.2 % (0.0-0.4); Lymphocytes Absolute Auto 1.1 X10*3/uL (1.2-4.9); Mean Corpuscular HGB Conc 31.8 g/dl (31.0-35.0); Mean Corpuscular Hemoglobin 28.2 pg (27.0-33.0); Mean Corpuscular Volume 88.7 fL (80.0-98.0); NRBC Abs Auto 0.000 X10*3/uL (0.0-0.012); NRBC Pct Auto 0.0 /100WBC (0.0-0.2); Platelet Count 263 X10*3/uL (160-400); Red Blood Count 3.90 X10*6/uL (4.20-5.50); White Blood Count 5.2 X10*3/uL (4.8-10.8)
[2025-03-03 06:20] LABS: Alanine Aminotransferase 232 U/L (0-31); Albumin Level 3.1 g/dL (3.5-5.0); Alkaline Phosphatase 82 U/L (39-117); Amylase 823 U/L (28-100); Anion Gap 8 (12-20); Aspartate Amino Transferase 176 U/L (5-31); Blood Urea Nitrogen 4 mg/dL (9-16); Calcium 8.3 mg/dL (8.4-10.2); Carbon Dioxide 25 mmol/L (22-29); Chloride 107 mmol/L (96-108); Creatinine Clr Calc Pharmacy 148.3; Estimated Glomerular Filt Rate > 60; Magnesium 1.5 mg/dL (1.6-2.6); Potassium 3.4 mmol/L (3.3-5.1); Sodium 137 mmol/L (135-145); Total Protein 4.8 g/dL (6.5-8.0)
[2025-03-03 06:53] LABS: Lipase 922 U/L (8-78)
[2025-03-03 10:00] VITALS: BP 116/60; PULSE 72; RESP 14; TEMP 36.3; O2SAT 99
--- NOTE | 2025-03-03 12:10 | P.PNGI_ITS ---
Subjective Subjective Date of Service: 03/03/25 Interval History: feels better today Critical Care Time (minutes): 0 Physical Exam 2 Vital Signs: Vital Signs: Last Vital Signs Temp 97.4 F 03/03/25 10:00 Pulse 72 03/03/25 10:00 Resp 14 03/03/25 10:00 BP 116/60 03/03/25 10:00 Pulse Ox 99 03/03/25 10:00 O2 Del Method Room Air 03/03/25 10:00 BMI result Body Mass Index 24.7 GI: Other: abdomen is soft and nontender Objective Data Labs 03/03/25 05:32 03/03/25 05:32 Labs: Laboratory Results - last 24 hr 03/02/25 03/03/25 12:13 05:32 WBC 5.2 RBC 3.90 L Hgb 11.0 L Hct 34.6 L MCV 88.7 MCH 28.2 MCHC 31.8 RDW 12.4 Plt Count 263 D MPV 11.9 Immature Gran % (Auto) 0.2 Neut % (Auto) 64.2 Lymph % (Auto) 21.1 [place] % (Auto) 9.1 Eos % (Auto) 4.8 H Baso % (Auto) 0.6 Lymph # (Auto) 1.1 L [place] # (Auto) 0.5 Eos # (Auto) 0.3 Baso # (Auto) 0.0 Abs Immat Gran (auto) 0.01 Absolute Neuts (auto) 3.3 Absolute Nucleated RBC 0.000 Nucleated RBC % (auto) 0.0 Sodium 137 Potassium 3.4 Chloride 107 Carbon Dioxide 25 Anion Gap 8 L BUN 4 L Creatinine 0.45 L Estim Creat Clear Calc 148.3 Estimated GFR > 60 Random Glucose 65 Calcium 8.3 L D Phosphorus 4.1 Magnesium 1.5 L Total Bilirubin 2.3 H 2.6 H Direct Bilirubin 0.5 AST 329 H 176 H ALT 304 H 232 H Alkaline Phosphatase 82 82 Total Protein 5.5 L 4.8 L Albumin 3.5 3.1 L Amylase 823 H Lipase 922 H Microbiology Microbiology Results: Microbiology 03/02/25 06:33 Blood - Venous Blood Culture - Preliminary No growth after 24 hours. 03/02/25 06:44 Blood - Venous Blood Culture - Preliminary No growth after 24 hours. Procedures Date of Service Date of Service: 03/03/25 Progress Note: A&P Assessment and plan (1) Gallstone pancreatitis: Status: Acute Assessment and Plan: doing well transaminases improving, bilirubin lagging behind no need for ERCP based on imaging and clinical course. Time Spent With Patient Time: Total time managing care of this patient today ____ minutes. Quality Stroke Does the patient have a stroke diagnosis?: No VTE Prior VTE?: No VTE Risk Level:: Surgical - moderate VTE Device Contraindication: N/A - Device Ordered VTE Drug Contraindication: Treatment Not Indicated
--- NOTE | 2025-03-03 12:52 | MHC.CM.PN ---
PATIENT LIVES IN AN APT W/ FAMILY. FUNCTIONALLY INDEPENDENT. DENIES USE OF DME OR SERVICES. PCP ATA MICHELLE MD HCP ON FILE AND VERIFIED DP: HOME SELF CARE. CAR IN C LOT FOR SELF TRANSPORT IF SAFE TO DO SO. FAMILY ALSO AVAILABLE TO TRANSPORT. CM WILL CONTINUE TO FOLLOW.
--- NOTE | 2025-03-03 13:39 | PC.NURSE ---
patient req to be disconnect from IVF for a short while to ambulate the hallway
[2025-03-03 14:00] VITALS: BP 133/67; PULSE 72; RESP 14; TEMP 36.6; O2SAT 99
--- NOTE | 2025-03-03 17:30 | PM.PNGS ---
Subjective Subjective Date of Service: 03/03/25 Interval history: Feels better. Pain has resolved. No nausea CT, US and MRCR results were reviewed Physical Exam Vital Signs: Vital Signs: Last Vital Signs Temp 97.9 F 03/03/25 14:00 Pulse 72 03/03/25 14:00 Resp 14 03/03/25 14:00 BP 133/67 03/03/25 14:00 Pulse Ox 99 03/03/25 14:00 O2 Del Method Room Air 03/03/25 14:00 BMI result Body Mass Index 24.7 GI: Inspection: Yes normal to inspection and Yes incision (well healed) Palpation (GI): Soft to palpation (no tenderness) Objective Data Active Medications Famotidine (Famotidine 20 Mg Tablet) 20 mg PO BID [facility] Last Admin: 03/03/25 08:09 Dose: 20 mg Documented By: HA Hydromorphone HCl (Hydromorphone Hcl 0.5 Mg/0.5 Ml Syringe) 0.25 mg IVPUSH Q4H PRN; Protocol PRN Reason: Pain, Moderate(Pain Scale 4-6) Last Admin: 03/02/25 21:21 Dose: 0.25 mg Documented By: DALTON Lactated Ringer's (Lr) 1,000 mls @ 150 mls/hr IVCONT .Q6H40M [facility] Last Infusion: 03/03/25 15:13 Dose: 150 mls/hr Documented By: HA Levofloxacin (Levaquin) 500 mg in 100 mls @ 100 mls/hr IV BID@1000,2200 [facility] Last Infusion: 03/03/25 11:33 Dose: Infused Documented By: HA Acetaminophen (Ofirmev) 1,000 mg in 100 mls @ 16.7 mls/hr IV .Q6H [facility] Last Admin: 03/03/25 16:49 Dose: 16.7 mls/hr Documented By: HA Metoclopramide HCl (Metoclopramide Hcl 10 Mg/2 Ml Vial) 10 mg IVPUSH Q6H PRN PRN Reason: Nausea Ondansetron HCl (Ondansetron Hcl 4 Mg/2 Ml Vial) 4 mg IVPUSH Q8H PRN PRN Reason: Nausea Sodium Chloride (0.9 % Sodium Chloride Flush 3 Ml Syringe) 3 ml IVFLUSH QSHIFT [facility] Last Admin: 03/03/25 07:29 Dose: Not Given Documented By: HA Non-Admin Reason: IV Running Labs 03/03/25 05:32 03/03/25 05:32 Labs: Laboratory Results - last 24 hr 03/03/25 05:32 MCV 88.7 MCH 28.2 MCHC 31.8 RDW 12.4 Plt Count 263 D MPV 11.9 Immature Gran % (Auto) 0.2 Neut % (Auto) 64.2 Lymph % (Auto) 21.1 [place] % (Auto) 9.1 Eos % (Auto) 4.8 H Baso % (Auto) 0.6 Lymph # (Auto) 1.1 L [place] # (Auto) 0.5 Eos # (Auto) 0.3 Baso # (Auto) 0.0 Abs Immat Gran (auto) 0.01 Absolute Neuts (auto) 3.3 Absolute Nucleated RBC 0.000 Nucleated RBC % (auto) 0.0 Anion Gap 8 L Estim Creat Clear Calc 148.3 Estimated GFR > 60 Random Glucose 65 Calcium 8.3 L D Phosphorus 4.1 Magnesium 1.5 L Total Bilirubin 2.6 H AST 176 H ALT 232 H Alkaline Phosphatase 82 Total Protein 4.8 L Albumin 3.1 L Amylase 823 H Lipase 922 H Microbiology Microbiology Results: Microbiology 03/02/25 06:33 Blood Culture - Preliminary Blood - Venous No growth after 24 hours. 03/02/25 06:44 Blood Culture - Preliminary Blood - Venous No growth after 24 hours. Procedures Date of Service Date of Service: 03/03/25 Progress Note: A&P Assessment and plan (1) Cholecystitis, acute with cholelithiasis: Status: Acute (2) Gallstone pancreatitis: Status: Acute Assessment and Plan: 1. Continue NPO, IV fluids and antibiotics 2. Will discuss with GI on Wednesday regarding needs of ERCP and sphincterotomy before lap radha 3. Monitor LFTS, bilirubin and lipase/amylase daily Findings and plan was discussed with the patient in detail with images to explain the issue and the treatment. Time Spent With Patient Time: Total time managing care of this patient today ____ minutes. Quality Stroke Does the patient have a stroke diagnosis?: No VTE Prior VTE?: No VTE Risk Level:: Surgical - moderate VTE Device Contraindication: N/A - Device Ordered VTE Drug Contraindication: Treatment Not Indicated
[2025-03-03 17:37] VITALS: BP 148/83; PULSE 68; RESP 14; TEMP 36.3; O2SAT 100
[2025-03-03 21:07] VITALS: BP 123/77; PULSE 75; RESP 16; TEMP 36.5; O2SAT 97
[2025-03-04] MEDS: Lactated Ringers 1,000 ML 150 ML IVCONT (02:49)
[2025-03-04 05:32] VITALS: BP 120/78; PULSE 70; RESP 16; TEMP 36.8; O2SAT 98
[2025-03-04 07:10] LABS: Alanine Aminotransferase 157 U/L (0-31); Albumin Level 3.4 g/dL (3.5-5.0); Alkaline Phosphatase 77 U/L (39-117); Amylase 251 U/L (28-100); Anion Gap 12 (12-20); Aspartate Amino Transferase 66 U/L (5-31); Blood Urea Nitrogen 5 mg/dL (9-16); Calcium 8.4 mg/dL (8.4-10.2); Carbon Dioxide 17 mmol/L (22-29); Chloride 111 mmol/L (96-108); Creatinine Clr Calc Pharmacy 136.2; Estimated Glomerular Filt Rate > 60; Lipase 193 U/L (8-78); Potassium 3.4 mmol/L (3.3-5.1); Sodium 137 mmol/L (135-145); Total Protein 5.3 g/dL (6.5-8.0)
[2025-03-04 07:23] LABS: Glucose, Whole Blood 53 mg/dL (60-115)
--- NOTE | 2025-03-04 07:32 | PC.NURSE ---
D5LR started TO from MD. Pt only c/o was dizziness this AM, asymptomatic otherwise.
[2025-03-04] MEDS: Dextrose 5 % and Lactated Ring 1,000 ML 125 ML IVCONT ×3 (07:36→23:50)
[2025-03-04 07:58] LABS: Glucose, Whole Blood 62 mg/dL (60-115)
[2025-03-04 10:00] VITALS: BP 118/82; PULSE 65; RESP 14; TEMP 36.7; O2SAT 98
--- NOTE | 2025-03-04 10:00 | PC.NURSE ---
awaiting mag IV from pharmacy technician per diem
[2025-03-04 13:31] VITALS: BP 136/95; PULSE 68; RESP 16; TEMP 36.7; O2SAT 100
--- NOTE | 2025-03-04 14:09 | PC.NURSE ---
Lost IV Access, messaged US CHEMICAL SALES REPRESENTATIVE for assistance, attempted twice and could not get access
--- NOTE | 2025-03-04 15:19 | PC.NURSE ---
US VENEER PRESS OPERATOR in ED unable to come up to try. PHILOSOPHY LECTURER's asked to assist with placement of second line, awaiting response.
[2025-03-04 17:41] VITALS: BP 132/82; PULSE 69; RESP 14; TEMP 36.6; O2SAT 99
--- NOTE | 2025-03-04 18:22 | P.PNGI_ITS ---
Subjective Subjective Date of Service: 03/04/25 Interval History: feels better Critical Care Time (minutes): 0 Physical Exam 2 Vital Signs: Vital Signs: Last Vital Signs Temp 97.8 F 03/04/25 17:41 Pulse 69 03/04/25 17:41 Resp 14 03/04/25 17:41 BP 132/82 03/04/25 17:41 Pulse Ox 99 03/04/25 17:41 O2 Del Method Room Air 03/04/25 17:41 BMI result Body Mass Index 24.7 GI: Other: abdomen is soft and nontender Objective Data Labs 03/03/25 05:32 03/04/25 06:15 Labs: Laboratory Results - last 24 hr 03/04/25 03/04/25 03/04/25 06:15 06:17 07:20 Hold Purple Top SEE NOTE Sodium 137 Potassium 3.4 Chloride 111 H Carbon Dioxide 17 L Anion Gap 12 BUN 5 L Creatinine 0.49 L Estim Creat Clear Calc 136.2 Estimated GFR > 60 POC Glucose 53 L* Random Glucose 51 L* Calcium 8.4 Total Bilirubin 1.4 H Direct Bilirubin 0.5 AST 66 H ALT 157 H Alkaline Phosphatase 77 Total Protein 5.3 L Albumin 3.4 L Amylase 251 H Lipase 193 H 03/04/25 07:54 Hold Purple Top Sodium Potassium Chloride Carbon Dioxide Anion Gap BUN Creatinine Estim Creat Clear Calc Estimated GFR POC Glucose 62 Random Glucose Calcium Total Bilirubin Direct Bilirubin AST ALT Alkaline Phosphatase Total Protein Albumin Amylase Lipase Microbiology Microbiology Results: Microbiology 03/02/25 06:44 Blood - Venous Blood Culture - Preliminary No growth after 48 hours. 03/02/25 06:33 Blood - Venous Blood Culture - Preliminary No growth after 48 hours. Procedures Date of Service Date of Service: 03/04/25 Progress Note: A&P Assessment and plan (1) Gallstone pancreatitis: Status: Acute Assessment and Plan: doing well lfts and lipase improving appears improved regarding pancreatitis. discussed with patient. Time Spent With Patient Time: Total time managing care of this patient today ____ minutes. Quality Stroke Does the patient have a stroke diagnosis?: No VTE Prior VTE?: No VTE Risk Level:: Surgical - moderate VTE Device Contraindication: N/A - Device Ordered VTE Drug Contraindication: Treatment Not Indicated
[2025-03-04 22:00] VITALS: BP 137/99; PULSE 53; RESP 19; TEMP 36.3; O2SAT 100
[2025-03-04] MEDS: 0.9 % Sodium Chloride Flush 3 ML SYRINGE IVFLUSH (22:00)
[2025-03-05 05:37] VITALS: BP 128/77; PULSE 53; RESP 16; TEMP 36.6; O2SAT 97
[2025-03-05] MEDS: Dextrose 5 % and Lactated Ring 1,000 ML 125 ML IVCONT (07:56)
[2025-03-05 08:03] LABS: MANUAL DIFF FLAG NO
[2025-03-05 08:05] LABS: Hematocrit 35.3 % (37.0-47.0); Hemoglobin 11.3 g/dl (12.0-16.0); Imm Gran Abs Auto 0.01 X10*3/uL (0.00-0.03); Imm Gran Pct Auto 0.3 % (0.0-0.4); Lymphocytes Absolute Auto 1.1 X10*3/uL (1.2-4.9); Mean Corpuscular HGB Conc 32.0 g/dl (31.0-35.0); Mean Corpuscular Hemoglobin 28.1 pg (27.0-33.0); Mean Corpuscular Volume 87.8 fL (80.0-98.0); NRBC Abs Auto 0.000 X10*3/uL (0.0-0.012); NRBC Pct Auto 0.0 /100WBC (0.0-0.2); Platelet Count 277 X10*3/uL (160-400); Red Blood Count 4.02 X10*6/uL (4.20-5.50); White Blood Count 3.8 X10*3/uL (4.8-10.8)
[2025-03-05 08:24] LABS: Alanine Aminotransferase 102 U/L (0-31); Albumin Level 3.2 g/dL (3.5-5.0); Alkaline Phosphatase 66 U/L (39-117); Amylase 82 U/L (28-100); Anion Gap 8 (12-20); Aspartate Amino Transferase 29 U/L (5-31); Blood Urea Nitrogen < 3 mg/dL (9-16); Calcium 8.2 mg/dL (8.4-10.2); Carbon Dioxide 23 mmol/L (22-29); Chloride 113 mmol/L (96-108); Creatinine Clr Calc Pharmacy 136.2; Estimated Glomerular Filt Rate > 60; Lipase 105 U/L (8-78); Magnesium 1.6 mg/dL (1.6-2.6); Potassium 3.2 mmol/L (3.3-5.1); Sodium 141 mmol/L (135-145); Total Protein 4.9 g/dL (6.5-8.0)
[2025-03-05 10:00] VITALS: BP 134/79; PULSE 54; RESP 18; TEMP 36.2; O2SAT 99
[2025-03-05] MEDS: KCl 40 mEq in 5% Dex/0.9% Sod 40 MEQ/1,000 ML IV.SOLN 100 MEQ IVCONT ×2 (12:46→22:20)
[2025-03-05 14:00] VITALS: BP 138/95; PULSE 57; RESP 18; TEMP 36.7; O2SAT 100
[2025-03-05 17:59] VITALS: BP 146/93; PULSE 54; RESP 18; TEMP 36.9; O2SAT 99
[2025-03-05] MEDS: 0.9 % Sodium Chloride Flush 3 ML SYRINGE IVFLUSH (21:09)
[2025-03-06] VITALS (7 sets, daily range): BP systolic 128–159; BP diastolic 63–104; PULSE 59–73; RESP 16–18; TEMP 36.2–36.6; O2SAT 95–100
[2025-03-06 06:41] LABS: Alanine Aminotransferase 89 U/L (0-31); Albumin Level 3.4 g/dL (3.5-5.0); Anion Gap 9 (12-20); Aspartate Amino Transferase 29 U/L (5-31); Blood Urea Nitrogen < 3 mg/dL (9-16); Calcium 8.5 mg/dL (8.4-10.2); Carbon Dioxide 25 mmol/L (22-29); Chloride 113 mmol/L (96-108); Creatinine Clr Calc Pharmacy 139.1; Estimated Glomerular Filt Rate > 60; Lipase 94 U/L (8-78); Potassium 3.4 mmol/L (3.3-5.1); Sodium 144 mmol/L (135-145); Total Protein 5.4 g/dL (6.5-8.0)
[2025-03-06 06:48] LABS: Alkaline Phosphatase 66 U/L (39-117)
[2025-03-06] MEDS: KCl 40 mEq in 5% Dex/0.9% Sod 40 MEQ/1,000 ML IV.SOLN 100 MEQ IVCONT ×2 (08:44→18:24)
--- NOTE | 2025-03-06 10:09 | P.PNGS_ITS ---
Subjective Subjective Date of Service: 03/06/25 Interval history: Feels well. No abdominal pain Lipase has completely normalized. Indirect bilirubin mildly elevated Physical Exam 2 Vital Signs: Vital Signs: Last Vital Signs Temp 97.1 F 03/06/25 07:05 Pulse 72 03/06/25 07:05 Resp 16 03/06/25 07:05 BP 128/91 H 03/06/25 07:05 Pulse Ox 95 03/06/25 07:05 O2 Del Method Room Air 03/06/25 07:05 BMI result Body Mass Index 24.7 GI: Inspection: Yes normal to inspection Palpation (GI): Soft to palpation (no abdominal tenderness) Extrem: Right lower extremity: normal to inspection Left lower extremity: n ormal to inspection Objective Data Active Medications Famotidine (Famotidine 20 Mg Tablet) 20 mg PO BID ON LICENSE OF [facility] Last Admin: 03/06/25 08:43 Dose: 20 mg Documented By: DAVID Hydromorphone HCl (Hydromorphone Hcl 0.5 Mg/0.5 Ml Syringe) 0.25 mg IVPUSH Q4H PRN; Protocol PRN Reason: Pain, Moderate(Pain Scale 4-6) Last Admin: 03/02/25 21:21 Dose: 0.25 mg Documented By: DALTON Levofloxacin (Levaquin) 500 mg in 100 mls @ 100 mls/hr IV BID@1000,2200 ON LICENSE OF [facility] Last Admin: 03/06/25 09:49 Dose: 100 mls/hr Documented By: DAVID Potassium Chloride/Dextrose/Sod Cl (Kcl 40 Meq In 5% Dex/0.9% Sod) 40 meq in 1,000 mls @ 100 mls/hr IVCONT .Q10H ON LICENSE OF [facility] Last Admin: 03/06/25 08:44 Dose: 100 mls/hr Documented By: DAVID Metoclopramide HCl (Metoclopramide Hcl 10 Mg/2 Ml Vial) 10 mg IVPUSH Q6H PRN PRN Reason: Nausea Ondansetron HCl (Ondansetron Hcl 4 Mg/2 Ml Vial) 4 mg IVPUSH Q8H PRN PRN Reason: Nausea Sodium Chloride (0.9 % Sodium Chloride Flush 3 Ml Syringe) 3 ml IVFLUSH QSHIFT ON LICENSE OF [facility] Last Admin: 03/06/25 07:08 Dose: Not Given Documented By: DAVID Non-Admin Reason: IV Running Labs 03/05/25 07:57 03/06/25 05:21 Labs: Laboratory Results - last 24 hr 03/06/25 05:21 Hold Purple Top SEE NOTE Anion Gap 9 L Estim Creat Clear Calc 139.1 Estimated GFR > 60 Random Glucose 85 Calcium 8.5 Total Bilirubin 1.2 H AST 29 ALT 89 H Alkaline Phosphatase 66 Total Protein 5.4 L Albumin 3.4 L Lipase 94 H Procedures Date of Service Date of Service: 03/06/25 Progress Note: A&P Assessment and plan (1) Gallstone pancreatitis: Status: Acute Assessment and Plan: 1. Plan for laparoscopic cholecystectomy on 2. Continue NPO and IV antibiotics Discussed with patient Time Spent With Patient Time: Total time managing care of this patient today ____ minutes. Quality Stroke Does the patient have a stroke diagnosis?: No VTE Prior VTE?: No VTE Risk Level:: Surgical - moderate VTE Device Contraindication: N/A - Device Ordered VTE Drug Contraindication: Treatment Not Indicated
--- NOTE | 2025-03-06 14:09 | MHC.CM.PN ---
EMR REVIEWED. PER SURGERY, PT WILL UNDERGO A CHOLECYSTECTOMY ON WEDNESDAY OF THIS WEEK. CM WILL CONTINUE TO FOLLOW FOR ANY CHANGES TO DC PLAN/NEEDS.
[2025-03-06] MEDS: 0.9 % Sodium Chloride Flush 3 ML SYRINGE IVFLUSH (21:04)
[2025-03-07 04:00] VITALS: BP 129/85; PULSE 76; RESP 18; TEMP 36.4; O2SAT 94
[2025-03-07] MEDS: KCl 40 mEq in 5% Dex/0.9% Sod 40 MEQ/1,000 ML IV.SOLN 100 MEQ IVCONT ×2 (04:34→19:48)
[2025-03-07 06:18] LABS: MANUAL DIFF FLAG NO
[2025-03-07 06:25] LABS: Hematocrit 35.0 % (37.0-47.0); Hemoglobin 11.4 g/dl (12.0-16.0); Imm Gran Abs Auto 0.01 X10*3/uL (0.00-0.03); Imm Gran Pct Auto 0.2 % (0.0-0.4); Lymphocytes Absolute Auto 1.4 X10*3/uL (1.2-4.9); Mean Corpuscular HGB Conc 32.6 g/dl (31.0-35.0); Mean Corpuscular Hemoglobin 28.3 pg (27.0-33.0); Mean Corpuscular Volume 86.8 fL (80.0-98.0); NRBC Abs Auto 0.000 X10*3/uL (0.0-0.012); NRBC Pct Auto 0.0 /100WBC (0.0-0.2); Platelet Count 289 X10*3/uL (160-400); Red Blood Count 4.03 X10*6/uL (4.20-5.50); White Blood Count 4.9 X10*3/uL (4.8-10.8)
[2025-03-07 06:36] LABS: Alanine Aminotransferase 73 U/L (0-31); Albumin Level 3.5 g/dL (3.5-5.0); Alkaline Phosphatase 63 U/L (39-117); Amylase 42 U/L (28-100); Anion Gap 10 (12-20); Aspartate Amino Transferase 26 U/L (5-31); Blood Urea Nitrogen < 3 mg/dL (9-16); Calcium 8.7 mg/dL (8.4-10.2); Carbon Dioxide 23 mmol/L (22-29); Chloride 114 mmol/L (96-108); Creatinine Clr Calc Pharmacy 133.5; Estimated Glomerular Filt Rate > 60; Lipase 82 U/L (8-78); Potassium 3.7 mmol/L (3.3-5.1); Sodium 143 mmol/L (135-145); Total Protein 5.4 g/dL (6.5-8.0)
[2025-03-07 07:39] VITALS: BP 126/84; PULSE 80; RESP 18; TEMP 36.5; O2SAT 99
[2025-03-07 11:41] VITALS: BP 131/84; PULSE 70; RESP 20; TEMP 36.7; O2SAT 99
[2025-03-07 12:48] VITALS: BMI 24.7
--- NOTE | 2025-03-07 12:56 | MHC.CLN ---
NUTRITION NPO DELFINO BLACK SCHEDULED 03/08. PROLONGED NPO STATUS. MONITOR FOR DIET ADVANCEMENT.
--- NOTE | 2025-03-07 14:26 | MHC.CM.PN ---
EMR REVIEWED. PT TO HAVE A CHOLECYSTECTOMY 03/08, CM WILL CONTINUE TO FOLLOW. DP: REMAINS HOME, NO SERVICES ANTICIPATED.
[2025-03-07 16:00] VITALS: BP 134/80; PULSE 69; RESP 18; TEMP 36.4; O2SAT 100
[2025-03-07] MEDS: 0.9 % Sodium Chloride Flush 3 ML SYRINGE IVFLUSH (19:48)
[2025-03-07 20:00] VITALS: BP 139/85; PULSE 73; RESP 16; TEMP 36.4; O2SAT 98
[2025-03-07 23:59] VITALS: BP 138/94; PULSE 59; RESP 16; TEMP 36.6; O2SAT 98
[2025-03-08] VITALS (15 sets, daily range): BP systolic 116–144; BP diastolic 68–95; PULSE 62–122; RESP 16–18; TEMP 36.2–36.9; O2SAT 97–100
[2025-03-08] MEDS: KCl 40 mEq in 5% Dex/0.9% Sod 40 MEQ/1,000 ML IV.SOLN 100 MEQ IVCONT ×2 (06:24→14:09)
--- NOTE | 2025-03-08 09:18 | MHC.SHP ---
Pre-Procedural Eval Section A - 24 Hr Update-Section A only Date of Service: 03/08/25 The patient is an INPATIENT: Yes The patient has been examined within 24 hours of the surgical procedure. The History & Physical has been completed within 30 days and I have reviewed it.: Yes Section B - Complete if H&P > 30 days Chief Complaint: gallstone pancreatitis Relevant Family History (Specify if Yes): No Relevant Social History: None Present Medications: None Medical History: No relevant PMH History of Previous Operations: Relevant previous surgery/procedure and date(s) (laparoscopic sleeve gastrectomy) Allergies: Allergies Allergy/AdvReac Type Severity Reaction Status Date / Time amoxicillin (AMOXICILLIN) Allergy Intermediate RASH Verified 03/02/25 03:38 animal dander Allergy Mild Wheezing Verified 03/02/25 03:38 Seasonal Allergies Allergy Mild Wheezing Verified 03/02/25 03:38 fruits Allergy Severe Difficulty Uncoded 03/02/25 03:38 Breathing Review of Systems Sugical H&P ROS: Negative: Constitution, Cardiovascular, Respiratory, Neurological, Psychiatric, Hem-Onc, Allergic/Immunologic, Gastrointestinal, Genitourinary, Musculoskeletal, Integumentary, Endocrine and Eyes/Ears/Nose/Throat Exam Surgical H&P Exam: Normal: HEENT, Normal: Heart, Normal: Lungs, Normal: Extremities, Normal: Abdomen, Normal: Skin and Normal: Neurological Plan Diagnosis/Plan: Unchanged (Laparoscopic cholecystectomy with possible cholangiogram. Risks of bleeding, bile leak, bile duct injury, pancreatitis, jaundice, blood clots and infection were discussed with patient.) I have reviewed the history and physical and performed a pertinent physical examination on my patient. No changes have occurred unless specified. Time Spent With Patient Time: Total time managing care of this patient today ____ minutes.
--- NOTE | 2025-03-08 09:26 | PC.NURSE ---
DO NOT GIVE NEW LEVAQUIN ORDER PER MD ZHU. ALREADY ON SCHEDULED LEVAQUIN. PATIENT GETTING HER SCHEDULED LEVAQUIN 1000AM DOSE AT THIS TIME..
--- NOTE | 2025-03-08 09:27 | PC.NURSE ---
22G RIGHT HAND INTACT. WORKING PATENTLY.
[2025-03-08] MEDS: Lactated Ringers 1,000 ML 80 ML IVCONT (09:31)
[2025-03-08] MEDS: Aprepitant 32 MG/4.4 ML VIAL IVPUSH (09:31)
--- NOTE | 2025-03-08 09:45 | HO.ANESPROP2 ---
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 09/2024 with GA, ETT 7 Mild asthma PMFSH Active Problems Active Problems: All Active Problems Cholecystitis, acute with cholelithiasis (Acute) Gallstone pancreatitis (Acute) Dysuria (Acute) Vaginitis (Acute) Congenital intra-abdominal adhesions (Acute) Steatosis, liver (Acute) BMI 35.0-35.9,adult (Acute) Obesity (Acute) Vitamin B12 deficiency (Acute) Vitamin D deficiency (Acute) Abnormal EKG (Acute) Nonpsychotic mental disorder, unspecified (Acute) Elevated liver enzymes (Acute) Encounter for well woman exam with routine gynecological exam (Acute) Hx of chronic eczema (Acute) Dry skin (Acute) Mild intermittent asthma with exacerbation (Acute) Acute respiratory distress (Acute) Asthma (Acute) Vaginal irritation (Acute) Low vitamin D level (Acute) Elevated ALT measurement (Acute) Routine screening for STI (sexually transmitted infection) (Acute) Female infertility (Acute) Right ankle pain (Acute) 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) Right ankle sprain (Acute) Bone spur of posterior portion of right calcaneus (Acute) Os trigonum (Acute) Sprain of right ankle (Acute) Acid reflux (Acute) Nausea and vomiting (Acute) Vomiting and diarrhea (Acute) Physical exam (Acute) Hx of human papillomavirus infection (Acute) Hypertension (Acute) Infertility counseling (Acute) Allergic rhinitis (Acute) Mild asthma (Acute) Eczema (Acute) Past Medical History Medical History (Updated 03/08/25 @ 09:19 by Homa Shea RN) History of gastrectomy Morbid obesity with BMI of 40.0-44.9, adult Obesity GERD (gastroesophageal reflux disease) Hypertension Infertility counseling Allergic rhinitis Mild asthma Eczema Family History Family History Father AIDS Mother Breast cyst Pre-diabetes Family history of problems with anesthesia: No Surgical History Surgical History (Updated 02/15/25 @ 17:28 by Keli Davila MD) History of esophagogastroduodenoscopy (EGD) Hx of tonsillectomy History of Problems with Anesthesia: No Social History Social History Household Members: None Housing: Apartment Are you a primary healthcare architect to a significant other at home: Yes (minor child) Do you presently have visiting nurse or other home services: No Alcohol intake: never Patient Tobacco Use Status: Former Tobacco user Tobacco use type: Cigarette Years Smoked: 13 e-Cigarette/Vaping Use: Never Used Second Hand Smoke Exposure: No Use of substances other than those prescribed or required for medical reasons: No Currently Displaying Signs/Symptoms of Drug Intoxication Withdrawal: No Have you been hit, kicked, punched, or otherwise hurt by someone within the past year? If so, by whom?: No Do you feel safe in your current relationship?: Yes Is there a partner from a previous relationship who is making you feel unsafe now?: No Are you made to feel afraid or neglected: No [facility] Practices: alevism Advance Directives: No Advance Directives Information Provided: Yes Do you have a plan to hurt others: No Plan Nutrition Risks: No Nutritional Risk Patient : No : No Poor oral hygiene: No service: No Current occupational status: employed Current occupation: [employer] Current occupational exposures/hazards: No Sexual orientation: Lesbian/Boggs/Homosexual Gender identity: Female Cognitive needs: No Hearing needs: No Vision needs: No Meds Allergies Allergy/AdvReac Type Severity Reaction Status Date / Time amoxicillin (AMOXICILLIN) Allergy Intermediate RASH Verified 03/02/25 03:38 animal dander Allergy Mild Wheezing Verified 03/02/25 03:38 Seasonal Allergies Allergy Mild Wheezing Verified 03/02/25 03:38 fruits Allergy Severe Difficulty Uncoded 03/02/25 03:38 Breathing Active Medications: Current Medications Famotidine (Famotidine 20 Mg Tablet) 20 mg PO BID [facility] Last Admin: 03/07/25 09:36 Dose: 20 mg Levofloxacin (Levaquin) 500 mg in 100 mls @ 100 mls/hr IV BID@1000,2200 [facility] Last Infusion: 03/07/25 10:47 Dose: Infused Potassium Chloride/Dextrose/Sod Cl (Kcl 40 Meq In 5% Dex/0.9% Sod) 40 meq in 1,000 mls @ 100 mls/hr IVCONT .Q10H CRISTI Last Infusion: 03/07/25 04:49 Dose: 100 mls/hr Metoclopramide HCl (Metoclopramide Hcl 10 Mg/2 Ml Vial) 10 mg IVPUSH Q6H PRN PRN Reason: Nausea Ondansetron HCl (Ondansetron Hcl 4 Mg/2 Ml Vial) 4 mg IVPUSH Q8H PRN PRN Reason: Nausea Sodium Chloride (0.9 % Sodium Chloride Flush 3 Ml Syringe) 3 ml IVFLUSH QSHIFT [facility] Last Admin: 03/07/25 08:56 Dose: Not Given Home Medications ?Medication ?Instructions ?Recorded ?Confirmed ?Last Taken ?Type tacrolimus 0.03 % topical ointment 1 appl topical BID PRN eczema 03/13/20 03/02/25 10/11/24 History triamcinolone acetonide 0.1 % 1 applic topical DAILY PRN eczema 03/13/20 03/02/25 10/11/24 History topical cream cetirizine 10 mg tablet (Zyrtec) 10 mg PO DAILY PRN allergies 09/27/24 03/02/25 10/11/24 History ipratropium 0.5 mg-albuterol 3 mg 3 ml inhalation Q4H PRN shortness 10/12/24 03/02/25 10/12/24 04:00 History (2.5 mg base)/3 mL nebulization of breath or wheezing soln pantoprazole 40 mg tablet,delayed 40 mg PO DAILY PRN Acid Reflux 02/15/25 03/02/25 Unknown History release albuterol sulfate 90 mcg/actuation 1 inh inhalation QID PRN Shortness 03/02/25 03/02/25 Unknown History aerosol inhaler Of Breath Or Wheezing vits 168-iron 27 mg-folic 1 cap PO DAILY 03/02/25 03/02/25 03/01/25 History acid 800 mcg-omega3 235 mg capsule Exam Height,Weight and Vital Signs: Height 5 ft 1 in Weight 59.2 kg Last Vital Signs Temp 97.7 F 03/07/25 07:39 Pulse 80 03/07/25 07:39 Resp 18 03/07/25 07:39 BP 126/84 03/07/25 07:39 Pulse Ox 99 03/07/25 07:39 O2 Del Method Room Air 03/07/25 07:39 Pertinent Lab Results Pertinent Lab Results: Laboratory Tests 03/02/25 03/02/25 03/02/25 03:45 06:43 12:13 WBC 8.9 RBC 4.59 Hgb 13.1 Hct 40.1 MCV 87.4 MCH 28.5 MCHC 32.7 RDW 12.5 Plt Count 375 MPV 10.6 Immature Gran % (Auto) 0.3 Neut % (Auto) 75.2 H Lymph % (Auto) 13.8 L [place] % (Auto) 8.7 Eos % (Auto) 1.7 Baso % (Auto) 0.3 Lymph # (Auto) 1.2 [place] # (Auto) 0.8 Eos # (Auto) 0.2 Baso # (Auto) 0.0 Abs Immat Gran (auto) 0.03 Absolute Neuts (auto) 6.7 Absolute Nucleated RBC 0.000 Nucleated RBC % (auto) 0.0 Hold Purple Top Sodium 142 Potassium 3.4 Chloride 111 H Carbon Dioxide 22 Anion Gap 12 BUN 5 L Creatinine 0.53 Estim Creat Clear Calc 125.9 Estimated GFR > 60 POC Glucose Random Glucose 99 Lactic Acid 0.8 Calcium 9.2 Phosphorus Magnesium Total Bilirubin 2.1 H 2.3 H Direct Bilirubin 0.8 H 0.5 AST 616 H 329 H ALT 336 H 304 H Alkaline Phosphatase 93 82 Total Protein 6.3 L 5.5 L Albumin 4.2 3.5 Amylase Lipase > 3000 H Beta HCG, Quant < 2 03/03/25 03/04/25 03/04/25 05:32 06:15 06:17 WBC 5.2 RBC 3.90 L Hgb 11.0 L Hct 34.6 L MCV 88.7 MCH 28.2 MCHC 31.8 RDW 12.4 Plt Count 263 D MPV 11.9 Immature Gran % (Auto) 0.2 Neut % (Auto) 64.2 Lymph % (Auto) 21.1 [place] % (Auto) 9.1 Eos % (Auto) 4.8 H Baso % (Auto) 0.6 Lymph # (Auto) 1.1 L [place] # (Auto) 0.5 Eos # (Auto) 0.3 Baso # (Auto) 0.0 Abs Immat Gran (auto) 0.01 Absolute Neuts (auto) 3.3 Absolute Nucleated RBC 0.000 Nucleated RBC % (auto) 0.0 Hold Purple Top SEE NOTE Sodium 137 137 Potassium 3.4 3.4 Chloride 107 111 H Carbon Dioxide 25 17 L Anion Gap 8 L 12 BUN 4 L 5 L Creatinine 0.45 L 0.49 L Estim Creat Clear Calc 148.3 136.2 Estimated GFR > 60 > 60 POC Glucose Random Glucose 65 51 L* Lactic Acid Calcium 8.3 L D 8.4 Phosphorus 4.1 Magnesium 1.5 L Total Bilirubin 2.6 H 1.4 H Direct Bilirubin 0.5 AST 176 H 66 H ALT 232 H 157 H Alkaline Phosphatase 82 77 Total Protein 4.8 L 5.3 L Albumin 3.1 L 3.4 L Amylase 823 H 251 H Lipase 922 H 193 H Beta HCG, Quant 03/04/25 03/04/25 03/05/25 07:20 07:54 07:57 WBC 3.8 L RBC 4.02 L Hgb 11.3 L Hct 35.3 L MCV 87.8 MCH 28.1 MCHC 32.0 RDW 12.3 Plt Count 277 MPV 10.9 Immature Gran % (Auto) 0.3 Neut % (Auto) 52.0 Lymph % (Auto) 27.8 [place] % (Auto) 13.0 H Eos % (Auto) 6.1 H Baso % (Auto) 0.8 Lymph # (Auto) 1.1 L [place] # (Auto) 0.5 Eos # (Auto) 0.2 Baso # (Auto) 0.0 Abs Immat Gran (auto) 0.01 Absolute Neuts (auto) 2.0 Absolute Nucleated RBC 0.000 Nucleated RBC % (auto) 0.0 Hold Purple Top Sodium 141 Potassium 3.2 L Chloride 113 H Carbon Dioxide 23 Anion Gap 8 L BUN < 3 L Creatinine 0.49 L Estim Creat Clear Calc 136.2 Estimated GFR > 60 POC Glucose 53 L* 62 Random Glucose 104 Lactic Acid Calcium 8.2 L Phosphorus Magnesium 1.6 Total Bilirubin 1.1 H Direct Bilirubin 0.3 AST 29 ALT 102 H Alkaline Phosphatase 66 Total Protein 4.9 L Albumin 3.2 L Amylase 82 Lipase 105 H Beta HCG, Quant 03/06/25 03/07/25 05:21 05:27 WBC 4.9 RBC 4.03 L Hgb 11.4 L Hct 35.0 L MCV 86.8 MCH 28.3 MCHC 32.6 RDW 12.4 Plt Count 289 MPV 11.7 Immature Gran % (Auto) 0.2 Neut % (Auto) 55.0 Lymph % (Auto) 29.6 [place] % (Auto) 9.7 Eos % (Auto) 4.9 H Baso % (Auto) 0.6 Lymph # (Auto) 1.4 [place] # (Auto) 0.5 Eos # (Auto) 0.2 Baso # (Auto) 0.0 Abs Immat Gran (auto) 0.01 Absolute Neuts (auto) 2.7 Absolute Nucleated RBC 0.000 Nucleated RBC % (auto) 0.0 Hold Purple Top SEE NOTE Sodium 144 143 Potassium 3.4 3.7 Chloride 113 H 114 H Carbon Dioxide 25 23 Anion Gap 9 L 10 L BUN < 3 L < 3 L Creatinine 0.48 L 0.50 Estim Creat Clear Calc 139.1 133.5 Estimated GFR > 60 > 60 POC Glucose Random Glucose 85 85 Lactic Acid Calcium 8.5 8.7 Phosphorus Magnesium Total Bilirubin 1.2 H 1.3 H Direct Bilirubin 0.4 AST 29 26 ALT 89 H 73 H Alkaline Phosphatase 66 63 Total Protein 5.4 L 5.4 L Albumin 3.4 L 3.5 Amylase 42 Lipase 94 H 82 H Beta HCG, Quant Narrative Narrative: ECHO 08/2024 Conclusions: - The calculated ejection fraction is 61% by biplane method. - No obvious valvular pathology seen on this study. Assessment and Plan Final Anesthetic Review Family History of Problems with Anesthesia: No History of Problems with Anesthesia: No Documented by User: Nickie Sanches DO 03/08/25 10:29 [facility] Past Medical History Medical History (Updated 03/08/25 @ 09:19 by Homa Shea RN) History of gastrectomy Morbid obesity with BMI of 40.0-44.9, adult Obesity GERD (gastroesophageal reflux disease) Hypertension Infertility counseling Allergic rhinitis Mild asthma Eczema Family History Family History Father AIDS Mother Breast cyst Pre-diabetes Family history of problems with anesthesia: No Surgical History Surgical History (Updated 02/15/25 @ 17:28 by Keli Davila MD) History of esophagogastroduodenoscopy (EGD) Hx of tonsillectomy History of Problems with Anesthesia: No Social History Social History Household Members: None Housing: Apartment Are you a primary healthcare architect to a significant other at home: Yes (minor child) Do you presently have visiting nurse or other home services: No Alcohol intake: never Patient Tobacco Use Status: Former Tobacco user Tobacco use type: Cigarette Years Smoked: 13 e-Cigarette/Vaping Use: Never Used Second Hand Smoke Exposure: No Use of substances other than those prescribed or required for medical reasons: No Currently Displaying Signs/Symptoms of Drug Intoxication Withdrawal: No Have you been hit, kicked, punched, or otherwise hurt by someone within the past year? If so, by whom?: No Do you feel safe in your current relationship?: Yes Is there a partner from a previous relationship who is making you feel unsafe now?: No Are you made to feel afraid or neglected: No [facility] Practices: alevism Advance Directives: No Advance Directives Information Provided: Yes Do you have a plan to hurt others: No Plan Nutrition Risks: No Nutritional Risk Patient : No : No Poor oral hygiene: No service: No Current occupational status: employed Current occupation: [employer] Current occupational exposures/hazards: No Sexual orientation: Lesbian/Boggs/Homosexual Gender identity: Female Cognitive needs: No Hearing needs: No Vision needs: No Meds Allergies Allergy/AdvReac Type Severity Reaction Status Date / Time amoxicillin (AMOXICILLIN) Allergy Intermediate RASH Verified 03/02/25 03:38 animal dander Allergy Mild Wheezing Verified 03/02/25 03:38 Seasonal Allergies Allergy Mild Wheezing Verified 03/02/25 03:38 fruits Allergy Severe Difficulty Uncoded 03/02/25 03:38 Breathing Home Medications ?Medication ?Instructions ?Recorded ?Confirmed ?Last Taken ?Type tacrolimus 0.03 % topical ointment 1 appl topical BID PRN eczema 03/13/20 03/02/25 10/11/24 History triamcinolone acetonide 0.1 % 1 applic topical DAILY PRN eczema 03/13/20 03/02/25 10/11/24 History topical cream cetirizine 10 mg tablet (Zyrtec) 10 mg PO DAILY PRN allergies 09/27/24 03/02/25 10/11/24 History ipratropium 0.5 mg-albuterol 3 mg 3 ml inhalation Q4H PRN shortness 10/12/24 03/02/25 10/12/24 04:00 History (2.5 mg base)/3 mL nebulization of breath or wheezing soln pantoprazole 40 mg tablet,delayed 40 mg PO DAILY PRN Acid Reflux 02/15/25 03/02/25 Unknown History release albuterol sulfate 90 mcg/actuation 1 inh inhalation QID PRN Shortness 03/02/25 03/02/25 Unknown History aerosol inhaler Of Breath Or Wheezing vits 168-iron 27 mg-folic 1 cap PO DAILY 03/02/25 03/02/25 03/01/25 History acid 800 mcg-omega3 235 mg capsule Exam Exam Date and Time: 03/08/25 0945 Height,Weight and Vital Signs: Height 5 ft 1 in Weight 59.2 kg Last Vital Signs Temp 97.7 F 03/07/25 07:39 Pulse 80 03/07/25 07:39 Resp 18 03/07/25 07:39 BP 126/84 03/07/25 07:39 Pulse Ox 99 03/07/25 07:39 O2 Del Method Room Air 03/07/25 07:39 Vital Signs Temperature 97.1 F 03/02/25 03:35 Pulse Rate 92 03/02/25 03:35 Respiratory Rate 18 03/02/25 03:35 Blood Pressure 126/90 H 03/02/25 03:35 Pulse Oximetry 98 03/02/25 03:35 Oxygen Delivery Method Room Air 03/02/25 03:35 Temperature 97.7 F 03/08/25 09:16 Pulse Rate 76 03/08/25 09:16 Respiratory Rate 16 03/08/25 09:16 Blood Pressure 144/95 H 03/08/25 09:16 Pulse Oximetry 100 03/08/25 09:16 Oxygen Delivery Method Room Air 03/08/25 09:16 Airway Mallampati Class: I TM Dist: >3cm Neck ROM: Full Loose/Missing/Broken Teeth: No (crowns on 2 front teeth but no loose or broken teeth) Heart: S1S2 Lungs: CTAB Assessment and Plan Assessment Anesthesia Assessment: Anesthesia Plan Discussed and Chart Reviewed Final Anesthetic Review Family History of Problems with Anesthesia: No History of Problems with Anesthesia: No NPO: Yes ASA Class: II Final Preanesthetic Review: No Changes in Pt Med Stat, Meds/Allgs Chart Reviewed, Consent Obtained/Reviewed and Anes Risks/Benef Reviewed Patient Risk: Low Procedure Risk: Intermediate Anesthetic Plan Anesthetic Plan: GA and Agree w/ Assess. and Plan Disposition: Standard PACU
--- NOTE | 2025-03-08 09:53 | PM.OP ---
Brief Operative Note Date of Service: 03/08/25 Pre-op diagnosis: Cholelithiasis, resolved gallstone pancreatitis Procedure: PROCEDURE DATE:? 03/08/2025 PREOPERATIVE DIAGNOSIS: Symptomatic cholelithiasis, mid epigastric and right upper quadrant abdominal pain POSTOPERATIVE DIAGNOSIS: ?Same as above. PROCEDURE: Upper endoscopy and laparoscopic cholecystectomy Surgeon:?? Conor Yanez M.D.. Ph.D. Farm Owner Operator:? Kelley Pratt PA-C Anesthesia: General endotracheal anesthesia Estimated blood loss:? Minimal FINDINGS AND PROCEDURE:? OPERATIVE INDICATIONS:? The patient is a 34year old female known to me who underwent a laparoscopic sleeve gastrectomy. The patient had remarkable weight loss so far and had a completely uneventful recovery.? The patient was doing very well but has recently been complaining of persistent mid epigastric and right upper quadrant abdominal pain which is mostly postprandial. Ultrasound of the abdomen and pelvis was consistent with cholelithiasis. Because there was inflammation of the pancreas and elevated LFTs, an MRCP was also performed that was negative for choledocholithiasis. The patient was treated for the pancreatitis and once symptoms resolved and laboratory work-up normalized, she was scheduled for laparoscopic cholecystectomy with possible cholangiogram to evaluate the patient's symptoms.?Risks and complications of the surgery were discussed with the patient in advance particularly the possibility of conversion to an open surgery, bleeding, infection, obstruction, deep vein thrombosis or pulmonary embolism, bile leak or major bile duct injury that may require surgical intervention. The patient understood the risks and was in agreement with the plan.? PROCEDURE: After informed consent was obtained by the patient, the patient was? transferred to the Operating Room and was placed in the supine position.? The patient was given preoperative antibiotics and after successful induction of general anesthesia, pneumatic compression devices were placed.? The patient was then prepped and draped in the usual sterile manner and abdominal access was? established with the Josue port.? The abdomen was insufflated with C02 to a pressure of 15 mmHg. A 5 mm Versi-step port was placed, slightly to the right and superior from the umbilicus. The 5 mm camera was introduced.? We inspected the area where the port had been placed and there was no injury.? The patient was then placed initially in a steep reverse Trendelenburg position and three additional ports were placed, specifically a 12 mm Versi-step port just to the right of the midline? below the xiphoid process and two 5 mm Versi-step ports at the right upper quadrant and right flank.? At that point the patient was? placed in a steep reverse Trendelenburg position tilted to the left side. The gallbladder was retracted cephalad and laterally. There were adhesions between the omentum, the right liver lobe and the gallbladder wall that were taken down.? The peritoneal attachments of the gallbladder? at the triangle of Calot posteriorly and anteriorly were taken down.?The anatomy was the usual. The cystic artery was a very large vessel and it was anterior, whereas the cystic duct was posterior near the liver bed, it was dilated and short. The cystic duct and artery were both seen. They were completely dissected free, skeletonized all the way to the infundibulum of the gallbladder. Dissection was difficult due to the location of the cystic duct and extensive adhesions. In a similar fashion we also cleaned the liver bed just behind the cystic artery to make sure there was no additional structures in this area.? Once we confirmed that both structures were entering into the gallbladder? and there were no other structures in the area, the cystic artery was clipped first with 2 clips proximally and one distally and was cut in between. A distal clip was placed in the cystic duct and a ductotomy was made to perform a cholangiogram. The cholangiocatheter was inserted through a seperate incision using a 12Fr angiocath. Despite several attempts however, I was not able to place the catheter in position and the cholangiogram was aborted. At that point two clips were placed proximally at the cystic duct and it was divided. We then using the electrocautery we slowly took down the gallbladder? from the liver bed. Small areas of bleeding from the liver parenchyma were controlled with the cautery.? After the gallbladder was completely detached from the liver bed, it was placed in an EndoCatch bag and was removed without difficulty from the xiphoid port. We then inspected the clips at the cystic duct and artery and were both in place.? There was no active bleeding from the liver bed. We thoroughly irrigated the right upper quadrant and we removed all fluid ?until clear. At that point the patient was placed in supine position, we deflated the abdomen and we removed all ports under direct vision and no bleeding was noted from any of the port sites. The fascia of the 12 mm port was closed using a #1 Polysorb suture. 30cc of Ropivacaine plain were used to infiltrate the fascial closure as well as all skin incisions. The wounds were irrigated with saline mixed with antibiotic solution and then the skin was closed with 4-0 Monocryl subcuticular sutures antibiotic-coated.? Steri-strips and OpSites were used to cover all incisions. The patient extubated and was transferred in stable condition to the Recovery Room for further care. I was present and performed all steps of the procedure. Travis Pratt was the materials assistant. There were no residents to assist with this case. Conor Yanez M.D., Ph.D., F.A.C.S. Surgeon: Vlad Yanez MD Anesthesia: GETA, local and other (TAP block) Was an Farm Owner Operator used for this Procedure?: No Farm Owner Operator: Kelley Pratt Estimated blood loss (mL): 10 IV fluids (mL): 1,000 Urine output (mL): 0 (No Melo to record output) Pathology: other (Gallbladder) Condition: stable Disposition: PACU
[2025-03-09] MEDS: 0.9 % Sodium Chloride Flush 3 ML SYRINGE IVFLUSH (00:23)
[2025-03-09] MEDS: KCl 40 mEq in 5% Dex/0.9% Sod 40 MEQ/1,000 ML IV.SOLN 100 MEQ IVCONT (00:24)
[2025-03-09 03:30] VITALS: BP 147/93; PULSE 79; RESP 16; TEMP 36.7; O2SAT 99
[2025-03-09 08:00] VITALS: BP 138/89; PULSE 70; RESP 14; TEMP 36.7; O2SAT 100
[2025-03-09 09:18] LABS: MANUAL DIFF FLAG NO
[2025-03-09 09:20] LABS: Hematocrit 41.4 % (37.0-47.0); Hemoglobin 13.2 g/dl (12.0-16.0); Imm Gran Abs Auto 0.07 X10*3/uL (0.00-0.03); Imm Gran Pct Auto 0.5 % (0.0-0.4); Lymphocytes Absolute Auto 1.2 X10*3/uL (1.2-4.9); Mean Corpuscular HGB Conc 31.9 g/dl (31.0-35.0); Mean Corpuscular Hemoglobin 28.3 pg (27.0-33.0); Mean Corpuscular Volume 88.7 fL (80.0-98.0); NRBC Abs Auto 0.000 X10*3/uL (0.0-0.012); NRBC Pct Auto 0.0 /100WBC (0.0-0.2); Platelet Count 357 X10*3/uL (160-400); Red Blood Count 4.67 X10*6/uL (4.20-5.50); White Blood Count 15.4 X10*3/uL (4.8-10.8)
--- NOTE | 2025-03-09 09:35 | HO.POSTANES ---
Post Anesthesia Evaluation Post Anesthesia Evaluation Date of Service: 03/09/25 Vital Signs: Vital Signs Temp Pulse Resp BP Pulse Ox O2 Del Method 03/09/25 08:00 98.1 F 70 14 138/89 100 Room Air 03/09/25 03:30 98.1 F 79 16 147/93 H 99 Room Air 03/08/25 23:46 98.5 F 69 16 132/76 99 Room Air Anesthesia: General Mental Status: Awake Pain Control: Satisfactory Nausea/Vomiting: None Hydration: Adequate Anesthesia-Related Issues: No Anes. Related Issues
[2025-03-09 09:43] LABS: Albumin Level 4.5 g/dL (3.5-5.0); Alkaline Phosphatase 76 U/L (39-117); Anion Gap 10 (12-20); Aspartate Amino Transferase 42 U/L (5-31); Blood Urea Nitrogen 5 mg/dL (9-16); Calcium 10.1 mg/dL (8.4-10.2); Carbon Dioxide 25 mmol/L (22-29); Chloride 108 mmol/L (96-108); Creatinine Clr Calc Pharmacy 121.4; Estimated Glomerular Filt Rate > 60; Lipase 75 U/L (8-78); Potassium 3.7 mmol/L (3.3-5.1); Sodium 139 mmol/L (135-145); Total Protein 6.9 g/dL (6.5-8.0)
[2025-03-09 09:55] LABS: Alanine Aminotransferase 79 U/L (0-31)
--- NOTE | 2025-03-09 11:27 | MHC.CM.PN ---
PT CLEARED TO DC HOME TODAY WITH NO SERVICES VIA PRIVATE TRANSPORT
[2025-03-09 11:49] VITALS: BP 132/76; PULSE 84; RESP 14; TEMP 36.7; O2SAT 97
--- NOTE | 2025-03-09 15:56 | P.DS_ITS ---
DS: Providers Provider Date of Service: 03/09/25 Date of admission: 03/02/25 09:43 Date of discharge: 03/09/25 Primary care physician: Keli Davila MD Consults: 03/02/25 09:31 Consult to Gastroenterology Stat Consulting Provider: [facility] Gastro[facility]ology Services Reason for consultation: Pancreatitis, poss ERCP Has provider been notified: No DS: Diagnosis Discharge Diagnosis (1) Gallstone pancreatitis: Status: Acute DS: Summary Hospital Course Hospital Course: The patient is a 34 year old female known to the weight management program who underwent a laparoscopic sleeve gastrectomy earlier this year. The patient had remarkable weight loss so far and had a completely uneventful recovery. The patient was doing very well but has recently been complaining of persistent mid epigastric and right upper quadrant abdominal pain which is mostly postprandial. She presented to the ED on 03/02/2025 with these complaints and labs indicated gallstone pancreatitis. Ultrasound of the abdomen and pelvis was consistent with cholelithiasis. Because there was inflammation of the pancreas and elevated LFTs, an MRCP was also performed that was negative for choledocholithiasis. The patient was treated for the pancreatitis and once symptoms resolved and laboratory work-up normalized, she was scheduled for laparoscopic cholecystectomy with possible cholangiogram to evaluate the patient's symptoms. She underwent lap radha with attempted IOC on 03/08/2025, however IOC was unable to be performed; despite several attempts the catheter was unable to be placed in position and the cholangiogram was aborted. Pt tolerated the procedure well and postoperatively was allowed a bariatric stage 3 diet. Labs the following day had improved, and pt was able to be discharged to home. Time Attestation Discharge Coordination Time (in mins): 30 Quality: Safe Use of Opioids Does Pt have an Active Cancer Diagnosis on the Problem List?: No Quality: Stroke Does the patient have a stroke diagnosis?: No Physical Exam Vital Signs: Vital Signs: Last Vital Signs Temp 98.1 F 03/09/25 11:49 Pulse 84 03/09/25 11:49 Resp 14 03/09/25 11:49 BP 132/76 03/09/25 11:49 Pulse Ox 97 03/09/25 11:49 O2 Del Method Room Air 03/09/25 11:49 O2 Flow Rate 2 03/08/25 13:40 BMI result Body Mass Index 24.7 DS: Data Data Completed and Pending Completed studies during hospitalization [Text1]: Procedures Excision of Stomach, Percutaneous Endoscopic Approach, Vertical (10/12/24) Release Peritoneum, Percutaneous Endoscopic Approach (10/12/24) Pending studies at discharge: Pending at discharge 03/08/25 12:05 Surgical [PTH] Routine Labs on day of discharge: Laboratory Results - last 24 hr 03/09/25 08:51 WBC 15.4 H RBC 4.67 Hgb 13.2 Hct 41.4 MCV 88.7 MCH 28.3 MCHC 31.9 RDW 12.7 Plt Count 357 MPV 12.0 Immature Gran % (Auto) 0.5 H Neut % (Auto) 84.0 H Lymph % (Auto) 7.7 L [place] % (Auto) 7.7 Eos % (Auto) 0.0 Baso % (Auto) 0.1 Lymph # (Auto) 1.2 [place] # (Auto) 1.2 Eos # (Auto) 0.0 Baso # (Auto) 0.0 Abs Immat Gran (auto) 0.07 H Absolute Neuts (auto) 12.9 H Absolute Nucleated RBC 0.000 Nucleated RBC % (auto) 0.0 Sodium 139 Potassium 3.7 Chloride 108 Carbon Dioxide 25 Anion Gap 10 L BUN 5 L Creatinine 0.55 Estim Creat Clear Calc 121.4 Estimated GFR > 60 Random Glucose 97 Calcium 10.1 D Total Bilirubin 1.2 H Direct Bilirubin 0.5 AST 42 H ALT 79 H Alkaline Phosphatase 76 Total Protein 6.9 Albumin 4.5 Lipase 75 Discharge Plan Discharge Anticipated Discharge Date/Time: 03/09/25 10:06 Patient Disposition: Home, Self-Care Discharge Diagnosis: Gallstone pancreatitis, cholelithiasis Referrals: Keli Solorio MD [Primary Care Provider, Internal Medicine] - 1 Week Discharge Medications: Continued (DME) nebulizers [Aeroneb Go Nebulizer] Misc See Rx Instructions .Route Qty: 1 0RF Rx Instructions: As directed [id number] 27 mg iron- 800 mcg-235 mg Capsule 1 cap PO DAILY albuterol sulfate 90 mcg/actuation HFA aerosol inhaler 1 inh inhalation QID PRN (Reason: Shortness Of Breath Or Wheezing) cetirizine [Zyrtec] 10 mg Tablet 10 mg PO DAILY PRN (Reason: allergies) ipratropium-albuterol 0.5 mg-3 mg(2.5 mg base)/3 mL solution for nebulization 3 ml inhalation Q4H PRN (Reason: shortness of breath or wheezing) triamcinolone acetonide 0.1 % cream 1 applic topical DAILY PRN (Reason: eczema) tacrolimus 0.03 % ointment 1 appl topical BID PRN (Reason: eczema) pantoprazole 40 mg tablet,delayed release (DR/EC) 40 mg PO DAILY PRN (Reason: Acid Reflux) Discharge Orders: Discharge Order (Routine); Ordered 03/09/25 Ordered By: Vlad Yanez Activity on Discharge: As tolerated Stand Alone Forms: Patient Portal Discharge page Print Language: Faroese Care Plan Goals: Recuperate from surgery and resume activites and regular meal plan Health Concerns: None Plan of Treatment: The patient was initially treated for the pancreatitis. MRCP was performed that showed no choledocholithiasis. Once the pancreatitis resolved, the patient underwent laparoscopic cholecystectomy Assessment: The patient's symptoms resolved Discharge Date/Time: 03/09/25 12:14
== END 2025-03-09 12:14 | disposition home or self-care (01) | DRG 263 ==
LOC: HO.ED 08:30 → HO.EDOVER 09:48 → HO.S3 13:40
PROVIDERS: Emergency Medicine; Internal Medicine Gastroenterology; Physician Assistant Surgical; Admitting Provider Surgery; Emergency Provider Emergency Medicine Emergency Medical Services; PCP Internal Medicine; Visit Provider Surgery
PROC: 0FT44ZZ Resection of Gallbladder, Percutaneous Endoscopic Approach (ICD-10-PCS; CPT 47562; principal; 2025-03-08 09:50)
DX: K85.10 Biliary acute pancreatitis without necrosis or infection (principal); K76.0 Fatty (change of) liver, not elsewhere classified; Z98.84 Bariatric surgery status; Z23 Encounter for immunization; Z87.891 Personal history of nicotine dependence; Z79.899 Other long term (current) drug therapy
CPT/HCPCS: 36415; 74177; 74181; 76705; 80048; 80053; 80076; 82150; 82248; 82947; 83605; 83690; 83735; 84100; 84702; 85025; 87040; 88304; 90656; 99285; C1726; C1894; C9145; J0131; J0696; J1100; J1171; J1630; J1836; J1956; J2003; J2250; J2371; J2405; J2704; J2795; J3010; J3475; J3480; J7120; Q9967

== ENCOUNTER → 2025-03-02 05:00 | Outpatient (BNV) | payer OTHER, SELFPAY | PROVIDERS: Emergency Provider Emergency Medicine Emergency Medical Services; PCP Internal Medicine; Visit Provider Specialist | DX: K85.10 Biliary acute pancreatitis without necrosis or infection (principal); R18.8 Other ascites; K80.20 Calculus of gallbladder without cholecystitis without obstruction; K76.0 Fatty (change of) liver, not elsewhere classified; K83.8 Other specified diseases of biliary tract | CPT/HCPCS: 74177; 74181; 76705 ==

== ENCOUNTER → 2025-03-02 09:43 | Outpatient (BNV) | payer OTHER, SELFPAY | PROVIDERS: Admitting Provider Surgery; Emergency Provider Emergency Medicine Emergency Medical Services; PCP Internal Medicine; Visit Provider Surgery | DX: K80.01 Calculus of gallbladder with acute cholecystitis with obstruction (principal); K85.10 Biliary acute pancreatitis without necrosis or infection | CPT/HCPCS: 99231; 99232 ==

== ENCOUNTER → 2025-03-02 09:43 | Outpatient (BNV) | payer OTHER, SELFPAY | PROVIDERS: Admitting Provider Surgery; Emergency Provider Emergency Medicine Emergency Medical Services; PCP Internal Medicine; Visit Provider Internal Medicine Gastroenterology | DX: K85.10 Biliary acute pancreatitis without necrosis or infection (principal); R74.8 Abnormal levels of other serum enzymes | CPT/HCPCS: 99222 ==

== ENCOUNTER 2025-03-14 08:49 | Outpatient (AMB) | payer OTHER, SELFPAY ==
--- NOTE | 2025-03-14 09:09 | A.OFFVIS_ITS ---
VS Expanded 03/14/25 09:33 BP 131/84 Blood Pressure Location Rt brachial Blood Pressure Position Sitting Pulse 83 Pulse Source Pulse Oximeter Temp 97.5 F Temperature Source Temporal Artery Scan Pulse Oximetry 97 Height 5 ft 1 in Weight 121 lb 12.8 oz BMI 23.0 Body Fat % 23.4 Body Fat Mass 28.4 Fat Free Mass 93.2 Visceral Fat Rating 2.0 Body Water % 55.1 Body Water Mass 67.0 Muscle Mass/Score 88.4 Basal Metabolic Rate/Score 1,273 Intake Visit Reasons: OV PO Cholecystectomy Laparoscopic 03/08/25 Allergies amoxicillin (AMOXICILLIN) Allergy (Intermediate, Verified 03/14/25 09:35) RASH animal dander Allergy (Mild, Verified 03/14/25 09:35) Wheezing Seasonal Allergies Allergy (Mild, Verified 03/14/25 09:35) Wheezing fruits Allergy (Severe, Uncoded 03/02/25 03:38) Difficulty Breathing Medication List - Last Reconciled 03/14/25 by SHERRI Acuna albuterol sulfate 90 mcg/actuation 1 inh inhalation QID PRN cetirizine (Zyrtec) 10 mg PO DAILY PRN ipratropium-albuterol 0.5 mg-3 mg(2.5 mg base)/3 mL 3 mL inhalation Q4H PRN nebulizers (Aeroneb Go Nebulizer) As directed pantoprazole 40 mg PO DAILY PRN [id number] 27 mg iron- 800 mcg-235 mg 1 cap PO DAILY tacrolimus 0.03% 1 appl topical BID PRN triamcinolone acetonide 0.1% 1 appl topical DAILY PRN HPI Comments Details: Pt is 8d s/p lap radha for gallstone pancreatitis. Feeling well, pain is controlled. No nausea. liquid diet- Ensure shakes until she has a BM, then she can resume regular BM in communication with Dr Wheat via text [facility] Medical History (Updated 03/08/25 @ 09:19 by Homa Shea RN) History of gastrectomy Morbid obesity with BMI of 40.0-44.9, adult Obesity GERD (gastroesophageal reflux disease) Hypertension Infertility counseling Allergic rhinitis Mild asthma Eczema Surgical History (Updated 03/14/25 @ 10:11 by SHERRI Acuna) Hx laparoscopic cholecystectomy S/P gastric sleeve procedure History of esophagogastroduodenoscopy (EGD) Hx of tonsillectomy Family History Father AIDS Mother Breast cyst Pre-diabetes Social History Household Members: None Housing: Apartment Are you a primary resident care director to a significant other at home: Yes (minor child) Do you presently have visiting nurse or other home services: No Alcohol intake: never Patient Tobacco Use Status: Former Tobacco user Tobacco use type: Cigarette Years Smoked: 13 e-Cigarette/Vaping Use: Never Used Second Hand Smoke Exposure: No service: No Current occupational status: employed Current occupation: [employer] Current occupational exposures/hazards: No Sexual orientation: Lesbian/Boggs/Homosexual Gender identity: Female Cognitive needs: No Hearing needs: No Vision needs: No Female Reproductive History Menstrual Age of Menarche: 13 Physical Exam Vital Signs: Last Vital Signs Temp 97.5 F 03/14/25 09:33 Pulse 83 03/14/25 09:33 BP 131/84 03/14/25 09:33 Pulse Ox 97 03/14/25 09:33 BMI result Body Mass Index 23.0 Const General: cooperative, comfortable and no acute distress Orientation/consciousness: patient oriented x3 GI Other: soft, nontender, nondistended, steri-strips c/d/i Neuro General: patient oriented x3 Assessment & Plan Assessment & Plan (1) Gallstone pancreatitis: Code(s): K85.10 - Biliary acute pancreatitis without necrosis or infection Category: Medical (2) History of sleeve gastrectomy: Code(s): Z90.3 - Acquired absence of stomach [part of] Category: Surgical Plan May shower tomorrow but no bath or submersion of abdomen in water. May resume exercise.? No abdominal exercises x 6 weeks. Cleared to return to work next week. Resume meal plan as above. We discussed no fatty foods. Pt is at a healthy weight and consistently follows a good meal plan. Pt has next f/u scheduled for April.
--- OUTSIDE RECORDS SUMMARY | 2025-03-14 09:29 | XMS_ITS | Encounter Summary ---
Author Organization [facility] Address [address] [place] [address] Phone Care Team Providers Care Medical Technologist Hematology Name Role Phone Yeni Dumont MD Primary Care Provider [phone] Encounter Details Date Type Department Care Team (Late st Contact Info) Description 01/07/2017 Conversion Encounter [facility] [place] [address] [place] [address] Social History Tobacco Use Types Packs/Day Years [...] filedocumented in this encounter Care Teams Medical Technologist Hematology Relationship Specialty Start Date End Date Yeni Dumont MD [address] [place] [address] PCP - General 01/01/17 11/12/22 documented as of this encounter
--- OUTSIDE RECORDS SUMMARY | 2025-03-14 09:29 | XMS_ITS | Clinical Summary ---
Author Organization [facility] Address [address] [place] [address] Phone Care Team Providers Care Treasury Associate Name Role Phone Unavailable Primary Care Provider [...] history of Migraines, Family history of Sudden /OR under age 55, Family history of Diabetes [...] this topic Procedures * Due to [place] [employer] law, this organization might not be sharing sensitive test results. Procedure Name Priority Date/Time Associated Diagnosis Comments CHLAMYDIA AND GONORRHEA, AMPLIFIED Routine 10/28/2012 4:39 PM EDT from Last 3 Months or Most Recently Relevant to Health Maintenance Results * Due to [place] [employer] law, this organization might not be sharing sensitive test results. * Chlamydia and Gonorrhoea, Amplified (10/28/2012 4:39 PM EDT) URINE GC AMP PROBE NEGATIVE [facility] Comment: NO NEISSERIA GONORRHOEAE RNA DETECTED IN THIS PATIENT'S SAMPLE. (REFERENCE RANGE/NORMAL VALUE: NOT DETECTED) NOTE: THIS TEST USES ROCKET MOTOR MECHANIC-MEDIATED AMPLIFICATION METHOD TO DETECT rRNA FROM C.TRACHOMATIS [...] OF INFECTION. URINE CHLAMYDIA AMP PROBE NEGATIVE [facility] Comment: NO CHLAMYDIA TRACHOMATIS RNA DETECTED IN THIS PATIENT'S SAMPLE. (REFERENCE RANGE/NORMAL VALUE: NOT DETECTED) 10/28/2012 4:39 PM EDT Narrative [facility] - 10/28/2012 4:39 PM EDT URINE CHLAMYDIA GC AMP PROBE us Yeni Dumont MD LAB MICROBIOLOGY - GENERAL ORDER TONIO Final Result [facility] [address] [place] [address], [place] from Last 3 Months or Most Recently Relevant to Health Maintenance
--- OUTSIDE RECORDS SUMMARY | 2025-03-14 09:29 | XMS_ITS | Encounter Summary ---
Author Organization [facility] Address [address] [place] [address] Phone Care Team Providers Care Interventional Pain Physician Name Role Phone Yeni Dumont MD Primary Care Provider [phone] Encounter Details Date Type Department Care Team (Late st Contact Info) Description 05/07/2010 Documentation [facility] [place] Family Medicine [address] [place], [place] [id number] Family Medicine, Physician [address] [place] [address] Social History Tobacco Use Types Packs/Day Years [...] on filedocumented in this encounter Care Teams Interventional Pain Physician Relationship Specialty Start Date End Date Yeni Dumont MD [address] [place] [address] PCP - General 01/01/17 11/12/22 documented as of this encounter
--- OUTSIDE RECORDS SUMMARY | 2025-03-14 09:29 | XMS_ITS | Encounter Summary ---
Author Organization [facility] Address [address] [place] [address] Phone Care Team Providers Care Caregivers Non Medical Name Role Phone Yeni Dumont MD Primary Care Provider [phone] Encounter Details Date Type Department Care Team (Late st Contact Info) Description 01/02/2014 Documentation [facility] [place] [address] [place] [address] Family Medicine, Physician [address] [place] [address] Social History Tobacco Use Types Packs/Day Years [...] on filedocumented in this encounter Care Teams Caregivers Non Medical Relationship Specialty Start Date End Date Yeni Dumont MD [address] [facility] [place] [address] PCP - General 01/01/17 11/12/22 documented as of this encounter
--- OUTSIDE RECORDS SUMMARY | 2025-03-14 09:30 | XMS_ITS | Patient Health Record ---
Author Organization [facility] Address [address] [place] [address] Care Team Providers Care Alligator Shear Operator Name Role Phone Keli Solorio Primary Care Provider Luis Otero Jr Unavailable [phone] Allergies Allergen (clinical drug ingredient) Drug/Non Drug Allergy documented on EMR Reaction Allergy Type Onset Date Status nuts,seafood,fruits, an imal fur (uncoded) Unknown Allergy Active Reason For Referral No Information Medications Medication SIG (Take, Route, Frequency, Duration) Notes Start Date End Date Status Omeprazole 20 MG 1 capsule Oral Once a day; Duration: 30 days Active Triamcinolone & Emollient 0.1 % 1 Externally Twice a day Act damon Protopic 0.1 % APPLY EXTERNALLY TO THE AFFECTED AREA BID PRN External; Duration: 30 Active Problems Problem Type SNOMED Code ICD Code Onset Dates Problem Status W/U Status Risk Notes Problem Epigastric pain (28638169) Epigastric pain (789.06) Active confirmed Plan Of Treatment Pending Test Test Name Order Date XR GI SERIES 10/05/2013 Insurance Providers Payer Name Payer Address Payer Phone Subscriber Number Group Number Insured Name Patient Relationship to Insured Coverage Start Date Coverage End Date [employer] [place] [address] [address] [place] [address] [id number] 1 [employer] [place] Self - patient is the insured Medical (General) History Medical History History ICD Code asthma eczema
--- OUTSIDE RECORDS SUMMARY | 2025-03-14 09:30 | XMS_ITS | Encounter Summary ---
Author Organization [facility] Address [address] [place] [address] Phone Care Team Providers Care Supervisor Steffen House Name Role Phone Yeni Dumont MD Primary Care Provider [phone] Encounter Details Date Type Department Care Team (Late st Contact Info) Description 10/03/2013 Documentation [facility] [place] Family Medicine [address] [place] [address] Family Medicine, Physician [address] [place] [address] Social History Tobacco Use Types Packs/Day Years [...] on filedocumented in this encounter Care Teams Supervisor Steffen House Relationship Specialty Start Date End Date Yeni Dumont MD [address] [place] [address] PCP - General 01/01/17 11/12/22 documented as of this encounter
--- OUTSIDE RECORDS SUMMARY | 2025-03-14 09:30 | XMS_ITS | Encounter Summary ---
Author Organization [facility] Address [address] [place] [address] Phone Care Team Providers Care Marketing Project Coordinator Name Role Phone Yeni Dumont MD Primary Care Provider [phone] Encounter Details Date Type Department Care Team (Late st Contact Info) Description 05/20/2011 Documentation [facility] [place] Family Medicine [address] [place], [place] [phone] Family Medicine, Physician [address] [place] [address] Social History Tobacco Use Types Packs/Day Years [...] on filedocumented in this encounter Care Teams Marketing Project Coordinator Relationship Specialty Start Date End Date Yeni Dumont MD [address] [place] [address] PCP - General 01/01/17 11/12/22 documented as of this encounter
--- OUTSIDE RECORDS SUMMARY | 2025-03-14 09:30 | XMS_ITS | Encounter Summary ---
Author Organization [facility] Address [address] [place] [address] Phone Care Team Providers Care Cane Flume Feeding Machine Operator Name Role Phone Yeni Dumont MD Primary Care Provider [phone] Encounter Details Date Type Department Care Team (Late st Contact Info) Description 05/20/2011 Documentation [facility] [place] [address] [place], [place] [id number] Family Medicine, Physician [address] [place] [address] Social History Tobacco Use Types Packs/Day Years [...] on filedocumented in this encounter Care Teams Cane Flume Feeding Machine Operator Relationship Specialty Start Date End Date Yeni Dumont MD [address] [place] [address] PCP - General 01/01/17 11/12/22 documented as of this encounter
--- OUTSIDE RECORDS SUMMARY | 2025-03-14 09:30 | XMS_ITS | Encounter Summary ---
Author Organization [facility] Address [address] [place] [address] Phone Care Team Providers Care Telecommunications Specialist Name Role Phone Yeni Dumont MD Primary Care Provider [phone] Encounter Details Date Type Department Care Team (Late st Contact Info) Description 08/26/2010 Documentation [facility] [place] Family Medicine [address] [place], [place] [phone] Family Medicine, Physician [address] [place] [address] Social History Tobacco Use Types Packs/Day Years [...] on filedocumented in this encounter Care Teams Telecommunications Specialist Relationship Specialty Start Date End Date Yeni Dumont MD [address] [facility] [place] [address] PCP - General 01/01/17 11/12/22 documented as of this encounter
--- OUTSIDE RECORDS SUMMARY | 2025-03-14 09:30 | XMS_ITS | Encounter Summary ---
Author Organization [facility] Address [address] [place] [address] Phone Care Team Providers Care Bias Machine Operator Helper Name Role Phone Yeni Dumont MD Primary Care Provider Encounter Details Date Type Department Care Team (Late st Contact Info) Description 06/25/[address] [facility] [place] Family Medicine [address] [place], [place] [phone] Family Medicine, Physician [address] [place] [address] Social History Tobacco Use Types Packs/Day Years [...] on filedocumented in this encounter Care Teams Bias Machine Operator Helper Relationship Specialty Start Date End Date Yeni Dumont MD [address] [place] [address] PCP - General 01/01/17 11/12/22 documented as of this encounter
[2025-03-14 09:33] VITALS: BP 131/84; PULSE 83; TEMP 36.4; O2SAT 97; BMI 23.0
== END 2025-03-14 10:11 | disposition home or self-care (01) ==
LOC: HO.HBS 08:50
PROVIDERS: PCP Internal Medicine; Visit Provider Physician Assistant Surgical
DX: K85.10 Biliary acute pancreatitis without necrosis or infection (principal); Z90.3 Acquired absence of stomach [part of]
CPT/HCPCS: 99214

== ENCOUNTER 2025-05-14 15:58 | Outpatient (AMB) | payer OTHER, SELFPAY ==
--- NOTE | 2025-05-14 15:48 | MHC.OFFVISWM ---
VS Expanded 05/14/25 16:05 BP 133/73 Blood Pressure Location Rt brachial Blood Pressure Position Sitting Pulse 79 Pulse Source Pulse Oximeter Temp 97.1 F Temperature Source Temporal Artery Scan Pulse Oximetry 98 Oxygen Delivery Method Room Air Height 5 ft 1 in Weight 120 lb 12.8 oz BMI 22.8 Body Fat % 16.5 Body Fat Mass 19.8 Fat Free Mass 100.8 Visceral Fat Rating 1.0 Body Water % 60.0 Body Water Mass 72.4 Muscle Mass/Score 95.6 Basal Metabolic Rate/Score 1,343 Intake Visit Reasons: OV PO LSG 10/12/24 Allergies amoxicillin (AMOXICILLIN) Allergy (Intermediate, Verified 05/14/25 16:06) RASH animal dander Allergy (Mild, Verified 05/14/25 16:06) Wheezing Seasonal Allergies Allergy (Mild, Verified 05/14/25 16:06) Wheezing fruits Allergy (Severe, Uncoded 03/02/25 03:38) Difficulty Breathing Medication List - Last Reconciled 05/14/25 by SHERRI Acuna albuterol sulfate 90 mcg/actuation 1 inh inhalation QID PRN 30 days cetirizine (Zyrtec) 10 mg PO DAILY PRN ipratropium-albuterol 0.5 mg-3 mg(2.5 mg base)/3 mL 3 mL inhalation Q4H PRN nebulizers (Aeroneb Go Nebulizer) As directed pantoprazole 40 mg PO DAILY PRN [id number]-[id number] 27 mg iron- 800 mcg-235 mg 1 cap PO DAILY tacrolimus 0.03% 1 appl topical BID PRN 30 days triamcinolone acetonide 0.1% 1 appl topical DAILY PRN HPI Comments Details: This?is a?35?yo F who is s/p LSG 09/2024 and lap radha in February 2025. Weight stable since last OV in February. ? No complaints of nausea, emesis, abdominal pain or reflux, or constipation. Continues to communicate with Dr. Wheat Present meal plan includes: 1 boiled egg or scrambled egg for breakfast I don't really eat lunch or dinner she feels scared to eat takes MVI fluid intake is adequate Exercise routine includes: hiking even in the winter tries to go every day, 4-5x/week Pt reports issues of excess skin of inner thighs. She notes having to wear pants at all times, cannot wear shorts. She has to wear looser pants, can't wear leggings due to the difficulty with excess skin rubbing on the clothing. She walks a lot at work and due to the excess skin moving around and hitting together, walking is more uncomfortable. She is also experiencing issues of excess skin of upper arms. She notices chafing where the excess skin rubs against the torso. The weight of the excess skin causes her arms to be heavier which is uncomfortable. Has to wear longer sleeves at all times to cover the excess skin of upper arms. [facility] Medical History (Updated 03/17/25 @ 00:01 by Carmela Nichole) History of gastrectomy Morbid obesity with BMI of 40.0-44.9, adult Obesity GERD (gastroesophageal reflux disease) Hypertension Infertility counseling Allergic rhinitis Mild asthma Eczema Surgical History Hx laparoscopic cholecystectomy S/P gastric sleeve procedure History of esophagogastroduodenoscopy (EGD) Hx of tonsillectomy Family History Father AIDS Mother Breast cyst Pre-diabetes Social History Household Members: None Housing: Apartment Are you a primary managed care coordinator to a significant other at home: Yes (minor child) Do you presently have visiting nurse or other home services: No Alcohol intake: never Patient Tobacco Use Status: Former Tobacco user Tobacco use type: Cigarette Years Smoked: 13 e-Cigarette/Vaping Use: Never Used Second Hand Smoke Exposure: No service: No Current occupational status: employed Current occupation: [employer] Current occupational exposures/hazards: No Sexual orientation: Lesbian/Boggs/Homosexual Gender identity: Female Cognitive needs: No Hearing needs: No Vision needs: No Female Reproductive History Menstrual Age of Menarche: 13 Physical Exam Vital Signs: Last Vital Signs Temp 97.1 F 05/14/25 16:05 Pulse 79 05/14/25 16:05 BP 133/73 05/14/25 16:05 Pulse Ox 98 05/14/25 16:05 Oxygen Delivery Method Room Air 05/14/25 16:05 BMI result Body Mass Index 22.8 Assessment & Plan Assessment & Plan (1) History of sleeve gastrectomy: Code(s): Z90.3 - Acquired absence of stomach [part of] Category: Surgical (2) S/P laparoscopic cholecystectomy: Code(s): Z90.49 - Acquired absence of other specified parts of digestive tract Category: Surgical Plan We discussed that pt's current meal plan was not sufficient and she was lacking adequate nutrition to support muscle mass, bone health, metabolic function etc. I encouraged her to try adding in half of one Ensure protein shake per day, for now, and monitor her weight. She is fearful of weight gain and would benefit from appt with BH. RTC in September for annual and I will speak to her in late Jun/early July as well to check in. I also texted pt and encouraged her to text me with any concerns.
[2025-05-14 16:05] VITALS: BP 133/73; PULSE 79; TEMP 36.2; O2SAT 98; BMI 22.8
--- OUTSIDE RECORDS SUMMARY | 2025-05-14 18:43 | XMS_ITS | Encounter Summary ---
Author Organization [facility] Address [address] [place] [address] Phone Care Team Providers Care Road Crew Member Name Role Phone Yeni Dumont MD Primary Care Provider [phone] Encounter Details Date Type Department Care Team (Late st Contact Info) Description 10/03/2013 Documentation [facility] [place] Family Medicine [address] [place] [address] Family Medicine, Physician [address] [place] [address] Social History Tobacco Use Types Packs/Day Years [...] filedocumented in this encounter Care Teams Road Crew Member Relationship Specialty Start Date End Date Yeni Dumont MD 150 [place] [address] PCP - General 01/01/17 11/12/22 documented as of this encounter
--- OUTSIDE RECORDS SUMMARY | 2025-05-14 18:43 | XMS_ITS | Patient Health Record ---
Author Organization [facility] Address [address] [place] [address] Care Team Providers Care Public Safety Director Name Role Phone Keli Solorio Primary Care Provider Luis Otero Jr Unavailable Allergies Allergen (clinical drug ingredient) Drug/Non Drug Allergy documented on EMR Reaction Allergy Type Onset Date Status nuts,seafood,fruits, an imal fur (uncoded) Unknown Allergy Active Reason For Referral No Information Medications Medication SIG (Take, Route, Frequency, Duration) Notes Start Date End Date Status Omeprazole 20 MG Capsule Delayed Release 1 capsule Oral Once a day; Duration: 30 days Active Triamcinolone & Emollient 0.1 % Kit 1 Externally Twice a day Act damon Protopic 0.1 % Ointment APPLY EXTERNALLY TO THE AFFECTED AREA BID PRN External; Duration: 30 Active Social History Social History Additional Details Category Social Info Options Details Miscellaneous: Marital status: single 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 Problems Problem Type SNOMED Code ICD Code Onset Dates Problem Status W/U Status Risk Notes Problem Epigastric pain (38211135) Epigastric pain (789.06) Active confirmed Plan Of Treatment Pending Test Test Name Order Date XR GI SERIES 10/05/2013 Insurance Providers Payer Name Payer Address Payer Phone Subscriber Number Group Number Insured Name Patient Relationship to Insured Coverage Start Date Coverage End Date [employer] [place] Sylvia[employer]hakar[place]rav[place] [address] [address] [place] [address] [id number] 1 [employer] Self - patient is the insured Medical (General) History Medical History History ICD Code asthma eczema
--- OUTSIDE RECORDS SUMMARY | 2025-05-14 18:43 | XMS_ITS | Encounter Summary ---
Author Organization [facility] Address [address] [place] [address] Phone Care Team Providers Care Senior Web Analyst Name Role Phone Yeni Dumont MD Primary Care Provider [phone] Encounter Details Date Type Department Care Team (Late st Contact Info) Description 05/20/2011 Documentation [facility] [place] Family Medicine [address] [place], [place] [id number] Family Medicine, Physician [address] [place] [address] Social History Tobacco Use Types Packs/Day Years [...] filedocumented in this encounter Care Teams Senior Web Analyst Relationship Specialty Start Date End Date Yeni Dumont MD 150 [facility] [place] [address] PCP - General 01/01/17 11/12/22 documented as of this encounter
--- OUTSIDE RECORDS SUMMARY | 2025-05-14 18:43 | XMS_ITS | Encounter Summary ---
Author Organization [facility] Address [address] [place] [address] Phone Care Team Providers Care Cigarette Making Machine Operator Name Role Phone Yeni Dumont MD Primary Care Provider [phone] Encounter Details Date Type Department Care Team (Late st Contact Info) Description 05/20/2011 Documentation [facility] [place] [address] [place], [place] [id number] Family Medicine, Physician [address] [place] [address] Social History Tobacco Use Types Packs/Day Years [...] on filedocumented in this encounter Care Teams Cigarette Making Machine Operator Relationship Specialty Start Date End Date Yeni Dumont MD 150 [facility] [place] [address] PCP - General 01/01/17 11/12/22 documented as of this encounter
--- OUTSIDE RECORDS SUMMARY | 2025-05-14 18:43 | XMS_ITS | Clinical Summary ---
Author Organization [facility] Address [address] [place] [address] Phone Care Team Providers Care Php Programmer Name Role Phone Unavailable Primary Care Provider [...] history of Migraines, Family history of Sudden /[place] under age 55, Family history of Diabetes [...] complete this topic Procedures * Due to [place] PhilSmile law, this organization might not be sharing sensitive test results. Procedure Name Priority Date/Time Associated Diagnosis Comments CHLAMYDIA AND GONORRHEA, AMPLIFIED Routine 10/28/2012 4:39 PM EDT from Last 3 Months or Most Recently Relevant to Health Maintenance Results * Due to [place] PhilSmile law, this organization might not be sharing sensitive test results. * Chlamydia and Gonorrhoea, Amplified (10/28/2012 4:39 PM EDT) URINE GC AMP PROBE NEGATIVE [facility] Comment: NO NEISSERIA GONORRHOEAE RNA DETECTED IN THIS PATIENT'S SAMPLE. (REFERENCE RANGE/NORMAL VALUE: NOT DETECTED) NOTE: THIS TEST USES NURSE PARALEGAL-MEDIATED AMPLIFICATION METHOD TO DETECT rRNA FROM C.TRACHOMATIS [...] TONIO Final Result [facility] [address] [place] [address], [place] from Last 3 Months or Most Recently Relevant to Health Maintenance
--- OUTSIDE RECORDS SUMMARY | 2025-05-14 18:43 | XMS_ITS | Encounter Summary ---
Author Organization [facility] Address [address] [place] [address] Phone Care Team Providers Care Edger Technician Name Role Phone Yeni Dumont MD Primary Care Provider [phone] Encounter Details Date Type Department Care Team (Late st Contact Info) Description 01/07/2017 Conversion Encounter [facility] [place] [address] [place] [address] Social History Tobacco Use Types Packs/Day Years [...] on filedocumented in this encounter Care Teams Edger Technician Relationship Specialty Start Date End Date Yeni Dumont MD [address] [place] [address] PCP - General 01/01/17 11/12/22 documented as of this encounter
--- OUTSIDE RECORDS SUMMARY | 2025-05-14 18:43 | XMS_ITS | Encounter Summary ---
Author Organization [facility] Address [address] [place] [address] Phone Care Team Providers Care Golf Instructor Name Role Phone Yeni Dumont MD Primary Care Provider [phone] Encounter Details Date Type Department Care Team (Late st Contact Info) Description 05/07/2010 Document[place] [facility] [place] [address] [place], [place] [id number] Family Medicine, Physician [address] [place] [address] Social History Tobacco Use Types Packs/Day Years [...] on filedocumented in this encounter Care Teams Golf Instructor Relationship Specialty Start Date End Date Yeni Dumont MD 150 [place] [address] PCP - General 01/01/17 11/12/22 documented as of this encounter
--- OUTSIDE RECORDS SUMMARY | 2025-05-14 18:43 | XMS_ITS | Encounter Summary ---
Author Organization [facility] Address [address] [place] [address] Phone Care Team Providers Care Founder And Chief Executive Officer Name Role Phone Yeni Dumont MD Primary Care Provider [phone] Encounter Details Date Type Department Care Team (Late st Contact Info) Description 01/02/2014 Documentation [facility] [place] [address] [place] [address] Family Medicine, Physician [address] [place] [address] Social History Tobacco Use Types Packs/Day Years [...] on filedocumented in this encounter Care Teams Founder And Chief Executive Officer Relationship Specialty Start Date End Date Yeni Dumont MD 150 [facility] [place] [address] PCP - General 01/01/17 11/12/22 documented as of this encounter
--- OUTSIDE RECORDS SUMMARY | 2025-05-14 18:43 | XMS_ITS | Encounter Summary ---
Author Organization [facility] Address [address] [place] [address] Phone Care Team Providers Care Rewriter Name Role Phone Yeni Dumont MD Primary Care Provider [phone] Encounter Details Date Type Department Care Team (Late st Contact Info) Description 06/25/2011 Document[place] [facility] [place] [address] [place], [place] [phone] Family Medicine, Physician [address] [place] [address] Social History Tobacco Use Types Packs/Day Years [...] on filedocumented in this encounter Care Teams Rewriter Relationship Specialty Start Date End Date Yeni Dumont MD 150 [place] [address] PCP - General 01/01/17 11/12/22 documented as of this encounter
--- OUTSIDE RECORDS SUMMARY | 2025-05-14 18:43 | XMS_ITS | Encounter Summary ---
Author Organization [facility] Address [address] [place] [address] Phone Care Team Providers Care Mold Maker Apprentice Name Role Phone Yeni Dumont MD Primary Care Provider [phone] Encounter Details Date Type Department Care Team (Late st Contact Info) Description 08/26/2010 Documentation [facility] [place] Family Medicine [address] [employer], [place] [phone] Family Medicine, Physician [address] [place] [address] Social History Tobacco Use Types Packs/Day Years [...] on filedocumented in this encounter Care Teams Mold Maker Apprentice Relationship Specialty Start Date End Date Yeni Dumont MD 150 [place] [address] PCP - General 01/01/17 11/12/22 documented as of this encounter
== END 2025-05-14 16:42 | disposition home or self-care (01) ==
LOC: HO.HBS 15:59
PROVIDERS: PCP Internal Medicine; Visit Provider Physician Assistant Surgical
DX: Z71.3 Dietary counseling and surveillance (principal); Z90.3 Acquired absence of stomach [part of]; Z90.49 Acquired absence of other specified parts of digestive tract; Z98.84 Bariatric surgery status
CPT/HCPCS: 99214